=== PATIENT | female | born 1945 | race Caucasian/White ===

== ENCOUNTER 2018-07-11 06:48 | Observation (INO) | payer MEDICARE, SELFPAY ==
[2018-07-11] VITALS (14 sets, daily range): BP systolic 99–181; BP diastolic 54–108; PULSE 67–88; RESP 14–18; TEMP 36.6–36.7; O2SAT 95–100; BMI 23.7; BMI 22.7
--- NOTE | 2018-07-11 07:08 | EKG12_ITS ---
Test Reason : CP Blood Pressure : / mmHG Vent. Rate : 085 BPM Atrial Rate : 085 BPM P-R Int : 168 ms QRS Dur : 086 ms QT Int : 368 ms P-R-T Axes : 060 009 066 degrees QTc Int : 437 ms Sinus rhythm with occasional Premature ventricular complexes Possible Left atrial enlargement Low voltage QRS Borderline ECG Confirmed by ADRIENNE DEVI, SEAN ([id number]), deputy editor in chief KISHAN LOVE ([id number] on 07/13/2018 9:12:17 AM Referred By: EDPHYS Confirmed By:SEAN DELEON MD
[2018-07-11] MEDS: Aspirin 81 MG TAB.CHEW 324 MG PO (07:18)
[2018-07-11] MEDS: 0.9% Normal Saline 1,000 ML 150 ML IV (07:18)
--- NOTE | 2018-07-11 07:20 | RAD_ITS ---
STUDY: X-RAY CHEST REASON FOR EXAM: Female, 72 years old. Chest pain TECHNIQUE: Single AP portable view of the chest. COMPARISON: 04/28/2014 FINDINGS: There are superimposed monitor leads. The lungs are clear and expanded. There is no demonstrated pleural abnormality. Normal size heart. Normal mediastinum and daniela. Normal visualized pulmonary arteries. Normal visualized aortic arch and descending thoracic aorta. Normal visualized thoracic spine. Normal visualized ribs, clavicles, and shoulders. There is no demonstrated abnormality of the visualized soft tissue structures of the upper abdomen. RAD/Chest 1 View (Portable) IMPRESSION: No acute cardiopulmonary disease. No significant interval change. Electronically Signed: Shaina Garcia MD at 7:57 EST , Service support ,
[2018-07-11 07:32] LABS: Absolute Lymphocyte Count 2.48 X10^3/ul (0.83-4.51); Absolute Neutrophil Count 2.8 X10^3/uL (2.0-7.7); Basophil# 0.04 X10^3/uL; Basophil% 0.7 % (0-1); Eosinophil# 0.24 X10^3/uL; Eosinophils% 3.9 % (0-5); Hematocrit 43.3 % (37-47); Hemoglobin 14.5 g/dl (12.0-15.0); Lymphocyte # 2.48 X10^3/ul (4.0); Lymphocyte % 40.3 % (19-41); Mean Corp Hgb Conc 33.5 g/gl (32-36); Mean Corpuscular Hgb 30.6 pg (27.0-32.0); Mean Corpuscular Volume 91.4 fL (81-99); Mean Platelet Vol. 10.1 fl (6.2-12.0); Monocyte# 0.55 X10^3/uL; Monocyte% 8.9 % (0-10); Neutrophil # 2.84 X10^3/uL (2.7-7.7); Neutrophil % 46.2 % (47-70); POSITIVE COUNT NO; POSITIVE DIFFERENTIAL NO; POSITIVE MORPHOLOGY NO; Platelet Count 297 K/mm3 (150-450); RBC Distribution Width CV 12.7 % (11.6-14.6); RBC Distribution Width SD 42.5 fl (35.1-43.9); Red Blood Count 4.74 M/mm3 (4.2-5.4); White Blood Count 6.2 K/mm3 (4.4-11.0)
[2018-07-11] MEDS: Nitroglycerin Oint 1 INCH PACKET TRANSDERM. (07:38)
[2018-07-11 07:45] LABS: Anion Gap 10 (5-15); BUN 21 mg/dL (7-18); BUN/Creat Ratio 25.5 RATIO (10-20); Calcium,Total 9.1 mg/dL (8.5-10.1); Chloride 106 mmol/L (98-107); Creatinine, Serum 0.82 mg/dL (0.55-1.02); EST Glomerular Filtration Rate 72 mL/min (>60); Est Glom Filt Rate - Afr Amer 87 mL/min (>60); Estimated Creatinine Clearance 49.68 ml/min; Glucose 106 mg/dL (74-106); Potassium 3.5 mmol/L (3.5-5.1); Sodium Level 141 mmol/L (136-145)
--- NOTE | 2018-07-11 08:08 | NURSING ---
DR CARTER IN ER
--- NOTE | 2018-07-11 08:12 | ED.VISSUMM ---
- ER Visit Summary Date of Service: 07/11/18 Chief Complaint: [Chest pain] History of Present Illness: The patient is a 72 F [presents to the emergency department with complaint of chest pain that started 2 or 3 days ago. Patient initially had intermittent discomfort across her chest that she described as tightness. The symptoms can come on at any time and do not necessarily seem to be exertional. She feels short of breath and at times feels sweaty. Patient had also discomfort into her left arm. She denies any radiation into her neck or jaw. She denies any pain into her back. Patient denies recent travel or surgery. Patient has no history of DVT or PE. Patient's past medical history includes osteoporosis. Her father had a massive heart attack at the age of 61.] Physical Examination: [HEENT-PERRLA, EOMI. Cranial nerves II through XII grossly intact. TMs clear. Mucous membranes moist. No adenopathy. Cardiovascular-regular rate and rhythm without murmur or ectopy Lungs-clear to auscultation, chest wall stable without crepitus or subcu emphysema Abdomen-normoactive bowel sounds, soft, nontender, no rebound or rigidity, no peritoneal signs. Extremities-intact ?4, normal range of motion, normal pulses, atraumatic] Test Results: [CBC with differential obtained showed a white blood cell count of 6.2, hemoglobin 14, hematocrit 43, placed 297. Chemistries are normal. Troponin was less than 0.015. EKG obtained arrival showed a sinus rhythm with a ventricular rate of 85 bpm with no acute ST segment changes. Chest x-ray was normal.] Emergency Department Course and Treatment: [She was given aspirin in the emergency department and also 1 sublingual nitro which resolved her pain that initially was only about a 1 out of 10.] Patient had an inch of Nitropaste placed to the anterior chest wall. Treatment Plan: [Admit for further workup and evaluation] Disposition: [Admit] Impression: [Chest pain-rule out acute coronary syndrome] This note was generated with [employer] dictation software. It may contain incorrect words, spelling, and punctuation that were not noted in review of the chart prior to signing ED Disposition - Plan for ED Patient: Chief Complaint: Chest Pain Referrals: Kaylie Contreras MD [Primary Care Provider] -
--- NOTE | 2018-07-11 08:15 | NURSING ---
RENEU OBS FERNANDO CARTER
--- NOTE | 2018-07-11 08:42 | EKG12_ITS ---
Test Reason : CP ADMIT Blood Pressure : / mmHG Vent. Rate : 065 BPM Atrial Rate : 065 BPM P-R Int : 164 ms QRS Dur : 086 ms QT Int : 416 ms P-R-T Axes : 047 060 072 degrees QTc Int : 432 ms Normal sinus rhythm Normal ECG Confirmed by FERNANDO DEVI, NICKOLAS ([id number]), rewrite editor KISHAN LOVE ([id number]) on 07/15/2018 10:53:18 AM Referred By: SHIVANI Confirmed By:NICKOLAS KING MD
--- NOTE | 2018-07-11 11:57 | PCM.HP.STD ---
Problem List (1) HLD (hyperlipidemia) Status: Chronic (2) Osteoporosis Status: Chronic (3) Hypertension Status: Chronic History of Present Illness Date of Admission: 07/11/18 Chief Complaint: Chest pain The patient is a 72 year old F who presents emergency room due to chest pain. Patient reports she has had intermittent chest pain over the last 2 days, across her chest. Patient describes pain as a tightness. She describes associated shortness of breath. Pain radiation to left arm. Patient states pain occurs both at rest and with ambulation. She denies aggravating or alleviating factors. She denies dizziness/lightheadedness, nausea, diaphoresis. She denies history of heart disease. She reports she has had stress test in the past, most recently in 2013 which was reported to be normal. She has a past medical history of hypertension, hyperlipidemia, osteoporosis. Past Medical History Past Medical History (Chronic Problems): Chronic Problems HLD (hyperlipidemia) (Chronic) Osteoporosis (Chronic) Hypertension (Chronic) Allergies latex Allergy (Verified 07/11/18 06:54) Rash Home Medications: Ambulatory Orders Medication Instructions Recorded Aspirin [Aspirin, Baby] 81 mg PO DAILY@0800 #30 tab.chew 04/29/14 Alendronate Sodium [Fosamax] 70 mg PO WE 07/11/18 Atorvastatin Calcium [Lipitor] 10 mg PO QHS 07/11/18 Surgical History: - - Tubal ligation Psychiatric History: No pertinent psych hx NEUROSURGICAL PHYSICIAN ASSISTANT History: No pertinent NEUROSURGICAL PHYSICIAN ASSISTANT history Lives: Spouse/ Significant Other Smoking Status: Never smoker Alcohol: Rare Drugs: None - *Family History Maternal History Items: - - Colon cancer Paternal History Items: Heart Disease Review of Systems Constitutional: Denies: Chills, Fever, Weight Change HEENT: Denies: Head Aches, Sinus Congestion, Sinus Drainage Cardiovascular: Reports: Chest Tightness. Denies: Edema, Light Headedness, Palpitations, Syncope Respiratory: Reports: Shortness of Breath. Denies: Cough, Shortness of breath at rest, Sputum production Gastrointestinal: Denies: Abdominal Pain, Nausea, Vomiting Genitourinary: Denies: Dysuria Musculoskeletal: Denies: Joint Pain, Joint Tenderness Skin: Denies: Rash, Wounds Neurological: Denies: Numbness, Tingling, Focal weakness Psychiatric: Denies: Anxiety, Depression, Homicidal Ideations, Suicidal Ideations Hematologic/ Lymphatic: Denies: Easy Bruising, Easy Bleeding VTE Information - Inpt Only VTE Present on Admission: No VTE Mechan Device Prophylaxis: None VTE Pharm Prophylaxis ordered?: Yes - Physical Exam General: Alert, Oriented x3, Cooperative HEENT: Atraumatic, PERRLA, EOMI, Normocephalic Neck: Supple, No JVD, Negative Carotid Bruits Lungs: Clear to auscultation, Normal air movement Cardiovascular: Regular rate, Regular Rhythm, Normal S1, Normal S2, No murmurs Abdomen: Bowel Sounds Present, Soft, Non Tender, Non-Distended Extremities: No clubbing, No cyanosis, No edema, Capillary Refill Less than 3 Seconds Skin: No rashes, No breakdown Musculoskeletal: No Tenderness to Palpation of Joints or Extremities Neurological: Cranial nerves II-XII grossly intact, Neuro grossly intact Psych/Mental Status: Normal Affect, Appropriate Vital Signs Temp Pulse Resp BP Pulse Ox 98.0 F 67 14 102/67 98 07/11/18 09:33 07/11/18 09:33 07/11/18 09:33 07/11/18 09:33 07/11/18 09:33 Oxygen Delivery Method Room Air Weight: 110 lb 10.753 oz Body Mass Index (BMI) 22.7 Laboratory Tests Past 24 Hrs 07/11/18 07/11/18 07/11/18 07:00 07:00 09:56 WBC 6.2 RBC 4.74 Hgb 14.5 Hct 43.3 MCV 91.4 MCH 30.6 MCHC 33.5 RDW 12.7 RDW Differential 42.5 Plt Count 297 MPV 10.1 Immature Gran % (Auto) 0.000 Neut % (Auto) 46.2 L Lymph % (Auto) 40.3 [place] % (Auto) 8.9 Eos % (Auto) 3.9 Baso % (Auto) 0.7 Absolute Neuts (auto) 2.8 Absolute Lymphs (auto) 2.48 Total Counted Not Reportable Sodium 141 Potassium 3.5 Chloride 106 Carbon Dioxide 25.0 Anion Gap 10 BUN 21 H Creatinine 0.82 Estim Creat Clear Calc 49.68 Est GFR (MDRD) Af Amer 87 Est GFR (MDRD) Non-Af 72 BUN/Creatinine Ratio 25.5 H Glucose 106 Calcium 9.1 Troponin I < 0.015 < 0.015 Assessment/Plan 1. Atypical chest pain-EKG without ST-T changes. Troponin negative. Cycle enzymes. Nuclear stress test in a.m. Continue aspirin, statin. Repeat EKG with new onset chest pain. 2. Hypertension-not on home regimen. Patient states her blood pressure is controlled without medication. Blood pressure on admission 160-180s systolically. Now improved. Continue to monitor. 3. Hyperlipidemia-continue statin. 4. Osteoporosis-continue home Fosamax regimen. DVT prophylaxis- heparin sc This patient was seen by SONAL Hwang under the supervision of Dr. Patel.
[2018-07-11] MEDS: Heparin Injection (Vial) 5,000 UNIT/ML VIAL 5000 UNIT SC ×2 (12:07→21:34)
[2018-07-11] MEDS: Acetaminophen 325 MG Tablet 650 MG PO ×2 (12:15→20:25)
--- NOTE | 2018-07-11 15:24 | EKG12_ITS ---
Test Reason : CP Blood Pressure : / mmHG Vent. Rate : 069 BPM Atrial Rate : 069 BPM P-R Int : 164 ms QRS Dur : 084 ms QT Int : 404 ms P-R-T Axes : 042 012 067 degrees QTc Int : 432 ms Normal sinus rhythm Normal ECG Confirmed by FERNANDO DEVI, NICKOLAS ([id number]), acquisition editor KISHAN LOVE ([id number]) on 07/15/2018 10:52:45 AM Referred By: SHIVANI Confirmed By:NICKOLAS KING MD
[2018-07-11] MEDS: Atorvastatin Calcium 10 MG Tablet PO (21:34)
[2018-07-12 00:05] VITALS: BP 116/69; PULSE 69; RESP 18; TEMP 36.7; O2SAT 98
[2018-07-12 03:00] VITALS: PULSE 69
--- NOTE | 2018-07-12 04:00 | EKG12_ITS ---
Test Reason : AM EKG Blood Pressure : / mmHG Vent. Rate : 066 BPM Atrial Rate : 066 BPM P-R Int : 194 ms QRS Dur : 086 ms QT Int : 416 ms P-R-T Axes : 039 043 061 degrees QTc Int : 436 ms Normal sinus rhythm Normal ECG Confirmed by FERNANDO DEVI, NICKOLAS ([id number]), index editor KISHAN LOVE ([id number]) on 07/15/2018 10:52:28 AM Referred By: EMMA Confirmed By:NICKOLAS KING MD
[2018-07-12 04:18] LABS: Prothrombin Time (Protime)PT. 13.3 SECONDS (11.7-14.9)
[2018-07-12 04:20] LABS: Partial Thromboplast Time 68.9 Seconds (24.1-36.2)
[2018-07-12 04:39] LABS: Anion Gap 7 (5-15); BUN 20 mg/dL (7-18); BUN/Creat Ratio 24.9 RATIO (10-20); Calcium,Total 8.6 mg/dL (8.5-10.1); Chloride 110 mmol/L (98-107); EST Glomerular Filtration Rate 74 mL/min (>60); Est Glom Filt Rate - Afr Amer 90 mL/min (>60); Estimated Creatinine Clearance 49.63 ml/min; Glucose 92 mg/dL (74-106); Potassium 4.3 mmol/L (3.5-5.1); Sodium Level 143 mmol/L (136-145)
[2018-07-12 04:40] LABS: Absolute Lymphocyte Count 2.71 X10^3/ul (0.83-4.51); Absolute Neutrophil Count 2.3 X10^3/uL (2.0-7.7); Basophil# 0.03 X10^3/uL; Basophil% 0.5 % (0-1); Eosinophil# 0.25 X10^3/uL; Eosinophils% 4.5 % (0-5); Hematocrit 39.4 % (37-47); Hemoglobin 12.9 g/dl (12.0-15.0); Lymphocyte # 2.71 X10^3/ul (4.0); Lymphocyte % 48.3 % (19-41); Mean Corp Hgb Conc 32.7 g/gl (32-36); Mean Corpuscular Hgb 30.3 pg (27.0-32.0); Mean Corpuscular Volume 92.5 fL (81-99); Monocyte# 0.36 X10^3/uL; Monocyte% 6.4 % (0-10); Neutrophil # 2.26 X10^3/uL (2.7-7.7); Neutrophil % 40.3 % (47-70); POSITIVE COUNT NO; POSITIVE DIFFERENTIAL NO; POSITIVE MORPHOLOGY NO; Platelet Count 255 K/mm3 (150-450); RBC Distribution Width CV 12.8 % (11.6-14.6); RBC Distribution Width SD 42.9 fl (35.1-43.9); Red Blood Count 4.26 M/mm3 (4.2-5.4); White Blood Count 5.6 K/mm3 (4.4-11.0)
[2018-07-12 05:38] VITALS: BP 158/70; PULSE 71; RESP 18; TEMP 36.7; O2SAT 100
[2018-07-12] MEDS: Aspirin 81 MG TAB.CHEW PO (05:41)
[2018-07-12 08:00] VITALS: PULSE 72
--- NOTE | 2018-07-12 08:54 | STRESSREP ---
Stress Test Report Exercise myocardial perfusion stress test. 72-year-old lady with a history of chest pain. Medications: Aspirin, Lipitor,. Stress protocol: Resting EKG demonstrates normal sinus rhythm with a rate of 77 bpm normal intervals are noted resting blood pressure 140/82 mmHg. The patient exercised according to regular Francisco J protocol for total duration of 7 minutes and 15 seconds completing 1 minute and 15 seconds into stage III of the Francisco J protocol. The maximum heart rate attained was 146 bpm which was 99% of maximum predicted heart rate the maximum workload was 8.9 metabolic equivalents. The patient maintained sinus rhythm throughout the recording. At rest there were no ST or T wave changes noted suggest ischemia occasional premature ventricular complexes were noted. The resting blood pressure 140/82 mmHg with a peak blood pressure 152/84 mmHg. No clinical angina was noted the test was terminated due to leg fatigue. Myocardial perfusion protocol. 11.1 mCi of technetium 99m sestamibi was injected at rest. The patient exercised for 7 minutes and 15 seconds at peak exercise 33.4 mCi of technetium 99m sestamibi was injected stress images were obtained stress and rest images were reconstructed and compared in the short axis vertical long and horizontal long axis. Gated images were also obtained per Perfusion SPECT analysis: Review of the stress images demonstrate normal uptake of tracer noted in all areas of the myocardium. The resting images similarly demonstrate normal uptake of tracer noted in all areas of the myocardium. No areas of reversibility are noted to suggest ischemia and no previous infarct is noted. Gated SPECT analysis: The gated ejection fraction is noted to be 88%. Conclusion: Normal exercise myocardial perfusion stress test at a moderate workload. Preserved ejection fraction.
[2018-07-12 08:56] VITALS: BP 115/71; PULSE 71; RESP 16; TEMP 36.7; O2SAT 97
--- NOTE | 2018-07-12 10:43 | DCINST_ITS ---
- Discharge Diagnoses Current Active Problems: Current Active and Chronic Problems HLD (hyperlipidemia) (Chronic) Osteoporosis (Chronic) You will use the following diet at home:: No restrictions Discharge Activity: Return to Normal Activity Call your doctor if you observe: Shortness of breath, Dizziness, Fainting spells, Chest pain Allergies/Adverse Reactions: Allergies latex Allergy (Verified 07/11/18 06:54) Rash Medications to take at Discharge Aspirin [Aspirin, Baby] 81 mg PO DAILY@0800 #30 tab.chew 04/29/14 Alendronate Sodium [Fosamax] 70 mg PO WE 07/11/18 Atorvastatin Calcium [Lipitor] 10 mg PO QHS 07/11/18 Primary Care Physician: Kaylie Contreras MD [Primary Care Provider] - Please follow up with your Primary Care Physician in: 1 Week Test Results: Test results from this visit will be discussed in further detail at your follow- up appointment, if applicable. Proposed Discharge Date: 07/12/18
--- NOTE | 2018-07-12 10:43 | PCM.DC.SUM ---
<Nessa Chiu - Last Filed: 07/12/18 10:49> Discharge Date and Diagnosis Date of Admission: 07/11/18 Date of Discharge: 07/12/18 - Primary Discharge Diagnosis 1. Atypical chest pain, ACS ruled out 2. Hyperlipidemia 3. Osteoporosis - Secondary Discharge Diagnosis Chronic Problems HLD (hyperlipidemia) (Chronic) Osteoporosis (Chronic) Hypertension (Chronic) Hospital Course and Treatment Imaging Results: Diagnostic Data Chest X-Ray 07/11/18 07:20 IMPRESSION: No acute cardiopulmonary disease. No significant interval change. Electronically Signed: Shaina Garcia MD at 7:57 EST , Service support , Operations: None Procedures: Stress test Summary of Care Provided: The patient is a 72 year old F admitted 07/11/2018 due to chest pain. 1. Atypical chest pain, ACS ruled out-EKG without ST-T changes. Troponin negative. Nuclear stress test negative for ischemia. Continue aspirin, statin. Follow-up with primary care physician in 1 week. 2. Elevated blood pressure-Blood pressure on admission 160-180s systolically. Improved without medication intervention. Continue to monitor on outpatient basis. 3. Hyperlipidemia-continue statin. 4. Osteoporosis-continue home Fosamax regimen. General: Alert, Oriented x3, Cooperative HEENT: Atraumatic, PERRLA, EOMI, Normocephalic Neck: Supple, No JVD, Negative Carotid Bruits Lungs: Clear to auscultation, Normal air movement Cardiovascular: Regular rate, Regular Rhythm, Normal S1, Normal S2, No murmurs Abdomen: Bowel Sounds Present, Soft, Non Tender, Non-Distended Extremities: No clubbing, No cyanosis, No edema, Capillary Refill Less than 3 Seconds Skin: No rashes, No breakdown Musculoskeletal: No Tenderness to Palpation of Joints or Extremities Neurological: Cranial nerves II-XII grossly intact, Neuro grossly intact Psych/Mental Status: Normal Affect, Appropriate Patient seen and examined prior to discharge. Physical assessment as noted above. Patient is stable for discharge with follow up recommendations as noted above. This patient was seen by SONAL Hwang under the supervision of Dr. Crawley. - Physical Exam Vital Signs Temp Pulse Resp BP Pulse Ox 98.1 F 71 16 115/71 97 07/12/18 08:56 07/12/18 08:56 07/12/18 08:56 07/12/18 08:56 07/12/18 08:56 Oxygen Delivery Method Room Air Weight: 110 lb 10.753 oz Body Mass Index (BMI) 22.7 Intake and Output for Last 24 Hours 07/10/18 07/11/18 07/12/18 23:59 23:59 23:59 Intake Total 460 / 460 Balance 460 / 460 Laboratory Tests Past 24 Hrs 07/11/18 07/12/18 07/12/18 13:00 04:04 04:04 WBC 5.6 RBC 4.26 Hgb 12.9 Hct 39.4 MCV 92.5 MCH 30.3 MCHC 32.7 RDW 12.8 RDW Differential 42.9 Plt Count 255 MPV 10.0 Immature Gran % (Auto) 0.000 Neut % (Auto) 40.3 L Lymph % (Auto) 48.3 H [place] % (Auto) 6.4 Eos % (Auto) 4.5 Baso % (Auto) 0.5 Absolute Neuts (auto) 2.3 Absolute Lymphs (auto) 2.71 Total Counted Not Reportable PT 13.3 INR 1.0 APTT 68.9 H Sodium Potassium Chloride Carbon Dioxide Anion Gap BUN Creatinine Estim Creat Clear Calc Est GFR (MDRD) Af Amer Est GFR (MDRD) Non-Af BUN/Creatinine Ratio Glucose Calcium Troponin I < 0.015 07/12/18 04:04 WBC RBC Hgb Hct MCV MCH MCHC RDW RDW Differential Plt Count MPV Immature Gran % (Auto) Neut % (Auto) Lymph % (Auto) [place] % (Auto) Eos % (Auto) Baso % (Auto) Absolute Neuts (auto) Absolute Lymphs (auto) Total Counted PT INR APTT Sodium 143 Potassium 4.3 Chloride 110 H Carbon Dioxide 26.0 Anion Gap 7 BUN 20 H Creatinine 0.80 Estim Creat Clear Calc 49.63 Est GFR (MDRD) Af Amer 90 Est GFR (MDRD) Non-Af 74 BUN/Creatinine Ratio 24.9 H Glucose 92 Calcium 8.6 Troponin I Discharge Diet: Low fat/ Low Cholesterol Discharge Activity: Return to Normal Activity Call your doctor if you observe: Shortness of breath, Dizziness, Fainting spells, Chest pain Home Medications: Medications to take at Discharge Aspirin [Aspirin, Baby] 81 mg PO DAILY@0800 #30 tab.chew 04/29/14 Alendronate Sodium [Fosamax] 70 mg PO WE 07/11/18 Atorvastatin Calcium [Lipitor] 10 mg PO QHS 07/11/18 Primary Care Physician: Kaylie Contreras MD [Primary Care Provider] - Please follow up with your Primary Care Physician in: 1 Week Disposition: Home Minutes spent on discharge:: 35 Patient Condition:: Stable Medical Necessity - Tobacco Use Smoking Status: Never smoker Meaningful Use Info Meaningful Use Diagnoses (Choose all that apply): None applicable <Angel Crawley E - Last Filed: 07/12/18 13:31> Discharge Date and Diagnosis - Secondary Discharge Diagnosis Chronic Problems HLD (hyperlipidemia) (Chronic) Osteoporosis (Chronic) Hypertension (Chronic) Hospital Course and Treatment Imaging Results: 07/12/18 05:55 Nuclear Stress Test - Treadmil [NM] AM (NON MEDS) Summary of Care Provided: Hospitalist note: Discharge summary above reviewed as well as physical examination and I agree with above discharge plan. Patient was admitted for atypical chest pain for evaluation. Her cardiac workup was unremarkable. EKG revealed no acute ischemic changes. Troponin was negative x3. Chest x-ray showed no acute findings. Her routine blood work was unremarkable. She underwent nuclear stress test that was negative for stress-induced myocardial ischemia. Acute coronary syndrome ruled out. On admission, her blood pressure was elevated. She was continued on her home medications and her blood pressure improved without any medications. Patient discharged home in a stable medical condition, discharged on aspirin and statins, recommended to monitor blood pressure, follow-up with PCP in 1 week. - Physical Exam General: Alert, Oriented x3, Cooperative, No apparent distress. HEENT: Atraumatic, PERRLA, EOMI. Neck: Supple, No JVD, Negative Carotid Bruits, Trachea Midline, Thyroid Normal. Lungs: Clear to auscultation, Normal air movement, No rhonchi, No wheeze, No rales. Cardiovascular: Regular rate, Regular Rhythm, Normal S1, Normal S2, PMI Normal. Abdomen: Bowel Sounds Present, Soft, Non Tender, Non-Distended, No Hepato-splenomegaly. Extremities: No clubbing, No cyanosis, No edema Skin: No rashes, No breakdown Neurological: Neuro grossly intact Vital Signs are stable. This note was generated with [employer] dictation software. It may contain incorrect words, spelling, and punctuation that were not noted in checking the note before signing. - Physical Exam Vital Signs Temp Pulse Resp BP Pulse Ox 98.1 F 71 16 115/71 97 07/12/18 08:56 07/12/18 08:56 07/12/18 08:56 07/12/18 08:56 07/12/18 08:56 Oxygen Delivery Method Room Air Weight: 110 lb 10.753 oz Body Mass Index (BMI) 22.7 Intake and Output for Last 24 Hours 07/10/18 07/11/18 07/12/18 23:59 23:59 23:59 Intake Total 460 / 460 Balance 460 / 460 Laboratory Tests Past 24 Hrs 07/11/18 07/12/18 07/12/18 13:00 04:04 04:04 WBC 5.6 RBC 4.26 Hgb 12.9 Hct 39.4 MCV 92.5 MCH 30.3 MCHC 32.7 RDW 12.8 RDW Differential 42.9 Plt Count 255 MPV 10.0 Immature Gran % (Auto) 0.000 Neut % (Auto) 40.3 L Lymph % (Auto) 48.3 H [place] % (Auto) 6.4 Eos % (Auto) 4.5 Baso % (Auto) 0.5 Absolute Neuts (auto) 2.3 Absolute Lymphs (auto) 2.71 Total Counted Not Reportable PT 13.3 INR 1.0 APTT 68.9 H Sodium Potassium Chloride Carbon Dioxide Anion Gap BUN Creatinine Estim Creat Clear Calc Est GFR (MDRD) Af Amer Est GFR (MDRD) Non-Af BUN/Creatinine Ratio Glucose Calcium Troponin I < 0.015 07/12/18 04:04 WBC RBC Hgb Hct MCV MCH MCHC RDW RDW Differential Plt Count MPV Immature Gran % (Auto) Neut % (Auto) Lymph % (Auto) [place] % (Auto) Eos % (Auto) Baso % (Auto) Absolute Neuts (auto) Absolute Lymphs (auto) Total Counted PT INR APTT Sodium 143 Potassium 4.3 Chloride 110 H Carbon Dioxide 26.0 Anion Gap 7 BUN 20 H Creatinine 0.80 Estim Creat Clear Calc 49.63 Est GFR (MDRD) Af Amer 90 Est GFR (MDRD) Non-Af 74 BUN/Creatinine Ratio 24.9 H Glucose 92 Calcium 8.6 Troponin I Disposition: Home Minutes spent on discharge:: 24 Patient Condition:: Stable Meaningful Use Info Meaningful Use Diagnoses (Choose all that apply): None applicable Code Visit OBSV E&M: 45054 Observation care discharge
--- NOTE | 2018-07-12 10:47 | DS.PCM_ITS ---
<Nessa Chiu - Last Filed: 07/12/18 10:49> Discharge Date and Diagnosis Date of Admission: 07/11/18 Date of Discharge: 07/12/18 - Primary Discharge Diagnosis 1. Atypical chest pain, ACS ruled out 2. Hyperlipidemia 3. Osteoporosis - Secondary Discharge Diagnosis Chronic Problems HLD (hyperlipidemia) (Chronic) Osteoporosis (Chronic) Hypertension (Chronic) Hospital Course and Treatment Imaging Results: Diagnostic Data Chest X-Ray 07/11/18 07:20 IMPRESSION: No acute cardiopulmonary disease. No significant interval change. Electronically Signed: Shaina Garcia MD at 7:57 EST , Service support , Operations: None Procedures: Stress test Summary of Care Provided: The patient is a 72 year old F admitted 07/11/2018 due to chest pain. 1. Atypical chest pain, ACS ruled out-EKG without ST-T changes. Troponin negative. Nuclear stress test negative for ischemia. Continue aspirin, statin. Follow-up with primary care physician in 1 week. 2. Elevated blood pressure-Blood pressure on admission 160-180s systolically. Improved without medication intervention. Continue to monitor on outpatient basis. 3. Hyperlipidemia-continue statin. 4. Osteoporosis-continue home Fosamax regimen. General: Alert, Oriented x3, Cooperative HEENT: Atraumatic, PERRLA, EOMI, Normocephalic Neck: Supple, No JVD, Negative Carotid Bruits Lungs: Clear to auscultation, Normal air movement Cardiovascular: Regular rate, Regular Rhythm, Normal S1, Normal S2, No murmurs Abdomen: Bowel Sounds Present, Soft, Non Tender, Non-Distended Extremities: No clubbing, No cyanosis, No edema, Capillary Refill Less than 3 Seconds Skin: No rashes, No breakdown Musculoskeletal: No Tenderness to Palpation of Joints or Extremities Neurological: Cranial nerves II-XII grossly intact, Neuro grossly intact Psych/Mental Status: Normal Affect, Appropriate Patient seen and examined prior to discharge. Physical assessment as noted above. Patient is stable for discharge with follow up recommendations as noted above. This patient was seen by SONAL Hwang under the supervision of Dr. Crawley. - Physical Exam Vital Signs Temp Pulse Resp BP Pulse Ox 98.1 F 71 16 115/71 97 07/12/18 08:56 07/12/18 08:56 07/12/18 08:56 07/12/18 08:56 07/12/18 08:56 Oxygen Delivery Method Room Air Weight: 110 lb 10.753 oz Body Mass Index (BMI) 22.7 Intake and Output for Last 24 Hours 07/10/18 07/11/18 07/12/18 23:59 23:59 23:59 Intake Total 460 / 460 Balance 460 / 460 Laboratory Tests Past 24 Hrs 07/11/18 07/12/18 07/12/18 13:00 04:04 04:04 WBC 5.6 RBC 4.26 Hgb 12.9 Hct 39.4 MCV 92.5 MCH 30.3 MCHC 32.7 RDW 12.8 RDW Differential 42.9 Plt Count 255 MPV 10.0 Immature Gran % (Auto) 0.000 Neut % (Auto) 40.3 L Lymph % (Auto) 48.3 H [place] % (Auto) 6.4 Eos % (Auto) 4.5 Baso % (Auto) 0.5 Absolute Neuts (auto) 2.3 Absolute Lymphs (auto) 2.71 Total Counted Not Reportable PT 13.3 INR 1.0 APTT 68.9 H Sodium Potassium Chloride Carbon Dioxide Anion Gap BUN Creatinine Estim Creat Clear Calc Est GFR (MDRD) Af Amer Est GFR (MDRD) Non-Af BUN/Creatinine Ratio Glucose Calcium Troponin I < 0.015 07/12/18 04:04 WBC RBC Hgb Hct MCV MCH MCHC RDW RDW Differential Plt Count MPV Immature Gran % (Auto) Neut % (Auto) Lymph % (Auto) [place] % (Auto) Eos % (Auto) Baso % (Auto) Absolute Neuts (auto) Absolute Lymphs (auto) Total Counted PT INR APTT Sodium 143 Potassium 4.3 Chloride 110 H Carbon Dioxide 26.0 Anion Gap 7 BUN 20 H Creatinine 0.80 Estim Creat Clear Calc 49.63 Est GFR (MDRD) Af Amer 90 Est GFR (MDRD) Non-Af 74 BUN/Creatinine Ratio 24.9 H Glucose 92 Calcium 8.6 Troponin I Discharge Diet: Low fat/ Low Cholesterol Discharge Activity: Return to Normal Activity Call your doctor if you observe: Shortness of breath, Dizziness, Fainting spells, Chest pain Home Medications: Medications to take at Discharge Aspirin [Aspirin, Baby] 81 mg PO DAILY@0800 #30 tab.chew 04/29/14 Alendronate Sodium [Fosamax] 70 mg PO WE 07/11/18 Atorvastatin Calcium [Lipitor] 10 mg PO QHS 07/11/18 Primary Care Physician: Kaylie Contreras MD [Primary Care Provider] - Please follow up with your Primary Care Physician in: 1 Week Disposition: Home Minutes spent on discharge:: 35 Patient Condition:: Stable Medical Necessity - Tobacco Use Smoking Status: Never smoker Meaningful Use Info Meaningful Use Diagnoses (Choose all that apply): None applicable <Angel Crawley E - Last Filed: 07/12/18 13:31> Discharge Date and Diagnosis - Secondary Discharge Diagnosis Chronic Problems HLD (hyperlipidemia) (Chronic) Osteoporosis (Chronic) Hypertension (Chronic) Hospital Course and Treatment Imaging Results: 07/12/18 05:55 Nuclear Stress Test - Treadmil [NM] AM (NON MEDS) Summary of Care Provided: Hospitalist note: Discharge summary above reviewed as well as physical examination and I agree with above discharge plan. Patient was admitted for atypical chest pain for evaluation. Her cardiac workup was unremarkable. EKG revealed no acute ischemic changes. Troponin was negative x3. Chest x-ray showed no acute findings. Her routine blood work was unremarkable. She underwent nuclear s tress test that was negative for stress-induced myocardial ischemia. Acute coronary syndrome ruled out. On admission, her blood pressure was elevated. She was continued on her home medications and her blood pressure improved without any medications. Patient discharged home in a stable medical condition, discharged on aspirin and statins, recommended to monitor blood pressure, follow-up with PCP in 1 week. - Physical Exam General: Alert, Oriented x3, Cooperative, No apparent distress. HEENT: Atraumatic, PERRLA, EOMI. Neck: Supple, No JVD, Negative Carotid Bruits, Trachea Midline, Thyroid Normal. Lungs: Clear to auscultation, Normal air movement, No rhonchi, No wheeze, No rales. Cardiovascular: Regular rate, Regular Rhythm, Normal S1, Normal S2, PMI Normal. Abdomen: Bowel Sounds Present, Soft, Non Tender, Non-Distended, No Hepato- splenomegaly. Extremities: No clubbing, No cyanosis, No edema Skin: No rashes, No breakdown Neurological: Neuro grossly intact Vital Signs are stable. This note was generated with [employer] dictation software. It may contain incorrect words, spelling, and punctuation that were not noted in checking the note before signing. - Physical Exam Vital Signs Temp Pulse Resp BP Pulse Ox 98.1 F 71 16 115/71 97 07/12/18 08:56 07/12/18 08:56 07/12/18 08:56 07/12/18 08:56 07/12/18 08:56 Oxygen Delivery Method Room Air Weight: 110 lb 10.753 oz Body Mass Index (BMI) 22.7 Intake and Output for Last 24 Hours 07/10/18 07/11/18 07/12/18 23:59 23:59 23:59 Intake Total 460 / 460 Balance 460 / 460 Laboratory Tests Past 24 Hrs 07/11/18 07/12/18 07/12/18 13:00 04:04 04:04 WBC 5.6 RBC 4.26 Hgb 12.9 Hct 39.4 MCV 92.5 MCH 30.3 MCHC 32.7 RDW 12.8 RDW Differential 42.9 Plt Count 255 MPV 10.0 Immature Gran % (Auto) 0.000 Neut % (Auto) 40.3 L Lymph % (Auto) 48.3 H [place] % (Auto) 6.4 Eos % (Auto) 4.5 Baso % (Auto) 0.5 Absolute Neuts (auto) 2.3 Absolute Lymphs (auto) 2.71 Total Counted Not Reportable PT 13.3 INR 1.0 APTT 68.9 H Sodium Potassium Chloride Carbon Dioxide Anion Gap BUN Creatinine Estim Creat Clear Calc Est GFR (MDRD) Af Amer Est GFR (MDRD) Non-Af BUN/Creatinine Ratio Glucose Calcium Troponin I < 0.015 07/12/18 04:04 WBC RBC Hgb Hct MCV MCH MCHC RDW RDW Differential Plt Count MPV Immature Gran % (Auto) Neut % (Auto) Lymph % (Auto) [place] % (Auto) Eos % (Auto) Baso % (Auto) Absolute Neuts (auto) Absolute Lymphs (auto) Total Counted PT INR APTT Sodium 143 Potassium 4.3 Chloride 110 H Carbon Dioxide 26.0 Anion Gap 7 BUN 20 H Creatinine 0.80 Estim Creat Clear Calc 49.63 Est GFR (MDRD) Af Amer 90 Est GFR (MDRD) Non-Af 74 BUN/Creatinine Ratio 24.9 H Glucose 92 Calcium 8.6 Troponin I Disposition: Home Minutes spent on discharge:: 24 Patient Condition:: Stable Meaningful Use Info Meaningful Use Diagnoses (Choose all that apply): None applicable Code Visit OBSV E&M: 83248 Observation care discharge
== END 2018-07-12 10:42 | disposition home or self-care (01) ==
LOC: ED 07:33 → PCU 08:35
PROVIDERS: Admitting Provider Internal Medicine; Emergency Provider Emergency Medicine; Family Provider Internal Medicine; PCP Internal Medicine; Visit Provider Hospitalist
DX: R07.89 Other chest pain (principal); E78.5 Hyperlipidemia, unspecified; M81.0 Age-related osteoporosis without current pathological fracture; Z79.899 Other long term (current) drug therapy; Z79.82 Long term (current) use of aspirin; I10 Essential (primary) hypertension; R06.02 Shortness of breath; Z82.49 Family history of ischemic heart disease and other diseases of the circulatory system
CPT/HCPCS: 36415; 71045; 78452; 80048; 84484; 85025; 85610; 85730; 93005; 93017; 96360; 96361; 96372; 99218; 99285; A9500; A4216; G0378

== ENCOUNTER 2021-02-09 17:21 | Inpatient (IN) | payer MEDICARE, SELFPAY ==
[2020-01-20 14:38] VITALS: BMI 22.7
[2021-02-09] VITALS (7 sets, daily range): BP systolic 121–146; BP diastolic 69–87; PULSE 74–90; RESP 16–30; TEMP 36.7–38; O2SAT 89–99; BMI 21.3; BMI 21.8
--- NOTE | 2021-02-09 18:04 | EKG12_ITS ---
Test Reason : COUGH Blood Pressure : / mmHG Vent. Rate : 088 BPM Atrial Rate : 088 BPM P-R Int : 152 ms QRS Dur : 090 ms QT Int : 374 ms P-R-T Axes : 031 034 070 degrees QTc Int : 452 ms Normal sinus rhythm Normal ECG Confirmed by FERNANDO DEVI, NICKOLAS ([id number]), editor news LINSEY SMITH ([id number]) on 02/13/2021 9:30:26 AM Referred By: NAMAN Confirmed By:NICKOLSA KING MD
--- NOTE | 2021-02-09 18:05 | ED.VIS.DYS ---
HPI History of Present Illness Chief Complaint: Cough Narrative Narrative: 75-year-old female presenting with cough, mild dyspnea, body aches for about 5 days. Patient denies a fever at home. She has no sick contacts. She denies change in taste or smell. She does complain of diarrhea for 5 days. Patient also complaining of vomiting which occurred today. Patient was having limited ability to hold down p.o. food and fluids. She denies urinary complaints. She denies vaginal complaints. She does not have abdominal pain. Patient concerned that she might have bronchitis. She states he is not a smoker. She states her only medical problems are hyperlipidemia and hypertension. Patient states that she has not had a COVID-19 vaccination and states that she does not want this because she does not trust it. [facility] Medical History Hyperlipidemia Hypertension Home Medications atorvastatin 10 mg PO QHS 07/11/18 [History Last Taken 07/10/18 10:00] Allergy/AdvReac Type Severity Reaction Status Date / Time No Known Allergies Allergy Verified 02/09/21 17:22 Family History Mother Colon cancer Father Myocardial infarction, Onset Age: 61 Social History Smoking Status: Never smoker alcohol intake: never substance use type: does not use caffeine: Yes what type of physical activity do you participate in: walking seatbelt use: always do you feel safe at home: Yes additional social history: Matthew- Both are retired [employer] ROS ED Constitutional Constitutional ED: Reports chills; Denies fever(s) or weight loss Eyes Eyes: Denies blurry vision or diplopia ENT ENT ED: Denies rhinorrhea or sore throat Cardiovascular Cardiovascular: Denies chest pain, orthopnea or palpitations Respiratory/Chest Respiratory/Chest: Reports cough and dyspnea; Denies orthopnea or sputum Gastrointestinal Gastrointestinal: Reports diarrhea, nausea and vomiting; Denies abdominal pain Genitourinary Genitourinary ED: Denies dysuria or hematuria Musculoskeletal Musculoskeletal: Reports myalgias; Denies arthralgias, back pain or neck pain Integumentary Denies abscess or rash Neurologic Neurologic: Denies headache(s) or weakness EXAM Physical Exam Const Vital Signs: 02/09/21 17:22 02/09/21 18:39 02/09/21 19:53 Temperature 98.5 F Temperature Source Temporal Pulse Rate 77 74 Respiratory Rate 18 30 H Respiratory Effort Normal Non-Labored Respiratory Depth Normal Respiratory Pattern Normal Blood Pressure 145/69 H Blood Pressure Mean 94 Pulse Ox 95 92 Oxygen Delivery Method Room Air Room Air 02/09/21 21:00 Temperature Temperature Source Pulse Rate 85 Respiratory Rate Respiratory Effort Respiratory Depth Respiratory Pattern Blood Pressure Blood Pressure Mean Pulse Ox 89 Oxygen Delivery Method Room Air Positive well nourished General Appearance ED: NAD; Negative for pallor HEENT Reports moist mucous membranes atraumatic Eyes PERRL and EOMs intact bilaterally Neck No no lymphadenopathy, supple, No no meningeal signs and No no JVD General: Negative for tenderness or other Resp normal respiratory effort Resp Narrative: Bibasilar crackles. Auscultation: Negative for wheezes GI non-tender and non-distended Palpation: soft Extremity normal to inspection Neuro oriented x3, CN's II-XII intact bilaterally and no sensory deficits noted Sensorium / Orientation: alert Motor Exam: strength 5/5 throughout Psych mental status grossly normal Thought Process: normal thought process Skin General Skin Exam: Negative for jaundice or pallor Lesions: no lesions Rashes: no rashes MDM MDM MDM Narrative Medical decision making narrative: Patient presenting with cough, myalgias, chills, decreased p.o. intake for 5 days. Patient states he did have nausea and vomiting today. Patient has not had a fever at home. Blood work today shows that she has a white blood cell count of 4.4, hemoglobin 12.9, medical 37.2, platelets normal. She is lymphopenic. Renal function is normal. LFTs are also normal. Troponin is 18.6. EKG on my interpretation shows a normal sinus rhythm with a ventricular rate of 88 bpm. There are no ST elevations, depressions, dysrhythmias. Chest x-ray on my interpretation shows bilateral patchy infiltrates and the radiologist does agree. Patient had elevated D-dimer at 0.87 and did have a CTA of the chest performed and on the radiologist interpretation there is multifocal bilateral opacities which could represent multifocal pneumonia. Patient's COVID-19 test is positive. Patient was ambulated on pulse ox and dropped to 89% on room air and did feel very dyspneic and weak and started coughing. Patient was discussed with the hospitalist and she was amenable to admission. Patient did get Decadron in the ED. Patient will be admitted to the medical floor in stable condition. Impression: 1. COVID-19 pneumonia 2. Generalized weakness Lab Data Attestation: I reviewed the patient's lab results. Labs: Laboratory Results - last 24 hr 02/09/21 02/09/21 02/09/21 18:10 18:10 18:10 WBC 4.4 RBC 4.21 Hgb 12.9 Hct 37.2 MCV 88.4 MCH 30.6 MCHC 34.7 RDW Std Deviation 38.5 RDW Coeff of [place] 11.9 Plt Count 155 MPV 10.4 Immature Gran % (Auto) 0.500 Neut % (Auto) 82.6 H Lymph % (Auto) 11.2 L [place] % (Auto) 5.7 Eos % (Auto) 0.0 Baso % (Auto) 0.0 Absolute Neuts (auto) 3.6 Absolute Lymphs (auto) 0.49 L Nucleated RBC % 0 Differential Comment SEE COMMENT Platelet Estimate ADEQUATE Plt Morphology Comment LARGE RBC Morphology N CHROM Anisocytosis RARE D-Dimer Quant (PE/DVT) 0.87 H* Sodium 132 L Potassium 3.2 L Chloride 97 L Carbon Dioxide 26.0 Anion Gap 9 BUN 10 Creatinine 0.56 Estim Creat Clear Calc 34.96 Est GFR (MDRD) Af Amer 135 Est GFR (MDRD) Non-Af 112 BUN/Creatinine Ratio 17.9 Glucose 107 H Calcium 8.1 L Total Bilirubin 0.50 AST 35 ALT 32 Alkaline Phosphatase 50 Troponin I High Sens 18.6 Total Protein 6.9 Albumin 3.2 Globulin 3.7 Albumin/Globulin Ratio 0.9 Procalcitonin COVID-19 ([facility]) 02/09/21 02/09/21 18:10 18:15 WBC RBC Hgb Hct MCV MCH MCHC RDW Std Deviation RDW Coeff of [place] Plt Count MPV Immature Gran % (Auto) Neut % (Auto) Lymph % (Auto) [place] % (Auto) Eos % (Auto) Baso % (Auto) Absolute Neuts (auto) Absolute Lymphs (auto) Nucleated RBC % Differential Comment Platelet Estimate Plt Morphology Comment RBC Morphology Anisocytosis D-Dimer Quant (PE/DVT) Sodium Potassium Chloride Carbon Dioxide Anion Gap BUN Creatinine Estim Creat Clear Calc Est GFR (MDRD) Af Amer Est GFR (MDRD) Non-Af BUN/Creatinine Ratio Glucose Calcium Total Bilirubin AST ALT Alkaline Phosphatase Troponin I High Sens Total Protein Albumin Globulin Albumin/Globulin Ratio Procalcitonin 0.05 COVID-19 ([facility]) Detected Radiography Diagnostic Testing: Radiology Impression Chest X-Ray 02/09/21 18:30 IMPRESSION: Bilateral interstitial opacities may represent edema and/or infection. Electronically Signed: Braulio Jean MD at 18:58 EDT Tel , Service support , Chest CTA 02/09/21 19:35 IMPRESSION: Normal CTA chest examination, without a demonstrated pulmonary embolism or arterial dissection. COPD. Mild widespread bilateral patchy pulmonary opacities, which could represent multifocal pneumonia. Electronically Signed: Blaine Gomez MD at 20:41 EDT , Service support , Discharge Plan Triage Chief Complaint: Cough ED Provider: Mio Claudio Dx/Rx/DC Orders Prescriptions: No Action atorvastatin 10 MG tablet 10 mg PO QHS RF: 0 Primary Care Provider: Kaylie Contreras
--- NOTE | 2021-02-09 18:30 | RAD_ITS ---
INDICATION: cough EXAMINATION/TECHNIQUE: X-RAY - XR Chest 1 View COMPARISON: 07/11/2018 FINDINGS: Bilateral interstitial opacities. The cardiomediastinal silhouette is unremarkable. No pleural effusion or pneumothorax. No acute osseous abnormalities. RAD/Chest 1 View (Portable) IMPRESSION: Bilateral interstitial opacities may represent edema and/or infection. Electronically Signed: Braulio Jean MD at 18:58 EDT Tel , Service support ,
[2021-02-09 18:38] LABS: Absolute Lymphocyte Count 0.49 X10^3/uL (0.83-4.51); Absolute Neutrophil Count 3.6 X10^3/uL (2.0-7.7); Hematocrit 37.2 % (37-47); Hemoglobin 12.9 g/dL (12.0-15.0); Lymphocyte # 0.49 X10^3/ul (0.83-4.51); Lymphocyte % 11.2 % (19-41); Mean Corp Hgb Conc 34.7 g/dL (32-36); Mean Corpuscular Hgb 30.6 pg (27.0-32.0); Mean Corpuscular Volume 88.4 fL (81-99); Mean Platelet Vol. 10.4 fl (6.2-12.0); Monocyte# 0.25 X10^3/uL; Monocyte% 5.7 % (0-10); NRBC Flagged by Analyzer 0 % (0-5); Neutrophil # 3.62 X10^3/uL (2.7-7.7); Neutrophil % 82.6 % (47-70); POSITIVE DIFFERENTIAL YES; Platelet Count 155 K/mm3 (150-450); RBC Distribution Width CV 11.9 % (11.6-14.6); RBC Distribution Width SD 38.5 fl (35.1-43.9); Red Blood Count 4.21 M/mm3 (4.2-5.4); White Blood Count 4.4 K/mm3 (4.4-11.0)
[2021-02-09 18:51] LABS: ALB/GLOB Ratio 0.9 RATIO (0.9-2.4); AST(SGOT) 35 U/L (15-37); Alanine Aminotransfer ALT/SGPT 32 U/L (13-56); Albumin, Serum 3.2 g/dL (3.2-5.0); Alkaline Phosphatase 50 U/L (45-117); Anion Gap 9 (5-15); BUN 10 mg/dL (7-18); BUN/Creat Ratio 17.9 RATIO (10-20); Calcium,Total 8.1 mg/dL (8.5-10.1); Chloride 97 mmol/L (98-107); Creatinine, Serum 0.56 mg/dL (0.55-1.02); EST Glomerular Filtration Rate 112 mL/min (>60); Est Glom Filt Rate - Afr Amer 135 mL/min (>60); Estimated Creatinine Clearance 34.96 ml/min; Globulin 3.7 g/dL (2.2-4.2); Glucose 107 mg/dL (74-106); Potassium 3.2 mmol/L (3.5-5.1); Protein, Total 6.9 g/dL (6.4-8.2); Sodium Level 132 mmol/L (136-145); Troponin-I HS 18.6 pg/mL (3.0-53.7)
[2021-02-09 18:57] LABS: Procalcitonin 0.05 ng/mL (0.00-0.09)
[2021-02-09 19:23] LABS: Differential Indicated SCAN CRITERIA MET
[2021-02-09 19:35] LABS: D-Dimer Quantitative (DVT/PE) 0.87 FEU/ug/m (0.27-0.49)
--- NOTE | 2021-02-09 19:35 | CT_ITS ---
STUDY: CTA CHEST REASON FOR EXAM: Female, 75 years old. Elevated D-dimer RADIATION DOSAGE (If Supplied By Facility): CTDIvol = ( 5.30 ) mGy, DLP = ( 148.49 ) mGycm TECHNIQUE: The examination was performed with the intravenous administration of IV 75mL Isovue-370. Post-processing of the angiographic images was performed, with multiplanar reformation and 3D reconstruction. Individualized dose optimization techniques were used for this CT. COMPARISON: None. FINDINGS: Normal enhancement of the main pulmonary artery and right and left pulmonary arteries. Normal enhancement of the bilateral peripheral pulmonary arteries. There is no demonstrated pulmonary embolism. Normal thoracic aorta and visualized great vessels. There is no demonstrated aortic dissection. Normal heart and pericardium. There are calcifications of the coronary arteries. Normal mediastinum. Normal hilar regions. Normal visualized trachea and bronchi. The lungs are hyper expanded, with flattening of the hemidiaphragms. There are bilateral widespread streaky and patchy pulmonary opacities consistent with mild nonspecific multifocal pneumonia. No effusions. Normal osseous structures. Normal visualized upper abdomen. CT/CTA Chest W/WO Contrast IMPRESSION: Normal CTA chest examination, without a demonstrated pulmonary embolism or arterial dissection. COPD. Mild widespread bilateral patchy pulmonary opacities, which could represent multifocal pneumonia. Electronically Signed: Blaine Gomez MD at 20:41 EDT , Service support ,
[2021-02-09 19:54] LABS: Anisocytosis RARE; Platelet Estimate ADEQUATE (ADEQ); Platelet Morphology LARGE; Red Cell Morphology N CHROM NORMAL (NORM C&C)
[2021-02-09] MEDS: Potassium Chloride Oral Tablet 20 MEQ 40 MEQ PO (21:30)
[2021-02-09] MEDS: dexAMETHasone 10 MG/ML Vial 6 MG IV (21:31)
--- NOTE | 2021-02-09 21:53 | HP.PCM_ITS ---
HPI - General HPI Narrative TAMANNA DEAN, is a 75 F who presents 7-day history of feeling unwell, loss of appetite, generalized weakness, aches and pains, fever, shortness of breath, which she describes as a hacking cough, diarrhea. Presented to the hospital and tested positive for COVID-19 infection. Chest x-ray and CT scan showing typical abnormalities. [facility] Medical History Hyperlipidemia Hypertension Home Medications atorvastatin 10 mg PO QHS 07/11/18 [History Last Taken 07/10/18 10:00] Allergy/AdvReac Type Severity Reaction Status Date / Time No Known Allergies Allergy Verified 02/09/21 17:22 Family History Mother Colon cancer Father Myocardial infarction, Onset Age: 61 Social History Smoking Status: Never smoker alcohol intake: never substance use type: does not use caffeine: Yes what type of physical activity do you participate in: walking seatbelt use: always do you feel safe at home: Yes additional social history: Matthew- Both are retired [facility] [place] Narrative Has had some posttussive vomiting. No abdominal pain no lower extremity swelling. All other systems reviewed and essentially negative. Vital Signs Vital Signs Vital Signs: 02/09/21 17:22 02/09/21 18:39 02/09/21 19:53 Temperature 36.9 C Temperature Source Temporal Pulse Rate 77 74 Respiratory Rate 18 30 H Respiratory Effort Normal Non-Labored Respiratory Depth Normal Respiratory Pattern Normal Blood Pressure 145/69 H Blood Pressure Mean 94 Pulse Ox 95 92 Oxygen Delivery Method Room Air Room Air 02/09/21 21:00 Temperature Temperature Source Pulse Rate 85 Respiratory Rate Respiratory Effort Respiratory Depth Respiratory Pattern Blood Pressure Blood Pressure Mean Pulse Ox 89 Oxygen Delivery Method Room Air Weight Weight: 46.266 kg Body Mass Index (BMI) 21.3 Physical Exam Narrative General. Elderly man, acutely ill-appearing, anxious appearing. HEENT. Oral mucosa dry, no conjunctiva pallor. Neck. Neck is supple. Heart first and second heart sounds heard no murmurs. Lungs. Diffuse fine crackles mostly in the mid and lower lobes. Harsh breath sounds. Abdomen. Flat. Most with respiration. Extremities. No pedal edema. 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 Conscious and alert, oriented x3. Cranial nerves II to XII grossly intact. Other organ systems examined and essentially negative or normal. Results Lab / Micro Data Result Diagrams: 02/09/21 18:10 02/09/21 18:10 Labs: Laboratory Results - last 24 hr 02/09/21 18:10: WBC 4.4, RBC 4.21, Hgb 12.9, Hct 37.2, MCV 88.4, MCH 30.6, MCHC 34.7, RDW Std Deviation 38.5, RDW Coeff of [place] 11.9, Plt Count 155, MPV 10.4, Immature Gran % (Auto) 0.500, Neut % (Auto) 82.6 H, Lymph % (Auto) 11.2 L, [place] % (Auto) 5.7, Eos % (Auto) 0.0, Baso % (Auto) 0.0, Absolute Neuts (auto) 3.6, Absolute Lymphs (auto) 0.49 L, Nucleated RBC % 0, Differential Comment SEE COMMENT, Platelet Estimate ADEQUATE, Plt Morphology Comment LARGE, RBC Morphology N CHROM, Anisocytosis RARE 02/09/21 18:10: D-Dimer Quant (PE/DVT) 0.87 H* 02/09/21 18:10: Sodium 132 L, Potassium 3.2 L, Chloride 97 L, Carbon Dioxide 26.0, Anion Gap 9, BUN 10, Creatinine 0.56, Estim Creat Clear Calc 34.96, Est GFR (MDRD) Af Amer 135, Est GFR (MDRD) Non-Af 112, BUN/Creatinine Ratio 17.9, Glucose 107 H, Calcium 8.1 L, Total Bilirubin 0.50, AST 35, ALT 32, Alkaline Phosphatase 50, Troponin I High Sens 18.6, Total Protein 6.9, Albumin 3.2, Globulin 3.7, Albumin/Globulin Ratio 0.9 02/09/21 18:10: Procalcitonin 0.05 02/09/21 18:15: COVID-19 ([facility]) Detected Radiology Impression Chest X-Ray 02/09/21 18:30 IMPRESSION: Bilateral interstitial opacities may represent edema and/or infection. Electronically Signed: Braulio Jean MD at 18:58 EDT Tel , Service support , Chest CTA 02/09/21 19:35 IMPRESSION: Normal CTA chest examination, without a demonstrated pulmonary embolism or arterial dissection. COPD. Mild widespread bilateral patchy pulmonary opacities, which could represent multifocal pneumonia. Electronically Signed: Blaine Gomez MD at 20:41 EDT , Service support , Assessment & Plan Assessment/Plan (1) Pneumonia due to COVID-19 virus: PLAN: Unvaccinated adult with COVID-19 pneumonia. Not hypoxic. No indication for remdesivir or dexamethasone. Nonetheless patient's oxygen saturation is low normal. Will start on dexamethasone. Consult infectious disease and will defer any other/further treatment. Antitussives and other supportive care. Charges/Coding Visit Charges Inpatient E&M: 71595 Init Hosp L3
[2021-02-09] MEDS: 0.9% Saline Lock 10 ML Syringe IV (22:52)
[2021-02-10] VITALS (11 sets, daily range): BP systolic 104–134; BP diastolic 67–78; PULSE 73–100; RESP 18; TEMP 36.3–37.2; O2SAT 91–95
[2021-02-10 06:28] LABS: Absolute Lymphocyte Count 0.49 X10^3/uL (0.83-4.51); Absolute Neutrophil Count 2.4 X10^3/uL (2.0-7.7); Hematocrit 37.9 % (37-47); Lymphocyte # 0.49 X10^3/ul (0.83-4.51); Lymphocyte % 16.4 % (19-41); Mean Corp Hgb Conc 34.3 g/dL (32-36); Mean Corpuscular Hgb 30.4 pg (27.0-32.0); Mean Corpuscular Volume 88.8 fL (81-99); Mean Platelet Vol. 10.4 fl (6.2-12.0); Monocyte# 0.08 X10^3/uL; Monocyte% 2.7 % (0-10); NRBC Flagged by Analyzer 0 % (0-5); Neutrophil # 2.41 X10^3/uL (2.7-7.7); Neutrophil % 80.6 % (47-70); POSITIVE DIFFERENTIAL YES; POSITIVE MORPHOLOGY YES; Platelet Count 170 K/mm3 (150-450); RBC Distribution Width SD 39.1 fl (35.1-43.9); Red Blood Count 4.27 M/mm3 (4.2-5.4)
[2021-02-10 06:41] LABS: Differential Indicated SCAN CRITERIA MET
[2021-02-10 06:55] LABS: ALB/GLOB Ratio 0.8 RATIO (0.9-2.4); AST(SGOT) 33 U/L (15-37); Alanine Aminotransfer ALT/SGPT 32 U/L (13-56); Alkaline Phosphatase 51 U/L (45-117); Anion Gap 7 (5-15); BUN 6 mg/dL (7-18); BUN/Creat Ratio 9.8 RATIO (10-20); Chloride 103 mmol/L (98-107); Creatinine, Serum 0.61 mg/dL (0.55-1.02); EST Glomerular Filtration Rate 101 mL/min (>60); Est Glom Filt Rate - Afr Amer 122 mL/min (>60); Estimated Creatinine Clearance 35.81 ml/min; Globulin 3.8 g/dL (2.2-4.2); Glucose 225 mg/dL (74-106); Protein, Total 6.8 g/dL (6.4-8.2); Sodium Level 134 mmol/L (136-145)
[2021-02-10] MEDS: Enoxaparin 40 MG/0.4 ML Syringe SC (08:33)
[2021-02-10] MEDS: dexAMETHasone 10 MG/ML Vial 6 MG IV (08:45)
--- NOTE | 2021-02-10 12:00 | PN.HOSP_ITS ---
Subjective Subjective Doing well, no issues overnight, still not requiring any oxygen. She had an ambulatory pulse ox which demonstrated a 91% oxygen saturation. Objective Data Objective Data Vital Signs: Vital Signs Temp Pulse Resp BP Pulse Ox 98.0 F 85 18 134/72 H 91 02/10/21 08:37 02/10/21 10:00 02/10/21 09:00 02/10/21 08:37 02/10/21 08:45 Oxygen Delivery Method Room Air Weight: 104 lb 7.986 oz Body Mass Index (BMI) 21.8 Intake & Output: Intake and Output for Last 24 Hours 02/09/21 02/10/21 02/11/21 03:59 03:59 03:59 Intake Total 150 / 150 1490.00 / 1490.00 Balance 150 / 150 1490.00 / 1490.00 Lab / Micro Data Result Diagrams: 02/10/21 05:57 02/10/21 05:57 Labs: Laboratory Results - last 24 hr 02/09/21 18:10: WBC 4.4, RBC 4.21, Hgb 12.9, Hct 37.2, MCV 88.4, MCH 30.6, MCHC 34.7, RDW Std Deviation 38.5, RDW Coeff of [place] 11.9, Plt Count 155, MPV 10.4, Immature Gran % (Auto) 0.500, Neut % (Auto) 82.6 H, Lymph % (Auto) 11.2 L, [place] % (Auto) 5.7, Eos % (Auto) 0.0, Baso % (Auto) 0.0, Absolute Neuts (auto) 3.6, Absolute Lymphs (auto) 0.49 L, Nucleated RBC % 0, Differential Comment SEE COMMENT, Platelet Estimate ADEQUATE, Plt Morphology Comment LARGE, RBC Morphology N CHROM, Anisocytosis RARE 02/09/21 18:10: D-Dimer Quant (PE/DVT) 0.87 H* 02/09/21 18:10: Sodium 132 L, Potassium 3.2 L, Chloride 97 L, Carbon Dioxide 26.0, Anion Gap 9, BUN 10, Creatinine 0.56, Estim Creat Clear Calc 34.96, Est GFR (MDRD) Af Amer 135, Est GFR (MDRD) Non-Af 112, BUN/Creatinine Ratio 17.9, Glucose 107 H, Calcium 8.1 L, Total Bilirubin 0.50, AST 35, ALT 32, Alkaline Phosphatase 50, Troponin I High Sens 18.6, Total Protein 6.9, Albumin 3.2, Globulin 3.7, Albumin/Globulin Ratio 0.9 02/09/21 18:10: Procalcitonin 0.05 02/09/21 18:15: COVID-19 (CHANDU) Detected 02/10/21 05:57: WBC 3.0 L, RBC 4.27, Hgb 13.0, Hct 37.9, MCV 88.8, MCH 30.4, MCHC 34.3, RDW Std Deviation 39.1, RDW Coeff of [place] 12.0, Plt Count 170, MPV 10.4, Immature Gran % (Auto) 0.300, Neut % (Auto) 80.6 H, Lymph % (Auto) 16.4 L, [place] % (Auto) 2.7, Eos % (Auto) 0.0, Baso % (Auto) 0.0, Absolute Neuts (auto) 2.4, Absolute Lymphs (auto) 0.49 L, Nucleated RBC % 0, Diff Path Review November02/10/21 05:57: Sodium 134 L, Potassium 4.0, Chloride 103, Carbon Dioxide 24.0, Anion Gap 7, BUN 6 L, Creatinine 0.61, Estim Creat Clear Calc 35.81, Est GFR (MDRD) Af Amer 122, Est GFR (MDRD) Non-Af 101, BUN/Creatinine Ratio 9.8 L, Glucose 225 H, Calcium 8.0 L, Total Bilirubin 0.40, AST 33, ALT 32, Alkaline Phosphatase 51, Total Protein 6.8, Albumin 3.0 L, Globulin 3.8, Albumin/Globulin Ratio 0.8 L Radiography Diagnostic Testing: Radiology Impression Chest X-Ray 02/09/21 18:30 IMPRESSION: Bilateral interstitial opacities may represent edema and/or infection. Electronically Signed: Braulio Jean MD at 18:58 EDT Tel , Service support , Chest CTA 02/09/21 19:35 IMPRESSION: Normal CTA chest examination, without a demonstrated pulmonary embolism or arterial dissection. COPD. Mild widespread bilateral patchy pulmonary opacities, which could represent multifocal pneumonia. Electronically Signed: Blaine Gomez MD at 20:41 EDT , Service support , Physical Exam Const alert, oriented x3 and no apparent distress General Appearance: cooperative HEENT normocephalic and moist oral mucous membranes Eyes PERRL, EOMs intact bilaterally and conjunctivae normal Neck supple and no JVD Resp normal respiratory effort, no retractions, no use of accessory muscles and clear to auscultation bilaterally Auscultation: Negative for crackles, rales, rhonchi or wheezes Cardio regular rate, regular rhythm, S1 normal heart sound, S2 normal heart sound and no murmurs GI soft to palpation, non-tender and non-distended; Negative for hepatosplenomegaly Extremity no clubbing, cyanosis or edema Skin no rashes or lesions noted Neuro no focal motor deficits and no sensory deficits noted Psych affect normal Appearance: appropriate Assessment & Plan Assessment/Plan (1) Pneumonia due to COVID-19 virus: PLAN: 1. COVID-19 pneumonia -She is within the 10-day window of symptom onset, will continue with remdesivir and Decadron -She is at 91% on ambulation -Encouraged her to get vaccinated after discharge -If stable in the morning could consider discharge and possible monoclonal antibody -CT of the chest was unremarkable for PE 2. Hyperlipidemia -Continue with Lipitor DVT: Lovenox Charges/Coding Visit Charges OBSV E&M: 55525 Subsequent observation care L2
[2021-02-10] MEDS: Ibuprofen 400 MG Tablet PO (20:23)
[2021-02-11] VITALS (14 sets, daily range): BP systolic 122–140; BP diastolic 67–82; PULSE 69–88; RESP 18–20; TEMP 36.2–36.6; O2SAT 86–95
[2021-02-11 07:05] LABS: Hematocrit 39.8 % (37-47); Hemoglobin 13.5 g/dL (12.0-15.0); Mean Corp Hgb Conc 33.9 g/dL (32-36); Mean Corpuscular Hgb 30.5 pg (27.0-32.0); Platelet Count 205 K/mm3 (150-450); RBC Distribution Width CV 12.3 % (11.6-14.6); RBC Distribution Width SD 40.4 fl (35.1-43.9); Red Blood Count 4.42 M/mm3 (4.2-5.4); White Blood Count 8.4 K/mm3 (4.4-11.0)
[2021-02-11 07:36] LABS: ALB/GLOB Ratio 0.8 RATIO (0.9-2.4); AST(SGOT) 38 U/L (15-37); Alanine Aminotransfer ALT/SGPT 32 U/L (13-56); Albumin, Serum 3.2 g/dL (3.2-5.0); Alkaline Phosphatase 51 U/L (45-117); Anion Gap 7 (5-15); BUN 14 mg/dL (7-18); BUN/Creat Ratio 24.3 RATIO (10-20); Calcium,Total 8.4 mg/dL (8.5-10.1); Chloride 104 mmol/L (98-107); Creatinine, Serum 0.58 mg/dL (0.55-1.02); EST Glomerular Filtration Rate 109 mL/min (>60); Est Glom Filt Rate - Afr Amer 131 mL/min (>60); Estimated Creatinine Clearance 35.81 ml/min; Globulin 3.9 g/dL (2.2-4.2); Glucose 123 mg/dL (74-106); Protein, Total 7.1 g/dL (6.4-8.2); Sodium Level 136 mmol/L (136-145)
[2021-02-11] MEDS: Enoxaparin 40 MG/0.4 ML Syringe SC (08:36)
[2021-02-11] MEDS: 0.9% Saline Lock 10 ML Syringe IV ×3 (08:36→10:36)
[2021-02-11] MEDS: dexAMETHasone 10 MG/ML Vial 6 MG IV (08:36)
--- NOTE | 2021-02-11 09:08 | NURSING ---
PT AMBULATED IN ROOM ON RA - PULSE OX 86%. WHEN PT RETURNED TO BED @ REST 91% ON RA.
[2021-02-11] MEDS: Ibuprofen 400 MG Tablet PO (09:57)
[2021-02-11] MEDS: Ondansetron 4 MG/2 ML Vial IV (09:58)
--- NOTE | 2021-02-11 11:49 | PCM.PN.HOSP ---
Subjective Subjective Feels little bit nauseated today, and needed some oxygen with ambulation this morning therefore this disqualifies her from the monoclonal antibody infusion. She would like to stay a few more days because she does not feel quite ready to go home yet Objective Data Objective Data Vital Signs: Vital Signs Temp Pulse Resp BP Pulse Ox 97.5 F L 75 20 H 134/67 H 91 02/11/21 08:27 02/11/21 10:00 02/11/21 11:07 02/11/21 08:27 02/11/21 11:07 Oxygen Delivery Method Room Air Weight: 104 lb 7.986 oz Body Mass Index (BMI) 21.8 Intake & Output: Intake and Output for Last 24 Hours 02/10/21 02/11/21 02/12/21 03:59 03:59 03:59 Intake Total 150 / 150 3783.08 / 3783.08 340 / 340 Balance 150 / 150 3783.08 / 3783.08 340 / 340 Lab / Micro Data Result Diagrams: 02/11/21 06:50 02/11/21 06:50 Labs: Laboratory Results - last 24 hr 02/11/21 06:50: WBC 8.4, RBC 4.42, Hgb 13.5, Hct 39.8, MCV 90.0, MCH 30.5, MCHC 33.9, RDW Std Deviation 40.4, RDW Coeff of [place] 12.3, Plt Count 205, MPV 10.0 02/11/21 06:50: Sodium 136, Potassium 4.0, Chloride 104, Carbon Dioxide 25.0, Anion Gap 7, BUN 14, Creatinine 0.58, Estim Creat Clear Calc 35.81, Est GFR (MDRD) Af Amer 131, Est GFR (MDRD) Non-Af 109, BUN/Creatinine Ratio 24.3 H, Glucose 123 H, Calcium 8.4 L, Total Bilirubin 0.60, AST 38 H, ALT 32, Alkaline Phosphatase 51, Total Protein 7.1, Albumin 3.2, Globulin 3.9, Albumin/Globulin Ratio 0.8 L Physical Exam Const alert, oriented x3 and no apparent distress General Appearance: cooperative HEENT normocephalic and moist oral mucous membranes Eyes PERRL, EOMs intact bilaterally and conjunctivae normal Neck supple and no JVD Resp normal respiratory effort, no retractions, no use of accessory muscles and clear to auscultation bilaterally Auscultation: Negative for crackles, rales, rhonchi or wheezes Cardio regular rate, regular rhythm, S1 normal heart sound, S2 normal heart sound and no murmurs GI soft to palpation, non-tender and non-distended; Negative for hepatosplenomegaly Extremity no clubbing, cyanosis or edema Skin no rashes or lesions noted Neuro no focal motor deficits and no sensory deficits noted Psych affect normal Appearance: appropriate Assessment & Plan Assessment/Plan (1) Pneumonia due to COVID-19 virus: PLAN: 1. COVID-19 pneumonia -She is within the 10-day window of symptom onset, will continue with remdesivir and Decadron -She is 86% on ambulation, but is managing her oxygen saturations at rest on room air. -Encouraged her to get vaccinated after discharge -Since she requires oxygen with ambulation she does not call for the monoclonal antibody infusion -CT of the chest was unremarkable for PE 2. Hyperlipidemia -Continue with Lipitor DVT: Lovenox Charges/Coding Visit Charges Inpatient E&M: 93578 Subs Hosp L2
[2021-02-11 14:51] LABS: Pathologist Review Reviewed
--- NOTE | 2021-02-11 15:10 | CM.UR ---
LIZETT SMITH Assessment: Face to Face with pt for initial transition planning/care coordination assessment. LIZETT SMITH introduced self and role at [facility], pt voices understanding and consents to assessment. Pt is A/O x4 and answers all questions appropriately at this time. Pt sitting up in bed in no distress on RA. Care providers, pharmacy, and demographics verified/updated. Admitting Dx: Covid PNA PCP:Diane Specialists: Pt denies having any specialists. Preferred Pharmacy: [facility] while inpatient Insurance: [facility] Prescription Benefit: yes LNOK: Matthew Dill, ; Annabel Mesa, dtr Living Arrangements: Pt lives in a two story house with 1 step to enter with her . Pt reports she was I in ADL's prior to hospitalization and denies concerns at home. Transportation: Pt drives self and denies concerns with transportation. DME/HHC/SNF: Pt has no DME in the home, no hx of HHC or SNF stays. Pt states no concerns with going home at time of dc. Pt states no further concerns/needs. Pt states she is able to quarantine at home and she has someone who can bring her groceries and supplies. Pt states her first covid test was at [facility]. CM to follow. Advised pt to ask CM if any further question/concerns/needs arise, voices understanding. Pt Goal: Home Plan: Home
--- NOTE | 2021-02-11 18:42 | NURSING ---
PT O2 SAT 88% ON RA - PLACED O2 O2 2L NC
[2021-02-12] VITALS (14 sets, daily range): BP systolic 105–145; BP diastolic 57–71; PULSE 76–99; RESP 18–22; TEMP 35.9–36.2; O2SAT 86–92
[2021-02-12 06:57] LABS: Hemoglobin 13.3 g/dL (12.0-15.0); Mean Corp Hgb Conc 33.3 g/dL (32-36); Mean Corpuscular Volume 90.3 fL (81-99); Mean Platelet Vol. 9.8 fl (6.2-12.0); Platelet Count 248 K/mm3 (150-450); RBC Distribution Width CV 12.3 % (11.6-14.6); RBC Distribution Width SD 40.8 fl (35.1-43.9); Red Blood Count 4.43 M/mm3 (4.2-5.4); White Blood Count 7.5 K/mm3 (4.4-11.0)
[2021-02-12 07:31] LABS: ALB/GLOB Ratio 0.9 RATIO (0.9-2.4); AST(SGOT) 37 U/L (15-37); Alanine Aminotransfer ALT/SGPT 33 U/L (13-56); Albumin, Serum 3.1 g/dL (3.2-5.0); Alkaline Phosphatase 52 U/L (45-117); Anion Gap 7 (5-15); BUN 17 mg/dL (7-18); BUN/Creat Ratio 29.3 RATIO (10-20); Calcium,Total 8.1 mg/dL (8.5-10.1); Chloride 102 mmol/L (98-107); Creatinine, Serum 0.58 mg/dL (0.55-1.02); EST Glomerular Filtration Rate 107 mL/min (>60); Est Glom Filt Rate - Afr Amer 130 mL/min (>60); Estimated Creatinine Clearance 35.81 ml/min; Globulin 3.6 g/dL (2.2-4.2); Glucose 135 mg/dL (74-106); Potassium 3.9 mmol/L (3.5-5.1); Protein, Total 6.7 g/dL (6.4-8.2); Sodium Level 135 mmol/L (136-145)
[2021-02-12] MEDS: dexAMETHasone 10 MG/ML Vial 6 MG IV (09:32)
[2021-02-12] MEDS: Enoxaparin 40 MG/0.4 ML Syringe SC (09:33)
--- NOTE | 2021-02-12 09:38 | PN.HOSP_ITS ---
Subjective Subjective Doing well, including her incentive spirometer however overnight she needed to be placed on 2 L of oxygen nasal cannula to maintain her oxygen saturations. Objective Data Objective Data Vital Signs: Vital Signs Temp Pulse Resp BP Pulse Ox 96.7 F L 78 18 145/57 H 86 02/12/21 05:14 02/12/21 05:14 02/12/21 05:14 02/12/21 05:14 02/12/21 09:31 Oxygen Flow Rate (L/min) 2 Oxygen Delivery Method Nasal Cannula Weight: 104 lb 7.986 oz Body Mass Index (BMI) 21.8 Intake & Output: Intake and Output for Last 24 Hours 02/11/21 02/12/21 02/13/21 03:59 03:59 03:59 Intake Total 3783.08 / 3783.08 1370 / 1370 50 / 50 Balance 3783.08 / 3783.08 1370 / 1370 50 / 50 Medical Nutrition Assessment Dietitian: Nutrition Therapy Diagnosis Start: 02/11/21 14:57 Freq: Status: Active Protocol: Document 02/11/21 15:05 ELISEO (Rec: 02/11/21 15:05 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 Lab / Micro Data Result Diagrams: 02/12/21 06:50 02/12/21 06:50 Labs: Laboratory Results - last 24 hr 02/10/21 05:57: Diff Path Review Reviewed 02/12/21 06:50: WBC 7.5, RBC 4.43, Hgb 13.3, Hct 40.0, MCV 90.3, MCH 30.0, MCHC 33.3, RDW Std Deviation 40.8, RDW Coeff of [place] 12.3, Plt Count 248, MPV 9.8 02/12/21 06:50: Sodium 135 L, Potassium 3.9, Chloride 102, Carbon Dioxide 26.0, Anion Gap 7, BUN 17, Creatinine 0.58, Estim Creat Clear Calc 35.81, Est GFR (MDRD) Af Amer 130, Est GFR (MDRD) Non-Af 107, BUN/Creatinine Ratio 29.3 H, Gluc ose 135 H, Calcium 8.1 L, Total Bilirubin 0.50, AST 37, ALT 33, Alkaline Phosphatase 52, Total Protein 6.7, Albumin 3.1 L, Globulin 3.6, Albumin/Globulin Ratio 0.9 Physical Exam Const alert, oriented x3 and no apparent distress General Appearance: cooperative HEENT normocephalic and moist oral mucous membranes Eyes PERRL, EOMs intact bilaterally and conjunctivae normal Neck supple and no JVD Resp normal respiratory effort, no retractions and no use of accessory muscles Auscultation: crackles; Negative for rales, rhonchi or wheezes Cardio regular rate, regular rhythm, S1 normal heart sound, S2 normal heart sound and no murmurs GI soft to palpation, non-tender and non-distended; Negative for hepatosplenomegaly Extremity no clubbing, cyanosis or edema Skin no rashes or lesions noted Neuro no focal motor deficits and no sensory deficits noted Psych affect normal Appearance: appropriate Assessment & Plan Assessment/Plan (1) Pneumonia due to COVID-19 virus: PLAN: 1. COVID-19 pneumonia -She is within the 10-day window of symptom onset, will continue with remdesivir and Decadron -She has not 2 L nasal cannula, will give her dose of Lasix and see if that helps with her oxygenation -Encouraged her to get vaccinated after discharge -Since she requires oxygen, she does not call for the monoclonal antibody infusion -CT of the chest was unremarkable for PE 2. Hyperlipidemia -Continue with Lipitor DVT: Lovenox Charges/Coding Visit Charges Inpatient E&M: 96232 Subs Hosp L2
[2021-02-12] MEDS: 0.9% Saline Lock 10 ML Syringe IV ×2 (10:18→12:29)
[2021-02-12] MEDS: Furosemide 20 MG/2 ML VIAL IV (10:18)
[2021-02-13] VITALS (17 sets, daily range): BP systolic 125–133; BP diastolic 60–77; PULSE 51–84; RESP 18–22; TEMP 35.6–36.7; O2SAT 91–95
[2021-02-13 07:18] LABS: Hematocrit 40.7 % (37-47); Hemoglobin 13.7 g/dL (12.0-15.0); Mean Corp Hgb Conc 33.7 g/dL (32-36); Mean Corpuscular Hgb 30.2 pg (27.0-32.0); Mean Corpuscular Volume 89.6 fL (81-99); Mean Platelet Vol. 9.8 fl (6.2-12.0); Platelet Count 290 K/mm3 (150-450); RBC Distribution Width CV 12.3 % (11.6-14.6); RBC Distribution Width SD 40.5 fl (35.1-43.9); Red Blood Count 4.54 M/mm3 (4.2-5.4); White Blood Count 6.3 K/mm3 (4.4-11.0)
[2021-02-13 07:43] LABS: ALB/GLOB Ratio 0.9 RATIO (0.9-2.4); AST(SGOT) 32 U/L (15-37); Alanine Aminotransfer ALT/SGPT 32 U/L (13-56); Albumin, Serum 3.2 g/dL (3.2-5.0); Alkaline Phosphatase 50 U/L (45-117); Anion Gap 6 (5-15); BUN 20 mg/dL (7-18); BUN/Creat Ratio 34.4 RATIO (10-20); Calcium,Total 8.3 mg/dL (8.5-10.1); Chloride 102 mmol/L (98-107); Creatinine, Serum 0.58 mg/dL (0.55-1.02); EST Glomerular Filtration Rate 107 mL/min (>60); Est Glom Filt Rate - Afr Amer 130 mL/min (>60); Estimated Creatinine Clearance 35.81 ml/min; Globulin 3.4 g/dL (2.2-4.2); Glucose 124 mg/dL (74-106); Potassium 3.5 mmol/L (3.5-5.1); Protein, Total 6.6 g/dL (6.4-8.2); Sodium Level 136 mmol/L (136-145)
[2021-02-13] MEDS: dexAMETHasone 10 MG/ML Vial 6 MG IV (10:56)
[2021-02-13] MEDS: Enoxaparin 40 MG/0.4 ML Syringe SC (10:56)
--- NOTE | 2021-02-13 15:27 | PN.HOSP_ITS ---
Subjective Subjective Patient remains on supplemental oxygen and has required increased from 3 L to 4 L to maintain oxygen saturation greater than 92%. She states she has been coughing up some phlegm that is nonpurulent. She denies any other acute issues. Objective Data Objective Data Vital Signs: Vital Signs Temp Pulse Resp BP Pulse Ox 98.1 F 82 20 H 133/60 H 93 02/13/21 14:57 02/13/21 14:57 02/13/21 15:00 02/13/21 14:57 02/13/21 14:57 Oxygen Flow Rate (L/min) 4 Oxygen Delivery Method Nasal Cannula Weight: 47.4 kg Body Mass Index (BMI) 21.8 Intake & Output: Intake and Output for Last 24 Hours 02/11/21 02/12/21 02/13/21 23:59 23:59 23:59 Intake Total 1620 / 1620 1300 / 1300 100 / 100 Output Total 2400 / 2400 200 / 200 Balance 1620 / 1620 -1100 / -1100 -100 / -100 Medical Nutrition Assessment Dietitian: Nutrition Therapy Diagnosis Start: 02/11/21 14:57 Freq: Status: Active Protocol: Document 02/11/21 15:05 ELISEO (Rec: 02/11/21 15:05 [facility] [id number]) Nutrition Malnutrition Evidence of Malnutrition Exists No Intake Problem Inadequate Oral Intake Etiology related to acute illness ( COVID) Signs/Symptoms as evidenced by pt report of poor po intake (<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 Lab / Micro Data Result Diagrams: 02/13/21 06:48 02/13/21 06:48 Labs: Laboratory Results - last 24 hr 02/13/21 06:48: WBC 6.3, RBC 4.54, Hgb 13.7, Hct 40.7, MCV 89.6, MCH 30.2, MCHC 33.7, RDW Std Deviation 40.5, RDW Coeff of [place] 12.3, Plt Count 290, MPV 9.8 02/13/21 06:48: Sodium 136, Potassium 3.5, Chloride 102, Carbon Dioxide 28.0, Anion Gap 6, BUN 20 H, Creatinine 0.58, Estim Creat Clear Calc 35.81, Est GFR (MDRD) Af Amer 130, Est GFR (MDRD) Non-Af 107, BUN/Creatinine Ratio 34.4 H, Glucose 124 H, Calcium 8.3 L, Total Bilirubin 0.60, AST 32, ALT 32, Alkaline Phosphatase 50, Total Protein 6.6, Albumin 3.2, Globulin 3.4, Albumin/Globulin Ratio 0.9 Physical Exam Const alert, oriented x3 and no apparent distress Constitutional Narrative: Elderly white female sitting up in bed, watching television, mild tachypnea but otherwise appears comfortable Exam Limitations: no limitations HEENT head/scalp atraumatic HEENT Narrative: Moist mucous membranes, no thrush Head and Scalp: normocephalic Eyes PERRL and EOMs intact bilaterally Neck supple Neck Narrative: Trachea midline Resp no retractions and no use of accessory muscles Resp Narrative: Diffusely diminished with scattered crackles Auscultation: crackles; Negative for rales, rhonchi or wheezes Cardio regular rate, regular rhythm, S1 normal heart sound, S2 normal heart sound, no murmurs, no rub, no gallops, no clicks and no JVD GI normal to inspection, nondistended, normoactive bowel sounds, soft to palpation, non-tender and non-distended Palpation: Negative for tender or guarding Extremity normal to inspection and no clubbing, cyanosis or edema Peripheral Pulses: Yes pulses 2+ throughout Skin no rashes or lesions noted, no wounds, skin turgor normal, no jaundice, no petechiae and no mottling Neuro oriented x3, CN's II-XII intact bilaterally, moves all extremities and no focal motor deficits Sensorium / Orientation: awake and alert Speech: speech normal Psych Psych Narrative: Patient appears mildly anxious Assessment & Plan Assessment/Plan (1) COVID-19: (2) Pneumonia due to COVID-19 virus: (3) HLD (hyperlipidemia): (4) Acute respiratory failure with hypoxia: PLAN: Acute hypoxic respiratory failure secondary to Covid pneumonia -Continue Decadron day 4 of 10 -Continue remdesivir day 4 of 5 -Continue supplemental oxygen--> currently requiring 4 L -Wean as able -Once oxygen has stabilized and shows signs of improvement we will begin to evaluate discharge -CTA was done and showed diffuse patchy bilateral infiltrates but no PE was noted -Continue subcu enoxaparin for DVT prophylaxis -Continue daily the lab work COVID-19 pneumonia -See above Hyperglycemia secondary to steroid use -Blood sugars remain in goal -Current intervention needed Hyperlipidemia -Restart atorvastatin once patient is off remdesivir DVT prophylaxis -Continue Lovenox CODE STATUS -Appears this was not discussed will address tomorrow Charges/Coding Visit Charges Inpatient E&M: 75068 Subs Hosp L2
[2021-02-14] VITALS (28 sets, daily range): BP systolic 107–138; BP diastolic 57–88; PULSE 62–96; RESP 12–60; TEMP 36.4–36.8; O2SAT 81–100
[2021-02-14 06:45] LABS: Hemoglobin 14.2 g/dL (12.0-15.0); Mean Corp Hgb Conc 35.5 g/dL (32-36); Mean Corpuscular Hgb 30.8 pg (27.0-32.0); Mean Corpuscular Volume 86.8 fL (81-99); Mean Platelet Vol. 9.4 fl (6.2-12.0); Platelet Count 339 K/mm3 (150-450); RBC Distribution Width SD 38.4 fl (35.1-43.9); Red Blood Count 4.61 M/mm3 (4.2-5.4); White Blood Count 8.4 K/mm3 (4.4-11.0)
[2021-02-14 07:16] LABS: ALB/GLOB Ratio 0.9 RATIO (0.9-2.4); AST(SGOT) 26 U/L (15-37); Alanine Aminotransfer ALT/SGPT 32 U/L (13-56); Albumin, Serum 3.1 g/dL (3.2-5.0); Alkaline Phosphatase 51 U/L (45-117); Anion Gap 9 (5-15); BUN 18 mg/dL (7-18); BUN/Creat Ratio 31.6 RATIO (10-20); Calcium,Total 8.3 mg/dL (8.5-10.1); Chloride 101 mmol/L (98-107); Creatinine, Serum 0.57 mg/dL (0.55-1.02); EST Glomerular Filtration Rate 110 mL/min (>60); Est Glom Filt Rate - Afr Amer 133 mL/min (>60); Estimated Creatinine Clearance 35.81 ml/min; Globulin 3.6 g/dL (2.2-4.2); Glucose 123 mg/dL (74-106); Potassium 3.6 mmol/L (3.5-5.1); Protein, Total 6.7 g/dL (6.4-8.2); Sodium Level 135 mmol/L (136-145)
--- NOTE | 2021-02-14 09:24 | EX.PCM.CONCC ---
Assessment & Plan Assessment/Plan (1) Acute respiratory failure with hypoxia: (2) COVID-19: PLAN: RECOMMENDATIONS: 1. Continue remdesivir and Decadron to complete treatment courses. 2. Initiate patient on BiPAP therapy and wean FiO2 to maintain oxygen saturations at or above 90%. 3. Obtain infectious diseases consultation, re: tocilizumab administration 4. Continue Lovenox as ordered. 5. Patient to remain n.p.o. while on continuous BiPAP support. IMPRESSIONS: 1. Acute hypoxemic respiratory failure secondary to COVID-19 pneumonia The patient has become more symptomatic with increasing oxygen demand over the last several days. She was subsequently transferred to the ICU this morning after requiring noninvasive positive pressure ventilatory support with a high FiO2 requirement. Initial CTA chest from February 09 demonstrated no PE. The patient has been maintained on remdesivir and Decadron. Will obtain infectious diseases consultation for possible tocilizumab administration. Plan to continue subcutaneous Lovenox as ordered. Wean FiO2 to maintain oxygen saturations at or above 90%. 2. Advanced age/hyperlipidemia Complicates care, management, recovery and prognosis. Continue home medications as indicated. CODE STATUS was once again discussed with the patient and she does wish to remain full CODE STATUS. TIME: 40 minutes of critical care time, independent of procedures, was spent addressing the patient's acute hypoxemic respiratory failure secondary to COVID-19 pneumonia, review of all data and collaboration with the care team. ([id number]) HPI Consult Data Date of Consult: 02/14/21 HPI Narrative Reason for Consultation: Acute respiratory failure secondary to COVID-19 pneumonia HPI Narrative: The patient is a 75-year-old female, with a history as outlined below, who initially presented to the emergency department on February 09 with complaints of cough, dyspnea, generalized malaise and arthralgias, which began at the beginning of February. The patient never previously receive the coronavirus vaccination. On presentation, the patient was initially noted to be afebrile and hemodynamically stable. She was initially documented to be saturating appropriately on room air. Initial laboratory evaluation revealed no evidence of a leukocytosis. D-dimer was mildly elevated at 0.87. Chemistry profile was notable for a sodium of 132, potassium of 3.2 and chloride of 97. Creatinine was within normal limits. Liver function was likewise within normal limits. Coronavirus PCR was positive. Chest x-ray demonstrated bilateral airspace opacities. The patient was initially admitted to the medical surgical floor, where she was initiated on remdesivir and Decadron. CTA chest completed on February 09 demonstrated no PE, but did confirm bilateral airspace opacities. Over the course of her hospitalization to date, the patient has had a slow downward decline in her overall respiratory status. She has become progressively hypoxemic. She is currently documented to be overall net +5 L for the hospital admission. This morning, the patient was initially being maintained on Airvo heated high flow, but eventually was transitioned to BiPAP due to continued respiratory decompensation. She was subsequently transferred to the medical intensive care unit. [facility] Medical History Hyperlipidemia Home Medications atorvastatin 10 mg PO QHS 07/11/18 [History Last Taken 02/01/21] Vitamin C DAILY 02/09/21 [History Last Taken 02/01/21] Vitamin D3 DAILY 02/09/21 [History Last Taken 02/01/21] folic acid DAILY 02/09/21 [History Last Taken 02/01/21] omega-3 fatty acids [Fish Oil] 1 cap PO DAILY 02/09/21 [History Last Taken 02/01/21] Allergy/AdvReac Type Severity Reaction Status Date / Time No Known Allergies Allergy Verified 02/11/21 08:27 Family History Mother Colon cancer Father Myocardial infarction, Onset Age: 61 Surgical History Hx of tubal ligation Social History Smoking Status: Never smoker alcohol intake: never substance use type: does not use caffeine: Yes what type of physical activity do you participate in: walking seatbelt use: always do you feel safe at home: Yes additional social history: Micheline Salazar are retired ROS Constitutional Constitutional: Reports fatigue, malaise and weakness Eyes Eyes: Denies blurry vision or change in vision ENT HEENT: Denies dizziness, hoarseness, loss taste/smell or nasal congestion Cardiovascular Cardiovascular: Reports dyspnea Respiratory/Chest Respiratory/Chest: Reports cough and dyspnea Gastrointestinal Gastrointestinal: Denies abdominal pain, diarrhea, nausea or vomiting Genitourinary Genitourinary: Denies difficulty urinating Musculoskeletal Musculoskeletal: Reports arthralgias; Denies back pain Integumentary Integumentary: Denies lesions, rash or skin ulcer Neurologic Neurologic: Denies abnormal gait or abnormal speech Psychiatric Psychiatric: Denies anxiety Endocrine Endocrinology: Reports fatigue Hematologic/Lymphatic Hematologic/Lymphatic: Denies easy bleeding or easy bruising Physical Exam Const alert General Appearance: cooperative and in distress Positive for mild HEENT normocephalic and head/scalp atraumatic Eyes PERRL, EOMs intact bilaterally and conjunctivae normal Neck supple General: trachea midline Resp Effort and Inspection: tachypneic Auscultation: rales; Negative for rhonchi or wheezes Cardio regular rate and regular rhythm GI normal to inspection, nondistended, normoactive bowel sounds Extremity no clubbing, cyanosis or edema Skin no rashes or lesions noted Neuro CN's II-XII intact bilaterally and no focal motor deficits Psych cooperative and affect normal Medical Records Data Medical Nutrition Assessment Dietitian: Nutrition Therapy Diagnosis Start: 02/11/21 14:57 Freq: Status: Active Protocol: Document 02/11/21 15:05 [facility] (Rec: 02/11/21 15:05 [facility] [id number]) Nutrition Malnutrition Evidence of Malnutrition Exists No Intake Problem Inadequate Oral Intake Etiology related to acute illness ( COVID) Signs/Symptoms as evidenced by pt report of poor po intake (<75% of 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 Lab / Micro Data Result Diagrams: 02/14/21 06:38 02/14/21 06:38 Labs: Laboratory Results - last 24 hr 02/14/21 06:38: WBC 8.4, RBC 4.61, Hgb 14.2, Hct 40.0, MCV 86.8, MCH 30.8, MCHC 35.5 D, RDW Std Deviation 38.4, RDW Coeff of [place] 12.0, Plt Count 339, MPV 9.4 02/14/21 06:38: Sodium 135 L, Potassium 3.6, Chloride 101, Carbon Dioxide 25.0, Anion Gap 9, BUN 18, Creatinine 0.57, Estim Creat Clear Calc 35.81, Est GFR (MDRD) Af Amer 133, Est GFR (MDRD) Non-Af 110, BUN/Creatinine Ratio 31.6 H, Glucose 123 H, Calcium 8.3 L, Total Bilirubin 0.80, AST 26, ALT 32, Alkaline Phosphatase 51, Total Protein 6.7, Albumin 3.1 L, Globulin 3.6, Albumin/Globulin Ratio 0.9 Charges/Coding Procedures Hospitalists Procedures: 79902 Critial Care 1st Hr
[2021-02-14] MEDS: Enoxaparin 40 MG/0.4 ML Syringe SC (10:56)
[2021-02-14] MEDS: dexAMETHasone 10 MG/ML Vial 6 MG IV (10:57)
[2021-02-14 11:33] LABS: D-Dimer Quantitative (DVT/PE) 0.64 FEU/ug/m (0.27-0.49)
[2021-02-14 11:45] LABS: BNP,B-Type NATRIURETIC PEPTIDE 95.2 pg/mL (0-100); Troponin-I HS 6.5 pg/mL (3.0-53.7)
[2021-02-14 11:53] LABS: Procalcitonin 0.05 ng/mL (0.00-0.09)
--- NOTE | 2021-02-14 12:08 | PN.HOSP_ITS ---
Subjective Subjective Patient with worsening respiratory status overnight her oxygen had been titrated up from 4 L to 5 L through the night and then early this morning she was placed on 15 L nasal cannula for an oxygen saturation of 81%. With her continued increased oxygen demands I did transfer to the ICU this morning early. She jarad cates that she has been more short of breath and is happy that she has been transferred to the intensive care unit. Monoclonal antibodies are to be given today. Objective Data Objective Data Vital Signs: Vital Signs Temp Pulse Resp BP Pulse Ox 98.2 F 84 25 H 138/88 H 95 02/14/21 07:01 02/14/21 11:13 02/14/21 11:13 02/14/21 07:01 02/14/21 11:13 Oxygen Flow Rate (L/min) 15 Oxygen Delivery Method Airvo Weight: 47.4 kg Body Mass Index (BMI) 21.8 Intake & Output: Intake and Output for Last 24 Hours 02/12/21 02/13/21 02/14/21 23:59 23:59 23:59 Intake Total 1300 / 1300 350 / 350 650 / 650 Output Total 2400 / 2400 200 / 200 Balance -1100 / -1100 150 / 150 650 / 650 Medical Nutrition Assessment Dietitian: Nutrition Therapy Diagnosis Start: 02/11/21 14:57 Freq: Status: Active Protocol: Document 02/14/21 11:42 BP (Rec: 02/14/21 11:42 BP [id number]) Nutrition Malnutrition Evidence of Malnutrition Exists No Intake Problem Inadequate Oral Intake Etiology related to acute illness ( COVID) Signs/Symptoms as evidenced by pt report of poor po intake (<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 Lab / Micro Data Result Diagrams: 02/14/21 06:38 02/14/21 06:38 Labs: Laboratory Results - last 24 hr 02/14/21 06:38: WBC 8.4, RBC 4.61, Hgb 14.2, Hct 40.0, MCV 86.8, MCH 30.8, MCHC 35.5 D, RDW Std Deviation 38.4, RDW Coeff of [place] 12.0, Plt Count 339, MPV 9.4 02/14/21 06:38: Sodium 135 L, Potassium 3.6, Chloride 101, Carbon Dioxide 25.0, Anion Gap 9, BUN 18, Creatinine 0.57, Estim Creat Clear Calc 35.81, Est GFR (MDRD) Af Amer 133, Est GFR (MDRD) Non-Af 110, BUN/Creatinine Ratio 31.6 H, Glucose 123 H, Calcium 8.3 L, Total Bilirubin 0.80, AST 26, ALT 32, Alkaline Phosphatase 51, Total Protein 6.7, Albumin 3.1 L, Globulin 3.6, Albumin/Globulin Ratio 0.9 02/14/21 11:00: D-Dimer Quant (PE/DVT) 0.64 H* 02/14/21 11:00: Troponin I High Sens 6.5 02/14/21 11:00: B-Natriuretic Peptide 95.2 02/14/21 11:00: Procalcitonin 0.05 Physical Exam Const alert and oriented x3 Constitutional Narrative: Mild respiratory distress with tachypnea and some accessory muscle use, nontoxic-appearing however Exam Limitations: no limitations HEENT head/scalp atraumatic, moist oral mucous membranes and dentition normal Head and Scalp: normocephalic Mouth: oral and palatal mucosa normal Eyes PERRL, EOMs intact bilaterally and conjunctivae normal Neck no lymphadenopathy, supple and no JVD Resp no retractions and No no use of accessory muscles Resp Narrative: Crackles bilateral bases Auscultation: crackles; Negative for rales, rhonchi or wheezes Cardio regular rate, regular rhythm, S1 normal heart sound, S2 normal heart sound, no murmurs, no rub, no gallops, no clicks and no JVD GI normal to inspection, nondistended, normoactive bowel sounds, soft to palpation and non-tender; Negative for hepatosplenomegaly Extremity full ROM and no clubbing, cyanosis or edema Peripheral Pulses: Yes pulses 2+ throughout Skin no rashes or lesions noted, no wounds, skin turgor normal, no jaundice, no petechiae and no mottling Neuro oriented x3, CN's II-XII intact bilaterally, moves all extremities and no focal motor deficits Sensorium / Orientation: awake and alert Speech: speech normal Psych affect normal Assessment & Plan Assessment/Plan (1) Acute respiratory failure with hypoxia: (2) COVID-19: (3) Hyponatremia: PLAN: Acute hypoxic respiratory failure secondary to Covid pneumonia -Continue Decadron day 5 of 10 -Continue remdesivir day 5 of 5 -Monoclonal antibodies to be given today -We will dose 40 mg of Lasix IV push x1 dose today -Infectious diseases following -Clinical status with regards to oxygen demand have worsened and the patient has been transferred to the intensive care unit -CTA was done and showed diffuse patchy bilateral infiltrates but no PE was noted -Continue subcu enoxaparin for DVT prophylaxis -Continue daily the lab work -Patient was Covid positive on 02/09/2021 and will require 20 days of quarantine--> and date is 03/01/2021 -Pulmonary consultation COVID-19 pneumonia -See above Mild hyponatremia -Suspect this is related to her acute Covid infection -Current sodium is 135 -Continue to monitor Hyperglycemia secondary to steroid use -Blood sugars remain in goal -Current intervention needed Hyperlipidemia -Restart atorvastatin once patient is off remdesivir DVT prophylaxis -Continue Lovenox CODE STATUS -Full code ## called and updated with regards to worsening oxygenation status and transfer to the intensive care unit. All questions were answered and the nicole tan was grateful for her care.## Charges/Coding Visit Charges Inpatient E&M: 18835 Subs Hosp L3
--- NOTE | 2021-02-14 15:37 | PCM.CONS.GEN ---
Assessment & Plan Assessment/Plan (1) COVID-19: PLAN: Sx started around 02/03. Unvaccinated. Started on dex and remdesivir, now with much worse O2, moved to icu. Will give tocilizumab. Recommend vaccination once she is out of quarantine. is unvaccinated, tested neg, asymptomatic; recommend he quarantine for 10 days from when he was last in contact with her. Will follow, thank you, d/w Dr. Mckoy (2) Acute respiratory failure with hypoxia: HPI Consult Data Date of Consult: 02/14/21 HPI Narrative HPI Narrative: TAMANNA DEAN, is a 75 F who presented 02/09 with 6 days of cough, fever, progressive dyspnea, aches, headache. No change in taste or smell, no diarrhea. Unvaccinated for covid. also unvaccinated, test was neg, feeling ok so far. Came to ED, admitted on dex and remdesivir. Now with worsening O2, moved to icu. Full ROS performed and neg except as noted above PFSH Medical History Hyperlipidemia Home Medications atorvastatin 10 mg PO QHS 07/11/18 [History Last Taken 02/01/21] Vitamin C DAILY 02/09/21 [History Last Taken 02/01/21] Vitamin D3 DAILY 02/09/21 [History Last Taken 02/01/21] folic acid DAILY 02/09/21 [History Last Taken 02/01/21] omega-3 fatty acids [Fish Oil] 1 cap PO DAILY 02/09/21 [History Last Taken 02/01/21] Allergy/AdvReac Type Severity Reaction Status Date / Time No Known Allergies Allergy Verified 02/11/21 08:27 Family History Mother Colon cancer Father Myocardial infarction, Onset Age: 61 Surgical History Hx of tubal ligation Social History Smoking Status: Never smoker alcohol intake: never substance use type: does not use caffeine: Yes what type of physical activity do you participate in: walking seatbelt use: always do you feel safe at home: Yes additional social history: Matthew- Both are retired Physical Exam Const alert General Appearance: cooperative Exam Limitations: no limitations Eyes PERRL and EOMs intact bilaterally Neck supple and No nodes Resp Auscultation: diminished lung sounds Cardio regular rate and regular rhythm GI normal to inspection, nondistended, normoactive bowel sounds Extremity no clubbing, cyanosis or edema Skin no rashes or lesions noted Neuro CN's II-XII intact bilaterally Medical Records Data Medical Nutrition Assessment Dietitian: Nutrition Therapy Diagnosis Start: 02/11/21 14:57 Freq: Status: Active Protocol: Document 02/14/21 11:42 BP (Rec: 02/14/21 11:42 BP [id number]) Nutrition Malnutrition Evidence of Malnutrition Exists No Intake Problem Inadequate Oral Intake Etiology related to acute illness ( COVID) Signs/Symptoms as evidenced by 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 Lab / Micro Data Result Diagrams: 02/14/21 06:38 02/14/21 06:38 Labs: Laboratory Results - last 24 hr 02/14/21 06:38: WBC 8.4, RBC 4.61, Hgb 14.2, Hct 40.0, MCV 86.8, MCH 30.8, MCHC 35.5 D, RDW Std Deviation 38.4, RDW Coeff of [place] 12.0, Plt Count 339, MPV 9.4 02/14/21 06:38: Sodium 135 L, Potassium 3.6, Chloride 101, Carbon Dioxide 25.0, Anion Gap 9, BUN 18, Creatinine 0.57, Estim Creat Clear Calc 35.81, Est GFR (MDRD) Af Amer 133, Est GFR (MDRD) Non-Af 110, BUN/Creatinine Ratio 31.6 H, Glucose 123 H, Calcium 8.3 L, Total Bilirubin 0.80, AST 26, ALT 32, Alkaline Phosphatase 51, Total Protein 6.7, Albumin 3.1 L, Globulin 3.6, Albumin/Globulin Ratio 0.9 02/14/21 11:00: D-Dimer Quant (PE/DVT) 0.64 H* 02/14/21 11:00: Troponin I High Sens 6.5 02/14/21 11:00: B-Natriuretic Peptide 95.2 02/14/21 11:00: Procalcitonin 0.05
[2021-02-14] MEDS: Furosemide 40 MG/4 ML Vial IV (15:38)
[2021-02-14] MEDS: 0.9% Saline Lock 10 ML Syringe IV (15:39)
[2021-02-14 22:16] LABS: CRP < 2.90 mg/L (0.0-3.0)
[2021-02-15] VITALS (35 sets, daily range): BP systolic 84–160; BP diastolic 6–93; PULSE 72–100; RESP 12–35; TEMP 36.6–37.1; O2SAT 88–100
[2021-02-15 05:30] LABS: Absolute Lymphocyte Count 1.05 X10^3/uL (0.83-4.51); Absolute Neutrophil Count 6.9 X10^3/uL (2.0-7.7); Basophil# 0.01 X10^3/uL; Basophil% 0.1 % (0-1); Hematocrit 43.1 % (37-47); Hemoglobin 15.2 g/dL (12.0-15.0); Lymphocyte # 1.05 X10^3/ul (0.83-4.51); Mean Corp Hgb Conc 35.3 g/dL (32-36); Mean Corpuscular Hgb 30.9 pg (27.0-32.0); Mean Corpuscular Volume 87.6 fL (81-99); Mean Platelet Vol. 9.5 fl (6.2-12.0); Monocyte# 0.71 X10^3/uL; Monocyte% 8.1 % (0-10); NRBC Flagged by Analyzer 0 % (0-5); Neutrophil # 6.94 X10^3/uL (2.7-7.7); Neutrophil % 79.2 % (47-70); Platelet Count 398 K/mm3 (150-450); RBC Distribution Width CV 12.4 % (11.6-14.6); RBC Distribution Width SD 39.5 fl (35.1-43.9); Red Blood Count 4.92 M/mm3 (4.2-5.4); White Blood Count 8.8 K/mm3 (4.4-11.0)
--- NOTE | 2021-02-15 05:46 | PCM.PN.INT ---
Assessment & Plan Assessment/Plan (1) Acute respiratory failure with hypoxia: (2) COVID-19: PLAN: RECOMMENDATIONS: 1. Continue remdesivir and Decadron to complete treatment courses. 2. Wean from BiPAP therapy as tolerated. Goal to maintain oxygen saturations at or above 90%. 3. Continue Lovenox as ordered. 4. Can reattempt diuretic trial today if the patient remains hemodynamically stable. IMPRESSIONS: 1. Acute hypoxemic respiratory failure secondary to COVID-19 pneumonia The patient has become more symptomatic with increasing oxygen demand over the last several days. She was subsequently transferred to the ICU on 02/14 after requiring noninvasive positive pressure ventilatory support with a high FiO2 requirement. Initial CTA chest from February 09 demonstrated no PE. The patient has been maintained on remdesivir and Decadron. Additionally, the patient did receive Tocilizumab on February 14. Plan to continue subcutaneous Lovenox as ordered. Wean FiO2 to maintain oxygen saturations at or above 90%. Can consider a trial of diuretic therapy today if the patient's hemodynamic status remains stable. 2. Advanced age/hyperlipidemia Complicates care, management, recovery and prognosis. Continue home medications as indicated. CODE STATUS was once again discussed with the patient and she does wish to remain full CODE STATUS. Subjective Subjective The patient was seen and examined at the bedside this morning. Events from the last 24 hours have been reviewed. The patient is currently afebrile, hemodynamically stable and maintaining appropriate oxygen saturations on BiPAP with an FiO2 requirement of 40%. The patient is currently documented to be overall net +4.2 L for the hospital admission. The patient did receive Tocilizumab yesterday afternoon. She has completed her treatment course of remdesivir and remains on Decadron. Objective Data Objective Data The patient's most recent lab work, culture data and imaging studies have all been personally reviewed. Coronavirus PCR was positive on February 09. Vital Signs: Vital Signs Temp Pulse Resp BP Pulse Ox 98.7 F 80 24 H 95/65 92 02/15/21 00:00 02/15/21 04:55 02/15/21 04:55 02/15/21 03:00 02/15/21 04:55 Oxygen Flow Rate (L/min) 15 Oxygen Delivery Method Bi-pap Weight: 46.2 kg Body Mass Index (BMI) 21.8 Intake & Output: Intake and Output for Last 24 Hours 02/13/21 02/14/21 02/15/21 23:59 23:59 23:59 Intake Total 350 / 350 1200 / 1200 Output Total 200 / 200 1300 / 1300 Balance 150 / 150 -100 / -100 Medical Nutrition Assessment Dietitian: Nutrition Therapy Diagnosis Start: 02/11/21 14:57 Freq: Status: Active Protocol: Document 02/14/21 11:42 BP (Rec: 02/14/21 11:42 BP [id number]) Nutrition Malnutrition Evidence of Malnutrition Exists No Intake Problem Inadequate Oral Intake Etiology related to acute illness ( COVID) Signs/Symptoms as evidenced by pt report of 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 Lab / Micro Data Attestation: I reviewed the patient's lab results. Result Diagrams: 02/15/21 05:15 02/15/21 05:15 Labs: Laboratory Results - last 24 hr 02/14/21 06:38: WBC 8.4, RBC 4.61, Hgb 14.2, Hct 40.0, MCV 86.8, MCH 30.8, MCHC 35.5 D, RDW Std Deviation 38.4, RDW Coeff of [place] 12.0, Plt Count 339, MPV 9.4 02/14/21 06:38: Sodium 135 L, Potassium 3.6, Chloride 101, Carbon Dioxide 25.0, Anion Gap 9, BUN 18, Creatinine 0.57, Estim Creat Clear Calc 35.81, Est GFR (MDRD) Af Amer 133, Est GFR (MDRD) Non-Af 110, BUN/Creatinine Ratio 31.6 H, Glucose 123 H, Calcium 8.3 L, Total Bilirubin 0.80, AST 26, ALT 32, Alkaline Phosphatase 51, Total Protein 6.7, Albumin 3.1 L, Globulin 3.6, Albumin/Globulin Ratio 0.9 02/14/21 11:00: D-Dimer Quant (PE/DVT) 0.64 H* 02/14/21 11:00: Troponin I High Sens 6.5 02/14/21 11:00: B-Natriuretic Peptide 95.2 02/14/21 11:00: Procalcitonin 0.05 02/14/21 11:00: C-React Prot Ext Range < 2.90 02/15/21 05:15: WBC 8.8, RBC 4.92, Hgb 15.2 H, Hct 43.1, MCV 87.6, MCH 30.9, MCHC 35.3, RDW Std Deviation 39.5, RDW Coeff of [place] 12.4, Plt Count 398, MPV 9.5, Immature Gran % (Auto) 0.600, Neut % (Auto) 79.2 H, Lymph % (Auto) 12.0 L, [place] % (Auto) 8.1, Eos % (Auto) 0.0, Baso % (Auto) 0.1, Absolute Neuts (auto) 6.9, Absolute Lymphs (auto) 1.05, Nucleated RBC % 0 Physical Exam Const alert General Appearance: cooperative and frail; Negative for in distress HEENT normocephalic and head/scalp atraumatic Eyes PERRL, EOMs intact bilaterally and conjunctivae normal Neck supple General: trachea midline Resp Effort and Inspection: tachypneic Auscultation: rales; Negative for rhonchi or wheezes Cardio regular rate and regular rhythm GI normal to inspection, nondistended, normoactive bowel sounds Extremity no clubbing, cyanosis or edema Skin no rashes or lesions noted Neuro CN's II-XII intact bilaterally and no focal motor deficits Psych cooperative and affect normal Charges/Coding Visit Charges Inpatient E&M: 02959 Subs Hosp L3
[2021-02-15 05:53] LABS: ALB/GLOB Ratio 0.9 RATIO (0.9-2.4); AST(SGOT) 21 U/L (15-37); Alanine Aminotransfer ALT/SGPT 34 U/L (13-56); Albumin, Serum 3.3 g/dL (3.2-5.0); Alkaline Phosphatase 56 U/L (45-117); Anion Gap 9 (5-15); BUN 28 mg/dL (7-18); BUN/Creat Ratio 38.3 RATIO (10-20); Calcium,Total 8.5 mg/dL (8.5-10.1); Chloride 100 mmol/L (98-107); Creatinine, Serum 0.73 mg/dL (0.55-1.02); EST Glomerular Filtration Rate 82 mL/min (>60); Est Glom Filt Rate - Afr Amer 99 mL/min (>60); Estimated Creatinine Clearance 34.91 ml/min; Globulin 3.8 g/dL (2.2-4.2); Glucose 139 mg/dL (74-106); Potassium 3.6 mmol/L (3.5-5.1); Protein, Total 7.1 g/dL (6.4-8.2); Sodium Level 136 mmol/L (136-145)
[2021-02-15] MEDS: Enoxaparin 40 MG/0.4 ML Syringe SC (08:48)
--- NOTE | 2021-02-15 08:48 | CPS ---
Placed patient on 10L HFNC, patient stated she was anxious and still feeling SOB. SPO2 was 88-90%. Placed patient back on AIRVO.
[2021-02-15] MEDS: dexAMETHasone 10 MG/ML Vial 6 MG IV (08:49)
[2021-02-15] MEDS: 0.9% Saline Lock 10 ML Syringe IV ×2 (08:50→17:44)
--- NOTE | 2021-02-15 14:40 | PCM.PN.ID ---
Physical Exam Narrative Feeling better today, no fever, no n/v/d. Const alert General Appearance: cooperative Resp Auscultation: diminished lung sounds Cardio regular rate and regular rhythm GI normal to inspection, nondistended, normoactive bowel sounds Skin no rashes or lesions noted ID ID: Route of nutrition/ use of supplements: [] Nutritional Intake: [] IV Site: [] Ivan Catheter: [] Assessment & Plan Assessment/Plan (1) COVID-19: PLAN: Sx started around 02/03. Unvaccinated. Started on dex and remdesivir, had worsened O2, moved to icu. 02/14 received tocilizumab. Recommend vaccination once she is out of quarantine. is unvaccinated, tested neg, asymptomatic; recommend he quarantine for 10 days from when he was last in contact with her. Feeling better today. Will follow (2) Acute respiratory failure with hypoxia:
--- NOTE | 2021-02-15 16:46 | PN.HOSP_ITS ---
Subjective Subjective Patient states she is feeling much improved today. She is currently on air Vo at a 50 L/min and 50% FiO2. Objective Data Objective Data Vital Signs: Vital Signs Temp Pulse Resp BP Pulse Ox 98.3 F 90 18 94/64 96 02/15/21 13:00 02/15/21 14:00 02/15/21 14:00 02/15/21 14:00 02/15/21 14:00 Oxygen Flow Rate (L/min) 50 Oxygen Delivery Method Airvo Weight: 46.2 kg Body Mass Index (BMI) 21.8 Intake & Output: Intake and Output for Last 24 Hours 02/13/21 02/14/21 02/15/21 23:59 23:59 23:59 Intake Total 350 / 350 1200 / 1200 320 / 320 Output Total 200 / 200 1300 / 1300 370 / 370 Balance 150 / 150 -100 / -100 -50 / -50 Medical Nutrition Assessment Dietitian: Nutrition Therapy Diagnosis Start: 02/11/21 14:57 Freq: Status: Active Protocol: Document 02/15/21 09:57 (Rec: 02/15/21 09:57 [id number]) Nutrition Malnutrition Evidence of Malnutrition Exists Yes Malnutrition (severe): Acute Illness/Injury Evidenced By Suboptimal Energy Intake ( Severe),Weight Loss (Severe) Intake Problem Inadequate Oral Intake Etiology related to acute illness ( COVID) Signs/Symptoms as evidenced by pt report of poor PO intake (<75% of usual PO intake x 6 days [employer]), estimated PO intake meeting < 50% of estimated nutritional needs x 5 days during admission Status Active Problem Clinical Problem Acute Disease or Injury Related Malnutrition Etiology severe, acute malnutrition r/t inadequate energy intake w/ increased nutrient needs d/t acute COVID-19 illness Signs/Symptoms as evidenced by unintentional wt loss of 1.2 kg/ 2.5% <1 week; estimated PO intake meeting <75% of estimated nutritional needs x 6 days [employer] and estimated PO intake meeting <50% of estimated nutritional needs x 5 days during admission Status Active Problem Recommendation Dietitian Recommendations/Changes Will continue regular diet and add 240mL ensure enlive w/ meals for additional calories/ protein if consumed. Lab / Micro Data Result Diagrams: 02/15/21 05:15 02/15/21 05:15 Labs: Laboratory Results - last 24 hr 02/14/21 11:00: C-React Prot Ext Range < 2.90 02/15/21 05:15: WBC 8.8, RBC 4.92, Hgb 15.2 H, Hct 43.1, MCV 87.6, MCH 30.9, MCHC 35.3, RDW Std Deviation 39.5, RDW Coeff of [place] 12.4, Plt Count 398, MPV 9.5, Immature Gran % (Auto) 0.600, Neut % (Auto) 79.2 H, Lymph % (Auto) 12.0 L, [place] % (Auto) 8.1, Eos % (Auto) 0.0, Baso % (Auto) 0.1, Absolute Neuts (auto) 6.9, Absolute Lymphs (auto) 1.05, Nucleated RBC % 0 02/15/21 05:15: Sodium 136, Potassium 3.6, Chloride 100, Carbon Dioxide 27.0, Anion Gap 9, BUN 28 H, Creatinine 0.73, Estim Creat Clear Calc 34.91, Est GFR (MDRD) Af Amer 99, Est GFR (MDRD) Non-Af 82, BUN/Creatinine Ratio 38.3 H, Glucose 139 H, Calcium 8.5, Total Bilirubin 0.70, AST 21, ALT 34, Alkaline Phosphatase 56, Total Protein 7.1, Albumin 3.3, Globulin 3.8, Albumin/Globulin Ratio 0.9 Physical Exam Const alert, oriented x3 and no apparent distress Constitutional Narrative: Older white female sitting up in chair at the bedside, appears comfortable, nontoxic, no acute respiratory distress at this time. Exam Limitations: no limitations HEENT HEENT Narrative: No thrush Resp normal respiratory effort, no retractions and no use of accessory muscles Resp Narrative: Bibasilar crackles Auscultation: crackles; Negative for rales, rhonchi or wheezes Cardio regular rate, regular rhythm, S1 normal heart sound, S2 normal heart sound, no murmurs, no rub, no gallops, no clicks and no JVD GI normal to inspection, nondistended, normoactive bowel sounds, soft to palpation, non-tender and non-distended; Negative for hepatosplenomegaly Extremity no clubbing, cyanosis or edema Peripheral Pulses: Yes pulses 2+ throughout Skin no rashes or lesions noted, no wounds, skin turgor normal, no jaundice, no petechiae and no mottling Neuro oriented x3, moves all extremities and no focal motor deficits Sensorium / Orientation: awake and alert Speech: speech normal Psych affect normal Psych Narrative: Extremely pleasant Assessment & Plan Assessment/Plan (1) Acute respiratory failure with hypoxia: (2) COVID-19: (3) Hyponatremia: PLAN: Acute hypoxic respiratory failure secondary to Covid pneumonia -Continue Decadron day 6 of 10 -Remdesivir completed -Monoclonal antibodies given 02/14/2021 -We will repeat dose 40 mg of Lasix IV push x1 dose today -Patient is now on airVo at 50 L/min and 50% FiO2 -Infectious diseases following -Clinical status with regards to oxygen demand have worsened and the patient has been transferred to the intensive care unit -CTA was done and showed diffuse patchy bilateral infiltrates but no PE was noted -Continue subcu enoxaparin for DVT prophylaxis -Continue daily the lab work -Patient was Covid positive on 02/09/2021 and will require 20 days of qu arantine--> and date is 03/01/2021 -Pulmonary following COVID-19 pneumonia -See above Mild hyponatremia -Resolved Hyperglycemia secondary to steroid use -Blood sugars remain in goal -Current intervention needed Hyperlipidemia -Restart atorvastatin once patient is off remdesivir DVT prophylaxis -Continue Lovenox CODE STATUS -Full code Charges/Coding Visit Charges Inpatient E&M: 79855 Subs Hosp L2
[2021-02-15] MEDS: Furosemide 40 MG/4 ML Vial IV (17:43)
[2021-02-16] VITALS (33 sets, daily range): BP systolic 106–138; BP diastolic 56–109; PULSE 76–94; RESP 18–36; TEMP 36.7–36.8; O2SAT 92–98
[2021-02-16 04:43] LABS: Absolute Lymphocyte Count 0.99 X10^3/uL (0.83-4.51); Absolute Neutrophil Count 9.5 X10^3/uL (2.0-7.7); Basophil# 0.02 X10^3/uL; Basophil% 0.2 % (0-1); Hematocrit 43.7 % (37-47); Hemoglobin 15.3 g/dL (12.0-15.0); Lymphocyte # 0.99 X10^3/ul (0.83-4.51); Lymphocyte % 8.7 % (19-41); Mean Corpuscular Hgb 30.7 pg (27.0-32.0); Mean Corpuscular Volume 87.6 fL (81-99); Mean Platelet Vol. 9.6 fl (6.2-12.0); Monocyte# 0.78 X10^3/uL; Monocyte% 6.8 % (0-10); NRBC Flagged by Analyzer 0 % (0-5); Neutrophil # 9.53 X10^3/uL (2.7-7.7); Neutrophil % 83.4 % (47-70); Platelet Count 464 K/mm3 (150-450); RBC Distribution Width CV 12.2 % (11.6-14.6); RBC Distribution Width SD 39.1 fl (35.1-43.9); Red Blood Count 4.99 M/mm3 (4.2-5.4); White Blood Count 11.4 K/mm3 (4.4-11.0)
[2021-02-16 05:00] LABS: ALB/GLOB Ratio 0.9 RATIO (0.9-2.4); AST(SGOT) 17 U/L (15-37); Alanine Aminotransfer ALT/SGPT 30 U/L (13-56); Albumin, Serum 3.2 g/dL (3.2-5.0); Alkaline Phosphatase 51 U/L (45-117); Anion Gap 8 (5-15); BUN 35 mg/dL (7-18); BUN/Creat Ratio 55.1 RATIO (10-20); Calcium,Total 8.7 mg/dL (8.5-10.1); Chloride 100 mmol/L (98-107); Creatinine, Serum 0.64 mg/dL (0.55-1.02); EST Glomerular Filtration Rate 97 mL/min (>60); Est Glom Filt Rate - Afr Amer 117 mL/min (>60); Estimated Creatinine Clearance 34.91 ml/min; Globulin 3.7 g/dL (2.2-4.2); Glucose 164 mg/dL (74-106); Potassium 3.4 mmol/L (3.5-5.1); Protein, Total 6.9 g/dL (6.4-8.2); Sodium Level 136 mmol/L (136-145)
--- NOTE | 2021-02-16 07:03 | PCM.PN.INT ---
Assessment & Plan Assessment/Plan (1) Acute respiratory failure with hypoxia: (2) COVID-19: PLAN: RECOMMENDATIONS: 1. Continue Decadron to complete treatment courses. 2. Continue Airvo heated high flow and wean FiO2 to maintain oxygen saturations at or above 90%. 3. Continue Lovenox as ordered. 4. Continue gentle diuresis as tolerated by hemodynamics and renal function. 5. Potassium repletion as ordered. IMPRESSIONS: 1. Acute hypoxemic respiratory failure secondary to COVID-19 pneumonia Although the patient was initially requiring noninvasive positive pressure ventilatory support, she has since been weaned to heated high flow oxygen and appears to be tolerating the therapy well. Plan to continue to wean FiO2 as tolerated to maintain oxygen saturations at or above 90%. CTA chest from February 09 demonstrated no PE. The patient has completed a treatment course of remdesivir and remains on Decadron. Additionally, the patient did receive Tocilizumab on February 14. Plan to continue subcutaneous Lovenox as ordered. Continue attempts at gentle diuresis as tolerated by hemodynamics and renal function. 2. Hypokalemia Electrolyte repletion as ordered. Recheck levels in the morning. 3. Advanced age/hyperlipidemia Complicates care, management, recovery and prognosis. Continue home medications as indicated. CODE STATUS was once again discussed with the patient and she does wish to remain full CODE STATUS. This note was generated with [employer] dictation software. It may contain incorrect words, spelling, and punctuation that were not noted in checking the note before signing. Subjective Subjective The patient was seen and examined at the bedside this morning. Events from the last 24 hours have been reviewed. The patient is currently afebrile, hemodynamically stable and maintaining appropriate oxygen saturations on Airvo heated high flow with an FiO2 requirement of 45% and flow rate of 50 L/min. The patient slept well in her bedside recliner and does report interval improvement in her dyspnea. She is currently documented to be overall net +3.4 L for the hospital admission. The patient did receive a one-time dose of IV Lasix yesterday. Potassium was low this morning at 3.4. Creatinine remains stable. Objective Data Objective Data The patient's most recent lab work, culture data and imaging studies have all been personally reviewed. Coronavirus PCR was positive on February 09. Vital Signs: Vital Signs Temp Pulse Resp BP Pulse Ox 98.1 F 79 20 H 121/84 H 95 02/16/21 04:00 02/16/21 06:00 02/16/21 06:00 02/16/21 06:00 02/16/21 06:00 Oxygen Flow Rate (L/min) 50 Oxygen Delivery Method Airvo Weight: 46.2 kg Body Mass Index (BMI) 21.8 Intake & Output: Intake and Output for Last 24 Hours 02/14/21 02/15/21 02/16/21 23:59 23:59 23:59 Intake Total 1200 / 1200 720 / 720 Output Total 1300 / 1300 1370 / 1370 200 / 200 Balance -100 / -100 -650 / -650 -200 / -200 Medical Nutrition Assessment Dietitian: Nutrition Therapy Diagnosis Start: 02/11/21 14:57 Freq: Status: Active Protocol: Document 02/15/21 09:57 (Rec: 02/15/21 09:57 AG [id number]) Nutrition Malnutrition Evidence of Malnutrition Exists Yes Malnutrition (severe): Acute Illness/Injury Evidenced By Suboptimal Energy Intake ( Severe),Weight Loss (Severe) Intake Problem Inadequate Oral Intake Etiology related to acute illness ( COVID) Signs/Symptoms as evidenced by pt report of poor PO intake (<75% of usual PO intake x 6 days [employer]PING), estimated PO intake meeting < 50% of estimated nutritional needs x 5 days during admission Status Active Problem Clinical Problem Acute Disease or Injury Related Malnutrition Etiology severe, acute malnutrition r/t inadequate energy intake w/ increased nutrient needs d/t acute COVID-19 illness Signs/Symptoms as evidenced by unintentional wt loss of 1.2 kg/ 2.5% <1 week; estimated PO intake meeting <75% of estimated nutritional needs x 6 days [employer] and estimated PO intake meeting <50% of estimated nutritional needs x 5 days during admission Status Active Problem Recommendation Dietitian Recommendations/Changes Will continue regular diet and add 240mL ensure enlive w/ meals for additional calories/ protein if consumed. Lab / Micro Data Attestation: I reviewed the patient's lab results. Result Diagrams: 02/16/21 04:30 02/16/21 04:30 Labs: Laboratory Results - last 24 hr 02/16/21 04:30: WBC 11.4 H, RBC 4.99, Hgb 15.3 H, Hct 43.7, MCV 87.6, MCH 30.7, MCHC 35.0, RDW Std Deviation 39.1, RDW Coeff of [place] 12.2, Plt Count 464 H, MPV 9.6, Immature Gran % (Auto) 0.900, Neut % (Auto) 83.4 H, Lymph % (Auto) 8.7 L, [place] % (Auto) 6.8, Eos % (Auto) 0.0, Baso % (Auto) 0.2, Absolute Neuts (auto) 9.5 H, Absolute Lymphs (auto) 0.99, Nucleated RBC % 0 02/16/21 04:30: Sodium 136, Potassium 3.4 L, Chloride 100, Carbon Dioxide 28.0, Anion Gap 8, BUN 35 H, Creatinine 0.64, Estim Creat Clear Calc 34.91, Est GFR (MDRD) Af Amer 117, Est GFR (MDRD) Non-Af 97, BUN/Creatinine Ratio 55.1 H, Glucose 164 H, Calcium 8.7, Total Bilirubin 0.70, AST 17, ALT 30, Alkaline Phosphatase 51, Total Protein 6.9, Albumin 3.2, Globulin 3.7, Albumin/Globulin Ratio 0.9 Physical Exam Const alert, oriented x3 and no apparent distress Constitutional Narrative: Sitting in bedside recliner. General Appearance: cooperative and frail; Negative for in distress HEENT normocephalic and head/scalp atraumatic Eyes PERRL, EOMs intact bilaterally and conjunctivae normal Neck supple General: trachea midline Resp Effort and Inspection: tachypneic Auscultation: diminished lung sounds; Negative for rales, rhonchi or wheezes Cardio regular rate and regular rhythm GI normal to inspection, nondistended, normoactive bowel sounds Extremity no clubbing, cyanosis or edema Skin no rashes or lesions noted Neuro CN's II-XII intact bilaterally and no focal motor deficits Psych cooperative and affect normal Charges/Coding Visit Charges Inpatient E&M: 88849 Subs Hosp L3
[2021-02-16] MEDS: Enoxaparin 40 MG/0.4 ML Syringe SC (08:21)
[2021-02-16] MEDS: dexAMETHasone 10 MG/ML Vial 6 MG IV (08:21)
[2021-02-16] MEDS: Potassium Chloride 10mEq/100mL 10 MEQ/100 ML IV.SOLN. 100 MEQ IV BOLUS ×4 (08:22→11:50)
--- NOTE | 2021-02-16 16:09 | PCM.PN.HOSP ---
Subjective Subjective Patient states she had a good night and remained stable. She indicates she is grateful for her care. She remains on air Vo at this point at 50% and a flow rate of 50 L/min. She denies any current shortness of breath. Objective Data Objective Data Vital Signs: Vital Signs Temp Pulse Resp BP Pulse Ox 98.2 F 89 26 H 133/83 H 96 02/16/21 15:00 02/16/21 15:00 02/16/21 15:00 02/16/21 15:00 02/16/21 15:00 Oxygen Flow Rate (L/min) 8 Oxygen Delivery Method Nasal Cannula Weight: 46.2 kg Body Mass Index (BMI) 21.8 Intake & Output: Intake and Output for Last 24 Hours 02/14/21 02/15/21 02/16/21 23:59 23:59 23:59 Intake Total 1200 / 1200 720 / 720 600 / 600 Output Total 1300 / 1300 1370 / 1370 475 / 475 Balance -100 / -100 -650 / -650 125 / 125 Medical Nutrition Assessment Dietitian: Nutrition Therapy Diagnosis Start: 02/11/21 14:57 Freq: Status: Active Protocol: Document 02/16/21 09:59 AG (Rec: 02/16/21 09:59 AG [id number]) Nutrition Malnutrition Evidence of Malnutrition Exists Yes Malnutrition (severe): Acute Illness/Injury Evidenced By Suboptimal Energy Intake ( Severe),Weight Loss (Severe) Intake Problem Inadequate Oral Intake Etiology related to acute illness ( COVID) Signs/Symptoms as evidenced by pt report of poor PO intake (<75% of usual PO intake x 6 days VENDING [employer]TE [employer]ICER), estimated PO intake meeting < 50% of estimated nutritional needs x 6 days during admission Status Active Problem Clinical Problem Acute Disease or Injury Related Malnutrition Etiology severe, acute malnutrition r/t inadequate energy intake w/ increased nutrient needs d/t acute COVID-19 illness Signs/Symptoms as evidenced by unintentional wt loss of 1.2 kg/ 2.5% <1 week; estimated PO intake meeting <75% of estimated nutritional needs x 6 days VENDING R[employer]TE [employer]ICER and estimated PO intake meeting <50% of estimated nutritional needs x 6 days during admission Status Active Problem Recommendation Dietitian Recommendations/Changes Will continue regular diet and 240mL ensure enlive w/ meals for additional calories/ protein if consumed. Lab / Micro Data Result Diagrams: 02/16/21 04:30 02/16/21 04:30 Labs: Laboratory Results - last 24 hr 02/16/21 04:30: WBC 11.4 H, RBC 4.99, Hgb 15.3 H, Hct 43.7, MCV 87.6, MCH 30.7, MCHC 35.0, RDW Std Deviation 39.1, RDW Coeff of [place] 12.2, Plt Count 464 H, MPV 9.6, Immature Gran % (Auto) 0.900, Neut % (Auto) 83.4 H, Lymph % (Auto) 8.7 L, [place] % (Auto) 6.8, Eos % (Auto) 0.0, Baso % (Auto) 0.2, Absolute Neuts (auto) 9.5 H, Absolute Lymphs (auto) 0.99, Nucleated RBC % 0 02/16/21 04:30: Sodium 136, Potassium 3.4 L, Chloride 100, Carbon Dioxide 28.0, Anion Gap 8, BUN 35 H, Creatinine 0.64, Estim Creat Clear Calc 34.91, Est GFR (MDRD) Af Amer 117, Est GFR (MDRD) Non-Af 97, BUN/Creatinine Ratio 55.1 H, Glucose 164 H, Calcium 8.7, Total Bilirubin 0.70, AST 17, ALT 30, Alkaline Phosphatase 51, Total Protein 6.9, Albumin 3.2, Globulin 3.7, Albumin/Globulin Ratio 0.9 Physical Exam Const alert, oriented x3 and no apparent distress Constitutional Narrative: White female sitting up in a chair at the bedside, appears comfortable, nontoxic, remains on air Vo Exam Limitations: no limitations Resp normal respiratory effort, no retractions, no use of accessory muscles and clear to auscultation bilaterally Resp Narrative: Diffusely diminished with few crackles at bilateral bases Auscultation: crackles; Negative for rales, rhonchi or wheezes Cardio regular rate, regular rhythm, S1 normal heart sound, S2 normal heart sound, no murmurs, no rub, no gallops, no clicks and no JVD GI normal to inspection, nondistended, normoactive bowel sounds, soft to palpation, non-tender and non-distended Palpation: Negative for tender or guarding Extremity normal to inspection, full ROM and no clubbing, cyanosis or edema Peripheral Pulses: Yes pulses 2+ throughout Skin no rashes or lesions noted, no wounds, skin turgor normal, no jaundice, no petechiae and no mottling Neuro oriented x3, CN's II-XII intact bilaterally and moves all extremities Sensorium / Orientation: awake and alert Assessment & Plan Assessment/Plan (1) Hypokalemia: (2) Acute respiratory failure with hypoxia: (3) COVID-19: PLAN: Acute hypoxic respiratory failure secondary to Covid pneumonia -Continue Decadron day 7 of 10 -Remdesivir completed -Monoclonal antibodies given 02/14/2021 -We will repeat dose 40 mg of Lasix IV push x1 dose today -Patient remains on airVo at 50 L/min and 50% FiO2 -Wean O2 during the day as able -Continue nocturnal BiPAP -Infectious diseases following -CTA was done and showed diffuse patchy bilateral infiltrates but no PE was noted -Continue subcu enoxaparin for DVT prophylaxis -Continue daily the lab work -Patient was Covid positive on 02/09/2021 and will require 20 days of quarantine--> and date is 03/01/2021 -Pulmonary following COVID-19 pneumonia -See above Hypokalemia -Supplementation ordered -Repeat in a.m. Hyperglycemia secondary to steroid use -Blood sugars remain in goal -Current intervention needed Hyperlipidemia -Restart atorvastatin DVT prophylaxis -Continue Lovenox CODE STATUS -Full code Charges/Coding Visit Charges Inpatient E&M: 58874 Subs Hosp L2
[2021-02-16] MEDS: 0.9% Saline Lock 10 ML Syringe IV (17:48)
[2021-02-16] MEDS: Furosemide 40 MG/4 ML Vial IV (17:48)
[2021-02-16] MEDS: Atorvastatin Calcium 10 MG Tablet PO (21:02)
[2021-02-17] VITALS (27 sets, daily range): BP systolic 105–131; BP diastolic 58–109; PULSE 77–109; RESP 16–28; TEMP 36.8–36.9; O2SAT 92–100
[2021-02-17 04:43] LABS: Absolute Lymphocyte Count 0.89 X10^3/uL (0.83-4.51); Absolute Neutrophil Count 11.7 X10^3/uL (2.0-7.7); Basophil# 0.01 X10^3/uL; Basophil% 0.1 % (0-1); Hematocrit 46.5 % (37-47); Hemoglobin 16.3 g/dL (12.0-15.0); Lymphocyte # 0.89 X10^3/ul (0.83-4.51); Lymphocyte % 6.6 % (19-41); Mean Corp Hgb Conc 35.1 g/dL (32-36); Mean Corpuscular Hgb 30.5 pg (27.0-32.0); Mean Corpuscular Volume 86.9 fL (81-99); Mean Platelet Vol. 9.6 fl (6.2-12.0); Monocyte# 0.85 X10^3/uL; Monocyte% 6.3 % (0-10); NRBC Flagged by Analyzer 0 % (0-5); Neutrophil # 11.69 X10^3/uL (2.7-7.7); Platelet Count 520 K/mm3 (150-450); RBC Distribution Width CV 12.6 % (11.6-14.6); RBC Distribution Width SD 39.3 fl (35.1-43.9); Red Blood Count 5.35 M/mm3 (4.2-5.4); White Blood Count 13.6 K/mm3 (4.4-11.0)
[2021-02-17 05:08] LABS: ALB/GLOB Ratio 0.9 RATIO (0.9-2.4); AST(SGOT) 15 U/L (15-37); Alanine Aminotransfer ALT/SGPT 29 U/L (13-56); Albumin, Serum 3.4 g/dL (3.2-5.0); Alkaline Phosphatase 54 U/L (45-117); Anion Gap 7 (5-15); BUN 31 mg/dL (7-18); BUN/Creat Ratio 39.8 RATIO (10-20); Calcium,Total 8.9 mg/dL (8.5-10.1); Chloride 100 mmol/L (98-107); Creatinine, Serum 0.78 mg/dL (0.55-1.02); EST Glomerular Filtration Rate 76 mL/min (>60); Est Glom Filt Rate - Afr Amer 92 mL/min (>60); Estimated Creatinine Clearance 34.91 ml/min; Globulin 3.9 g/dL (2.2-4.2); Glucose 179 mg/dL (74-106); Potassium 4.2 mmol/L (3.5-5.1); Protein, Total 7.3 g/dL (6.4-8.2); Sodium Level 135 mmol/L (136-145)
--- NOTE | 2021-02-17 06:39 | PN.CC_ITS ---
Assessment & Plan Assessment/Plan (1) Acute respiratory failure with hypoxia: (2) COVID-19: PLAN: RECOMMENDATIONS: 1. Continue Decadron to complete treatment courses. 2. Continue to wean supplemental oxygen to maintain saturations at or above 90%. 3. Continue Lovenox as ordered. 4. Continue gentle diuresis as tolerated by hemodynamics and renal function. 5. Encourage incentive spirometer use and mobilize patient as tolerated. 6. The patient is medically stable for transfer out of the intensive care unit. IMPRESSIONS: 1. Acute hypoxemic respiratory failure secondary to COVID-19 pneumonia Although the patient was initially requiring noninvasive positive pressure ventilatory support, she has since been weaned to heated high flow oxygen and appears to be tolerating the therapy well. Plan to continue to wean FiO2 as tolerated to maintain oxygen saturations at or above 90%. CTA chest from February 09 demonstrated no PE. The patient has completed a treatment course of remdesivir and remains on Decadron. Additionally, the patient did receive Tocilizumab on February 14. Plan to continue subcutaneous Lovenox as ordered. Continue attempts at gentle diuresis as tolerated by hemodynamics and renal function. 2. Advanced age/hyperlipidemia Complicates care, management, recovery and prognosis. Continue home medications as indicated. CODE STATUS was once again discussed with the patient and she d oes wish to remain full CODE STATUS. This note was generated with [employer] dictation software. It may contain incorrect words, spelling, and punctuation that were not noted in checking the note before signing. Subjective Subjective The patient was seen and examined at the bedside this morning. Events from the last 24 hours have been reviewed. The patient is currently afebrile, hemodynamically stable and maintaining appropriate oxygen saturations on 9 L/min via nasal cannula. The patient did not require BiPAP support overnight. She is currently documented to be overall net +3 L for the hospital admission. White count is elevated this morning at 13,000 with a platelet count of 520,000. Creatinine is within normal limits. Objective Data Objective Data The patient's most recent lab work, culture data and imaging studies have all been personally reviewed. Coronavirus PCR was positive on February 09. Vital Signs: Vital Signs Temp Pulse Resp BP Pulse Ox 98.4 F 83 18 131/80 H 97 02/17/21 00:00 02/17/21 06:00 02/17/21 06:00 02/17/21 06:00 02/17/21 06:00 Oxygen Flow Rate (L/min) 9 Oxygen Delivery Method Nasal Cannula Weight: 46.2 kg Body Mass Index (BMI) 21.8 Intake & Output: Intake and Output for Last 24 Hours 02/15/21 02/16/21 02/17/21 23:59 23:59 23:59 Intake Total 720 / 720 900 / 1000 100 / 100 Output Total 1370 / 1370 875 / 1525 650 / 650 Balance -650 / -650 25 / -525 -550 / -550 Medical Nutrition Assessment Dietitian: Nutrition Therapy Diagnosis Start: 02/11/21 14:57 Freq: Status: Active Protocol: Document 02/16/21 09:59 AG (Rec: 02/16/21 09:59 AG [id number]) Nutrition Malnutrition Evidence of Malnutrition Exists Yes Malnutrition (severe): Acute Illness/Injury Evidenced By Suboptimal Energy Intake ( Severe),Weight Loss (Severe) Intake Problem Inadequate Oral Intake Etiology related to acute illness ( COVID) Signs/Symptoms as evidenced by pt report of poor PO intake (<75% of usual PO intake x 6 days [employer]UNITY [employer]IAISON), estimated PO intake meeting < 50% of estimated nutritional needs x 6 days during admission Status Active Problem Clinical Problem Acute Disease or Injury Related Malnutrition Etiology severe, acute malnutrition r/t inadequate energy intake w/ increased nutrient needs d/t acute COVID-19 illness Signs/Symptoms as evidenced by unintentional wt loss of 1.2 kg/ 2.5% <1 week; estimated PO intake meeting <75% of estimated nutritional needs x 6 days [employer]UNITY [employer]IAISON and estimated PO intake meeting <50% of estimated nutritional needs x 6 days during admission Status Active Problem Recommendation Dietitian Recommendations/Changes Will continue regular diet and 240mL ensure enlive w/ meals for additional calories/ protein if consumed. Lab / Micro Data Attestation: I reviewed the patient's lab results. Result Diagrams: 02/17/21 04:10 02/17/21 04:10 Labs: Laboratory Results - last 24 hr 02/17/21 04:10: WBC 13.6 H, RBC 5.35, Hgb 16.3 H, Hct 46.5, MCV 86.9, MCH 30.5, MCHC 35.1, RDW Std Deviation 39.3, RDW Coeff of [place] 12.6, Plt Count 520 H, MPV 9.6, Immature Gran % (Auto) 1.000 H, Neut % (Auto) 86.0 H, Lymph % (Auto) 6.6 L, [place] % (Auto) 6.3, Eos % (Auto) 0.0, Baso % (Auto) 0.1, Absolute Neuts (auto) 11.7 H, Absolute Lymphs (auto) 0.89, Nucleated RBC % 0 02/17/21 04:10: Sodium 135 L, Potassium 4.2, Chloride 100, Carbon Dioxide 28.0, Anion Gap 7, BUN 31 H, Creatinine 0.78, Estim Creat Clear Calc 34.91, Est GFR (MDRD) Af Amer 92, Est GFR (MDRD) Non-Af 76, BUN/Creatinine Ratio 39.8 H, Glucose 179 H, Calcium 8.9, Total Bilirubin 0.80, AST 15, ALT 29, Alkaline [place] sphatase 54, Total Protein 7.3, Albumin 3.4, Globulin 3.9, Albumin/Globulin Ratio 0.9 Physical Exam Const alert, oriented x3 and no apparent distress Constitutional Narrative: Sitting in bedside recliner. General Appearance: cooperative and frail; Negative for in distress HEENT normocephalic and head/scalp atraumatic Eyes PERRL, EOMs intact bilaterally and conjunctivae normal Neck supple General: trachea midline Resp Effort and Inspection: tachypneic Auscultation: diminished lung sounds; Negative for rales, rhonchi or wheezes Cardio regular rate and regular rhythm GI normal to inspection, nondistended, normoactive bowel sounds Extremity no clubbing, cyanosis or edema Skin no rashes or lesions noted Neuro CN's II-XII intact bilaterally and no focal motor deficits Psych cooperative and affect normal Charges/Coding Visit Charges Inpatient E&M: 06449 Subs Hosp L2
[2021-02-17] MEDS: Enoxaparin 40 MG/0.4 ML Syringe SC (07:52)
[2021-02-17] MEDS: dexAMETHasone 10 MG/ML Vial 6 MG IV (07:52)
[2021-02-17] MEDS: 0.9% Saline Lock 10 ML Syringe IV ×2 (07:53→11:58)
--- NOTE | 2021-02-17 09:49 | PN.HOSP_ITS ---
Subjective Subjective Patient states she is very grateful for the care she is gotten. She is feeling better. She is now on 9 L high flow nasal cannula. Coughing less. Less short of breath. Objective Data Objective Data Vital Signs: Vital Signs Temp Pulse Resp BP Pulse Ox 98.4 F 83 18 131/80 H 95 02/17/21 00:00 02/17/21 06:00 02/17/21 06:00 02/17/21 06:00 02/17/21 07:30 Oxygen Flow Rate (L/min) 9 Oxygen Delivery Method Nasal Cannula Weight: 46.2 kg Body Mass Index (BMI) 21.8 Intake & Output: Intake and Output for Last 24 Hours 02/15/21 02/16/21 02/17/21 23:59 23:59 23:59 Intake Total 720 / 720 900 / 1000 100 / 100 Output Total 1370 / 1370 875 / 1525 650 / 650 Balance -650 / -650 25 / -525 -550 / -550 Medical Nutrition Assessment Dietitian: Nutrition Therapy Diagnosis Start: 02/11/21 14:57 Freq: Status: Active Protocol: Document 02/16/21 09:59 AG (Rec: 02/16/21 09:59 AG [id number]) Nutrition Malnutrition Evidence of Malnutrition Exists Yes Malnutrition (severe): Acute Illness/Injury Evidenced By Suboptimal Energy Intake ( Severe),Weight Loss (Severe) Intake Problem Inadequate Oral Intake Etiology related to acute illness ( COVID) Signs/Symptoms as evidenced by pt report of poor PO intake (<75% of usual PO intake x 6 days [employer]UM[employer]ADER), estimated PO intake meeting < 50% of estimated nutritional needs x 6 days during admission Status Active Problem Clinical Problem Acute Disease or Injury Related Malnutrition Etiology severe, acute malnutrition r/t inadequate energy intake w/ increased nutrient needs d/t acute COVID-19 illness Signs/Symptoms as evidenced by unintentional wt loss of 1.2 kg/ 2.5% <1 week; estimated PO intake meeting <75% of estimated nutritional needs x 6 days [employer]UM[employer]AD[employer] and estimated PO intake meeting <50% of estimated nutritional needs x 6 days during admission Status Active Problem Recommendation Dietitian Recommendations/Changes Will continue regular diet and 240mL ensure enlive w/ meals for additional calories/ protein if consumed. Lab / Micro Data Result Diagrams: 02/17/21 04:10 02/17/21 04:10 Labs: Laboratory Results - last 24 hr 02/17/21 04:10: WBC 13.6 H, RBC 5.35, Hgb 16.3 H, Hct 46.5, MCV 86.9, MCH 30.5, MCHC 35.1, RDW Std Deviation 39.3, RDW Coeff of [place] 12.6, Plt Count 520 H, MPV 9.6, Immature Gran % (Auto) 1.000 H, Neut % (Auto) 86.0 H, Lymph % (Auto) 6.6 L, [place] % (Auto) 6.3, Eos % (Auto) 0.0, Baso % (Auto) 0.1, Absolute Neuts (auto) 11.7 H, Absolute Lymphs (auto) 0.89, Nucleated RBC % 0 02/17/21 04:10: Sodium 135 L, Potassium 4.2, Chloride 100, Carbon Dioxide 28.0, Anion Gap 7, BUN 31 H, Creatinine 0.78, Estim Creat Clear Calc 34.91, Est GFR (MDRD) Af Amer 92, Est GFR (MDRD) Non-Af 76, BUN/Creatinine Ratio 39.8 H, G lucose 179 H, Calcium 8.9, Total Bilirubin 0.80, AST 15, ALT 29, Alkaline Phosphatase 54, Total Protein 7.3, Albumin 3.4, Globulin 3.9, Albumin/Globulin Ratio 0.9 Physical Exam Const alert, oriented x3 and no apparent distress Constitutional Narrative: Older white female sitting up in the chair at the bedside, appears much more comfortable, no longer on air Vo, nontoxic, no signs of respiratory distress Exam Limitations: no limitations HEENT head/scalp atraumatic HEENT Narrative: No thrush noted Head and Scalp: normocephalic Resp normal respiratory effort, no retractions and no use of accessory muscles Resp Narrative: Few scattered bibasilar crackles Cardio regular rate, regular rhythm, S1 normal heart sound, S2 normal heart sound, no murmurs, no rub, no gallops, no clicks and no JVD GI normal to inspection, nondistended, normoactive bowel sounds, soft to palpation, non-tender and non-distended Extremity normal to inspection and no clubbing, cyanosis or edema Peripheral Pulses: Yes pulses 2+ throughout Neuro oriented x3, moves all extremities and no focal motor deficits Sensorium / Orientation: awake and alert Assessment & Plan Assessment/Plan (1) Thrombocytosis: (2) Acute respiratory failure with hypoxia: (3) COVID-19: (4) Hyponatremia: PLAN: Acute hypoxic respiratory failure secondary to Covid pneumonia -Continue Decadron day 8 of 10 -Remdesivir completed -Monoclonal antibodies given 02/14/2021 -Repeat Lasix 40 mg IV push today -Patient remains on airVo at 50 L/min and 50% FiO2 -Wean O2 during the day as able -Continue nocturnal BiPAP -Infectious diseases following -CTA was done and showed diffuse patchy bilateral infiltrates but no PE was noted -Continue subcu enoxaparin for DVT prophylaxis -Continue daily the lab work -Patient was Covid positive on 02/09/2021 and will require 20 days of quarantine--> and date is 03/01/2021 -Pulmonary following COVID-19 pneumonia -See above Thrombocytosis -Suspect reactive -Continue to monitor Hypokalemia -Resolved -We will continue to monitor with IV diuretics Hyperglycemia secondary to steroid use -Blood sugars remain in goal -Current intervention needed -Patient does not carry a baseline diagnosis of diabetes Hyperlipidemia -Continue atorvastatin DVT prophylaxis -Continue Lovenox CODE STATUS -Full code Charges/Coding Visit Charges Inpatient E&M: 11624 Subs Hosp L2
[2021-02-17] MEDS: Furosemide 40 MG/4 ML Vial IV (11:57)
[2021-02-17] MEDS: Atorvastatin Calcium 10 MG Tablet PO (21:09)
[2021-02-18] VITALS (11 sets, daily range): BP systolic 117–121; BP diastolic 58–76; PULSE 65–93; RESP 16–20; TEMP 36.6–36.7; O2SAT 85–95
[2021-02-18 09:42] LABS: Absolute Lymphocyte Count 0.99 X10^3/uL (0.83-4.51); Absolute Neutrophil Count 12.7 X10^3/uL (2.0-7.7); Basophil# 0.02 X10^3/uL; Basophil% 0.1 % (0-1); Eosinophil# 0.06 X10^3/uL; Eosinophils% 0.4 % (0-5); Hemoglobin 15.7 g/dL (12.0-15.0); Lymphocyte # 0.99 X10^3/ul (0.83-4.51); Lymphocyte % 6.8 % (19-41); Mean Corp Hgb Conc 34.9 g/dL (32-36); Mean Corpuscular Volume 88.9 fL (81-99); Mean Platelet Vol. 9.6 fl (6.2-12.0); Monocyte# 0.79 X10^3/uL; Monocyte% 5.4 % (0-10); NRBC Flagged by Analyzer 0 % (0-5); Neutrophil # 12.65 X10^3/uL (2.7-7.7); Neutrophil % 86.3 % (47-70); Platelet Count 473 K/mm3 (150-450); RBC Distribution Width CV 12.6 % (11.6-14.6); RBC Distribution Width SD 41.1 fl (35.1-43.9); Red Blood Count 5.06 M/mm3 (4.2-5.4); White Blood Count 14.7 K/mm3 (4.4-11.0)
[2021-02-18 10:03] LABS: ALB/GLOB Ratio 0.9 RATIO (0.9-2.4); AST(SGOT) 17 U/L (15-37); Alanine Aminotransfer ALT/SGPT 27 U/L (13-56); Albumin, Serum 3.2 g/dL (3.2-5.0); Alkaline Phosphatase 48 U/L (45-117); Anion Gap 8 (5-15); BUN 36 mg/dL (7-18); BUN/Creat Ratio 44.2 RATIO (10-20); Chloride 98 mmol/L (98-107); Creatinine, Serum 0.82 mg/dL (0.55-1.02); EST Glomerular Filtration Rate 73 mL/min (>60); Est Glom Filt Rate - Afr Amer 88 mL/min (>60); Estimated Creatinine Clearance 42.57 ml/min; Globulin 3.6 g/dL (2.2-4.2); Glucose 182 mg/dL (74-106); Potassium 3.7 mmol/L (3.5-5.1); Protein, Total 6.8 g/dL (6.4-8.2); Sodium Level 133 mmol/L (136-145)
[2021-02-18] MEDS: dexAMETHasone 10 MG/ML Vial 6 MG IV (10:17)
[2021-02-18] MEDS: 0.9% Saline Lock 10 ML Syringe IV (10:17)
[2021-02-18] MEDS: Enoxaparin 40 MG/0.4 ML Syringe SC (10:17)
--- NOTE | 2021-02-18 13:30 | PN.CC_ITS ---
Assessment & Plan Assessment/Plan (1) Acute respiratory failure with hypoxia: (2) COVID-19: PLAN: RECOMMENDATIONS: 1. Continue Decadron to complete treatment courses. 2. Continue to wean supplemental oxygen to maintain saturations at or above 90%. 3. Continue Lovenox as ordered. 4. Continue gentle diuresis as tolerated by hemodynamics and renal function. 5. Encourage incentive spirometer use and mobilize patient as tolerated. 6. Obtain walking oximetry. Potential discharge if tolerates ambulation on 6 L or less 7. If discharged, patient should follow-up in our office in 4 to 6 weeks for reevaluation of supplemental oxygen IMPRESSIONS: 1. Acute hypoxemic respiratory failure secondary to COVID-19 pneumonia Although the patient was initially requiring noninvasive positive pressure ventilatory support, she has since been weaned to heated high flow oxygen and appears to be tolerating the therapy well. Plan to continue to wean FiO2 as tolerated to maintain oxygen saturations at or above 90%. CTA chest from February 09 demonstrated no PE. The patient has completed a treatment course of remdesivir and remains on Decadron. Additionally, the patient did receive Tocilizumab on February 14. Plan to continue subcutaneous Lovenox as ordered. Patient appears to be doing well on minimal nasal cannula oxygen. Will obtain a walking oximetry. If patient is able to tolerate ambulation on 6 L or less, patient could potentially be discharged home. Patient will need for reevaluation of supplemental oxygen requirements. Patient should complete 10 days of Decadron therapy. 2. Advanced age/hyperlipidemia Complicates care, management, recovery and prognosis. Continue home medications as indicated. CODE STATUS was once again discussed with the patient and she does wish to remain full CODE STATUS. This note was generated with WhatsApp dictation software. It may contain incorrect words, spelling, and punctuation that were not noted in checking the note before signing. Subjective Subjective Patient feels subjectively improved compared to yesterday. Patient does report a cough that is intermittently productive. Patient denies any body aches, fevers or chills. Objective Data Objective Data Vital Signs: Vital Signs Temp Pulse Resp BP Pulse Ox 36.6 C 91 20 H 117/58 L 85 02/18/21 10:02/18/21 10:05 02/18/21 10:02/18/21 10:02/18/21 12:49 Oxygen Flow Rate (L/min) 2 Oxygen Delivery Method Nasal Cannula Weight: 46.2 kg Body Mass Index (BMI) 21.8 Intake & Output: Intake and Output for Last 24 Hours 02/16/21 02/17/21 02/18/21 23:59 23:59 23:59 Intake Total 900 / 1000 700 / 700 60 / 60 Output Total 875 / 1525 1550 / 1550 350 / 350 Balance 25 / -525 -850 / -850 -290 / -290 Medical Nutrition Assessment Dietitian: Malnutrition Criteria Met Start: 02/11/21 14:5 7 Freq: Status: Active Protocol: Document 02/18/21 11:48 RMA (Rec: 02/18/21 11:48 RMA [id number]) Nutrition Malnutrition Evidence of Malnutrition Exists Yes Malnutrition (severe): Acute Illness/Injury Evidenced By Suboptimal Energy Intake ( Severe),Weight Loss (Severe) Intake Problem Inadequate Oral Intake Etiology related to acute illness ( COVID) Signs/Symptoms as evidenced by pt report of poor PO intake (<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), estimated PO intake meeting < 50% of estimated nutritional needs x 6 days during admission Status Active Problem Clinical Problem Acute Disease or Injury Related Malnutrition Etiology severe, acute malnutrition r/t inadequate energy intake w/ increased nutrient needs d/t acute COVID-19 illness Signs/Symptoms as evidenced by unintentional wt loss of 1.2 kg/ 2.5% <1 week; estimated PO intake meeting <75% of estimated nutritional 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 Monitor need to restrict carbohydrates if blood glucose remains elevated. Lab / Micro Data Result Diagrams: 02/18/21 09:35 02/18/21 09:35 Labs: Laboratory Results - last 24 hr 02/18/21 09:35: WBC 14.7 H, RBC 5.06, Hgb 15.7 H, Hct 45.0, MCV 88.9, MCH 31.0, MCHC 34.9, RDW Std Deviation 41.1, RDW Coeff of [place] 12.6, Plt Count 473 H, MPV 9.6, Immature Gran % (Auto) 1.000 H, Neut % (Auto) 86.3 H, Lymph % (Auto) 6.8 L, [place] % (Auto) 5.4, Eos % (Auto) 0.4, Baso % (Auto) 0.1, Absolute Neuts (auto) 12.7 H, Absolute Lymphs (auto) 0.99, Nucleated RBC % 0 02/18/21 09:35: Sodium 133 L, Potassium 3.7, Chloride 98, Carbon Dioxide 27.0, Anion Gap 8, BUN 36 H, Creatinine 0.82, Estim Creat Clear Calc 42.57, Est GFR (MDRD) Af Amer 88, Est GFR (MDRD) Non-Af 73, BUN/Creatinine Ratio 44.2 H, Gluco se 182 H, Calcium 9.0, Total Bilirubin 1.00, AST 17, ALT 27, Alkaline Phosphatase 48, Total Protein 6.8, Albumin 3.2, Globulin 3.6, Albumin/Globulin Ratio 0.9 Physical Exam Const alert, oriented x3 and no apparent distress General Appearance: well kempt; Negative for in distress or anxious HEENT normocephalic and head/scalp atraumatic Eyes PERRL, EOMs intact bilaterally and no scleral icterus Neck full ROM and No nuchal rigidity Chest inspection of chest normal Chest: symmetrical chest wall rise Resp normal respiratory effort Auscultation: diminished lung sounds; Negative for rales, rhonchi or wheezes Cardio regular rate, regular rhythm, S1 normal heart sound, S2 normal heart sound, no murmurs, no rub and no gallops GI normal to inspection, nondistended, normoactive bowel sounds no CVA tenderness Extremity no clubbing, cyanosis or edema Skin no rashes or lesions noted Neuro oriented x3, CN's II-XII intact bilaterally and no focal motor deficits Psych mental status grossly normal, thought process normal and cooperative Charges/Coding Visit Charges Inpatient E&M: 49474 Subs Hosp L2
--- NOTE | 2021-02-18 15:26 | CASEMGMT ---
Pt qualifies for 2L nc and asks this LIZETT SMITH to call to have him decide on DME company. Pt states no need for any further therapy/resources at discharge. Call to pt's and he states he would like anyone other that [facility] here in [place]. aware of [employer] and states he would like them. Referral faxed to [facility] and call to [employer] to notify of referral, voices understanding. states no more concerns with pt coming home today. [place] LIZETT SMITH
--- NOTE | 2021-02-18 16:50 | PCM.DC ---
Discharge Instructions Diet Discharge Diet: Low fat / Low cholesterol and 2000 mg Sodium Diet Activity Discharge Activity: Return to Normal Activity Follow Up Care Test Results: Test results from this visit will be discussed in further detail at your follow-up appointment, if applicable. 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 Continue to use your oxygen all the time. Continue to use your incentive spirometer. Continue to remain active and eat healthy. Let your doctor know if you develop fever >101.3F or have progressive worsening shortness of breath. Follow-up with your primary care doctor and also with pulmonology to have your continued oxygen use reevaluated. Discharge Orders/Prescriptions Prescriptions: Continued atorvastatin 10 MG tablet 10 mg PO QHS RF: 0 Vitamin C DAILY RF: 0 Vitamin D3 DAILY RF: 0 folic acid DAILY RF: 0 omega-3 fatty acids Capsule 1 cap PO DAILY RF: 0 Referrals / Follow Up: Kaylie Contreras MD [Primary Care Provider] - Within 2 Weeks Disposition Disposition (needs filled in before D/C Order can be placed): Home, Self Care
--- NOTE | 2021-02-18 16:51 | PCM.DC.SUM ---
Providers Date of Admission: 02/09/21 Date of Discharge: 02/18/21 Primary Care Physician: Dr. Kaylie Contreras MD Consultations 02/14/21 09:17 Consult: Infectious Disease Routine Consulting Provider: David Martin Reason for Consult: COVID PNA EMERGENT Consult: No Notified: Yes Date Notified: 02/14/21 Time Notified: 09:17 Method of Notification: Verbal 02/14/21 15:04 Consult: Spring Inspector / Pulmonary Medicine Routine Consulting Provider: Pulmonary Medicine nita [place] Reason for Consult: COVID-19 resp failure EMERGENT Consult: No Notified: Yes Date Notified: 02/14/21 Time Notified: 15:08 Method of Notification: Verbal Reason For Visit: COVID PNA Diagnosis Discharge Diagnosis (1) Acute respiratory failure with hypoxia: Status: Acute Code(s): J96.01 - Acute respiratory failure with hypoxia (2) COVID-19: Status: Acute Code(s): U07.1 - COVID-19 (3) Malnutrition: Status: Deleted Code(s): E46 - Unspecified protein-calorie malnutrition (4) Severe malnutrition: Status: Acute Code(s): E43 - Unspecified severe protein-calorie malnutrition Medications at Discharge Home Medications atorvastatin 10 mg PO QHS 07/11/18 Vitamin C DAILY 02/09/21 Vitamin D3 DAILY 02/09/21 folic acid DAILY 02/09/21 omega-3 fatty acids 1 cap PO DAILY 02/09/21 Hospital Course Operations None Procedures None Summary of Care Provided Minutes Spent on Discharge: 45 Hospital Course: 75-year-old female that was admitted with fever, cough, dyspnea, generalized malaise, arthralgias that started at the beginning of February. Denied any loss of smell or taste. Patient was on vaccinated. Her is also unvaccinated. She was seen in the ED and she tested positive for COVID-19 infection. Chest x-ray and CT scan of the chest was suggestive of COVID-19. Patient was admitted to the floor, she was started on dexamethasone and remdesivir. Patient's oxygen requirement got worse, she required use of BiPAP and Air Vo. Patient received doxy lives with mom on February 14. She was also gently diuresed. Patient continued to improved. She completed her remdesivir and Decadron in the hospital. Patient was evaluated at discharge and found to require 2 L of oxygen. She was discharged home on 2 L of oxygen. She follow-up with pulmonology in the outpatient. Physical Exam Const alert, oriented x3 and no apparent distress Constitutional Narrative: Older white female sitting up in the chair at the bedside, appears much more comfortable, no longer on air Vo, nontoxic, no signs of respiratory distress General Appearance: cooperative Exam Limitations: no limitations HEENT normocephalic, head/scalp atraumatic, moist oral mucous membranes and dentition normal Eyes PERRL, EOMs intact bilaterally and conjunctivae normal Neck no lymphadenopathy, supple and no JVD Neck Narrative: Trachea midline Resp normal respiratory effort, no retractions, no use of accessory muscles and clear to auscultation bilaterally Resp Narrative: Few scattered bibasilar crackles Auscultation: crackles; Negative for rales, rhonchi or wheezes Cardio regular rate, regular rhythm, S1 normal heart sound, S2 normal heart sound, no murmurs, no rub, no gallops, no clicks and no JVD GI normal to inspection, nondistended, normoactive bowel sounds, soft to palpation, non-tender and non-distended; Negative for hepatosplenomegaly Palpation: Negative for tender or guarding Extremity normal to inspection, full ROM and no clubbing, cyanosis or edema Skin no rashes or lesions noted, no wounds, skin turgor normal, no jaundice, no petechiae and no mottling Neuro oriented x3, CN's II-XII intact bilaterally, moves all extremities, no focal motor deficits and no sensory deficits noted Sensorium / Orientation: awake and alert Speech: speech normal Psych affect normal Psych Narrative: Extremely pleasant Appearance: appropriate Medical Records Data Medical Nutrition Assessment Dietitian: Malnutrition Criteria Met Start: 02/11/21 14:57 Freq: Status: Active Protocol: Document 02/18/21 11:48 RMA (Rec: 02/18/21 11:48 RMA [id number]) Nutrition Malnutrition Evidence of Malnutrition Exists Yes Malnutrition (severe): Acute Illness/Injury Evidenced By Suboptimal Energy Intake ( Severe),Weight Loss (Severe) Intake Problem Inadequate Oral Intake Etiology related to acute illness ( COVID) Signs/Symptoms as evidenced by pt report of poor PO intake (<75% of 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), estimated PO intake meeting < 50% of estimated nutritional needs x 6 days during admission Status Active Problem Clinical Problem Acute Disease or Injury Related Malnutrition Etiology severe, acute malnutrition r/t inadequate energy intake w/ increased nutrient needs d/t acute COVID-19 illness Signs/Symptoms as evidenced by unintentional wt loss of 1.2 kg/ 2.5% <1 week; estimated PO intake meeting <75% of estimated nutritional needs x 6 days 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 Monitor need to restrict carbohydrates if blood glucose remains elevated. Weight / BMI Weight Weight: 46.2 kg Body Mass Index (BMI) 21.8 ABG / Lab / Microbiology Data Result Diagrams: 02/18/21 09:35 02/18/21 09:35 Laboratory: Laboratory Results - last 24 hr 02/18/21 09:35: WBC 14.7 H, RBC 5.06, Hgb 15.7 H, Hct 45.0, MCV 88.9, MCH 31.0, MCHC 34.9, RDW Std Deviation 41.1, RDW Coeff of [place] 12.6, Plt Count 473 H, MPV 9.6, Immature Gran % (Auto) 1.000 H, Neut % (Auto) 86.3 H, Lymph % (Auto) 6.8 L, [place] % (Auto) 5.4, Eos % (Auto) 0.4, Baso % (Auto) 0.1, Absolute Neuts (auto) 12.7 H, Absolute Lymphs (auto) 0.99, Nucleated RBC % 0 02/18/21 09:35: Sodium 133 L, Potassium 3.7, Chloride 98, Carbon Dioxide 27.0, Anion Gap 8, BUN 36 H, Creatinine 0.82, Estim Creat Clear Calc 42.57, Est GFR (MDRD) Af Amer 88, Est GFR (MDRD) Non-Af 73, BUN/Creatinine Ratio 44.2 H, Glucose 182 H, Calcium 9.0, Total Bilirubin 1.00, AST 17, ALT 27, Alkaline Phosphatase 48, Total Protein 6.8, Albumin 3.2, Globulin 3.6, Albumin/Globulin Ratio 0.9 D/C Instructions Discharge Diet: Low fat / Low cholesterol and 2000 mg Sodium Diet Meaningful Use Info Meaningful Use Diagnoses (Choose all that apply): None applicable Discharge Plan Admission Admit Date/Time: 02/09/21 21:44 Primary Reason for Your Visit: Acute COVID-19 pneumonia Attending Provider: Kathy Leone Primary Care Provider: Kaylie Contreras Consulting Providers: David Martin ; Francisco J Yu ; Matthew Mckoy ; Arlyn Cardenas 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 Continue to use your oxygen all the time. Continue to use your incentive spirometer. Continue to remain active and eat healthy. Let your doctor know if you develop fever >101.3F or have progressive worsening shortness of breath. Follow-up with your primary care doctor and also with pulmonology to have your continued oxygen use reevaluated. Discharge Orders/Prescriptions Prescriptions: Continued atorvastatin 10 MG tablet 10 mg PO QHS RF: 0 Vitamin C DAILY RF: 0 Vitamin D3 DAILY RF: 0 folic acid DAILY RF: 0 omega-3 fatty acids Capsule 1 cap PO DAILY RF: 0 Referrals / Follow Up: Kaylie Contreras MD [Primary Care Provider] - Within 2 Weeks Disposition Disposition (needs filled in before D/C Order can be placed): Home, Self Care Charges/Coding Visit Charges Inpatient E&M: [id number] Disch Hosp
--- NOTE | 2021-02-19 13:58 | CASEMGMT ---
LIZETT SMITH Discharge Follow-up Phone Call: SANTOSDayna: 2 Strata: 1 Call Date: 02/18/21 Discharge Date: 02/17/21 Time of Call: 1555 Duration: 3 min Admitting Diagnosis: Covid PNA LIZETT SMITH completed follow-up phone call after recent hospitalization. Patient states she is doing much better. Patient states she has no questions or concerns regarding discharge instructions. Patient states she will be scheduling her follow-up appt this afternoon. Patient states she is wearing her oxygen and that everything got delivered with no problems. Patient had no further questions or concerns at this time.
== END 2021-02-18 17:56 | disposition home or self-care (01) | DRG 177 ==
LOC: ED 21:17 → MS3 02-10 07:01 → ICU 02-16 02:34 → PCU 02-18 00:17
PROVIDERS: Family Medicine; Internal Medicine; Internal Medicine Infectious Disease; Admitting Provider Internal Medicine; Emergency Provider Student in an Organized Health Care Education/Training Program; PCP Internal Medicine; Visit Provider Internal Medicine
DX: U07.1 COVID-19 (principal); J12.82 Pneumonia due to coronavirus disease 2019; J96.01 Acute respiratory failure with hypoxia; E43 Unspecified severe protein-calorie malnutrition; J44.0 Chronic obstructive pulmonary disease with (acute) lower respiratory infection; E87.1 Hypo-osmolality and hyponatremia; E78.5 Hyperlipidemia, unspecified; I10 Essential (primary) hypertension; R73.9 Hyperglycemia, unspecified; T38.0X5A Adverse effect of glucocorticoids and synthetic analogues, initial encounter; E87.6 Hypokalemia; Z68.21 Body mass index [BMI] 21.0-21.9, adult; Z99.81 Dependence on supplemental oxygen; Z79.899 Other long term (current) drug therapy
CPT/HCPCS: 36415; 71045; 71275; 80053; 83880; 84145; 84484; 85025; 85027; 85379; 86140; 87635; 93005; 94003; 94660; 97110; 97116; 97162; 97530; 99251; 99285; J7050; Q9967; U0005; A4216; G0463; J1940; J2405; J3262; U0003

== ENCOUNTER 2021-02-26 11:03 | Emergency (ER) | payer MEDICARE, SELFPAY ==
[2021-02-26 11:04] VITALS: BP 122/57; PULSE 100; RESP 18; TEMP 36.3; O2SAT 97; BMI 20.3
--- NOTE | 2021-02-26 11:48 | CT_ITS ---
STUDY: CT FACIAL BONES WITHOUT CONTRAST REASON FOR EXAM: Female, 75 years old. fall/injury RADIATION DOSAGE (If Supplied By Facility): CTDIvol = ( 29.38 ) mGy, DLP = ( 584.19 ) mGycm TECHNIQUE: The patient was scanned in a multi detector CT scanner. Sagittal and coronal images were reconstructed. Individualized dose optimization techniques were used for this CT. COMPARISON: None. FINDINGS: Normal soft tissue structures. Normal orbital marquez and orbital contents. Normal nasal bones and anterior nasal spine. Normal facial bones. There is no demonstrated fracture. Normal visualized paranasal sinuses. CT/Sinus/Facial Bone IMPRESSION: No maxillofacial fracture. Electronically Signed: Julio Leblanc MD ([place]) at 12:34 EDT , Service support ,
--- NOTE | 2021-02-26 11:48 | CT_ITS ---
STUDY: CT BRAIN WITHOUT CONTRAST REASON FOR EXAM: Female, 75 years old. fall/injury RADIATION DOSAGE (If Supplied By Facility): CTDIvol = ( 44.99 ) mGy, DLP = ( 728.62 ) mGycm TECHNIQUE: Transaxial CT imaging of the brain was performed without administration of intravenous contrast material. Individualized dose optimization techniques were used for this CT. COMPARISON: No relevant priors. FINDINGS: Normal soft tissue structures. Normal calvarium. Normal size ventricles and extra-axial spaces for the patient''s age. Normal white matter tracts of the cerebral hemispheres. Normal basal ganglia and thalami. Normal brainstem. Normal cerebellum. There is no intracranial hemorrhage. There are no findings of an acute ischemic infarction. Normal visualized paranasal sinuses. CT/Brain/Head without Contrast IMPRESSION: No acute intracranial hemorrhage or mass effect. Electronically Signed: Julio Leblanc MD ([place]) at 12:33 EDT , Service support ,
--- NOTE | 2021-02-26 11:50 | EX.ED.GENINJ ---
HPI History of Present Illness Chief Complaint: Other, Pain/Inj Informant: patient Onset/Context/Timing Onset: Today (Just prior to arrival) Mechanism/Context: Fall Location of pain/injuries: - (Face/head) Quality of Pain: Aching Current Severity: Mild Maximum Severity: Mild Worsened by: Palpation affected areas Relieved by: Leaving alone Associated Symptoms Associated Symptoms: Negative for Parasthesias, Weakness, Loss of function, Inability to ambulate, Loss of consciousness and Amnesia Narrative Narrative: Patient was trying to avoid a car while walking in a parking lot, which caused her to step to the side stepped in a hole, and fall, injuring her face against the pavement. No loss of consciousness. Minor bloody nose that has stopped. She takes no anticoagulants or antiplatelet medications. She is a mild headache no nausea or vomiting. No changes in her vision. She has some maxillary frontal incisor pain. No other injuries. Recent Illness/Hospitalization: Yes (Recently discharged from the hospital after recovering from Covid) [facility] Medical History Hyperlipidemia Home Medications atorvastatin 10 mg PO QHS 07/11/18 [History Last Taken 02/01/21] Vitamin C DAILY 02/09/21 [History Last Taken 02/01/21] Vitamin D3 DAILY 02/09/21 [History Last Taken 02/01/21] folic acid DAILY 02/09/21 [History Last Taken 02/01/21] omega-3 fatty acids 1 cap PO DAILY 02/09/21 [History Last Taken 02/01/21] Allergy/AdvReac Type Severity Reaction Status Date / Time No Known Allergies Allergy Verified 02/26/21 11:10 Family History Mother Colon cancer Father Myocardial infarction, Onset Age: 61 Surgical History Hx of tubal ligation Social History Smoking Status: Never smoker alcohol intake: never substance use type: does not use caffeine: Yes what type of physical activity do you participate in: walking seatbelt use: always do you feel safe at home: Yes additional social history: Matthew- Both are retired ROS ROS ED Constitutional Constitutional ED: Denies chills or fever(s) Eyes Eyes: Denies change in vision or diplopia ENT ENT ED: Reports as per HPI, epistaxis and facial pain; Denies ear discharge or ear pain Cardiovascular Cardiovascular: Denies chest pain or palpitations Respiratory/Chest Respiratory/Chest: Denies cough or dyspnea Gastrointestinal Gastrointestinal: Denies abdominal pain, diarrhea, melena, nausea or vomiting Genitourinary Genitourinary ED: Denies dysuria or hematuria Musculoskeletal Musculoskeletal: Denies back pain, extremity pain or neck pain Integumentary Denies abscess, Abrasions, laceration or rash Neurologic Neurologic: Reports headache(s); Denies confusion, paresthesias or weakness EXAM Physical Exam Const Vital Signs: 02/26/21 11:04 02/26/21 13:10 Temperature 97.4 F L Temperature Source Temporal Pulse Rate 100 Respiratory Rate 18 14 Blood Pressure 122/57 H Blood Pressure Mean 78 Pulse Ox 97 Oxygen Delivery Method Room Air Positive well nourished and well developed General Appearance ED: well developed and NAD HEENT Reports TM's clear and nasal mucous membranes and turbinates normal HEENT Narrative: Mild medial periorbital ecchymosis along with nasal bridge swelling, tenderness, hematoma/abrasion. Evidence of recent epistaxis, no active bleeding. Midface stable and nontender. Abrasion and tenderness to the upper lip and philtrum as well as the frenulum with a mucosal abrasion with tenderness to tooth #8, there is some blood at the gingival junction at the posterior aspect of the tooth but it is not loosened or unstable. No trismus or mandibular tenderness. Face and Sinus: facial tenderness Tympanic Membrane ED: Yes TM's clear Eyes PERRL and EOMs intact bilaterally Eyes Narrative: No extraocular entrapment or pain with extraocular movements. Visual Acuity: other Other Details: no entrapment or pain with extraocular movements Neck full ROM and supple General: Negative for tenderness Chest Wall inspection of chest normal and palpation of chest normal Chest: symmetrical chest wall rise; Negative for crepitus or tenderness Resp normal respiratory effort and clear to auscultation bilaterally Percussion: other equal BS bilat Cardio no murmurs Rate: regular rate Rhythm: regular rhythm GI normal to inspection, nondistended, normoactive bowel sounds, soft to palpation and non-tender Back/Spine normal ROM Cervical Spine: Negative for cervical spine tenderness Thoracic Spine / Upper Back: Negative for thoracic spinal tenderness Lumbar Spine / Lower Back: Negative for lumbar spinal tenderness Extremity normal to inspection and full ROM General Extremety ED: Negative for tenderness Neuro oriented x3, CN's II-XII intact bilaterally, moves all extremities, no focal motor deficits, no sensory deficits noted and gait normal Keeler Coma Scale: document GCS findings Spontaneous Obeys Commands Oriented 15 Sensorium / Orientation: awake and alert Psych mental status grossly normal and thought process normal Skin no wounds Lesions: no lesions Rashes: no rashes MDM MDM MDM Narrative Medical decision making narrative: CT head and face were obtained and both show nothing acute as shown below. Patient declined analgesics, but she accepted an ice pack which was given, she was given appropriate instructions for supportive care and reasons to return. Radiography Diagnostic Testing: Radiology Impression Brain CT 02/26/21 11:48 IMPRESSION: No acute intracranial hemorrhage or mass effect. Electronically Signed: Julio Leblanc MD ([place]) at 12:33 EDT , Service support , Facial/Sinus 02/26/21 11:48 IMPRESSION: No maxillofacial fracture. Electronically Signed: Julio Leblanc MD ([place]) at 12:34 EDT , Service support , Discharge Plan Triage Chief Complaint: Other, Pain/Inj ED Provider: Rob Rdz Dx/Rx/DC Orders Clinical Impression: Closed head injury without loss of consciousness, Contusion of face, Fall from other slipping, tripping, or stumbling Instructions: ED Head Injury (Adult), ED Nasal Contusion Prescriptions: No Action atorvastatin 10 MG tablet 10 mg PO QHS RF: 0 Vitamin C DAILY RF: 0 Vitamin D3 DAILY RF: 0 folic acid DAILY RF: 0 omega-3 fatty acids Capsule 1 cap PO DAILY RF: 0 Primary Care Provider: Kaylie Contreras Referrals: Kaylie Contreras MD [Primary Care Provider] - 1 Week if not improving Disposition Disposition: Home, Self Care
[2021-02-26 13:10] VITALS: RESP 14
== END 2021-02-26 14:50 | disposition home or self-care (01) ==
PROVIDERS: Emergency Provider Emergency Medicine; PCP Internal Medicine
DX: S00.83XA Contusion of other part of head, initial encounter (principal); W01.0XXA Fall on same level from slipping, tripping and stumbling without subsequent striking against object, initial encounter; Y93.01 Activity, walking, marching and hiking; Y92.481 Parking lot as the place of occurrence of the external cause; Y99.8 Other external cause status; E78.5 Hyperlipidemia, unspecified; Z79.899 Other long term (current) drug therapy; Z86.16 Personal history of COVID-19
CPT/HCPCS: 70450; 70486; 99282

== ENCOUNTER 2021-08-06 12:46 | Outpatient (CLI) | payer MEDICARE, SELFPAY ==
--- NOTE | 2021-08-06 12:49 | RAD_ITS ---
STUDY: X-RAY CHEST REASON FOR EXAM: Female, 75 years old. Fever and cough, +Covid TECHNIQUE: PA and lateral views of the chest. COMPARISON: 02/09/2021 FINDINGS: There are interstitial fibrotic changes of the lungs. There is no demonstrated pleural abnormality. Normal size heart. Normal mediastinum and daniela. Normal visualized pulmonary arteries. Normal visualized aortic arch and descending thoracic aorta. There are diffuse degenerative changes of the visualized thoracic spine. Normal visualized ribs, clavicles, and shoulders. There is no demonstrated abnormality of the visualized soft tissue structures of the upper abdomen. RAD/Chest PA and Lateral IMPRESSION: Chronic interstitial changes, no superimposed acute pulmonary process. Electronically Signed: Edwin Hernandez MD at 17:26 EST ,
[2021-08-06 15:28] LABS: Hematocrit 41.2 % (37-47); Hemoglobin 13.8 g/dL (12.0-15.0); Mean Corp Hgb Conc 33.5 g/dL (32-36); Mean Corpuscular Hgb 30.8 pg (27.0-32.0); Mean Platelet Vol. 11.3 fl (6.2-12.0); Platelet Count 264 K/mm3 (150-450); RBC Distribution Width CV 12.6 % (11.6-14.6); RBC Distribution Width SD 42.4 fl (35.1-43.9); Red Blood Count 4.48 M/mm3 (4.2-5.4)
[2021-08-06 16:43] LABS: D-Dimer Quantitative (DVT/PE) 0.32 FEU/ug/m (0.27-0.49)
== END 2021-08-06 23:59 | disposition short-term general hospital (02) ==
LOC: MTLAB 12:48
PROVIDERS: PCP Internal Medicine; Referring Provider Internal Medicine Pulmonary Disease; Visit Provider Internal Medicine Pulmonary Disease
DX: U07.1 COVID-19 (principal)
CPT/HCPCS: 36415; 71046; 85027; 85379

== ENCOUNTER → 2022-05-14 | Outpatient (CLI) | payer MEDICARE, SELFPAY ==
--- NOTE | 2022-05-14 12:59 | VDLE_ITS ---
Reason For Study: Pain Procedure LEFT This is a venous duplex using B-mode, color GSV is normal. flow and spectral Doppler. CFV is compressible, spontaneous, phasic, Exam performed in department. competent, and demonstrates normal A preliminary report was called and/or faxed augmentation. to [facility] voicemail. FV is compressible, spontaneous, phasic, competent and demonstrates normal augmentation. POP V is compressible, spontaneous, phasic, competent and demonstrates normal augmentation. T/P Trunk is compressible. PTV is compressible. LT PerV is compressible. VL/Venous Duplex US, Unilateral Interpretation Summary Deep veins of the left lower extremity are patent and compressible segmentally. There is no evidence of left lower extremity deep vein thrombosis. The left great saphenous vein raymon ears patent and compressible segmentally. Ordering Physician: Ariana Paulino Referring Physician: Kaylie Contreras Performed By: Lilia Chacon RVT
== END | disposition home or self-care (01) ==
LOC: CVS 12:58
PROVIDERS: PCP Internal Medicine; Referring Provider Nurse Practitioner Gerontology; Visit Provider Nurse Practitioner Gerontology
DX: M79.605 Pain in left leg (principal); R60.0 Localized edema
CPT/HCPCS: 93971

== ENCOUNTER 2022-09-02 06:39 | Emergency (ER) | payer MEDICARE, SELFPAY ==
[2022-09-02 06:40] VITALS: BP 197/87; PULSE 92; RESP 18; TEMP 36.1; O2SAT 99; BMI 22.0
--- NOTE | 2022-09-02 07:30 | EKG12_ITS ---
Test Reason : CP Blood Pressure : / mmHG Vent. Rate : 082 BPM Atrial Rate : 082 BPM P-R Int : 154 ms QRS Dur : 088 ms QT Int : 368 ms P-R-T Axes : 038 007 083 degrees QTc Int : 429 ms Normal sinus rhythm Normal ECG Confirmed by SEAN DELEON MD ([id number]), order editor LINSEY SMITH ([id number]) on 09/03/2022 1:29:07 PM Referred By: GERSON Confirmed By:SEAN DELEON MD
--- NOTE | 2022-09-02 07:32 | ED.VIS.CHEST ---
HPI History of Present Illness Chief Complaint: Chest Pain Informant: patient Onset/Context/Timing Onset: Hours (1-2) Activity at onset: activity on onset and sleep Timing: Continuous Quality: Positive for Pressure Location: Left Chest Current Severity: Moderate Maximum Severity: Moderate Worsened By: Nothing; Not Worsened By Breathing Relieved By: Nothing Associated Symptoms: Positive for - (left back periscapular sharp pain, LUE discomfort); Negative for Nausea, Vomiting, Diaphoresis, Dyspnea, Cough, Lightheadedness, Acid Reflux or Palpitations Narrative Narrative: Patient woke up this morning having discomfort in her left chest in the form of pressure, and then subsequently developed discomfort in her left arm and sharp pain in her left medial scapular area of the back, the latter of which is bothering her more. She does not have a history of heart problems. She states I have come to the ED before for chest discomfort, but never required any heart catheterizations. She has had stress test in the past, and never failed 1. She denies any recent leg pain or swelling. She traveled home here from [place] about 3 weeks ago with her , she has had no pleuritic symptoms and this discomfort is nonpleuritic. She denies any recent illness. No palpitations or lightheadedness/syncope. States that her doctor has been adjusting some blood pressure medication for her recently because of elevated numbers. [facility] Medical History Acute respiratory failure with hypoxia Closed head injury without loss of consciousness Contusion of face COVID-19 (02/11/21) Fall from other slipping, tripping, or stumbling Family history of coronary artery disease Hyperlipidemia Multiple premature ventricular complexes Osteoporosis Pelvic relaxation due to uterovaginal prolapse, incomplete Pneumonia due to COVID-19 virus (02/09/21) Severe malnutrition Thrombocytosis Home Medications atorvastatin 10 mg tablet 10 mg PO QHS cholesterol 07/11/18 [History Last Taken 02/01/21] omega-3 fatty acids 1 cap PO DAILY supplement 02/09/21 [History Last Taken 02/01/21] ascorbic acid (vitamin C) 1,000 mg tablet 1 g PO DAILY 09/24/21 [History Last Taken Unknown] folic acid 800 mcg tablet 0.8 mg PO DAILY 09/24/21 [History Last Taken Unknown] zinc 50 mg tablet 50 mg PO DAILY 09/24/21 [History Last Taken Unknown] biotin 10,000 mcg capsule 10,000 mcg PO DAILY 09/25/21 [History Last Taken Unknown] cholecalciferol (vitamin D3) 25 mcg (1,000 unit) capsule 25 mcg PO DAILY 09/25/21 [History Last Taken Unknown] magnesium/calm PO DAILY 09/25/21 [History Last Taken Unknown] pantoprazole 40 mg tablet,delayed release 40 mg PO DAILY #30 tabs 09/02/22 [Rx Last Taken Unknown] Allergy/AdvReac Type Severity Reaction Status Date / Time Penicillins Allergy Unknown unknown Verified 09/02/22 06:46 erythromycin base AdvReac Unknown Unknown Verified 09/02/22 06:46 latex AdvReac Unknown unknown Verified 09/02/22 06:46 Family History Mother Colon cancer Father Myocardial infarction, Onset Age: 61 Brother Hypertension Myocardial infarction Sister CAD (coronary artery disease), Onset Age: 56 CABG History of coronary artery bypass surgery Son Mitral valve prolapse Sister CAD (coronary artery disease), Onset Age: 68 stent Surgical History Hx of tubal ligation Social History Smoking Status: Never smoker alcohol intake: never substance use type: does not use caffeine: Yes what type of physical activity do you participate in: walking seatbelt use: always do you feel safe at home: Yes additional social history: Matthew- Both are retired ROS ROS ED Constitutional Constitutional ED: Denies chills or fever(s) Eyes Eyes: Denies change in vision or diplopia ENT ENT ED: Denies rhinorrhea or sore throat Cardiovascular Cardiovascular: Reports chest pain; Denies palpitations or racing heartbeat Respiratory/Chest Respiratory/Chest: Denies cough or dyspnea Gastrointestinal Gastrointestinal: Denies abdominal pain, diarrhea, nausea or vomiting Genitourinary Genitourinary ED: Denies dysuria or hematuria Musculoskeletal Musculoskeletal: Reports back pain and extremity pain; Denies neck pain Integumentary Denies abscess or rash Neurologic Neurologic: Denies headache(s), paresthesias or weakness Psychiatric Psychiatric: Denies anxiety or suicidal thoughts EXAM Physical Exam Const Vital Signs: 09/02/22 06:40 09/02/22 06:43 09/02/22 08:07 Temperature 97 F L Temperature Source Temporal Pulse Rate 92 77 Respiratory Rate 18 18 Respiratory Effort Normal Non-Labored Blood Pressure 197/87 H 152/72 H Blood Pressure Mean 123 98 Pulse Ox 99 99 Oxygen Delivery Method Room Air Room Air 09/02/22 08:07 09/02/22 09:00 09/02/22 10:00 Temperature Temperature Source Pulse Rate 75 78 Respiratory Rate 16 18 Respiratory Effort Blood Pressure 150/70 H 154/73 H Blood Pressure Mean 96 100 Pulse Ox 99 98 99 Oxygen Delivery Method Room Air Room Air Room Air 09/02/22 11:00 Temperature Temperature Source Pulse Rate 74 Respiratory Rate 16 Respiratory Effort Blood Pressure 157/77 H Blood Pressure Mean 103 Pulse Ox 97 Oxygen Delivery Method Room Air Positive well nourished and well developed General Appearance ED: well developed and NAD HEENT Reports moist mucous membranes normocephalic and atraumatic Eyes PERRL and EOMs intact bilaterally Neck full ROM and supple Resp normal respiratory effort and clear to auscultation bilaterally Cardio regular rate, regular rhythm and no murmurs Peripheral Pulses: pulses 2+ throughout GI non-tender and non-distended Auscultation: normoactive bowel sounds Palpation: soft Back/Spine no CVA tenderness General Back: other FROM Extremity normal to inspection General Extremety ED: Negative for edema, pulses abnormal or tenderness General Extremity: Negative for edema or pulses abnormal Neuro oriented x3, CN's II-XII intact bilaterally, no sensory deficits noted and gait normal Sensorium / Orientation: awake and alert Motor Exam: strength 5/5 throughout Psych mental status grossly normal Skin no rashes or lesions noted and no wounds Heart Score History: Moderately Suspicious ECG: Normal Age: >/= 65 years Risk Factors: 1 or 2 Risk Factors Troponin: </= Normal Limit Score: 4 MDM MDM MDM Narrative Medical decision making narrative: While working the patient up she was given a GI cocktail. She said that she felt much better subsequently, and thinks all of her symptoms are gone, or almost completely gone. Her D-dimer is within normal limits and her chest x-ray on my interpretation 2 views shows a nice narrow normal-appearing mediastinum, making aortic dissection much less likely to be the case for this, especially since the GI cocktail made her chest discomfort feel better. Initially it was considered because she was still hypertensive, but without treating her blood pressure on repeat it is 157/77 and she is feeling much better. Unknown if that was a result of her discomfort, or potentially causing it. Her initial troponin is 6, her second 1 is 9, given that this is still single digits 2 hours later I think she is stable to be discharged home and follow-up as an outpatient. She is comfortable with that plan I will try her on a PPI for the next month to see if that makes any difference, certainly esophageal etiologies are possible and in the differential here. Lab Data Attestation: I reviewed the patient's lab results. Labs: Laboratory Results - last 24 hr 09/02/22 09/02/22 09/02/22 06:57 06:57 06:57 WBC 5.5 RBC 4.48 Hgb 13.8 Hct 40.4 MCV 90.2 MCH 30.8 MCHC 34.2 RDW Std Deviation 39.9 RDW Coeff of [place] 12.1 Plt Count 242 MPV 10.1 Immature Gran % (Auto) 0.200 Neut % (Auto) 57.3 Lymph % (Auto) 31.4 Sac % (Auto) 7.5 Eos % (Auto) 2.9 Baso % (Auto) 0.7 Absolute Neuts (auto) 3.1 Absolute Lymphs (auto) 1.72 Nucleated RBC % 0 D-Dimer Quant (PE/DVT) < 0.27 L Sodium 139 Potassium 3.8 Chloride 107 Carbon Dioxide 25.0 Anion Gap 7 BUN 18 Creatinine 0.71 Estim Creat Clear Calc 35.55 Est GFR (MDRD) Af Amer 102 Est GFR (MDRD) Non-Af 84 BUN/Creatinine Ratio 25.2 H Glucose 100 Calcium 9.1 Troponin I High Sens 6 09/02/22 10:53 WBC RBC Hgb Hct MCV MCH MCHC RDW Std Deviation RDW Coeff of [place] Plt Count MPV Immature Gran % (Auto) Neut % (Auto) Lymph % (Auto) Sac % (Auto) Eos % (Auto) Baso % (Auto) Absolute Neuts (auto) Absolute Lymphs (auto) Nucleated RBC % D-Dimer Quant (PE/DVT) Sodium Potassium Chloride Carbon Dioxide Anion Gap BUN Creatinine Estim Creat Clear Calc Est GFR (MDRD) Af Amer Est GFR (MDRD) Non-Af BUN/Creatinine Ratio Glucose Calcium Troponin I High Sens 9 Radiography Diagnostic Testing: Clinical Impression(s) from Imaging Studies Chest X-Ray 09/02/22 07:55 IMPRESSION: No acute abnormality is seen. Electronically Signed: Felipe Smyth MD at 8:27 EST , Rhythm Strip Rhythm Strip: Sinus Rhythm Rate: 80 Ectopy: None EKG Initial EKG: Attestation: I personally reviewed and interpreted this EKG as follows: Interpretation: Sinus Rhythm and No Acute Injury Pattern Comments: normal EKG Prior EKG tracings: available for review Prior: Unchanged Discharge Plan Triage Chief Complaint: Chest Pain ED Provider: Rob Rdz Dx/Rx/DC Orders Clinical Impression: Chest pain, unspecified, Episode of hypertension Instructions: ED Chest Pain, Uncertain Cause, ED Hypertension, To Be Confirmed Prescriptions: New pantoprazole 40 mg tablet,delayed release (DR/EC) 40 mg PO DAILY Qty: 30 0RF No Action cholecalciferol (vitamin D3) 25 mcg (1,000 unit) capsule 25 mcg PO DAILY biotin 10,000 mcg capsule 10,000 mcg PO DAILY magnesium/calm PO DAILY ascorbic acid (vitamin C) 1,000 mg tablet 1 g PO DAILY zinc 50 mg tablet 50 mg PO DAILY folic acid 800 mcg tablet 0.8 mg PO DAILY atorvastatin 10 MG tablet 10 mg PO QHS omega-3 fatty acids Capsule 1 cap PO DAILY Primary Care Provider: Kaylie Contreras Referrals: Kaylie Contreras MD [Primary Care Provider] - As soon as possible Disposition Disposition: Home, Self Care
--- NOTE | 2022-09-02 07:55 | RAD_ITS ---
STUDY: X-RAY CHEST REASON FOR EXAM: Female, 76 years old. Chest pain. TECHNIQUE: Single AP portable view of the chest. COMPARISON: Comparison is made with prior study dated 08/06/2021. FINDINGS: EKG electrodes are seen. The lungs are clear and expanded. There is no demonstrated pleural abnormality. Normal size heart. Normal mediastinum and daniela. Normal visualized pulmonary arteries. Normal visualized aortic arch and descending thoracic aorta. Normal visualized thoracic spine. Normal visualized ribs, clavicles, and shoulders. There is no demonstrated abnormality of the visualized soft tissue structures of the upper abdomen. RAD/Chest 1 View (Portable) IMPRESSION: No acute abnormality is seen. Electronically Signed: Felipe Smyth MD at 8:27 EST ,
[2022-09-02 08:00] LABS: Absolute Lymphocyte Count 1.72 X10^3/uL (0.83-4.51); Absolute Neutrophil Count 3.1 X10^3/uL (2.0-7.7); Basophil# 0.04 X10^3/uL; Basophil% 0.7 % (0-1); Eosinophil# 0.16 X10^3/uL; Eosinophils% 2.9 % (0-5); Hematocrit 40.4 % (37-47); Hemoglobin 13.8 g/dL (12.0-15.0); Lymphocyte # 1.72 X10^3/ul (0.83-4.51); Lymphocyte % 31.4 % (19-41); Mean Corp Hgb Conc 34.2 g/dL (32-36); Mean Corpuscular Hgb 30.8 pg (27.0-32.0); Mean Corpuscular Volume 90.2 fL (81-99); Mean Platelet Vol. 10.1 fl (6.2-12.0); Monocyte# 0.41 X10^3/uL; Monocyte% 7.5 % (0-10); NRBC Flagged by Analyzer 0 % (0-5); Neutrophil # 3.14 X10^3/uL (2.7-7.7); Neutrophil % 57.3 % (47-70); Platelet Count 242 K/mm3 (150-450); RBC Distribution Width CV 12.1 % (11.6-14.6); RBC Distribution Width SD 39.9 fl (35.1-43.9); Red Blood Count 4.48 M/mm3 (4.2-5.4); White Blood Count 5.5 K/mm3 (4.4-11.0)
[2022-09-02] MEDS: Mag Hydrox/Al Hydrox/Simeth 30 ML UDC PO (08:05)
[2022-09-02 08:07] VITALS: BP 152/72; PULSE 77; RESP 18; O2SAT 99
[2022-09-02 08:19] LABS: Anion Gap 7 (5-15); BUN 18 mg/dL (7-18); BUN/Creat Ratio 25.2 RATIO (10-20); Calcium,Total 9.1 mg/dL (8.5-10.1); Chloride 107 mmol/L (98-107); Creatinine, Serum 0.71 mg/dL (0.55-1.02); EST Glomerular Filtration Rate 84 mL/min (>60); Est Glom Filt Rate - Afr Amer 102 mL/min (>60); Estimated Creatinine Clearance 35.55 ml/min; Glucose 100 mg/dL (74-106); Potassium 3.8 mmol/L (3.5-5.1); Sodium Level 139 mmol/L (136-145); Troponin-I HS (w/2H Reflex) 6 pg/mL (3.0-54.0)
[2022-09-02 08:23] LABS: D-Dimer Quantitative (DVT/PE) < 0.27 FEU/ug/m (0.27-0.49)
[2022-09-02 09:00] VITALS: BP 150/70; PULSE 75; RESP 16; O2SAT 98
[2022-09-02 09:58] LABS: Reflex Troponin-HS? (from REC) Y
[2022-09-02 10:00] VITALS: BP 154/73; PULSE 78; RESP 18; O2SAT 99
[2022-09-02 11:00] VITALS: BP 157/77; PULSE 74; RESP 16; O2SAT 97
[2022-09-02 11:17] LABS: Troponin-I HS 9 pg/mL (3.0-54.0)
[2022-09-02 11:39] VITALS: BP 155/77; PULSE 68; RESP 17; TEMP 36.8; O2SAT 99
== END 2022-09-02 11:45 | disposition home or self-care (01) ==
PROVIDERS: Emergency Provider Emergency Medicine; PCP Internal Medicine; Visit Provider Emergency Medicine
DX: R07.9 Chest pain, unspecified (principal); I10 Essential (primary) hypertension; E78.5 Hyperlipidemia, unspecified; Z86.16 Personal history of COVID-19; Z79.899 Other long term (current) drug therapy
CPT/HCPCS: 71045; 80048; 84484; 85025; 85379; 93005; 99285; A4216

== ENCOUNTER 2023-10-07 17:04 | Emergency (ER) | payer MEDICARE, SELFPAY ==
[2023-10-07] VITALS (8 sets, daily range): BP systolic 122–165; BP diastolic 65–96; PULSE 88–108; RESP 16–24; TEMP 36.6–37.1; O2SAT 97–100; BMI 19.1
--- NOTE | 2023-10-07 17:19 | EX.ED.DYSGE1 ---
HPI History of Present Illness Chief Complaint: Palpitations Informant: patient Onset/Context/Timing Onset: Days (4-5) Context: Gradual Onset Timing: Intermittent Quality: Pressure Location: Substernal Worsened by: Nothing Relieved by: Pressure Narrative Narrative: Patient presents with palpitations and shortness of breath that has been getting worse over the past 4 to 5 days. Patient states she feels like she has been having episodes of atrial fibrillation. Patient states that it is intermittent. Patient states that it feels like a pressure over the substernal area. Patient states nothing makes it worse. Patient states it is better if she puts pressure with her hand on her chest wall. Patient admits to some shortness of breath with this. Patient denies any fevers or chills. Patient denies any cough. Patient denies any nausea or vomiting. [facility] Medical History Acute respiratory failure with hypoxia Closed head injury without loss of consciousness Contusion of face COVID-19 (02/11/21) Fall from other slipping, tripping, or stumbling Family history of coronary artery disease Hyperlipidemia Multiple premature ventricular complexes Osteoporosis Pelvic relaxation due to uterovaginal prolapse, incomplete Pneumonia due to COVID-19 virus (02/09/21) Severe malnutrition Thrombocytosis Home Medications atorvastatin 10 mg tablet 10 mg PO QHS cholesterol 07/11/18 [History Last Taken 02/01/21] omega-3 fatty acids 1 cap PO DAILY supplement 02/09/21 [History Last Taken 02/01/21] ascorbic acid (vitamin C) 1,000 mg tablet 1 g PO DAILY 09/24/21 [History Last Taken Unknown] zinc 50 mg tablet 50 mg PO DAILY 09/24/21 [History Last Taken Unknown] biotin 10,000 mcg capsule 10,000 mcg PO DAILY 09/25/21 [History Last Taken Unknown] cholecalciferol (vitamin D3) 25 mcg (1,000 unit) capsule 25 mcg PO DAILY 09/25/21 [History Last Taken Unknown] magnesium/calm PO DAILY 09/25/21 [History Last Taken Unknown] amlodipine 5 mg tablet 5 mg PO DAILY #90 tabs 10/07/22 [Rx Last Taken Unknown] Allergy/AdvReac Type Severity Reaction Status Date / Time Penicillins Allergy Unknown unknown Verified 04/28/23 10:00 erythromycin base AdvReac Unknown Unknown Verified 04/28/23 10:00 latex AdvReac Unknown unknown Verified 04/28/23 10:00 Family History Mother Colon cancer Father Myocardial infarction, Onset Age: 61 Brother Hypertension Myocardial infarction Sister CAD (coronary artery disease), Onset Age: 56 CABG History of coronary artery bypass surgery Son Mitral valve prolapse Sister CAD (coronary artery disease), Onset Age: 68 stent Surgical History Hx of tubal ligation Social History Smoking Status: Never smoker alcohol intake: never substance use type: does not use caffeine: Yes what type of physical activity do you participate in: walking seatbelt use: always do you feel safe at home: Yes additional social history: Matthew- Both are retired ROS ROS ED Constitutional Constitutional ED: Denies chills or fever(s) Eyes Eyes: Denies blurry vision or change in vision ENT ENT ED: Denies rhinorrhea or sore throat Cardiovascular Cardiovascular: Reports chest pain and palpitations Respiratory/Chest Respiratory/Chest: Reports dyspnea; Denies cough Gastrointestinal Gastrointestinal: Denies nausea or vomiting Genitourinary Genitourinary ED: Denies dysuria or hematuria Musculoskeletal Musculoskeletal: Denies back pain or neck pain Integumentary Denies abscess or rash Neurologic Neurologic: Denies headache(s) or weakness Allergic/Immunologic Allergic/Immunologic ED: Denies mouth swelling or urticaria EXAM Physical Exam Const Vital Signs: 10/07/23 17:05 10/07/23 17:53 10/07/23 18:26 Temperature 98.7 F Temperature Source Temporal Pulse Rate 105 H 108 H 91 Respiratory Rate 24 H 16 16 Blood Pressure 165/96 H 142/73 H 136/65 H Blood Pressure Mean 119 96 88 Pulse Ox 100 97 98 Oxygen Delivery Method Room Air Room Air Room Air 10/07/23 18:31 10/07/23 18:45 10/07/23 19:00 Temperature Temperature Source Pulse Rate 89 88 Respiratory Rate 16 21 H 21 H Blood Pressure Blood Pressure Mean Pulse Ox 98 97 98 Oxygen Delivery Method 10/07/23 19:56 10/07/23 20:40 Temperature 97.8 F Temperature Source Pulse Rate 92 102 H Respiratory Rate 19 H 21 H Blood Pressure 122/67 H 125/69 H Blood Pressure Mean 85 87 Pulse Ox 97 97 Oxygen Delivery Method Room Air Positive well nourished and well developed General Appearance ED: well developed and NAD HEENT Reports moist mucous membranes Neck supple and no JVD Chest Wall inspection of chest normal and palpation of chest normal Resp normal respiratory effort and clear to auscultation bilaterally Cardio regular rate and regular rhythm GI non-tender and non-distended Palpation: soft Neuro oriented x3, CN's II-XII intact bilaterally and no sensory deficits noted Sensorium / Orientation: alert Motor Exam: strength 5/5 throughout Psych mental status grossly normal MDM MDM MDM Narrative Medical decision making narrative: Differential diagnosis includes cardiac dysrhythmia, cardiac ischemia, electrolyte abnormality, pneumonia, anemia, and anxiety. EKG will be obtained to assess for cardiac dysrhythmia and cardiac ischemia. Chest x-ray will be obtained to assess for pneumonia and pneumothorax. CBC will be obtained to assess for leukocytosis and anemia. Basic metabolic profile will be obtained to assess for electrolyte abnormality and renal function. High-sensitivity troponin will be obtained to assess for cardiac ischemia. COVID-19, influenza, and RSV PCR will be obtained to assess for viral illness. Lab Data Attestation: I reviewed the patient's lab results. Lab results narrative: CBC was reviewed and was within normal limits. Basic metabolic profile was reviewed and was within normal limits. High-sensitivity troponin was reviewed and was normal at 4. COVID-19 PCR was reviewed and was positive. Influenza PCR was reviewed and was negative for influenza A and influenza B. RSV PCR was reviewed and was negative. Labs: Laboratory Results - last 24 hr 10/07/23 18:18 WBC 6.9 RBC 4.42 Hgb 13.2 Hct 40.3 MCV 91.2 MCH 29.9 MCHC 32.8 RDW Std Deviation 42.9 RDW Coeff of [place] 13.0 Plt Count 321 MPV 9.8 Immature Gran % (Auto) 0.400 Neut % (Auto) 88.9 H Lymph % (Auto) 10.0 L [place] % (Auto) 0.6 Eos % (Auto) 0.0 Baso % (Auto) 0.1 Absolute Neuts (auto) 6.1 Absolute Lymphs (auto) 0.69 L Nucleated RBC % 0 Sodium 138 Potassium 3.6 Chloride 106 Carbon Dioxide 24.0 Anion Gap 8 BUN 22 H Creatinine 1.06 H Estim Creat Clear Calc 29.69 Est GFR (MDRD) Af Amer 64 Est GFR (MDRD) Non-Af 53 L BUN/Creatinine Ratio 20.8 H Glucose 268 H Calcium 9.7 Troponin I High Sens 4 Radiography Chest X-Ray - ED: 2 View, Read by ED Physician, Read by Radiologist and No Acute Disease Diagnostic Testing: Patient had outpatient chest x-ray done earlier today. There are 2 views. On my independent interpretation, there is no acute cardiopulmonary process. There is no infiltrate. Bony thorax is normal. There is no cardiomegaly noted. Radiologist also interpreted the x-ray and agrees. EKG Initial EKG: Attestation: I personally reviewed and interpreted this EKG as follows: Interpretation: Sinus Rhythm (100) and Non-Specific ST Changes Comments: EKG was obtained. On my independent interpretation, it showed a normal sinus rhythm with a rate of 100. [place] interval, QRS interval, and QTc intervals were all normal. [place] was normal. There are nonspecific ST-T wave changes. Prior EKG tracings: available for review Prior: Unchanged (09/02/2022) Treatment and Re-Evaluation :: Patient was advised of her findings. Patient is feeling better on reevaluation. Patient is resting comfortably. Since the patient's symptoms started 5 days ago, she does not qualify for Paxlovid. Patient was instructed to quarantine for the next 48 hours. Patient was instructed to follow-up with her primary care physician in 5 to 7 days. Patient was instructed return if worse in any way. Patient understood and was agreeable with the plan. All questions were answered. Discharge Plan Triage Chief Complaint: Palpitations ED Provider: Luis Cummings Dx/Rx/DC Orders Clinical Impression: COVID-19, Palpitations Instructions: Coronavirus Disease 2019 (COVID-19): Caring for Yourself or Others, ED Palpitations Prescriptions: No Action cholecalciferol (vitamin D3) 25 mcg (1,000 unit) capsule 25 mcg PO DAILY biotin 10,000 mcg capsule 10,000 mcg PO DAILY magnesium/calm PO DAILY ascorbic acid (vitamin C) 1,000 mg tablet 1 g PO DAILY zinc 50 mg tablet 50 mg PO DAILY amlodipine 5 mg tablet 5 mg PO DAILY Qty: 90 3RF atorvastatin 10 MG tablet 10 mg PO QHS omega-3 fatty acids Capsule 1 cap PO DAILY Primary Care Provider: Kaylie Contreras Referrals: Kaylie Contreras MD [Primary Care Provider] - 5-7 Days Disposition Disposition: Home, Self Care Discharge Date/Time: 10/07/23 20:40
--- NOTE | 2023-10-07 18:02 | EKG12_ITS ---
Test Reason : PALPATIONS Blood Pressure : / mmHG Vent. Rate : 100 BPM Atrial Rate : 100 BPM P-R Int : 174 ms QRS Dur : 086 ms QT Int : 338 ms P-R-T Axes : 059 -07 098 degrees QTc Int : 436 ms Normal sinus rhythm Septal infarct , age undetermined Abnormal ECG Confirmed by ADRIENNE DEVI, SEAN ([id number]), editor news LINSEY SMITH ([id number]) on 10/09/2023 9:08:23 AM Referred By: Confirmed By:SEAN DELEON MD
[2023-10-07 18:24] LABS: Absolute Lymphocyte Count 0.69 X10^3/uL (0.83-4.51); Absolute Neutrophil Count 6.1 X10^3/uL (2.0-7.7); Basophil# 0.01 X10^3/uL; Basophil% 0.1 % (0-1); Hematocrit 40.3 % (37-47); Hemoglobin 13.2 g/dL (12.0-15.0); Lymphocyte # 0.69 X10^3/ul (0.83-4.51); Mean Corp Hgb Conc 32.8 g/dL (32-36); Mean Corpuscular Hgb 29.9 pg (27.0-32.0); Mean Corpuscular Volume 91.2 fL (81-99); Mean Platelet Vol. 9.8 fl (6.2-12.0); Monocyte# 0.04 X10^3/uL; Monocyte% 0.6 % (0-10); NRBC Flagged by Analyzer 0 % (0-5); Neutrophil # 6.12 X10^3/uL (2.7-7.7); Neutrophil % 88.9 % (47-70); Platelet Count 321 K/mm3 (150-450); RBC Distribution Width SD 42.9 fl (35.1-43.9); Red Blood Count 4.42 M/mm3 (4.2-5.4); White Blood Count 6.9 K/mm3 (4.4-11.0)
[2023-10-07 18:47] LABS: Anion Gap 8 (5-15); BUN 22 mg/dL (7-18); BUN/Creat Ratio 20.8 RATIO (10-20); Calcium,Total 9.7 mg/dL (8.5-10.1); Chloride 106 mmol/L (98-107); Creatinine, Serum 1.06 mg/dL (0.55-1.02); EST Glomerular Filtration Rate 53 mL/min (>60); Est Glom Filt Rate - Afr Amer 64 mL/min (>60); Estimated Creatinine Clearance 29.69 ml/min; Glucose 268 mg/dL (74-106); Potassium 3.6 mmol/L (3.5-5.1); Sodium Level 138 mmol/L (136-145); Troponin-I HS 4 pg/mL (3.0-54.0)
== END 2023-10-07 20:40 | disposition home or self-care (01) ==
PROVIDERS: Emergency Provider Emergency Medicine; PCP Internal Medicine; Visit Provider Emergency Medicine
DX: U07.1 COVID-19 (principal); R00.2 Palpitations
CPT/HCPCS: 80048; 84484; 85025; 87631; 93005; 99284; A4216

== ENCOUNTER → 2023-10-07 | Outpatient (CLI) | payer MEDICARE, SELFPAY ==
--- NOTE | 2023-10-07 08:10 | RAD_ITS ---
STUDY: X-RAY CHEST REASON FOR EXAM: Female, 77 years old. SOB, productive cough TECHNIQUE: PA and lateral views of the chest. COMPARISON: None. FINDINGS: The lungs are clear and expanded. There is no demonstrated pleural abnormality. Normal size heart. Normal mediastinum and daniela. Normal visualized pulmonary arteries. Normal visualized aortic arch and descending thoracic aorta. There is demineralization of the osseous structures. There is lumbar scoliosis Normal visualized ribs, clavicles, and shoulders. There is no demonstrated abnormality of the visualized soft tissue structures of the upper abdomen. RAD/Chest PA and Lateral IMPRESSION: No acute cardiopulmonary disease. Electronically Signed: Rob Hallman MD at 20:31 EDT ,
[2023-10-07 08:20] LABS: Absolute Lymphocyte Count 2.66 X10^3/uL (0.83-4.51); Absolute Neutrophil Count 3.5 X10^3/uL (2.0-7.7); Basophil# 0.06 X10^3/uL; Basophil% 0.9 % (0-1); Eosinophil# 0.14 X10^3/uL; Hematocrit 39.1 % (37-47); Hemoglobin 13.2 g/dL (12.0-15.0); Lymphocyte # 2.66 X10^3/ul (0.83-4.51); Lymphocyte % 38.8 % (19-41); Mean Corp Hgb Conc 33.8 g/dL (32-36); Mean Corpuscular Hgb 31.1 pg (27.0-32.0); Mean Corpuscular Volume 92.2 fL (81-99); Mean Platelet Vol. 9.6 fl (6.2-12.0); Monocyte# 0.53 X10^3/uL; Monocyte% 7.7 % (0-10); NRBC Flagged by Analyzer 0 % (0-5); Neutrophil # 3.46 X10^3/uL (2.7-7.7); Neutrophil % 50.5 % (47-70); Platelet Count 302 K/mm3 (150-450); RBC Distribution Width SD 43.3 fl (35.1-43.9); Red Blood Count 4.24 M/mm3 (4.2-5.4); White Blood Count 6.9 K/mm3 (4.4-11.0)
[2023-10-07 08:41] LABS: BNP,B-Type NATRIURETIC PEPTIDE 68.1 pg/mL (0-100)
[2023-10-07 08:48] LABS: ALB/GLOB Ratio 1.2 RATIO (0.9-2.4); AST(SGOT) 31 U/L (15-37); Alanine Aminotransfer ALT/SGPT 37 U/L (13-56); Alkaline Phosphatase 50 U/L (45-117); Anion Gap 6 (5-15); BUN 11 mg/dL (7-18); Calcium,Total 10.2 mg/dL (8.5-10.1); Chloride 108 mmol/L (98-107); Creatinine, Serum 0.73 mg/dL (0.55-1.02); EST Glomerular Filtration Rate 82 mL/min (>60); Est Glom Filt Rate - Afr Amer 99 mL/min (>60); Globulin 3.4 g/dL (2.2-4.2); Glucose 119 mg/dL (74-106); Potassium 3.6 mmol/L (3.5-5.1); Protein, Total 7.4 g/dL (6.4-8.2); Sodium Level 140 mmol/L (136-145)
== END | disposition home or self-care (01) ==
PROVIDERS: PCP Internal Medicine; Referring Provider Physician Assistant Medical; Visit Provider Physician Assistant Medical
DX: R05.8 Other specified cough (principal); R06.02 Shortness of breath; I49.3 Ventricular premature depolarization
CPT/HCPCS: 36415; 71046; 80053; 83880; 85025

== ENCOUNTER → 2023-10-28 | Outpatient (CLI) | payer MEDICARE, SELFPAY ==
--- NOTE | 2023-10-28 07:57 | CR.ITP_ITS ---
Diagnosis General Information Admitting Diagnosis: PCI W/coronary stenting Secondary Diagnosis: I25.10, I10, E78.5 Personal Learning Style:: Audio/Visual and Written Barriers to Learning: No Barriers Stage of change r/t lifestyle modifications:: Action Gave educational material for:: Treating Heart Disease, How The Heart Works, What it means to have Heart Disease, How Coronary Artery Disease is Diagnosed, Heart Procedures, What Heart Medications Do, Risk Factors & Modifications, Living an Active Life, Nutrition, Emotions & Heart Disease, Stress Management & Relaxation and Sleep Disorders & Heart Disease Special Needs: Patient believes she may have a $40.00/visit co-pay. Education/Goals Individual Counseling: Initial Assessment: Abnormal Cholesterol Levels and High Blood Pressure Cardiac Rehabilitation Goals Personal Goals: Initial Assessment: Improve energy level, Participate in home exercise program, Improve knowledge of cardiac disease, Improve muscle strength and endurance and Improve diet and eating habits (eat healthier) Scale for measuring improvement of personal goals Diagnosis & Disease Process Outcomes/Goals: Pt IDs own risk factors & lifestyle modifications by Session 10, Verbalizes symptoms of angina & response by session 3. and Pt independently manages Plan/Interventions: Instruct on individual risk factors, Review symptoms of angina & emergency actions and Review secondary diagnosis & identify educational needs. Safety Referral to Physical Therapy: No Referral to [facility] Case Management: No Fall Risk Assessed:: Yes Assistive Devices:: None Exercise - Initial Assessment Visit Date of Eval: 10/28/23 Session #:: 0 (pre-program evaluation) Mets: Pre-: >5 METS for 30 minutes by discharge Comments:: If she has a $40.00/visit co-pay she will limit sessions to 12 to 16 and resume home exercise based on guidelines from cardiac rehab. Physician Prescribed Exercise Modalities: Treadmill, Airdyne and NuStep Frequency: 3x/week for 12 weeks [36 sessions] Intensity: 60-80% of age predicted maximum heart rate reserve Duration: 30 - 45 minutes Current METSs:: 3.0 Target Heart Rate:: 85-106 Resting Blood Pressure: 125/76 EKG Type: Normal Sinus Rhythm Current Physical Activity or Exercising minutes: Active at home, has not resumed home exercise on bike, treadmill or weights Outcomes & Goals Goals:: Verbalizes understanding of THR, RPE & goal METS by session 6, Documents in home exercise log/reports 30 min aerobic 5 day/wk by DC and Demonstrates accurate pulse taking by DC Intervention & Plan Exercise Program Goals: Instruct on personal THR & RPE, Instruct on MET level & personal MET goal, Show patient to take own pulse /validate performance until accurate and Instruct on home exercise Physical Activity Home Exercise Physical Activity - Home Exercise: Safe Exercise, Warm-up, Self-monitoring, Cool-Down, Home Exercise > 30 min Daily and Sitting Time <3 hours/daily Outcomes & Goals Outcomes/Goals: Demonstrates correct Warm-up/exercise Cool-Down (S3) if = 2.5 METs, Verbalizes symptoms of exercise intolerance by Session 3 (S3) and Demonstrate safe equipment use (S3) & follows exercise prescrition (6) Intervention & Plan Plan/Intervention: Instruct warm-up & cool-down if exercising at > 2 METs, Instruct on symptoms of exercise intolerance & actions to take, Instruct & monitor on saf and Assess intial functional capacity & safety risk Nutrition - Initial Assessment Program Goals Nutrition Program Goals Patient has diagnosis of Hyperlipidemia (ICD E78)?: Yes Visit Date of Eval: 10/28/23 Session #:: 0 (pre-program evaluation) Cholesterol/Lipids (Other Core Measures) Triglycerides (mg/dL): 0 (No Chemistry profile available for lipids.) Determine presence & major risk factors that modify LDL goal: Hypertension or hypertensive medication and Age men > 45 years; women >/= 55 years Outcomes/Goals: Pt IDs own risk factors & lifestyle modifications by Session 10, Verbalizes symptoms of angina & response by session 3. and Pt independently manages Intervention/Plan: Instruct on personal lipid levels & lipid goals/NCEP guidelines and Instruct on cholesterol Referral to dietitian:: Yes (Patient is interested in meeting with a dietitian.) Diabetes (Other Core Measures) Diabetes Type: Not Applicable Weight Mgt (Other Care) Not Applicable: Yes Height: 4 ft 10 in Weight:: 103 lb (Sever malnutrition) BMI: 21.5 Diagnosis Overweight/Obesity BMI> 30% ICD-10 E66: No Diagnosis High BMI/Morbid Obesity BMI> 35% ICD-10 Z68: No Outcomes/Goals: Pt sets, maintains & shows weight loss goal & trend during rehab Intervention/Plan: Instruct on ideal BMI & set weight loss goal w/patient Healthy Eating Habits Will attend diet classes:: Yes Outcomes/Goals:: Consume diet rich in vegs,fruits,whole grain/high fiber,fish,lean meat and Limit sat/trans fats,cholesterol & added salts & sugars Education Gave educational materials for:: Healthy eating Core - Initial Assessment Visit Date of Eval: 10/28/23 Session #:: 0 Medication Compliance Preventative Medication(s):: Aspirin, Clopidogrel/P2Y12 inhibit, Statin/lipid and Beta yao H/O mental health issues: depression, anxiety, or addiction?: No Doesn?t believe in the benefits of treatment?: No Believes medications are unnecessary or harmful?: No Has a concern about medication side effects?: No Expresses concern over the cost of medications?: No Outcomes/Goals: Verbalizes medications,desired effect & common side effects @ DC, Pt self-reports following medication regimen and Keeps card in wallet w/medications listed by DC Interventions/plans: Instruct on medication effects & side effects, Review medication list w/patient every two weeks and Instruct importance of taking meds as ordered & assist problem solving Tobacco Use Tobacco Use: Non-smoker Hypertension Hypertension Diagnosis:: Hypertension ICD-10 I10 Resting Blood Pressure:: 125/76 [place] [employer] Hypertension Guidelines Outcomes/Goals: Able to verbalize/achieve optimal blood pressure <130/80 and Incorporates diet changes & exercise for blood pressure control by DC Interventions/plan: Instruct on optimal blood pressure, hypertension & medications and Instruct on effects of sodium, alcohol, stress, exercise &hypertension Tobacco Cessation Referral Smoking Cessation Referral:: No Individual Education/Counseling:: No Education Schedule Given:: Yes Psychosocial - Initial Assess VIsit Date of Eval: 10/28/23 Session #:: 0 (pre-program evaluation) Not Applicable: Yes History of previous Mental disease:: No Target Goals Target Goals Psychosocial Test Tool Used:: [employer] QOL Cardiac and PHQ-9 Questionnaire phq-9 Severity Referral to Behavioral Health PS - Interventions: Yes: Attend Stress Management Classes and No: Referral to Behavioral Health if PHQ-9 score >9: and No: Referral to [facility] Outcomes/Goals: See list Psychosocial Outcomes/Goals:: ID's personal stressors & 2 strategies to manage stress by discharge Intervention/Plan: See List Interventions/Plan:: Assess stressors,coping strategies & signs of derpression on admission, Instruct/assist pt to develop coping & personal stress Mgt stra tegies, Instruct patient to recognize signs & symptoms of depression and Instruct patient to recog Patient Health Questionnaire PHQ-9 Screening Initial Assessment: 1. Little interest or pleasure in doing things: Not at all 2. Feeling down, depressed, or hopeless: Not at all 3. Trouble falling or staying asleep, or sleeping too much: Not at all 4. Feeling tired or having little energy: Not at all 5. Poor appetite or overeating: Not at all 6. Feeling bad about yourself -- or that you are a failure or have let yourself or your family down: Not at all 7. Trouble concentrating on things, such as reading the newspaper or watching television: Not at all 8. Moving or speaking so slowly that other people could have noticed. Or the opposite - being so fidgety or restless that you have been moving around a lot more than usual: Not at all 9. Thoughts that you would be better off , or of hurting yourself in some way: Not at all How difficult have these problems made it for you to do your work, take care of things at home, or get along with other people?: Not difficult at all Total Score: 0 SINCERE-Q SV Test Statements CAD is a disease of the arteries in the heart: False Examples of risk factors for heart disease: True Angina is chest pain or discomfort: True The benefits of resistance training include: True Eating more meat and dairy products: False Anti-platelet medications such as aspirin are important: True The only effective way to manage stress: False An exercise warm-up slowly increases heart rate: True Prepared, processed foods usually have high sodium: True Depression is common after a heart attack: True The statin medications lower cholesterol: True To control blood pressure, lower the amount of sodium: True If someone gets chest discomfort during walking: False Transfats are partially hydrogenated vegetable oils: True Sleep apnea that is not treated increases the risk: True To control cholesterol, one should become a vegetarian: False Someone knows if he/she is exercising at the right level: True Diabetes cannot be prevented with exercise & health eating: False Stress is a large risk for heart attack: True A diet that can help lower blood pressure is rich in: True Total Score Total Correct Responses: 19 Self-Efficacy 6-Item Scale Initial Assessment: We would like to know how confident you are in doing certain activities. Please select your confidence level for: Fatigue Select Number: 7 Physical Discomfort or Pain Select Number: 7 Emotional Distress Select Number: 8 Other Symptoms or Health Problems Select Number: 10 Different Tasks and Activities Select Number: 10 Medication Select Number: 10 Total Score:: 8 Nutrition Survey Nutrition Survey Instructions Scoring Instructions Nutrition Survey Initial: Have you lost >10 lbs over the past 2 months without trying?: No Are you following a special diet at home for diabetes, low fat, or low s alt?: No Are you interested in meeting with a dietitian for help understanding your diet?: Yes Do you eat less than 3 meals a day?: No Do you eat fatty meats (villaseñor, sausage, ribs, etc), fried foods, desserts, large amounts of salad dressings, margarine, butter, or cheese most days?: Yes Do you have food allergies? [Enter types in comment field]: No Do you eat in restaurants more than 3 times a week?: No Do you season food with salt, seasoning salt, or garlic salt?: No Do you used canned, boxed, frozen meals, or soups, seasoning packets?: No Total Score:: 2 Exercise - 30-day Assessment Visit Comments:: If she has a $40.00/visit co-pay she will limit sessions to 12 to 16 and resume home exercise based on guidelines from cardiac rehab. Exercise - Final/Discharge Physician Prescribed Exercise Modalities: Treadmill, Airdyne and NuStep Frequency: 3x/week for 12 weeks [36 sessions] Intensity: 60-80% of age predicted maximum heart rate reserve Current METSs:: 3.0 Target Heart Rate:: 85-106 Nutrition - 30-Day Assessment Weight Mgt (Other Care) Height: 4 ft 10 in Weight:: 103 lb (Sever malnutrition) BMI: 21.5 Nutrition - 60-Day Assessment Weight Mgt (Other Care) Height: 4 ft 10 in Weight:: 103 lb (Sever malnutrition) BMI: 21.5 Core - 30-Day Assessment Visit Session #:: 0 (pre-program evaluation) Core - Final Assessment Hypertension Resting Blood Pressure:: 125/76 [place] [employer] Hypertension Guidelines Core - 60-Day Assessment Hypertension Resting Blood Pressure:: 125/76 [place] [employer] Hypertension Guidelines Psychosocial - 30-Day Assess Target Goals Target Goals Referral to Behavioral Health PS - Interventions: Yes: Attend Stress Management Classes and No: Referral to Behavioral Health if PHQ-9 score >9: and No: Referral to [facility] Psychosocial - 60-Day Assess Target Goals Target Goals Referral to Behavioral Health PS - Interventions: Yes: Attend Stress Management Classes and No: Referral to Behavioral Health if PHQ-9 score >9: and No: Referral to [facility] Psychosocial - 90-Day Assess Target Goals Target Goals Referral to Behavioral Health PS - Interventions: Yes: Attend Stress Management Classes and No: Referral to Behavioral Health if PHQ-9 score >9: and No: Referral to [facility] Psychosocial - Final Assessmen Target Goals Target Goals Referral to Behavioral Health PS - Interventions: Yes: Attend Stress Management Classes and No: Referral to Behavioral Health if PHQ-9 score >9: and No: Referral to [facility] Nutrition - 90-Day Assessment Weight Mgt (Other Care) Height: 4 ft 10 in Weight:: 103 lb (Sever malnutrition) BMI: 21.5 Nutrition - Final Assessment Program Goals Patient has diagnosis of Hyperlipidemia (ICD E78)?: Yes Weight Mgt (Other Care) Height: 4 ft 10 in Weight:: 103 lb (Sever malnutrition) BMI: 21.5
--- NOTE | 2023-10-28 07:57 | PCM.CR.HP2 ---
CR - History & Physical General Arrival date:: 10/28/23 Arrival time:: 07:58 Date of Referral:: 10/16/23 Date of CR Evaluation:: 10/28/23 Referring Physician: Dr. El Ron Primary Diagnosis: PCI w/coronary stenting History of Present Cardiac Event Onset Date PTCA or coronary stenting:: Yes Type of Symptoms:: Shortness of breath and extreme amount of pressure on her chest, really weak, diaphoretic, cold and clammy feeling. [facility] and was then transferred to the emergency room and was admitted overnight before the heart cath the next morning. Interventions with present event:: Heart cath procedure Were there any complications?: none Medications Ambulatory Orders Medication Instructions Recorded omega-3 fatty acids 1 cap PO DAILY supplement 02/09/21 ascorbic acid (vitamin C) 1,000 mg 1 g PO DAILY 09/24/21 tablet zinc 50 mg tablet 50 mg PO DAILY 09/24/21 biotin 10,000 mcg capsule 10,000 mcg PO DAILY 09/25/21 cholecalciferol (vitamin D3) 25 25 mcg PO DAILY 09/25/21 mcg (1,000 unit) capsule magnesium/calm PO DAILY 09/25/21 amlodipine 5 mg tablet 5 mg PO DAILY #90 tabs 10/07/22 aspirin 81 mg tablet,delayed 81 mg PO DAILY 10/19/23 release (Adult Aspirin Regimen) atorvastatin 10 mg tablet 40 mg PO QHS cholesterol 10/19/23 clopidogrel 75 mg tablet (Plavix) 75 mg PO DAILY 10/19/23 Allergies Allergies Penicillins Allergy (Unknown, Verified 10/19/23 09:20) unknown erythromycin base Adverse Reaction (Unknown, Verified 10/19/23 09:20) Unknown latex Adverse Reaction (Unknown, Verified 10/19/23 09:20) unknown Sleep Disorder Evaluation Hx of Sleep Apnea: No Do you snore loudly (louder than talking or can be heard through closed doors)?: No Do you often feel tired/ fatigued/ sleepy during daytime?: No (prior to the stent she noticed some problems, but nothing now.) Has anyone observed you stop breathing during sleep?: No History of Hypertension (for STOP score): Yes STOP Results: Negative Advanced Directives Advanced Directives Power of Pail Bailer: Yes Living Will: Yes Advance Directives Information Provided: No Advance Directives on File: No DNR Order?:: No MOLST See MOLST form: No Past Medical History Covid-19 Screening Physicial Symptoms Fever: No Unexplained muscle aches: No Current respiratory symptoms: Yes (coughing up mucus, green with a little yellow color to it for at least 3 wk) Upper respiratory infections symptoms: Yes (see above) Gastro-intestinal symptoms: No Rnf-Wnpn-[id number] symptoms: No Other Clinical Concerns Has tested positive for COVID-19 in last 30 days: No Exposure Risk Had contact w/person w/symptoms or Covid-19 (+) last 14 days: No Has High Risk Exposures ID'd by Health dept/Inf Control team: No Pertinent Comorbidities 65 years or older:: Yes Lives in Assisted Living facility:: No Has a chronic lung disease or moderate to severe asthma:: No Has a serious heart condition:: No Immunocompromised:: No Severely obese (Body Mass Index of 40 or higher):: No Diabetic:: No Has chronic kidney disease undergoing dialysis:: No Has liver disease:: No Past Medical Illness Medical History Acute respiratory failure with hypoxia Atherosclerosis of coronary artery of [place] heart without angina pectoris Closed head injury without loss of consciousness Contusion of face COVID-19 (02/11/21) Fall from other slipping, tripping, or stumbling Family history of coronary artery disease Hyperlipidemia Multiple premature ventricular complexes Osteoporosis Pelvic relaxation due to uterovaginal prolapse, incomplete Pneumonia due to COVID-19 virus (02/09/21) Severe malnutrition Thrombocytosis Past Surgical History Past Surgical History (Updated 10/16/23 @ 13:24 by Syeda Liu) History of coronary artery stent placement (10/09/23) Z95.5 FRN-LAD-cPHT w/3 x 30 mm [place] [facility] 10/09/23 @ [place]. Hx of tubal ligation Z98.51 Surgical History: - Family History Summary Family History Mother Colon cancer Father Myocardial infarction, Onset Age: 61 Brother Hypertension Myocardial infarction Sister CAD (coronary artery disease), Onset Age: 56 CABG History of coronary artery bypass surgery Son Mitral valve prolapse Sister CAD (coronary artery disease), Onset Age: 68 stent Social History Smoking History Smoking Status: Never smoker Hx Tobacco Use: No Hx Smoking Exposure: No Alcohol Use Alcohol Usage: No Substance Abuse Hx Substance Use: No Occupation Occupation (List type of work in comments):: Retired Hobbies, Recreation, Social Activities Hobbies: Sports (Golfing) and Other (Baking is my billy) Recreational Activities: I am able to engage in all my recreational activities Social Environment Status Marital Status: Current Living Arrangements Living Environment:: Spouse Children How many children do you have?: 2 Do any of your children live nearby?: Yes Safety Do you feel safe in your surroundings?: Yes Assistance Do you need any assistance at home?: no Review of Systems Review of Systems Hints Review of Present Symptoms: Reports Heart Arrhythmia/Irregularities (Multiple premature ventricular complexes), Appetite - Normal (Dx: Severe malnutrition), Appetite - Special Diet (Have changed my diet, no salt, lowing sugar intake, low fat) and Sleep - Normal; Denies Shortness of Breath at Rest, Shortness of Breath with Exertion, Angina, Dizziness/Lightheadedness, Fatigue (gone since the stent) or Sexual Changes Pain Is Patient Pain Free?: No Risk Factor Assessment Chief Complaint Chief Complaint: S/P PCI w/coronary stent Vital Signs Respiratory Rate: 14 Pulse Ox: 98 Blood Pressure: 125/76 Pulse Pulse Rate: 72 Pulse Rhythm: Regular Hypertension How long have you been treated?: couple of years now On medication(s)?: Yes Blood Pressure Sitting - Right Arm: 125/76 Blood Cholesterol/Lipids Total Cholesterol (mg/dL) Goal = less than 200 mg/dL: 0 (no chemistry profile available for lipids) Diabetes Nutrition Referral for Diabetes: No Obesity Height: 4 ft 11 in Weight:: 103 lb Weight in Pounds: 103.0 lbs [facility] Body Mass Index (BMI): 20.7 Nutritional Referral for Obesity: No (Referral for severe malnutrition) Physical Inactivity Physical Inactivity: None (has not resumed home exercise program) Exercise Limitations: Doing everyday activities with no adverse issues. Risk Stratification Risk Guidelines: Lowest Risk: Risk Factor for Dyslipidemia, Risk Factor for Obesity (risk malnutrition with low BMI) and Risk Factor for Sedentary Lifestyle For Smoking Smoking Risk Guidelines For Dyslipidemia Dyslipidemia Risk Guidelines For Diabetes Mellitus Diabetes Risk Guidelines For Obesity/Overweight Obesity/Overweight Risk Guidelines For Hypertension Hypertension Risk Guidelines For Sedentary Lifestyle Sedentary Lifestyle Risk Guidelines For Depression Depression Risk Guidelines Family History Family History Mother Colon cancer Father Myocardial infarction, Onset Age: 61 Brother Hypertension Myocardial infarction Sister CAD (coronary artery disease), Onset Age: 56 CABG History of coronary artery bypass surgery Son Mitral valve prolapse Sister CAD (coronary artery disease), Onset Age: 68 stent Motivation Motivation to Participate On a scale of 1 to 10, how prepared are you to commit to attending program?: 10 What do you see as barriers to successfully being able to complete the program?: $40.00/co-pay, arthritis in right knee with [id number] had P.T. limit What do you see as the benefits of succesfully completing the program? In other words, what do you hope to get out of participating in the program?: get back muscle tone Are there issues you are dealing with that will interfere with completing the program?: R. knee limit treadmill use. Do you have a spouse or signficant other, family or friends who will help support you to complete the program?: Yes
[2023-10-28 08:14] VITALS: BP 125/76
[2023-10-28 08:19] VITALS: BP 125/76
[2023-10-28 08:23] VITALS: BMI 21.5
[2023-10-28 08:37] VITALS: BP 125/76; PULSE 72; RESP 14; O2SAT 98; BMI 20.7
== END | disposition home or self-care (01) ==
LOC: CR 07:52
PROVIDERS: PCP Internal Medicine; Referring Provider Internal Medicine Cardiovascular Disease; Visit Provider Internal Medicine Cardiovascular Disease
DX: E78.5 Hyperlipidemia, unspecified (principal)

== ENCOUNTER 2023-12-04 11:30 | Outpatient (RCR) | payer MEDICARE, SELFPAY ==
[2023-10-28 08:23] VITALS: BMI 21.5
--- NOTE | 2023-11-27 09:28 | CR.ITP_ITS ---
Exercise - Initial Assessment Physician Prescribed Exercise Modalities: Treadmill, SciFit Stepper and SciFit Pro-II Ergometer Nutrition - Initial Assessment Weight Mgt (Other Care) Height: 4 ft 10 in Weight:: 102 lb BMI: 21.3 Psychosocial - Initial Assess Target Goals Target Goals Referral to Behavioral Health PS - Interventions: Yes: Attend Stress Management Classes and No: Referral to Behavioral Health if PHQ-9 score >9:, No: Referral to [facility] and No: Referral to Physician if PHQ-9 if score is 5-9: Patient Health Questionnaire PHQ-9 Screening 30-Day Re-eval Assessment: 1. Little interest or pleasure in doing things: Not at all 2. Feeling down, depressed, or hopeless: Not at all 3. Trouble falling or staying asleep, or sleeping too much: Not at all 4. Feeling tired or having little energy: Not at all 5. Poor appetite or overeating: Not at all 6. Feeling bad about yourself -- or that you are a failure or have let yourself or your family down: Not at all 7. Trouble concentrating on things, such as reading the newspaper or watching television: Not at all 8. Moving or speaking so slowly that other people could have noticed. Or the opposite - being so fidgety or restless that you have been moving around a lot more than usual: Not at all 9. Thoughts that you would be better off , or of hurting yourself in some way: Not at all How difficult have these problems made it for you to do your work, take care of things at home, or get along with other people?: Not difficult at all Total Score: 0 Self-Efficacy 6-Item Scale 30-Day Re-eval Assessment: We would like to know how confident you are in doing certain activities. Please select your confidence level for: Fatigue Select Number: 10 Physical Discomfort or Pain Select Number: 8 Emotional Distress Select Number: 8 Other Symptoms or Health Problems Select Number: 8 Different Tasks and Activities Select Number: 10 Medication Select Number: 10 Total Score:: 9 Nutrition Survey Nutrition Survey Instructions Scoring Instructions Exercise - 30-day Assessment Visit Date of Eval: 11/27/23 Session #:: 5 Physician Prescribed Exercise Modalities: Treadmill, SciFit Stepper and SciFit Pro-II Ergometer Frequency: 3x/week for 12 weeks [36 sessions] Intensity: 60-80% of age predicted maximum heart rate reserve Duration: 30 - 45 minutes Current METSs:: 3.0 Target Heart Rate:: 85-106 Current RPE:: 12-13 Maximum Excercise HR:: 104 Resting Blood Pressure: 108/52 Maximum Exercise Blood Pressure: 162/74 EKG Type: NSR to sinus tach w/o ectopy Current Physical Activity or Exercising minutes: 41:04 Outcomes & Goals Goals:: Verbalizes understanding of THR, RPE & goal METS by session 6, Documents in home exercise log/reports 30 min aerobic 5 day/wk by DC and Demonstrates accurate pulse taking by DC Intervention & Plan Exercise Program Goals: Instruct on personal THR & RPE, Instruct on MET level & personal MET goal, Show patient to take own pulse /validate performance until accurate and Instruct on home exercise 30-day Reassessments 30 day Reassessments:: Met Physical Activity Home Exercise Physical Activity - Home Exercise: Safe Exercise, Warm-up, Self-monitoring, Cool-Down, Home Exercise > 30 min Daily and Sitting Time <3 hours/daily Outcomes & Goals Outcomes/Goals: Demonstrates correct Warm-up/exercise Cool-Down (S3) if = 2.5 METs, Verbalizes symptoms of exercise intolerance by Session 3 (S3) and Demonstrate safe equipment use (S3) & follows exercise prescrition (6) Intervention & Plan Plan/Intervention: Instruct warm-up & cool-down if exercising at > 2 METs, Instruct on symptoms of exercise intolerance & actions to take, Instruct & monitor on saf and Assess intial functional capacity & safety risk 30-day Reassessments 30 day Reassessments:: Met Exercise - 60-day Assessment Physician Prescribed Exercise Modalities: Treadmill, SciFit Stepper and SciFit Pro-II Ergometer Exercise - 90-day Assessment Physician Prescribed Exercise Modalities: Treadmill, SciFit Stepper and SciFit Pro-II Ergometer Exercise - Final/Discharge Physician Prescribed Exercise Modalities: Treadmill, SciFit Stepper and SciFit Pro-II Ergometer Nutrition - 30-Day Assessment Program Goals Nutrition Program Goals Patient has diagnosis of Hyperlipidemia (ICD E78)?: Yes Visit Date of Eval: 11/27/23 Session #:: 5 Cholesterol/Lipids (Other Core Measures) Lipid Medication: Atorvastatin 10mg, no lipid panel available Determine presence & major risk factors that modify LDL goal: Hypertension or hypertensive medication and Age men > 45 years; women >/= 55 years Outcomes/Goals: Pt IDs own risk factors & lifestyle modifications by Session 10 and Verbalizes symptoms of angina & response by session 3. Intervention/Plan: Instruct on personal lipid levels & lipid goals/NCEP guidelines and Instruct on cholesterol Referral to dietitian:: No (Patient had scheduled visit on 11/11/2023) 30-day Reassessments:: Progressing Diabetes (Other Core Measures) Diabetes Type: Not Applicable Weight Mgt (Other Care) Not Applicable: Yes Height: 4 ft 10 in Weight:: 102 lb BMI: 21.3 Diagnosis Overweight/Obesity BMI> 30% ICD-10 E66: No Diagnosis High BMI/Morbid Obesity BMI> 35% ICD-10 Z68: No Outcomes/Goals: Pt sets, maintains & shows weight loss goal & trend during rehab Intervention/Plan: Instruct on ideal BMI & set weight loss goal w/patient 30 day Reassessments:: Met Healthy Eating Habits Will attend diet classes:: Yes Outcomes/Goals:: Consume diet rich in vegs,fruits,whole grain/high fiber,fish,lean meat and Limit sat/trans fats,cholesterol & added salts & sugars Intervention/Plan:: Assess current eating habits 30-day Reassessments:: Progressing Education Gave educational materials for:: Healthy eating Nutrition - 60-Day Assessment Weight Mgt (Other Care) Height: 4 ft 10 in Weight:: 102 lb BMI: 21.3 Core - 30-Day Assessment Medication Compliance Preventative Medication(s):: Aspirin, Clopidogrel/P2Y12 inhibit, Statin/lipid and Beta yao H/O mental health issues: depression, anxiety, or addiction?: No Doesn?t believe in the benefits of treatment?: No Believes medications are unnecessary or harmful?: No Has a concern about medication side effects?: No Expresses concern over the cost of medications?: No Outcomes/Goals: Verbalizes medications,desired effect & common side effects @ DC, Pt self-reports following medication regimen and Keeps card in wallet w/medications listed by DC Interventions/plans: Instruct on medication effects & side effects, Review medication list w/patient every two weeks and Instruct importance of taking meds as ordered & assist problem solving 30-day Reassessments:: Progressing Tobacco Use Tobacco Use: Non-smoker Hypertension Hypertension Diagnosis:: Hypertension ICD-10 I10 Resting Blood Pressure:: 110/64 [employer] Hypertension Guidelines Peak Exercise Blood Pressure:: 162/74 Outcomes/Goals: Able to verbalize/achieve optimal blood pressure <130/80 and Incorporates diet changes & exercise for blood pressure control by DC Interventions/plan: Instruct on optimal blood pressure, hypertension & medications and Instruct on effects of sodium, alcohol, stress, exercise &hypertension 30 day Reassessments:: Met Tobacco Cessation Referral Smoking Cessation Referral:: No Individual Education/Counseling:: No Education Schedule Given:: Yes Psychosocial - 30-Day Assess VIsit Date of Eval: 11/27/23 Session #:: 5 Not Applicable: Yes History of previous Mental disease:: No Target Goals Target Goals Psychosocial Test Tool Used:: PHQ-9 Questionnaire phq-9 Severity Referral to Behavioral Health PS - Interventions: Yes: Attend Stress Management Classes and No: Referral to [facility] if PHQ-9 score >9:, No: Referral to [facility] and No: Referral to Physician if PHQ-9 if score is 5-9: Outcomes/Goals: See list Psychosocial Outcomes/Goals:: ID's personal stressors & 2 strategies to manage stress by discharge Intervention/Plan: See List Interventions/Plan:: Assess stressors,coping strategies & signs of derpression on admission, Instruct/assist pt to develop coping & personal stress Mgt strategies, Instruct patient to recognize signs & symptoms of depression and Instruct patient to recog 30-day Reassessments: 30 day Reassessments:: Progressing Psychosocial - 60-Day Assess Target Goals Target Goals Referral to Behavioral Health PS - Interventions: Yes: Attend Stress Management Classes and No: Referral to Behavioral Health if PHQ-9 score >9:, No: Referral to [facility] and No: Referral to Physician if PHQ-9 if score is 5-9: Outcomes/Goals: See list Psychosocial Outcomes/Goals:: ID's personal stressors & 2 strategies to manage stress by discharge Psychosocial - 90-Day Assess Target Goals Target Goals Referral to Behavioral Health PS - Interventions: Yes: Attend Stress Management Classes and No: Referral to Behavioral Health if PHQ-9 score >9:, No: Referral to [facility] and No: Referral to Physician if PHQ-9 if score is 5-9: Psychosocial - Final Assessmen Target Goals Target Goals Referral to Behavioral Health PS - Interventions: Yes: Attend Stress Management Classes and No: Referral to Behavioral Health if PHQ-9 score >9:, No: Referral to [facility] and No: Referral to Physician if PHQ-9 if score is 5-9: Nutrition - 90-Day Assessment Weight Mgt (Other Care) Height: 4 ft 10 in Weight:: 102 lb BMI: 21.3 Nutrition - Final Assessment Weight Mgt (Other Care) Height: 4 ft 10 in Weight:: 102 lb BMI: 21.3
[2023-11-27 09:32] VITALS: BP 108/52
[2023-11-27 09:40] VITALS: BP 110/64; BMI 21.3
== END 2023-12-04 23:59 ==
LOC: CR 11:30
PROVIDERS: PCP Internal Medicine; Referring Provider Internal Medicine Cardiovascular Disease; Visit Provider Internal Medicine Cardiovascular Disease
DX: Z95.5 Presence of coronary angioplasty implant and graft (principal); I25.10 Atherosclerotic heart disease of native coronary artery without angina pectoris; E78.5 Hyperlipidemia, unspecified
CPT/HCPCS: 93798; 97802

== ENCOUNTER 2024-01-01 15:15 | Outpatient (RCR) | payer MEDICARE, SELFPAY ==
[2023-11-27 09:40] VITALS: BMI 21.3
[2023-12-05 00:20] VITALS: BP 108/52; BP 110/64
--- NOTE | 2023-12-25 04:50 | CR.ITP_ITS ---
Exercise - Initial Assessment Physician Prescribed Exercise Modalities: Treadmill, SciFit Stepper and SciFit Pro-II Ergometer Nutrition - Initial Assessment Weight Mgt (Other Care) Height: 4 ft 10 in Weight:: 101 lb 8 oz BMI: 21.2 Psychosocial - Initial Assess Target Goals Target Goals Referral to Behavioral Health PS - Interventions: Yes: Attend Stress Management Classes and No: Referral to Behavioral Health if PHQ-9 score >9:, No: Referral to [facility] and No: Referral to Physician if PHQ-9 if score is 5-9: Patient Health Questionnaire PHQ-9 Screening 60-Day Re-eval Assessment: 1. Little interest or pleasure in doing things: Not at all 2. Feeling down, depressed, or hopeless: Not at all 3. Trouble falling or staying asleep, or sleeping too much: Not at all 4. Feeling tired or having little energy: Not at all 5. Poor appetite or overeating: Not at all 6. Feeling bad about yourself -- or that you are a failure or have let yourself or your family down: Not at all 7. Trouble concentrating on things, such as reading the newspaper or watching television: Not at all 8. Moving or speaking so slowly that other people could have noticed. Or the opposite - being so fidgety or restless that you have been moving around a lot more than usual: Not at all 9. Thoughts that you would be better off , or of hurting yourself in some way: Not at all How difficult have these problems made it for you to do your work, take care of things at home, or get along with other people?: Not difficult at all Total Score: 0 Self-Efficacy 6-Item Scale 60-Day Re-eval Assessment: We would like to know how confident you are in doing certain activities. Please select your confidence level for: Fatigue Select Number: 10 Physical Discomfort or Pain Select Number: 8 Emotional Distress Select Number: 9 Other Symptoms or Health Problems Select Number: 10 Different Tasks and Activities Select Number: 10 Medication Select Number: 10 Total Score:: 9 Nutrition Survey Nutrition Survey Instructions Scoring Instructions Exercise - 30-day Assessment Physician Prescribed Exercise Modalities: Treadmill, SciFit Stepper and SciFit Pro-II Ergometer Exercise - 60-day Assessment Visit Date of Eval: 12/25/23 Session #:: 16 Physician Prescribed Exercise Modalities: Treadmill, SciFit Stepper and SciFit Pro-II Ergometer Frequency: 3x/week for 12 weeks [36 sessions] Intensity: 60-80% of age predicted maximum heart rate reserve Duration: 30 - 45 minutes Current METSs:: 5.0 Target Heart Rate:: 85-106 Current RPE:: 12-15 Maximum Excercise HR:: 112 Resting Blood Pressure: 102/68 Maximum Exercise Blood Pressure: 140/58 EKG Type: NSR to sinus tach, rare PVCs with frequent PVCs. Current Physical Activity or Exercising minutes: 39:44 Outcomes & Goals Goals:: Verbalizes understanding of THR, RPE & goal METS by session 6, Documents in home exercise log/reports 30 min aerobic 5 day/wk by DC and Demonstrates accurate pulse taking by DC Intervention & Plan Exercise Program Goals: Instruct on personal THR & RPE, Instruct on MET level & personal MET goal, Show patient to take own pulse /validate performance until accurate and Instruct on home exercise 30-day Reassessments 30 day Reassessments:: Met Physical Activity Home Exercise Physical Activity - Home Exercise: Safe Exercise, Warm-up, Self-monitoring, Cool-Down, Home Exercise > 30 min Daily and Sitting Time <3 hours/daily Outcomes & Goals Outcomes/Goals: Demonstrates correct Warm-up/exercise Cool-Down (S3) if = 2.5 METs, Verbalizes symptoms of exercise intolerance by Session 3 (S3) and Demonstrate safe equipment use (S3) & follows exercise prescrition (6) Intervention & Plan Plan/Intervention: Instruct warm-up & cool-down if exercising at > 2 METs, Instruct on symptoms of exercise intolerance & actions to take, Instruct & monitor on saf and Assess intial functional capacity & safety risk 30-day Reassessments 30 day Reassessments:: Met Exercise - 90-day Assessment Physician Prescribed Exercise Modalities: Treadmill, SciFit Stepper and SciFit Pro-II Ergometer Exercise - Final/Discharge Physician Prescribed Exercise Modalities: Treadmill, SciFit Stepper and SciFit Pro-II Ergometer Nutrition - 30-Day Assessment Weight Mgt (Other Care) Height: 4 ft 10 in Weight:: 101 lb 8 oz BMI: 21.2 Nutrition - 60-Day Assessment Program Goals Nutrition Program Goals Patient has diagnosis of Hyperlipidemia (ICD E78)?: Yes Visit Date of Eval: 12/25/23 Session #:: 16 Cholesterol/Lipids (Other Core Measures) Total Triglycerides (mg/dL): 0 (NO CHEMISTRY PROFILE available for lipid panel) Determine presence & major risk factors that modify LDL goal: Hypertension or hypertensive medication and Age men > 45 years; women >/= 55 years Outcomes/Goals: Pt IDs own risk factors & lifestyle modifications by Session 10, Verbalizes symptoms of angina & response by session 3. and Pt independently manages Intervention/Plan: Instruct on personal lipid levels & lipid goals/NCEP guidelines and Instruct on cholesterol Referral to dietitian:: No (Patient seen by Nutritional Services on 11/11/2023) 30-day Reassessments:: Met Diabetes (Other Core Measures) Diabetes Type: Not Applicable Weight Mgt (Other Care) Height: 4 ft 10 in Weight:: 101 lb 8 oz BMI: 21.2 Diagnosis Overweight/Obesity BMI> 30% ICD-10 E66: No Diagnosis High BMI/Morbid Obesity BMI> 35% ICD-10 Z68: No Outcomes/Goals: Pt sets, maintains & shows weight loss goal & trend during rehab Intervention/Plan: Instruct on ideal BMI & set weight loss goal w/patient 30 day Reassessments:: Progressing Healthy Eating Habits Will attend diet classes:: Yes Outcomes/Goals:: Consume diet rich in vegs,fruits,whole grain/high fiber,fish,lean meat and Limit sat/trans fats,cholesterol & added salts & sugars Intervention/Plan:: Assess current eating habits 30-day Reassessments:: Met Education Gave educational materials for:: Healthy eating Core - 60-Day Assessment Visit Date of Eval: 12/25/23 Session #:: 16 Medication Compliance Preventative Medication(s):: Aspirin, Clopidogrel/P2Y12 inhibit, Statin/lipid and Beta yao H/O mental health issues: depression, anxiety, or addiction?: No Doesn?t believe in the benefits of treatment?: No Believes medications are unnecessary or harmful?: No Has a concern about medication side effects?: No Expresses concern over the cost of medications?: No Outcomes/Goals: Verbalizes medications,desired effect & common side effects @ DC, Pt self-reports following medication regimen and Keeps card in wallet w/medications listed by DC Interventions/plans: Instruct on medication effects & side effects, Review medication list w/patient every two weeks and Instruct importance of taking meds as ordered & assist problem solving 30-day Reassessments:: Met Tobacco Use Tobacco Use: Non-smoker Hypertension Hypertension Diagnosis:: Hypertension ICD-10 I10 Resting Blood Pressure:: 102/68 [place] [employer] Hypertension Guidelines Peak Exercise Blood Pressure:: 140/58 Outcomes/Goals: Able to verbalize/achieve optimal blood pressure <130/80 and Incorporates diet changes & exercise for blood pressure control by DC Interventions/plan: Instruct on optimal blood pressure, hypertension & medications and Instruct on effects of sodium, alcohol, stress, exercise &hypertension 30 day Reassessments:: Met Tobacco Cessation Referral Smoking Cessation Referral:: No Individual Education/Counseling:: No Education Schedule Given:: Yes Psychosocial - 30-Day Assess Target Goals Target Goals Referral to Behavioral Health PS - Interventions: Yes: Attend Stress Management Classes and No: Referral to Behavioral Health if PHQ-9 score >9:, No: Referral to [facility] and No: Referral to Physician if PHQ-9 if score is 5-9: Outcomes/Goals: See list Psychosocial Outcomes/Goals:: ID's personal stressors & 2 strategies to manage stress by discharge Psychosocial - 60-Day Assess VIsit Date of Eval: 12/25/23 Session #:: 16 Not Applicable: Yes History of previous Mental disease:: No Target Goals Target Goals Psychosocial Test Tool Used:: PHQ-9 Questionnaire phq-9 Severity Referral to Behavioral Health PS - Interventions: Yes: Attend Stress Management Classes and No: Referral to Behavioral Health if PHQ-9 score >9:, No: Referral to [facility] and No: Referral to Physician if PHQ-9 if score is 5-9: Outcomes/Goals: See list Psychosocial Outcomes/Goals:: ID's personal stressors & 2 strategies to manage stress by discharge Intervention/Plan: See List Interventions/Plan:: Instruct/assist pt to develop coping & personal stress Mgt strategies, Instruct patient to recognize signs & symptoms of depression and Instruct patient to recog 30-day Reassessments: 30 day Reassessments:: Met Psychosocial - 90-Day Assess Target Goals Target Goals Referral to Behavioral Health PS - Interventions: Yes: Attend Stress Management Classes and No: Referral to Behavioral Health if PHQ-9 score >9:, No: Referral to [facility] and No: Referral to Physician if PHQ-9 if score is 5-9: Psychosocial - Final Assessmen Target Goals Target Goals Referral to Behavioral Health PS - Interventions: Yes: Attend Stress Management Classes and No: Referral to Behavioral Health if PHQ-9 score >9:, No: Referral to [facility] and No: Referral to Physician if PHQ-9 if score is 5-9: Nutrition - 90-Day Assessment Weight Mgt (Other Care) Height: 4 ft 10 in Weight:: 101 lb 8 oz BMI: 21.2 Nutrition - Final Assessment Weight Mgt (Other Care) Height: 4 ft 10 in Weight:: 101 lb 8 oz BMI: 21.2
[2023-12-25 04:59] VITALS: BP 102/68; BMI 21.2
== END 2024-01-03 23:59 ==
LOC: CR 15:15
PROVIDERS: PCP Internal Medicine; Referring Provider Internal Medicine Cardiovascular Disease; Visit Provider Internal Medicine Cardiovascular Disease
DX: Z95.5 Presence of coronary angioplasty implant and graft (principal); I25.10 Atherosclerotic heart disease of native coronary artery without angina pectoris; E78.5 Hyperlipidemia, unspecified
CPT/HCPCS: 93798

== ENCOUNTER 2024-02-03 15:45 | Outpatient (RCR) | payer MEDICARE, SELFPAY ==
[2023-12-25 04:59] VITALS: BMI 21.2
[2024-01-04 00:08] VITALS: BP 102/68; BP 108/52; BP 110/64
--- NOTE | 2024-01-25 08:48 | CR.ITP_ITS ---
Exercise - Initial Assessment Physician Prescribed Exercise Modalities: Treadmill, SciFit Stepper and SciFit Pro-II Ergometer Nutrition - Initial Assessment Weight Mgt (Other Care) Height: 4 ft 10 in Weight:: 100 lb 8 oz BMI: 20.9 Psychosocial - Initial Assess Target Goals Target Goals Patient Health Questionnaire PHQ-9 Screening 90-Day Re-eval Assessment: 1. Little interest or pleasure in doing things: Not at all 2. Feeling down, depressed, or hopeless: Not at all 3. Trouble falling or staying asleep, or sleeping too much: Not at all 4. Feeling tired or having little energy: Not at all 5. Poor appetite or overeating: Not at all 6. Feeling bad about yourself -- or that you are a failure or have let yourself or your family down: Not at all 7. Trouble concentrating on things, such as reading the newspaper or watching television: Not at all 8. Moving or speaking so slowly that other people could have noticed. Or the opposite - being so fidgety or restless that you have been moving around a lot more than usual: Not at all 9. Thoughts that you would be better off , or of hurting yourself in some way: Not at all How difficult have these problems made it for you to do your work, take care of things at home, or get along with other people?: Not difficult at all Total Score: 0 Self-Efficacy 6-Item Scale 90-Day Re-eval Assessment: We would like to know how confident you are in doing certain activities. Please select your confidence level for: Fatigue Select Number: 10 Physical Discomfort or Pain Select Number: 8 Emotional Distress Select Number: 9 Other Symptoms or Health Problems Select Number: 10 Different Tasks and Activities Select Number: 10 Medication Select Number: 10 Total Score:: 9 Nutrition Survey Nutrition Survey Instructions Scoring Instructions Exercise - 30-day Assessment Physician Prescribed Exercise Modalities: Treadmill, SciFit Stepper and SciFit Pro-II Ergometer Exercise - 60-day Assessment Physician Prescribed Exercise Modalities: Treadmill, SciFit Stepper and SciFit Pro-II Ergometer Exercise - 90-day Assessment Visit Date of Eval: 01/25/24 Session #:: 28 Physician Prescribed Exercise Modalities: Treadmill, SciFit Stepper and SciFit Pro-II Ergometer Frequency: 3x/week for 12 weeks [36 sessions] Intensity: 60-80% of age predicted maximum heart rate reserve Duration: 30 - 45 minutes Current METSs:: 5 Target Heart Rate:: 85-106 Current RPE:: 13 Maximum Excercise HR:: 108 Resting Blood Pressure: 110/62 Maximum Exercise Blood Pressure: 128/64 EKG Type: NSR to ST with rare to occas PVC/PAC Outcomes & Goals Goals:: Verbalizes understanding of THR, RPE & goal METS by session 6, Documents in home exercise log/reports 30 min aerobic 5 day/wk by DC, Demonstrates accurate pulse taking by DC and Other additional outcome/goals: see below Intervention & Plan Exercise Program Goals: Instruct on personal THR & RPE, Instruct on MET level & personal MET goal, Show patient to take own pulse /validate performance until accurate, Instruct on home exercise and Other additional plan/int 30-day Reassessments 30 day Reassessments:: Met Physical Activity Home Exercise Physical Activity - Home Exercise: Safe Exercise, Warm-up, Self-monitoring, Cool-Down, Home Exercise > 30 min Daily and Sitting Time <3 hours/daily Outcomes & Goals Outcomes/Goals: Demonstrates correct Warm-up/exercise Cool-Down (S3) if = 2.5 METs, Verbalizes symptoms of exercise intolerance by Session 3 (S3), Demonstrate safe equipment use (S3) & follows exercise prescrition (6) and Other: See below Intervention & Plan Plan/Intervention: Instruct warm-up & cool-down if exercising at > 2 METs, Instruct on symptoms of exercise intolerance & actions to take, Instruct & monitor on saf, Assess intial functional capacity & safety risk and Other See below 30-day Reassessments 30 day Reassessments:: Met Exercise - Final/Discharge Physician Prescribed Exercise Modalities: Treadmill, SciFit Stepper and SciFit Pro-II Ergometer Nutrition - 30-Day Assessment Weight Mgt (Other Care) Height: 4 ft 10 in Weight:: 100 lb 8 oz BMI: 20.9 Nutrition - 60-Day Assessment Weight Mgt (Other Care) Height: 4 ft 10 in Weight:: 100 lb 8 oz BMI: 20.9 Core - 90 Day Assessment Visit Date of Eval: 01/25/24 Session #:: 28 Medication Compliance Preventative Medication(s):: Aspirin, Clopidogrel/P2Y12 inhibit, Statin/lipid and Beta yao H/O mental health issues: depression, anxiety, or addiction?: No Doesn?t believe in the benefits of treatment?: No Believes medications are unnecessary or harmful?: No Has a concern about medication side effects?: No Expresses concern over the cost of medications?: No Outcomes/Goals: Verbalizes medications,desired effect & common side effects @ DC, Pt self-reports following medication regimen, Keeps card in wallet w/medications listed by DC and Other additional outcome/goals: Interventions/plans: Instruct on medication effects & side effects, Review medication list w/patient every two weeks, Instruct importance of taking meds as ordered & assist problem solving and Other additional 30-day Reassessments:: Met Tobacco Use Tobacco Use: Non-smoker Hypertension Hypertension Diagnosis:: Hypertension ICD-10 I10 Resting Blood Pressure:: 110/62 [place] [employer] Hypertension Guidelines Peak Exercise Blood Pressure:: 128/64 Outcomes/Goals: Able to verbalize/achieve optimal blood pressure <130/80, Incorporates diet changes & exercise for blood pressure control by DC and Other additional outcomes/goals Interventions/plan: Instruct on optimal blood pressure, hypertension & medica tions, Instruct on effects of sodium, alcohol, stress, exercise &hypertension and Other additional plan/interventions 30 day Reassessments:: Met Tobacco Cessation Referral Smoking Cessation Referral:: No Individual Education/Counseling:: No Education Schedule Given:: Yes Psychosocial - 30-Day Assess Target Goals Target Goals Psychosocial - 60-Day Assess Target Goals Target Goals Psychosocial - 90-Day Assess VIsit Date of Eval: 01/25/24 Session #:: 28 History of previous Mental disease:: No Target Goals Target Goals Outcomes/Goals: See list Psychosocial Outcomes/Goals:: ID's personal stressors & 2 strategies to manage stress by discharge and Other Additional outcome/goals: Intervention/Plan: See List Interventions/Plan:: Assess stressors,coping strategies & signs of derpression on admission, Instruct/assist pt to develop coping & personal stress Mgt strategies, Refer to Behavioral Health if appropriate, Refer to Physician if appropriate, Instruct patient to recognize signs & symptoms of depression, Instruct patient to recog and Other additional plan/intervention 30-day Reassessments: 30 day Reassessments:: Met Psychosocial - Final Assessmen Target Goals Target Goals Nutrition - 90-Day Assessment Program Goals Nutrition Program Goals Patient has diagnosis of Hyperlipidemia (ICD E78)?: Yes Visit Date of Eval: 01/25/24 Session #:: 28 Cholesterol/Lipids (Other Core Measures) Determine presence & major risk factors that modify LDL goal: Hypertension or hypertensive medication, Low HDL cholesterol <40 mg/dL*, Family history of premature CHD in Male < 55 years: female <65 yearsFa and Age men > 45 years; women >/= 55 years Outcomes/Goals: Pt IDs own risk factors & lifestyle modifications by Session 10, Verbalizes symptoms of angina & response by session 3., Pt independently manages and Other Additional Outcomes/Goals: Intervention/Plan: Advocate for lipid panel cholesterol medication if applicable, Instruct on personal lipid levels & lipid goals/NCEP guidelines, Instruct on cholesterol and Other additional plan/int 30-day Reassessments:: Met Reassessment Notes & Comments:: 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 Diabetes (Other Core Measures) Diabetes Type: Not Applicable Weight Mgt (Other Care) Height: 4 ft 10 in Weight:: 100 lb 8 oz BMI: 20.9 Diagnosis Overweight/Obesity BMI> 30% ICD-10 E66: No Diagnosis High BMI/Morbid Obesity BMI> 35% ICD-10 Z68: No Outcomes/Goals: Pt sets, maintains & shows weight loss goal & trend during rehab and Other additional outcomes/goals Intervention/Plan: Instruct on ideal BMI & set weight loss goal w/patient, A ssist pt to ID & incorporate diet changes for weight loss by S9, Refer to Structured Weight Loss program as appropriate, Encourage goal of using 250- 300dcal per session for weight loss and Other additional plan/interventions 30 day Reassessments:: Met Healthy Eating Habits Will attend diet classes:: Yes Outcomes/Goals:: Consume diet rich in vegs,fruits,whole grain/high fiber,fish,lean meat, Limit sat/trans fats,cholesterol & added salts & sugars and Other additional outcome/goals: Intervention/Plan:: Assess current eating habits and Other Additional plan/interventions 30-day Reassessments:: Met Education Gave educational materials for:: Signs & symptoms of hypoglycemia, Signs & symptoms of hyperglycemia, Relate diabetes to coronary artery disease and Healthy eating Nutrition - Final Assessment Weight Mgt (Other Care) Height: 4 ft 10 in Weight:: 100 lb 8 oz BMI: 20.9
[2024-01-25 08:57] VITALS: BP 110/62; BMI 20.9
== END 2024-02-03 23:59 ==
LOC: CR 15:45
PROVIDERS: PCP Internal Medicine; Referring Provider Internal Medicine Cardiovascular Disease; Visit Provider Internal Medicine Cardiovascular Disease
DX: Z95.5 Presence of coronary angioplasty implant and graft (principal); I25.10 Atherosclerotic heart disease of native coronary artery without angina pectoris; E78.5 Hyperlipidemia, unspecified
CPT/HCPCS: 93798

== ENCOUNTER 2024-02-10 15:45 | Outpatient (RCR) | payer MEDICARE, SELFPAY ==
[2024-02-04 00:33] VITALS: BP 102/68; BP 108/52; BP 110/62; BP 110/64; BMI 21.2
== END 2024-03-05 23:59 ==
LOC: CR 15:45
PROVIDERS: PCP Internal Medicine; Referring Provider Internal Medicine Cardiovascular Disease; Visit Provider Internal Medicine Cardiovascular Disease
DX: Z95.5 Presence of coronary angioplasty implant and graft (principal); I25.10 Atherosclerotic heart disease of native coronary artery without angina pectoris; E78.5 Hyperlipidemia, unspecified
CPT/HCPCS: 93798

== ENCOUNTER → 2024-05-11 | Outpatient (CLI) | payer MEDICARE, SELFPAY ==
[2024-04-28 15:27] VITALS: BMI 20.9
== END | disposition home or self-care (01) ==
LOC: OPBI 09:39
PROVIDERS: PCP Internal Medicine; Referring Provider Nurse Practitioner Women's Health; Visit Provider Nurse Practitioner Women's Health
DX: Z12.31 Encounter for screening mammogram for malignant neoplasm of breast (principal)
CPT/HCPCS: 77063; 77067

== ENCOUNTER → 2024-06-10 | Outpatient (CLI) | payer MEDICARE, SELFPAY ==
[2024-04-28 15:27] VITALS: BMI 20.9
[2024-06-10 12:00] LABS: AST(SGOT) 23 U/L (15-37); Alanine Aminotransfer ALT/SGPT 24 U/L (13-56); Albumin, Serum 3.8 g/dL (3.2-5.0); Alkaline Phosphatase 67 U/L (45-117); Bilirubin, Direct 0.14 mg/dL (0.00-0.30); Cholesterol 180 mg/dL (200); Globulin 3.6 g/dL (2.2-4.2); High Density Lipoprotein 76 mg/dL; Protein, Total 7.4 g/dL (6.4-8.2); Triglycerides 170 mg/dL; Very Low Density Lipoprotein 34 mg/dL (5-40)
== END | disposition home or self-care (01) ==
LOC: LAB 11:05
PROVIDERS: PCP Internal Medicine; Referring Provider Internal Medicine Cardiovascular Disease; Visit Provider Internal Medicine Cardiovascular Disease
DX: I25.10 Atherosclerotic heart disease of native coronary artery without angina pectoris (principal)
CPT/HCPCS: 36415; 80061; 80076

== ENCOUNTER → 2024-12-14 | Outpatient (CLI) | payer MEDICARE, SELFPAY ==
[2024-04-28 15:27] VITALS: BMI 20.9
[2024-12-14 11:53] LABS: AST(SGOT) 26 U/L (<=31); Alanine Aminotransfer ALT/SGPT 20 U/L (<=34); Albumin, Serum 4.3 g/dL (3.4-4.8); Alkaline Phosphatase 58 U/L (35-104); Bilirubin, Direct 0.18 mg/dL (0.00-0.30); Cholesterol 166 mg/dL (<=200); Globulin 2.6 g/dL (2.2-4.2); High Density Lipoprotein 81 mg/dL; Low Density Lipoprotein Calc. 64 mg/dL; Total Bilirubin 0.45 mg/dL (0.00-1.30); Triglycerides 104 mg/dL; Very Low Density Lipoprotein 21 mg/dL (5-40); cholesterol:hdl ratio screen 2.05
== END | disposition home or self-care (01) ==
LOC: LAB 09:36
PROVIDERS: PCP Internal Medicine; Referring Provider Physician Assistant Medical; Visit Provider Physician Assistant Medical
DX: I25.10 Atherosclerotic heart disease of native coronary artery without angina pectoris (principal); Z95.5 Presence of coronary angioplasty implant and graft; E78.00 Pure hypercholesterolemia, unspecified
CPT/HCPCS: 36415; 80061; 80076

== ENCOUNTER → 2025-06-16 | Outpatient (CLI) | payer MEDICARE, SELFPAY ==
[2024-04-28 15:27] VITALS: BMI 20.9
--- OUTSIDE RECORDS SUMMARY | 2025-06-16 07:27 | XMS RPT_ITS | CCD ---
Author Organization [facility] Care Team Providers Care Project Controller Name Role Phone Antonia Kapadia Unavailable Unavailable Antonia Kapadia Unavailable Unavailable Emir DEVI, Aria Mcintosh Unavailable [phone] Coleen Barrera MD Primary Care Provider Dr. Coleen Barrera Primary Care Provider Dr. Coleen Barrera Referring Provider Jefferson ARTIST CONSULTANT, ARTIST CONSULTANT-C Ariana Attending Provider Dr. Luis Cuevas Attending Provider Dr. Coleen Barrera Primary Care Provider Jefferson LOCKETT, ARTIST CONSULTANT-C Ariana Referring Provider Coleen Barrera MD Primary Care Provider Coleen Barrera MD Primary Care Provider Physician, No Pcp Primary Care Provider Unavaila Coleen Toro MD Primary Care Provider PHYSICIAN, NO PCP Primary Care Unavailable TANNER RICE Attending Unavailable COLEEN BARRERA Primary Care Unavailable BLAINE CUMMINS Attending Unavailable GOTTIPATI, TYESHA Admitting Unavailable GOTTIPATI, TYESHA Attending Unavailable COMFORT, ADOLFO Consulting Unavailable PHYSICIAN, NO PCP Primary Care Unavailable COMFORT, ADOLFO Consulting Unavailable COMFORT, ADOLFO Consulting Unavailable GOTTIPATI, TYESHA Consulting Unavailable GOTTIPATI, TYESHA Consulting Unavailable GOTTIPATI, TYESHA Consulting Unavailable YASSEN, MOHAMMAD H Consulting Unavailable YASSEN, MOHAMMAD H Consulting Unavailable Coleen Barrera MD Primary Care Provider Dr. Coleen Barrera Primary Care Provider Dr. El Ron Attending Provider Dr. Coleen Barrera Referring Provider Kristie ARTIST CONSULTANT, ARTIST CONSULTANT-C Theresa Attending Provider Diane DEVI, Dr. Lott Primary Care Provider Dr. Coleen Barrera MD Referring Provider Gilbert ARTIST CONSULTANT-C, Theresa Attending Provider Gillian Thakkar Attending Provider Gillian Thakkar Referring Provider Older CORPORATE LIBRARIAN.SSIS SSRS DEVELOPER, Kaity Unavailable Diane DEVI, Dr. Lott Primary Care Provider Dr. Coleen Barrera MD Referring Provider Gilbert ARTIST CONSULTANT-C, Theresa Attending Provider El Ron Attending Unavailable Asaf, Wentworth Referring Unavailable Ganta, Coleen Primary Care Unavailable Ganta, Coleen Primary Care Unavailable Kristie ARTIST CONSULTANT, Theresa Attending Unavailable Ganta, Coleen Referring Unavailable Gillian Thakkar Attending Unavail able Ganta, Coleen Primary Care Unavailable Ganta, Coleen Referring Unavailable Ganta, Coleen Primary Care Unavailable Gilbert ARTIST CONSULTANT, Theresa Attending Unavailable Ganta, Coleen Referring Unavailable Ganta, Coleen Referring Unavailable Ganta, Coleen Primary Care Unavailable Blaine Escalera Attending Unavailable Ganta, Coleen Primary Care Unavailable Kristie ARTIST CONSULTANT, Theresa Attending Unavailable Ganta, Coleen Referring Unavailable Ganta, Coleen Primary Care Unavailable Gillian Thakkar Attending Unavail able Gillian Thakkar Referring Unavail able Kristie ARTIST CONSULTANT, Theresa Attending Unavailable Gilbert ARTIST CONSULTANT, Theresa Referring Unavailable Ganta, Coleen Primary Care Unavailable Ganta, Coleen Primary Care Unavailable Blaine Escalera Attending Unavailable Blaine Escalera Referring Unavailable GANTA, COLEEN Referring Unavailable GANTA, COLEEN Primary Care Unavailable GANTA, COLEEN Referring Unavailable GANTA, COLEEN Primary Care Unavailable GANTA, COLEEN Attending Unavailable GANTA, COLEEN Primary Care Unavailable GANTA, COLEEN Referring Unavailable GANTA, COLEEN Primary Care Unavailable GANTA, COLEEN Primary Care Unavailable OLDER, EMILY Attending Unavailable GANTA, COLEEN Attending Unavailable SELF Referring Unavailable GANTA, COLEEN Primary Care Unavailable YEE SALDANA Attending Unavailable YEE SALDANA Referring Unavailable GANTA, COLEEN Primary Care Unavailable SALDANAYEE RIVERA D Referring Unavailable GANTA, COLEEN Primary Care Unavailable YEE SALDANA Attending Unavailable GANTA, COLEEN Referring Unavailable GANTA, COLEEN Primary Care Unavailable Allergies Allergy Classification Reported Allergen(s) Allergy Type Date of Onset Reaction(s) Facility (3 sources) [facility] SMALL drug allergy 7 [facility] (20 sources) Erythromycin; Translations: [ERYTHROMYCIN] Drug Allergy 9 [facility] Work Phone: (20 sources) Latex; Translations: [LATEX] Drug Allergy 2 Rash, Hives [facility] (2 sources) Penicillins; Translations: [PENICILLINS] Propensity to adverse reactions 9 [facility] Work Phone: (8 sources) Penicillins Allergy to substance 2 unknown [facility] (14 sources) Penicillins Propensity to adverse reactions 9 [facility] Work Phone: (7 sources) Penicillins Propensity to adverse reactions 9 [facility] (1 source) Erythromycin Drug Allergy 5 [facility] (1 source) Latex Drug allergy (disorder) 5 [facility] (1 source) Penicillins Drug allergy (disorder) 5 [facility] Medications Current Medications Medication Drug Class(es) Dates Sig (Normalized) Sig (Original) amLODIPine 5 mg oral tablet (20 sources) Dihydropyridine Calcium Channel Debbie Start: 09-02-2022 End: 10-05-2024 amLODIPine (NORVASC) 5 mg tablet 01/05/2023 Active ascorbic acid 1000 mg oral tablet (20 sources) Vitamin C Start: 09-24-2021 take 1 g by mouth once daily Ascorbic Acid (Vitamin C) Active 1 GM PO DAILY September 24, 2021 12:00am Start: 09-24-2021 take 1 g by mouth once daily A scorbic Acid (Vitamin C) Active 1 GM PO DAILY September 23, 2021 11:00pm Start: 06-18-2021 take 1 tablet by jennifer th once daily Ascorbic Acid (VITAMIN C) 1,000 mg tablet Take 1 tablet by mouth once daily. 06/18/2021 Active Start: 02-09-2021 End: 09-24-2021 Vitamin C Discontinued DAILY February 09, 2021 12:00am September 24, 2021 9:28am Start: 02-09-2021 End: 09-24-2021 Vitamin C Discontinued DAILY February 08, 2021 11:00pm September 24, 2021 8:28am Comment on above: Take 1 tablet by jennifer th once daily. aspirin 81 mg delayed release oral tablet (20 sources) Platelet Aggregation Inhibitor, Nonsteroidal Anti-inflammatory Drug Start: 10-19-2023 take 1 tablet by mouth once daily Aspirin (Adult Aspirin Regimen) 81 mg tablet,delayed release (DR/EC) Active 81 mg PO DAILY October 19, 2023 12:00am Start: 10-11-2023 End: 10-10-2023 take 1 tablet by mouth once daily aspirin 81 mg EC tablet Take 1 tablet (81 mg total) by mouth 1 (one) time each day. 30 each 10/11/2023 Active Start: 10-11-2023 take 1 tablet by jennifer th once daily aspirin 81 mg EC tablet Take 1 tablet (81 mg total) by mouth 1 (one) time each day. 30 each 10/11/2023 Active Start: 10-10-2023 End: 10-10-2023 aspirin EC tablet 81 mg Start: 10-08-2023 End: 10-09-2023 take 324 mg by mouth once daily 324 mg, oral, Daily, F irst dose (after last reorder) on Thu10/09/23 at 0900 Start: 04-29-2014 End: 04-11-2019 take 1 tablet by mouth once daily Aspirin 81 MG tablet,chewable Discontinued 81 mg PO DAILY@0800 30 0 April 29, 2014 12:00am April 11, 2019 1:56pm Comment on above: Take 81 mg by mouth once daily. cholecalciferol 0.025 mg oral capsule (11 sources) Vitamin D Start: 09-26-19 take 1 capsule by mouth once daily Cholecalciferol (Vitamin D3) 25 mcg (1,000 unit) capsule Active 25 ug PO DAILY September 25, 2021 12:00am take 1 tablet by mouth once kamilah y cholecalciferol (VITAMIN D-3) 25 mcg (1,000 unit) tablet Take 1 tablet (1,000 Units total) by mouth 1 (one) time each day. Active dextromethorphan hydrobromide 30 mg / pyrilamine maleate 30 mg oral tablet (8 sources) Uncompetitive K-ccckwa-M-aspartate Receptor Antagonist, Sigma-1 Agonist Start: 05-20-2024 take 1 tablet by mouth every six hours as needed pyrilamine-dextromethorphan (CAPRON DMT) 30-30 mg tab Take 1 tablet by mouth every 6 hours as needed. 30 tablet 05/20/2024 Active docosahexaenoic acid 350 mg / eicosapentaenoic acid 35 mg / folic acid 1 mg / phytosterols 200 mg / vitamin b12 0.5 mg / vitamin b6 12.5 mg oral capsule (20 sources) Vitamin B12 Start: 06-18-2021 [place] [id number] 500 mg-500 mcg -1 mg-12.5 mg cap Take 500 mg by mouth once daily. 06/18/2021 Active Comment on above: Take 500 mg by mouth once daily. doxycycline hyclate 100 mg oral tablet (1 source) Tetracycline-class Drug Start: 10-28-2023 End: 11-04-2023 take 1 tablet by mouth twice daily doxycycline (VIBRA-TABS) 100 mg tablet Indications: Bronchitis Take 1 tablet by mouth two times a day for 7 days. 14 tablet 0 10/28/2023 11/04/2023 Active ergocalciferol, vitamin D2, (VITAMIN D2 ORAL) (20 sources) ergocalciferol, vitamin D2, (VITAMIN D2 ORAL) Take by mouth. Active ergocalciferol, vitamin D2, (VITAMIN D2 ORAL) Take by mouth. 0 Active Comment on above: Take by mouth. Magnesium Carbonate powd (20 sources) Comment on above: Mg unknown magnesium carbonate, bulk, powder (1 source) magnesium carbon ate, bulk, powder by Other route. Active magnesium/calm (8 sources) Start: 09-25-2021 magnesium/calm Active PO DAILY 0 September 25, 2021 12:00am Start: 09-25-2021 magnesium/calm Active PO DAILY September 25, 2021 12:00am Start: 09-25-2021 magnesium/calm Active PO DAILY September 24, 2021 11:00pm meloxicam 15 mg oral tablet (1 source) Nonsteroidal Anti-inflammatory Drug Start: 09-22-2023 take 1 tablet by mouth once daily meloxicam (MOBIC) 15 mg tablet Take 1 tablet (15 mg total) by mouth 1 (one) time each day. 09/22/2023 Active nirmatrelvir tablet 300 mg (150 mg x 2) and ritonavir tablet 100 mg in a dose pack (PAXLOVID) (1 source) Start: 06-12-2023 End: 06-17-2023 nirmatrelvir tablet 300 mg (150 mg x 2) and ritonavir tablet 100 mg in a dose pack (PAXLOVID) Indications: COVID-19 virus infection Administer TWO pink nirmatrelvir 150 mg tablets and ONE white ritonavir 100 mg tablet for a total of three tablets twice daily. 30 tablet 0 06/12/2023 06/17/2023 Active Comment on above: Administer TWO pink nirmatrelvir 150 mg tablets and ONE white ritonavir 100 mg tablet for a total of three tablets twice daily. nitroglycerin 0.4 mg sublingual tablet (10 sources) Nitrate Vasodilator Start: 10-20-2023 End: 10-19-2024 Nitroglycerin 0.4 mg tablet, sublingual Active 0.4 mg SL every 5 to 15 minutes as needed January 29, 2024 12:00am Start: 10-08-2023 End: 10-10-2023 0.4 mg, sublingual, Every 5 min PRN, chest pain, Starting on Carissa 10/08/23 at 2111 Give every 5 minutes as needed for chest pain to a maximum of 3 doses. Notify MD to obtain an order for an EKG if no relief after 3 doses or chest pain recurs. HOLD and notify MD if SBP less than 90 mmHg. Do not give if nitroglycerin infusion running concurrently. Do not give within 24 hours of sildenafil citrate (Viagra) or vardenafil (Levitra) use, or within 48 hours of tadalafil (Cialis) use. Start: 10-08-2023 End: 10-08-2023 nitroglycerin (NITROSTAT) SL tablet 0.4 mg [id number]-DHA-FISH OIL-FLAX -E ORAL (3 sources) take 1 capsule by mouth once daily [id number]-DHA-FISH OIL-FLAX-E ORAL Take 1 capsule by mouth 1 (one) time each day. Active take 1 capsule by mouth once emiliana ly CYQI-0-TJR-DHA-FISH OIL-FLAX-E ORAL Take 1 capsule by mouth 1 (one) time each day. 0 Active [place]-3 Fatty Acids (5 sources) Start: 02-09-2021 take 1 capsule by mo uth once daily [place]-3 Fatty Acids Active 1 CAP PO DAILY February 09, 2021 12:00am Start: 02-09-2021 take 1 capsule by mouth once d aily [place]-3 Fatty Acids Active 1 CAP PO DAILY February 08, 2021 11:00pm [place]-3 Fatty Acids Capsule (3 sources) Start: 02-09-2021 [place]-3 Fatty Acids Capsule Active 1 NMA PO DAILY February 09, 2021 12:00am supplement Start: 02-09-2021 [place]-3 Fatty Acids Capsule Active 1 NMA PO DAILY February 09, 2021 12:00am perflutren lipid microspheres 1.3 mL in NaCl (PF) 0.9% 10 mL injection (DEFINITY) (2 sources) Start: 08-12-2021 End: 11-12-2022 perflutren lipid microspheres 1.3 mL in NaCl (PF) 0.9% 10 mL injection (DEFINITY) trospium chloride 20 mg oral tablet (1 source) Cholinergic Muscarinic Antagonist Start: 03-13-2025 take 1 tablet by mouth twice daily trospium (SANCTURA) 20 mg tablet Indications: OAB (overactive bladder) , Urge incontinence Take 1 tablet by mouth two times a day. 60 tablet 2 03/13/2025 Active Zinc (20 sources) Start: 09-24-2021 take 1 tablet by mouth once daily Zinc 50 mg tablet Active 50 mg PO DAILY September 24, 2021 12:00am Start: 09-24-2021 take 50 mg by mouth once daily Zinc Active 50 MG PO DAILY September 24, 2021 12:00am Start: 09-24-2021 take 50 mg by mouth once daily Zinc Active 50 MG PO DAILY September 23, 2021 11:00pm Start: 06-18-2021 Zinc 50 mg tab Take by mouth. 06/18/2021 Active Start: 06-18-2021 Zinc 50 mg tab Take by mouth. 0 06/18/2021 Active Comment on above: Take by mouth. zinc gluconate 50 mg oral tablet (3 sources) take 1 tablet by mouth once daily zinc gluconate 50 mg tablet Take 1 tablet (50 mg total) by mouth 1 (one) time each day. Active Completed/Discontinued Medications Medication Drug Class(es) Dates Sig (Normalized) Sig (Original) acetaminophen 500 mg oral tablet (4 sources) Start: 10-10-2023 End: 10-10-2023 acetaminophen (TYLENOL) tablet 1,000 mg Start: 10-09-2023 End: 10-10-2023 take 1 tablet by mouth every six hours as needed acetaminophen (TYLENOL) tablet 500 mg Start: 10-09-2023 End: 10-09-2023 acetaminophen (TYLENOL) tabl et 1,000 mg Start: 10-08-2023 End: 10-08-2023 acetaminophen (TYLENOL) tabl et 650 mg alendronic acid 70 mg oral tablet (8 sources) Bisphosphonate Start: 07-11-2018 End: 04-11-2019 Alendronate 70 MG tablet Discontinued 70 mg PO WE July 11, 2018 1:00am April 11, 2019 1:56pm bone osteoporosis TAKES ON THU atorvastatin 10 mg oral tablet (20 sources) HMG-CoA Reductase Inhibitor Start: 10-19-2023 End: 01-29-2024 take 4 tablets by mouth at bedtime Atorvastatin 10 mg tablet Discontinued 40 mg PO AT BEDTIME October 19, 2023 9:30am January 29, 2024 9:06am cholesterol Start: 10-19-2023 take 40 mg by mouth at bedtime Atorvastatin Active 40 MG PO AT BEDTIME October 19, 2023 9:30am Start: 10-09-2023 End: 10-05-2024 take 1 tablet by mouth once daily atorvastatin (LIPITOR) 40 mg tablet Indications: Hyperlipidemia, unspecified hyperlipidemia type Take 1 tablet by mouth once daily. 10/13/2023 Active Start: 06-02-2017 End: 10-19-2023 take 1 tablet by mouth at bedtime Atorvastatin 10 MG tablet Discontinued 10 mg PO AT BEDTIME July 11, 2018 1:00am October 19, 2023 9:31am cholesterol Comment on above: Take 1 tablet by jennifer th once daily. biotin 10 mg oral capsule (20 sources) Start: End: take 1 capsule by mouth once daily Biotin 10,000 mcg capsule Discontinued 44583 ug PO DAILY September 25, 2021 12:00am June 10, 2024 11:36am Comment on above: Take by mouth. clopidogrel 75 mg oral tablet (20 sources) [id number] Platelet Inhibitor Start: End: take 1 tablet by mouth once daily Clopidogrel (Plavix) 75 mg tablet Discontinued 75 mg PO DAILY 90 3 October 05, 2024 1:11pm December 14, 2024 9:20am Comment on above: Take 75 mg by mouth once daily. 0.3 ml enoxaparin sodium 100 mg/ml prefilled syringe (1 source) Low Molecular Weight Heparin Start: End: inject 30 mg by subcutaneous injection every twenty-four hours 30 mg, subcutaneous, Every 24 hours scheduled, First dose on Thu10/09/23 at 0900 Indication: VTE/PE Prophylaxis fluticasone propionate 0.05 mg/actuat metered dose nasal spray (2 sources) Corticosteroid Start: End: take 2 spray(s) by mouth once daily fluticasone (FLONASE) 50 mcg/actuation nasal spray Use 2 Sprays in each nostril once daily. Rinse mouth after use. 1 Each 07/20/2023 10/13/2023 Discontinued (Discontinued by Patient) Comment on above: Use 2 Sprays in each nostril once daily. Rinse mouth after use. folic acid 0.8 mg oral tablet (20 sources) Start: End: take 0.8 mg by mouth once daily Folic Acid 800 mcg tablet Discontinued 0.8 mg PO DAILY September 24, 2021 12:00am October 07, 2022 10:00am Start: 09-24-2021 End: 04-04-2023 take 0.8 mg by mouth once daily Folic Acid Discontinue d 0.8 MG PO DAILY September 24, 2021 12:00am October 07, 2022 10:00am Start: 06-18-2021 End: 10-13-2023 take 1 tablet by mouth once daily folic acid (FOLVITE) 800 mcg tablet Take 1 tablet (800 mcg total) by mouth daily. 06/18/2021 Active Start: 02-09-2021 End: 09-24-2021 folic acid Discontinued KAMILAH Y February 09, 2021 12:00am September 24, 2021 9:29am Start: 02-09-2021 End: 09-24-2021 folic acid Discontinued KAMILAH Y February 08, 2021 11:00pm September 24, 2021 8:29am Comment on above: Take 1 tablet by jennifer th once daily. glucosam/chond/hyalu/C F borate (MOVE FREE JOINT HEALTH ORAL) (11 sources) End: 01-17-2025 glucosam/chond/hyalu/CF borate (MOVE FREE JOINT HEALTH ORAL) Take by mouth. 01/17/2025 Discontinued glucosam/chond/h yalu/CF borate (MOVE FREE JOINT HEALTH ORAL) Take by mouth. Active glucosam/chond/h yalu/CF borate (MOVE FREE JOINT HEALTH ORAL) Take by mouth. 0 Active Comment on above: Take by mouth. ondansetron ODT (ZOFRAN-ODT) disintegrating tablet 4 mg (1 source) Start: 10-09-19 End: 10-10-19 24 ondansetron ODT (ZOFRAN-ODT) disintegrating tablet 4 mg 24 hr oxybutynin chloride 5 mg extended release oral tablet (13 sources) Cholinergic Muscarinic Antagonist Start: 03-01-20 25 take 1 tablet by mouth once daily Oxybutynin Chloride 5 mg tablet Active 5 mg PO daily March 01, 2025 12:00am Start: 02-02-2025 End: 03-13-2025 take 1 tablet by mouth once daily oxybutynin XL (DITROPAN XL) 5 mg 24 hr tablet Indications: OAB (overactive bladder) , Urge incontinence Take 1 tablet by mouth once daily. 90 tablet 3 03/13/2025 03/13/2025 Discontinued Start: 01-18-2024 End: 01-30-2025 take 1 tablet by mouth once daily oxybutynin XL (DITROPAN XL) 5 mg 24 hr tablet Indications: OAB (overactive bladder) , Urge incontinence Take 1 tablet by mouth once daily. 30 tablet 1 01/18/2024 01/30/2025 Discontinued pantoprazole 40 mg delayed release oral tablet (7 sources) Proton Pump Inhibitor Start: 09-02-2022 End: 10-07-2022 take 1 tablet by mouth once daily Pantoprazole 40 mg tablet,delayed release (DR/EC) Discontinued 40 mg PO DAILY 30 0 September 02, 2022 1:00am October 07, 2022 10:01am Paxlovid 300 mg (150 mg x 2)-100 mg tablet therapy pack (1 source) Start: 06-12-2023 End: 10-20-2023 Paxlovid 300 mg (150 mg x 2)-100 mg tablet therapy pack TAKE 2 TABLETS (NIRMATRELVIR) AND TAKE 1 TABLET (RITONAVIR) BY MOUTH TWICE A DAY FOR 5 DAYS 06/12/2023 10/20/2023 Discontinued polyethylene glycol 3350 [id number] mg powder for oral solution (1 source) Osmotic Laxative Start: 10-09-2023 End: 10-10-2023 polyethylene glycol (MIRALAX) packet 17 g predniSONE (15 sources) Start: 10-10-2023 End: 10-10-2023 predniSONE (DELTASONE) tablet 30 mg Start: 10-09-2023 End: 10-09-2023 predniSONE (DELTASONE) table t 40 mg Start: 10-06-2023 End: 10-20-2023 predniSONE (DELTASONE) 10 mg tablet take 4 tabs daily x 3 days, then 3 tabs x 3 days, 2 tabs x 3 days, then 1 tab x3 days with food.Instructions:Take 4 tabs daily x 3 days, then 3 tabs x 3 days, 2 tabs x 3 days, then 1 tab x3 days with food. 10/07/2023 10/20/2023 Discontinued Start: 05-02-2021 End: 09-24-2021 take 1 tablet by mouth once daily Prednisone 10 mg tablet Discontinued 10 mg PO DAILY May 02, 2021 12:00am September 24, 2021 9:29am Comment on above: Take 4 tabs daily x 3 days, then 3 tabs x 3 days, 2 tabs x 3 days, then 1 tab x3 days with food. 1000 ml sodium chloride 9 mg/ml injection (3 sources) Start: 10-09-2023 End: 10-10-2023 take 50 mL intravenously every hour 50 mL/hr, intravenous, Continuous, Starting on Thu10/09/23 at 1600, [facility] Start: 08-12-2021 End: 11-12-2022 sodium chloride 0.9 % (flush ) 10 mL (BD POSIFLUSH) Vitamin D3 (8 sources) Start: 02-09-2021 End: 09-24-2021 Vitamin D3 Discontinued KAMILAH Y February 09, 2021 12:00am September 24, 2021 9:29am Start: 02-09-2021 End: 09-24-2021 Vitamin D3 Discontinued KAMILAH Y February 08, 2021 11:00pm September 24, 2021 8:29am Problems Active Problems Problem Classification Problem Date Documented Date Episodic/Chronic Cardiac dysrhythmias (9 sources) Multiple premature ventricular complexes; Translations: [Ventricular premature depolarization] Chronic Cardiac dysrhythmias (2 sources) Cardiac dysrhythmias Onset: 10-08-2023 Chronic obstructive pulmonary disease and bronchiectasis (1 source) Bronchitis; Translations: [Bronchitis, not specified as acute or chronic] 10-28-2023 Episodic Coronary atherosclerosis and other heart disease (20 sources) Preinfarction syndrome; Translations: [Unstable angina] Onset: 10-08-2023 10-09-2023 Chronic Coronary atherosclerosis and other heart disease (2 sources) Presence of coronary angioplasty implant and graft; Translations: [Presence of coronary angioplasty implant and graft] Onset: 03-06-2024 Episodic Disorders of lipid metabolism (20 sources) Hyperlipidemia; Translations: [Hyperlipidemia, unspecified] Onset: 10-06-2007 Chronic E Codes: Fall (8 sources) Accidental fall ; Translations: [Fall on same level from slipping, tripping and stumbling without subsequent striking against object, initial encounter] 09-24-2021 Episodic Fluid and electrolyte disorders (16 sources) Hyponatremia; Translations: [Hypo-osmolality and hyponatremia] 09-24-2021 Episodic Genitourinary symptoms and ill-defined conditions (20 sources) Urge incontinence of urine; Translations: [Urge incontinence] Onset: 05-30-2018 05-30-2018 Chronic Genitourinary symptoms and ill-defined conditions (20 sources) Dysfunctional voiding of urine; Translations: [Other specified disorders of urinary system] Onset: 05-30-2018 05-30-2018 Episodic Immunizations and screening for infectious disease (4 sources) Patient encounter status; Translations: [Encounter for immunization] 01-12-2023 Episodic Menopausal disorders (20 sources) Atrophy of vagina; Translations: [Postmenopausal atrophic vaginitis] Onset: 05-30-2018 05-30-2018 Chronic Neoplasms of unspecified nature or uncertain behavior (8 sources) Thrombocytosis; Translations: [Thrombocythemia] 09-24-2021 Episodic Nonspecific chest pain (19 sources) Chest pain; Translations: [Chest pain, unspecified] Onset: 10-08-2023 09-02-2022 Episodic Nutritional deficiencies (10 sources) Nutritional marasmus; Translations: [Unspecified severe protein-calorie malnutrition] Onset: 01-17-2025 09-24-2021 Chronic Nutritional deficiencies (1 source) Magnesium deficiency; Translations: [Magnesium deficiency] Episodic Osteoporosis (20 sources) Osteoporosis; Translations: [Age-related osteoporosis without current pathological fracture] Onset: 08-07-2017 08-07-2017 Chronic Other aftercare (1 source) Other long-term (current) drug therapy; Translations: [Medication management] Onset: 01-09-2025 Episodic Other and unspecified benign neoplasm (20 sources) History of polyp of colon; Translations: [Personal history of colonic polyps] 04-23-2015 Episodic Other circulatory disease (8 sources) Elevated blood-pressure reading without diagnosis of hypertension; Translations: [Elevated blood-pressure reading, without diagnosis of hypertension] 09-25-2021 Episodic Other circulatory disease (1 source) Elevated blood-pressure reading, without diagnosis of hypertension; Translations: [Elevated blood pressure reading without diagnosis of hypertension] Episodic Other congenital anomalies (20 sources) Porokeratosis; Translations: [Other specified congenital malformations of skin] Onset: 05-24-2009 05-24-2009 Chronic Other congenital anomalies (6 sources) Herniated urinary bladder 03-01-2024 Chronic Comment on above: size 1 ring with sup port, no estrogen. Rephresh boric acid suppositories wkly Other connective tissue disease (5 sources) Swelling of left lower limb; Translations: [Other specified soft tissue disorders] 05-13-2022 Episodic Other connective tissue disease (5 sources) Pain in left lower limb; Translations: [Pain in left leg] 05-13-2022 Episodic Other diseases of bladder and urethra (19 sources) Overactive bladder; Translations: [Overactive bladder] Onset: 10-13-2023 10-13-2023 Chronic Other diseases of bladder and urethra (2 sources) Neurogenic bladder; Translations: [Neuromuscular dysfunction of bladder, unspecified] 01-17-2025 Chronic Other diseases of bladder and urethra (1 source) Overactive bladder; Translations: [OAB (overactive bladder)] Onset: 03-13-2025 Chronic Other diseases of bladder and urethra (1 source) Neuromuscular dysfunction of bladder, unspecified; Translations: [Neurogenic bladder] Onset: 01-17-2025 Chronic Other ear and sense organ disorders (2 sources) Posterior auricular pain; Translations: [Otalgia, left ear] 10-06-2023 Episodic Other injuries and conditions due to external causes (8 sources) Closed injury of head; Translations: [Unspecified injury of head, initial encounter] 09-24-2021 Episodic Other lower respiratory disease (4 sources) Dyspnea; Translations: [Shortness of breath] 10-06-2023 Episodic Other lower respiratory disease (3 sources) Productive cough ; Translations: [Productive cough] 10-06-2023 Episodic Other nervous system disorders (1 source) Other chronic pain; Translations: [Chronic left-sided low back pain with left-sided sciatica] Onset: 01-17-2025 Chronic Other nutritional; endocrine; and metabolic disorders (1 source) Hypercalcemia; Translations: [Hypercalcemia] Chronic Other skin disorders (1 source) Disorder of left lower extremity; Translations: [Localized swelling, mass and lump, left lower limb] 12-04-2023 Episodic Other upper respiratory infections (1 source) Viral upper respiratory tract infection; Translations: [Acute upper respiratory infection, unspecified] 05-20-2024 Episodic Tami-; endo-; and myocarditis; cardiomyopathy (except that caused by tuberculosis or sexually transmitted disease) (2 sources) Valvular regurgitation; Translations: [Endocarditis, valve unspecified] Onset: 03-13-2025 03-13-2025 Chronic Prolapse of female genital organs (20 sources) Incomplete uterovaginal prolapse; Translations: [Incomplete uterovaginal prolapse] Onset: 04-17-2008 06-02-2017 Chronic Comment on above: size 2 ring with sup port Rehabilitation care; fitting of prostheses; and adjustment of devices (11 sources) Patient encounter status; Translations: [Encounter for fitting and adjustment of other specified devices] Onset: 03-01-2025 04-20-2023 Chronic Residual codes; unclassified (20 sources) Family history of malignant neoplasm of gastrointestinal tract; Translations: [Family history of malignant neoplasm of digestive organs] 06-19-2005 Episodic Residual codes; unclassified (8 sources) Family history of coronary arteriosclerosis; Translations: [Family history of ischemic heart disease and other diseases of the circulatory system] 09-24-2021 Episodic Respiratory failure; insufficiency; arrest (adult) (8 sources) Acute respiratory failure; Translations: [Acute respiratory failure with hypoxia] 09-24-2021 Episodic Screening and history of mental health and substance abuse codes (2 sources) Encounter for screening for depression; Translations: [Encounter for screening examination for other mental health and behavioral disorders] Onset: 01-17-2025 Episodic Spondylosis; intervertebral disc disorders; other back problems (19 sources) Sciatica; Translations: [Sciatica, unspecified side] Onset: 01-28-2012 Resolved: 04-23-2015 04-23-2015 Episodic Superficial injury; contusion (8 sources) Contusion of face; Translations: [Contusion of other part of head, initial encounter] 09-24-2021 Episodic Unclassified (6 sources) Herniated urinary bladder; Translations: [Cystocele] 10-31-2021 Unclassified (1 source) Established Patient Onset: 02-28-2025 Varicose veins of lower extremity (20 sources) Venous varices; Translations: [Asymptomatic varicose veins of unspecified lower extremity] Onset: 01-17-2025 Resolved: 04-23-2015 04-23-2015 Episodic Viral infection (20 sources) COVID-19; Translations: [Pneumonia due to COVID-19 virus] Onset: 02-09-2021 09-24-2021 Episodic Past or Other Problems Problem Classification Problem Date Documented Da te Episodic/Chronic Cardiac dysrhythmias (20 sources) Palpitations; Translations: [Palpitations] Onset: 10-13-2023 10-07-2023 Episodic Essential hypertension (20 sources) Hypertensive disorder; Translations: [Elevated blood pressure] Onset: 08-17-2013 Resolved: 04-23-2015 09-24-2021 Chronic Other and unspecified benign neoplasm (15 sources) Benign neoplastic disease; Translations: [Benign neoplasm of other specified sites] Onset: 07-30-2005 Resolved: 04-23-2015 04-23-2015 Episodic Other bone disease and musculoskeletal deformities (15 sources) Disorder of skeletal system; Translations: [Disorder of bone, unspecified] Onset: 03-23-2006 Resolved: 10-06-2007 10-06-2007 Episodic Other connective tissue disease (15 sources) Pain in limb; Translations: [Pain in unspecified limb] Onset: 03-09-2008 Resolved: 04-23-2015 04-23-2015 Episodic Other screening for suspected conditions (not mental disorders or infectious disease) (1 source) Encounter for screening mammogram for malignant neoplasm of breast; Translations: [Encounter for screening mammogram for malignant neoplasm of breast] Onset: 06-06-2024 Episodic Results Test Name Value Interpretation Reference Range Facility [facility] 03-13-2025 CNOV Office Visit (INTMWS) TAMANNA DILL ([id number]) 1945 F Date Time Provider Department 03/13/25 11:20 AM COLEEN BARRERA INTMWS During your visit today, we recorded the following information about you: Pulse Respiration Blood pressure Weight 67/minute 16/minute 123/71 45 kg Coleen Barrera MD 03/13/2025 12:19 PM Signed We discussed your bladder medication: - You reported that the current medication is working well for you. - I will send a prescription for a new medication (60 pills, taken twice daily) to [facility] with 2 refills. - If the cost of the new medication is too high or if you experience any issues tolerating it, please send me a message through [facility]. If needed, I can switch you back to your previous medication. - Once you confirm that the new medication works well for you, I can send a 90-day supply to your mail-order pharmacy for convenience and cost savings. We discussed your memory: - You mentioned occasional concerns about memory. The current medication may contribute to memory issues. - I offered an alternative medication (Tospian), which does not cross the blood-brain barrier and is less likely to affect memory. However, it may be more expensive depending on your insurance coverage. - We will start with the new medication and assess how you tolerate it. If it works well and is affordable, we can transition to a mail-order supply. We discussed your osteoporosis: - You declined medication for osteoporosis. - Please continue weight-bearing exercises and take vitamin D and calcium as part of your management plan. We discussed your referral to Dr. Carter: - You mentioned that you did not hear back regarding the referral and have decided to postpone it for now. We discussed your upcoming procedure for valvular incompetency: - Dr. Saldana is working with your insurance to obtain approval for the procedure. - I will follow up with her office to check on the status of the insurance approval. - You requested to be sedated (put out) for the procedure. Please let me know if you have any additional questions or concerns. Coleen Barrera MD 03/13/2025 12:38 PM Signed Reason for Visit Med efficacy follow up HPI Tamanna Dill is an 79-year-old female presenting for a 1-month follow-up to evaluate the effectiveness of oxybutynin for bladder issues. Tamanna reports that oxybutynin has been effective in managing her bladder symptoms. However, she has noticed a side effect of ocular dryness since starting the medication. She denies any worsening of memory over the past 2 months.She emphatically denies any feelings of depression. Tamanna is awaiting insurance approval for a procedure recommended by Dr. Saldana on 02/13 to address valvular incompetency. She expresses a desire to be sedated during the procedure. Tamanna is not currently taking any medication for osteoporosis and prefers to manage it with weight-bearing exercises, vitamin D, and calcium supplements. Has refused osteoporosis treatment multiple times She had a referral to Dr. Carter but has postponed it to focus on her leg issues first. SOCIAL HISTORY[1] Past medical history, appointments, medications, allergies reviewed. Pertinent Lab/Diagnostic Studies are reviewed and discussed today Current Outpatient Medications: pyrilamine-dextromet horphan (CAPRON DMT) 30-30 mg tab aspirin, enteric coated (ASPIRIN, ENTERIC COATED) 81 mg EC tablet Biotin 10,000 mcg cap atorvastatin (LIPITOR) 40 mg tablet amLODIPine (NORVASC) 5 mg tablet Magnesium Carbonate powd Zinc 50 mg tab Ascorbic Acid (VITAMIN C) 1,000 mg tablet [place] [id number] rol 500 mg-500 mcg -1 mg-12.5 mg cap ergocalciferol, vitamin D2, (VITAMIN D2 ORAL) trospium (SANCTURA) 20 mg tablet Health Maintenance DTaP,Tdap,Td Vaccine(1 - Tdap) Shingrix Vaccine(2 of 3) Bone Density Screening Advance Directive Discussion Influenza Vaccine(1)@ Review Of Systems Neurological: (-) memory loss Psychiatric: (-) depressed mood Physical Exam BP 123/71 Pulse 67 Resp 16 Wt 45 kg (99 lb 3.2 oz) BMI 20.74 kg/m? GENERAL: NAD, alert and oriented SKIN: unremarkable, no rash or skin lesions. HEAD: normocephalic EYES: PERRLA, EOMI, conjunctiva clear EARS: external ears normal, canals clear, TM's normal. LUNGS: Clear to auscultation bilaterally, no wheezes/rhonchi/rale s. HEART: Regular rate and rhythm, no murmurs. No ectopy. EXTREMITIES: Normal, No deformities, No skin discoloration, No edema. NEURO: Awake, alert and oriented x3, cranial nerves II-XII grossly intact, normal gait, no involuntary motions Labs: Tests: Imaging: (02/13) Imaging study: Valvular incompetency. Assessment and Plan 1. OAB (overactive bladder) (N32.81) 2. Urge incontinence (N39.41) Oxybutynin has been effective for OAB and urge incontinence, but patient report (more content not included)... 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 Report [facility] [address] [place] [id number] OFFICE VISIT Date of Service: 03/01/25 MR#: [id number] Acct: [id number] Name: TAMANNA DILL Rep #: [id number] : 1945 Provider: SONAL faulkner Age/Sex: 79/F [place] [facility] [place]: [place] Intake Vital Signs 10/10/24 10:28 12/14/24 08:42 03/01/25 09:21 03/01/25 09:25 Height 4 ft 10 in 4 ft 10 in 4 ft 10 in 4 ft 10 in Weight: 99 lb 98 lb 8 oz BMI 20.7 20.5 BP 144/79 H 124/72 H Blood Pressure Location Lt brachial Position Sitting Respiration 16 Pulse 77 Pulse Source Monitor Intake Visit Reasons: 4 M pessary check Chief Complaint: 4 Mo pessary check Adobe Architect Required: No Is patient in pain?: No Allergies Penicillins Allergy (Unknown, Verified 03/01/25 09:21) unknown erythromycin base Adverse Reaction (Unknown, Verified 03/01/25 09:21) Unknown latex Adverse Reaction (Unknown, Verified 03/01/25 09:21) unknown Medications ???Medication ???Instructions ???Recorded ???Confirmed ???Type omega-3 fatty acids 1 cap PO DAILY supplement 02/09/21 03/01/25 History ascorbic acid (vitamin C) 1,000 mg 1 g PO DAILY 09/24/21 03/01/25 H istory tablet zinc 50 mg tablet 50 mg PO DAILY 09/24/21 03/01/25 H istory cholecalciferol (vitamin D3) 25 25 mcg PO DAILY 09/25/21 03/01/25 History mcg (1,000 unit) capsule magnesium/calm PO DAILY 09/25/21 03/01/25 History aspirin 81 mg tablet,delayed 81 mg PO DAILY 10/19/23 03/01/25 H istory release (Adult Aspirin Regimen) nitroglycerin 0.4 mg sublingual 0.4 mg sublingual Q5-15M PRN 01/2803/01/25 History tablet amlodipine 5 mg tablet 5 mg PO DAILY #90 tabs 10/05/24 Rx atorvastatin 40 mg tablet 40 mg PO QDAY #90 tabs 10/05/24 Rx oxybutynin chloride 5 mg tablet 5 mg PO QDAY 03/01/25 03/01/25 His tory Is last menstrual period known: No Post menopausal: Yes Patient : No : No PFSH Medical History Atherosclerosis of coronary artery of [place] heart without angina pectoris Multiple premature ventricular complexes Family history of coronary artery disease Fall from other slipping, tripping, or stumbling Contusion of face Closed head injury without loss of consciousness Severe malnutrition Thrombocytosis Acute respiratory failure with hypoxia COVID-19 (02/11/21) Pneumonia due to COVID-19 virus (02/09/21) Hyperlipidemia Pelvic relaxation due to uterovaginal prolapse, incomplete Osteoporosis Surgical History History of coronary artery stent placement (10/09/23) Hx of tubal ligation Family History Mother Colon cancer Father Myocardial infarction, Onset Age: 61 Brother Hypertension Myocardial infarction Sister CAD (coronary artery disease), Onset Age: 56 CABG History of coronary artery bypass surgery Son Mitral valve prolapse Sister CAD (coronary artery disease), Onset Age: 68 stent Social History Smoking Status: Never smoker alcohol intake: never substance use type: does not use caffeine: Yes what type of physical activity do you participate in: walking seatbelt use: always do you feel safe at home: Yes additional social history: Matthew- Both are retired [employer] 4 M pessary check Details: TAMANNA DILL is a 79 year old who presents for pessary check. Denies concerns History 2 Elective abortions Hx Para 2 Spontaneous abortions Hx # Term Pregnancies Ectopic pregnancies Hx # Pregnancies Multiple births # of living children Past Pregnancies Del. Date Name GA/Weeks Outcome Route Bth Weight Infant Gen Labor Lgth Anesthesia Del Locatn Provider FOB Unknown 1967 Luis W live - full term Unknown 1968 Annabel live - full term ROS Const Constitutional: Reports system reviewed and no additional complaints, except as documented Eyes Eyes: Reports system reviewed and no additional complaints, except as documented GI GI: Denies abdominal pain or change in bowel habits : Reports as per HPI Exam Const General: cooperative and no acute distress Nutritional Appearance: well nourished Orientation: oriented x3 Resp Effort Inspection: normal respiratory effort External Female Exam: normal external appearance Speculum Exam - Vagina: normal vaginal discharge and vagina atrophic Speculum Exam - Cervix: closed Bimanual Exam- Vagina Uterus: normal bimanual exam and uterine size normal Bimanual Exam- Adnexa, other: normal adnexae, no masses and non-tender Other: (more content not included)... Normal [facility] CNOVon 02-28-2025 CNOV Office Visit (VASSWS) TAMANNA DILL ([id number]) 1945 F Date Time Provider Department 02/28/25 10:30 AM YEE SALDANA VASSWS During your visit today, we recorded the following information about you: Pulse Blood pressure 69/minute 132/74 Yee Saldana DO 02/28/2025 1:47 PM Signed [facility] DEPART[facility] OF VASCULAR SURGERY OUTPATIENT VISIT DATE February 28, 2025 OUTPATIENT VISIT TYPE ESTABLISHED SERVICE DATE: 02/28/2025 SERVICE TIME: 10:57 AM PRIMARY CARE PHYSICIAN: Coleen Barrera MD HISTORY OF PRESENT ILLNESS: Mrs. Dill is a 79 year old female who presents today for a vascular surgery follow-up visit for venous reflux testing. She has history of venous interventions with Dr. Maxwell in the past. She has worn compression without significant improvement in symptoms PAST MEDICAL HISTORY Diagnosis Date Asymptomatic varicose veins 03/31/2011 Diverticulosis of colon (without mention of hemorrhage) Hypertension OAB (overactive bladder) 01/17/2015 Osteoporosis, unspecified Other and unspecified hyperlipidemia 10/06/2007 Personal history of colonic polyps last colon 06/09, 5-year interval Varicose veins Venous insufficiency (chronic) (peripheral) 03/09/2008 PAST SURGICAL HISTORY Procedure Laterality Date COLONOSCOPY FLX DX W/COLLJ SPEC WHEN PFRMD 06/19/05 Colonoscopy COLONOSCOPY FLX DX W/COLLJ SPEC WHEN PFRMD 07/31/2011 Colonoscopy COLONOSCOPY FLX DX W/COLLJ SPEC WHEN PFRMD 11/25/2016 Normal colonoscopy-10 year follow-up LIG/TRNSXJ FLP TUBE ABDL/VAG APPR UNI/BI 1970 Tubal ligation SOCIAL HISTORY SOCIAL HISTORY[1] MEDICATIONS: oxybutynin XL (DITROPAN XL) 5 mg 24 hr tablet Take 1 tablet by mouth once daily. pyrilamine-dextromet horphan (CAPRON DMT) 30-30 mg tab Take 1 tablet by mouth every 6 hours as needed. aspirin, enteric coated (ASPIRIN, ENTERIC COATED) 81 mg EC tablet Take 81 mg by mouth once daily. Biotin 10,000 mcg cap Take by mouth. atorvastatin (LIPITOR) 40 mg tablet Take 1 tablet by mouth once daily. amLODIPine (NORVASC) 5 mg tablet Magnesium Carbonate powd Mg unknown Zinc 50 mg tab Take by mouth. Ascorbic Acid (VITAMIN C) 1,000 mg tablet Take 1 tablet by mouth once daily. [place] [id number] rol 500 mg-500 mcg -1 mg-12.5 mg cap Take 500 mg by mouth once daily. ergocalciferol, vitamin D2, (VITAMIN D2 ORAL) Take by mouth. ALLERGIES: ALLERGIES Allergen Reactions Erythromycin GI Upset Latex Rash Penicillins GI Upset PHYSICAL EXAM: BP 132/74 (BP Site: Right Arm, BP Position: Sitting, BP Cuff Size: Regular Adult) Pulse 69 SpO2 99% Gen- no distress Ext- left posterior calf varicose veins, left pretibial varicose veins Diagnostic tests reviewed for today's visit: Most recent labs Most recent imaging Venous Reflux RIGHT SIDE - DEEP VEINS Negative for acute deep vein thrombosis in vessels visualized. Positive for valvular incompetency in the common femoral vein. RIGHT SIDE - SUPERFICIAL VEINS Positive for valvular incompetency in the great saphenous vein. Focal venous insufficiency at junction. No large branches or varicosities. Negative for valvular incompetency in the small saphenous vein. Negative for superficial thrombophlebitis in the great saphenous vein and small saphenous vein. LEFT SIDE - DEEP VEINS Negative for acute deep vein thrombosis in vessels visualized. Positive for valvular incompetency in the common femoral vein. LEFT SIDE - SUPERFICIAL VEINS Positive for valvular incompetency in the great saphenous vein. Focal venous insuffiency noted at junction and becomes small in mid thigh, discontinuous in calf. Positive for valvular incompetency in the small saphenous vein. Venous insufficiency noted with branches and varicosies off proximal small saphenous and traveling to lateral calf. Focal occlusion at mid calf and then reopens distally. Negative for superficial thrombophlebitis in the great saphenous vein. 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 IMPRESSION: Mrs. Dill is a 79 year old female with symptomatic varicose veins . CEAP CLASSIFICATION OF VENOUS DISEASE: CLINICAL C2: Varicose veins S: Symptomatic, including ache, pain, tightness, skin irritation, heaviness, muscle cramps and other complaints attribultable to venous dysfunction ETIOLOGY Ep: Primary ANATOMIC As: Superficial veins PATHOPYSIOLOGIC Pr: Reflux PLAN and RECOMMENDATIONS: Recommend left leg phlebectomy in OR in supine position to treat symptomatic varicose veins She would benefit as she has had previous EVLT in the past and symptoms have slowly worsened over the years despite EVLT and compression and now impact day to day activities Reviewed procedure and consent obtained SIGNATURE: Yee Saldana DO PATIENT NAME: Tamanna Dill DATE: February 28, 2025 TI (more content not included)... Normal [facility] VENOUS INCOMPETENCY JUANITO V LABon 02-13-2025 VENOUS INCOMPETENCY JUANITO VAS LAB Non-Invasive Vascular Laboratory [facility] Venous Valvular Incompetency Bilateral/Complete Date of service/time: 02/13/2025 8:16:12 AM Name: MRS. TAMANNA DILL Date of : 1945 Age: 79 years Gender: F Clinical Indication Lower extremity swelling. TECHNIQUE -------- A venous duplex ultrasound examination was performed, including grayscale imaging with compression maneuvers and color Doppler and spectral Doppler examination with augmentation maneuvers and response to respiration of the below mentioned veins. FINDINGS -------- RIGHT SIDE Common femoral vein Doppler: normal flow. Compression: normal. Profunda vein Compression: normal. Femoral vein Doppler: normal flow. Compression: normal. Popliteal vein Doppler: normal flow. Compression: normal. Great saphenous vein Compression: normal. Small saphenous vein Compression: normal. RIGHT GREAT SAPHENOUS VEIN Saphenofemoral junction Augmentation reflux greater than or equal to 0.5 second. Size 0.84 cm. Proximal thigh Augmentation reflux none. Size 0.46 cm. Mid thigh Augmentation reflux none. Size 0.33 cm. Distal thigh Augmentation reflux none. Size 0.30 cm. At Knee Augmentation reflux none. Size 0.24 cm. Proximal calf Augmentation reflux none. Size 0.22 cm. Mid calf Augmentation reflux none. Size 0.21 cm. Distal calf Augmentation reflux none. Size 0.25 cm. RIGHT SMALL SAPHENOUS VEIN Saphenopopliteal junction Augmentation reflux none. Size 0.27 cm. Proximal calf Augmentation reflux none. Size 0.19 cm. RIGHT ANTERIOR ACCESSORY GREAT SAPHENOUS VEIN Saphenous junction Augmentation reflux greater than or equal to 0.5 second. Size 0.31 cm. Proximal Thigh Augmentation reflux none. Size 0.21 cm. LEFT SIDE Common femoral vein Doppler: normal flow. Compression: normal. Profunda vein Compression: normal. Femoral vein Doppler: normal flow. Compression: normal. Popliteal vein Doppler: normal flow. Compression: normal. Great saphenous vein Compression: normal. Small saphenous vein Compression: abnormal. LEFT GREAT SAPHENOUS VEIN Saphenofemoral junction Valsalva reflux greater than or equal to 0.5 second. Size 0.64 cm. Proximal thigh Augmentation reflux none. Size 0.29 cm. Mid thigh Augmentation reflux none. Size 0.21 cm. Distal thigh Augmentation reflux none. Size 0.21 cm. At Knee Augmentation reflux none. Size 0.17 cm. LEFT SMALL SAPHENOUS VEIN Saphenopopliteal junction Augmentation reflux greater than or equal to 0.5 second. Size 0.51 cm. Proximal calf Augmentation reflux greater than or equal to 0.5 second. Size 0.45 cm. Mid calf Augmentation reflux none. Size 0.16 cm. Distal calf Augmentation reflux none. Size 0.31 cm. LEFT BRANCHES AND PERFORATORS Varicosity off SSV posterior calf Augmentation reflux greater than or equal to 0.5 second. Size 0.56 cm. Varicosity off SSV lateral calf Augmentation reflux greater than or equal to 0.5 second. Size 0.30 cm. Varicosity off SSV lateral calf Augmentation reflux greater than or equal to 0.5 second. Size 0.43 cm. IMPRESSION RIGHT SIDE - DEEP VEINS Negative for acute deep vein thrombosis in vessels visualized. Positive for valvular incompetency in the common femoral vein. RIGHT SIDE - SUPERFICIAL VEINS Positive for valvular incompetency in the great saphenous vein. Focal venous insufficiency at junction. No large branches or varicosities. Negative for valvular incompetency in the small saphenous vein. Negative for superficial thrombophlebitis in the great saphenous vein and small saphenous vein. LEFT SIDE - DEEP VEINS Negative for acute deep vein thrombosis in vessels visualized. Positive for valvular incompetency in the common femoral vein. LEFT SIDE - SUPERFICIAL VEINS Positive for valvular incompetency in the great saphenous vein. Focal venous insuffiency noted at junction and becomes small in mid thigh, discontinuous in calf. Positive for valvular incompetency in the small saphenous vein. Venous insufficiency noted with branches and varicosies off proximal small saphenous and traveling to lateral calf. Focal occlusion at mid calf and then reopens distally. Negative for superficial thrombophlebitis in the great saphenous vein. 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 Technologist: Betty Bonilla RVT Ordering physician: YEE SALDANA Interpreting physician: LATRELL Eugene MD Final CC [id number] Image : [id number] [employer] See Link below for Image Normal [facility] CNOVon 01-24-2025 CNOV Office Visit (VASSWS) TAMANNA DILL ([id number]) 1945 F Date Time Provider Department 01/24/25 11:00 AM YEE SALDANA During your visit today, we recorded the following information about you: Pulse Blood pressure 75/minute 109/68 Yee Saldana, DO 01/24/2025 1:37 PM Signed [facility] DEPARTMENT OF VASCULAR SURGERY OUTPATIENT VISIT DATE January 24, 2025 OUTPATIENT VISIT TYPE CONSULTATION SERVICE DATE: 01/24/2025 SERVICE TIME: 11:08 AM PRIMARY CARE PHYSICIAN: Coleen Barrera MD REFERRING PROVIDER: Coleen Barrera [id number] [facility] [id number] Consult requested for an opinion regarding the evaluation and treatment of the above. My final impression and recommendations will be communicated back to the requesting physician by way of the shared medical record or letter via US mail. CHIEF COMPLAINT: Patient presents with: New Patient History of Present Illness: Patient is a 79 year old White female presenting for consultation, evaluation and possible treatment of varicose veins.left sharp pain in lateral thigh and right posterior knee pain. . She has worn compression in the past. Predisposing factors included history of varicose vein surgery 2012 left SSV [address] Dr[address] Maxwell. Sclerotherapy. Her mother had varicose veins. No specific history of injury or prior problems. Relieving factors include elevation of legs, reduced activity, and OTC pain medication with mild improvement in symptoms. Patient denies DVT, phlebitis, and treatment with blood thinners. PAIN ASSESSMENT: PAIN EVALUATION No data found in the last 1 encounters. Obstetric History T1 L2 SAB0 IAB0 Ectopic0 Multiple0 Live Births0 Name of Baby 1: Not recorded Date: Not recorded GA: Not recorded Type: Not recorded Apgar1: Not recorded Apgar5: Not recorded Living: Not recorded Name of Baby 2: Not recorded Date: Not recorded GA: Not recorded Type: Not recorded Apgar1: Not recorded Apgar5: Not recorded Living: Not recorded Duration of Symptoms: Progressive PREVIOUS TESTS: None PAST MEDICAL HISTORY Diagnosis Date Asymptomatic varicose veins 03/31/2011 Diverticulosis of colon (without mention of hemorrhage) Hypertension OAB (overactive bladder) 01/17/2015 Osteoporosis, unspecified Other and unspecified hyperlipidemia 10/06/2007 Personal history of colonic polyps last colon 06/09, 5-year interval Varicose veins Venous insufficiency (chronic) (peripheral) 03/09/2008 PAST SURGICAL HISTORY Procedure Laterality Date COLONOSCOPY FLX DX W/COLLJ SPEC WHEN PFRMD 06/19/05 Colonoscopy COLONOSCOPY FLX DX W/COLLJ SPEC WHEN PFRMD 07/31/2011 Colonoscopy COLONOSCOPY FLX DX W/COLLJ SPEC WHEN PFRMD 11/25/2016 Normal colonoscopy-10 year follow-up LIG/TRNSXJ FLP TUBE ABDL/VAG APPR UNI/BI 1970 Tubal ligation SOCIAL HISTORY: Social History Tobacco Use Smoking status: Never Smokeless tobacco: Never Substance Use Topics Alcohol use: Not Currently Drug use: No Comment: marijuana use years ago FAMILY HISTORY Problem Relation Age of Onset Colon Cancer Mother Heart Father of SC Hypertension Brother Hypertension Sister Hypertension Sister Hypertension Sister Hypertension Sister Heart Brother SC Hypertension Brother Heart Sister Triple bypass Heart Son mitral valve prolapse other (Eczema) Son Coronary Artery Disease Sister MEDICATIONS: pyrilamine-dextromet horphan (CAPRON DMT) 30-30 mg tab Take 1 tablet by mouth every 6 hours as needed. oxybutynin XL (DITROPAN XL) 5 mg 24 hr tablet Take 1 tablet by mouth once daily. aspirin, enteric coated (ASPIRIN, ENTERIC COATED) 81 mg EC tablet Take 81 mg by mouth once daily. Biotin 10,000 mcg cap Take by mouth. atorvastatin (LIPITOR) 40 mg tablet Take 1 tablet by mouth once daily. amLODIPine (NORVASC) 5 mg tablet Magnesium Carbonate powd Mg unknown Zinc 50 mg tab Take by mouth. Ascorbic Acid (VITAMIN C) 1,000 mg tablet Take 1 tablet by mouth once daily. [place] [id number]-Epmuugmq rol 500 mg-500 mcg -1 mg-12.5 mg cap Take 500 mg by mouth once daily. ergocalciferol, vitamin D2, (VITAMIN D2 ORAL) Take by mouth. ALLERGIES: ALLERGIES Allergen Reactions Erythromycin GI Upset Latex Rash Penicillins GI Upset REVIEW of SYSTEMS: Constitutional: No weight loss, malaise or fevers. HEENT: Negative for frequent or significant headaches, No changes in hearing or vision, no nose bleeds or other nasal problems Respiratory: Negative for cough, wheezing, or shortness of breath Cardiovascular: Negative for chest pain, leg swelling or palpitations Gatrointestinal: Negative for abdominal discomfort, blood in stools or black stools or change in bowel habits Genitourinary: Positive for frequency Musculoskeletal: Negative for muscle pain and Positive for low back pain and joint p (more content not included)... Normal [facility] 25(OH)D3 [facility]-ncon 2024 25-hydroxyvitamin D3 [Mass/Vol] 33.5 ng/mL Normal 31.0-80.0 [facility] Comment on above: Order Comment: Speci men Type: BLOOD SPECIMENOrdering Facility: [facility] Address: [address] [place] [address] Result Comment: Clas sification of 25 [place] Vitamin D status: Deficiency/Insufficiency: < or = 30 ng/ml. Sufficiency/Optimal Levels: 31-80 ng/mL Toxicity: > 100 ng/mL. Test performed by chemiluminescent immunoassay. Performed By: #### 1 989-3 ####[facility] LABCLIA [id number] [address] OF [facility] CNOVon 01-17-2025 CNOV Office Visit (INTMWS) FUENTESTAMANNA Freed ([id number]) 1945 F Date Time Provider Department 01/17/25 10:00 AM COLEEN BARRERA INTMWS During your visit today, we recorded the following information about you: Pulse Respiration Blood pressure Weight 73/minute 16/minute 109/71 44.5 kg Height 1.473 m Coleen Barrera MD 01/17/2025 12:57 PM Signed Tamanna Freed Fuentes is a 79 year old female here for a Medicare wellness visit. Medicare Health Risk Assessment General Health Very good Exercise: Minutes/Day 60 min Exercise: Days/Week 5 days Alcohol: Daily Use Never Alcohol: Drinks/Day Patient does not drink Alcohol: 6 or more drinks Never Feel off balance No Concerns: Teeth/Dentures No Concerns: Sexual function No Troubled by feelings None of the above Frequency: Eating healthy diet Nearly every day ADLs requiring help None of the above Safety precautions in home/vehicle Yes Smoke, vape, chews tobacco No Difficulty hearing Yes, I wear a hearing aid Difficulty seeing No Current Providers Specialists: I have reviewed specialist-related care of the patient in the medical record. Medical/Family history review Reviewed and updated problem list, medical/surgical/fam norm/social history, medications, and allergies. Opioid use review Opioid Medications (last 90 days) No data to display Anxiety/Depression screening PHQ-9 Score: 0. SIDDHARTH-7 Score: 0. Recommendation: no further intervention at this time Cognitive screening Mini Cog Score: 5 Cognitive screening reviewed and No further action needed (score 3-5). Functional Observation Was the patient's Timed Up AND Go test unsteady or >= 12 seconds? No Advance Care Planning Surrogate decision maker and/or advance care plan documented Measurements BP 109/71 Pulse 73 Resp 16 Ht 147.3 cm (4' 9.99) Wt 44.5 kg (98 lb 3.2 oz) BMI 20.53 kg/m? Vision Screening: Follows with optometry/ophthalmol ogy Assessment/Plan Medicare annual wellness visit, initial (Z00.00) - Counseled on healthy diet and regular exercise - Fall avoidance information provided - Personalized prevention plan provided. Reason for Visit HPI Tamanna Dill is a 79-year-old female with a history of osteoporosis, right knee pain, varicose veins, and urinary frequency, presenting for evaluation of multiple concerns. Tamanna reports a significant decrease in physical activity due to right knee pain. She is under the care of an orthopedic surgeon, Dr. Stephens, who has recommended knee surgery, which she is reluctant to undergo. She is considering an evaluation at the [facility] for alternative treatments, such as hyaluronic acid injections. She has received two corticosteroid injections in the past, which provided temporary relief, but she is seeking a more permanent solution. She also reports a history of osteoporosis, with her last DEXA scan performed in 2018, which confirmed the diagnosis. Tamanna has not been on any medication for osteoporosis but is now open to treatment due to increasing concerns about her bone health. She experiences pain and numbness in her left thigh and suspects sciatica, noting that the pain radiates to the left side. She also reports low back pain, particularly in the morning. Tamanna has a history of varicose veins and has previously seen a vascular specialist, Dr. Maxwell, who performed sclerotherapy without significant improvement. She has used compression stockings in the past but found them difficult to manage. She reports a sensation of a knot in her leg and is concerned about the possibility of blood clots, although she denies any swelling. Additionally, Tamanna reports severe urinary frequency, describing it as out of control. She voids approximately every hour at night and multiple times during the day, with each episode producing about 4-6 ounces of urine. She drinks minimal water and consumes one cup of decaffeinated coffee in the morning. She was previously prescribed oxybutynin by a nurse practitioner but did not take it due to concerns about taking multiple medications. She is now willing to try the medication. She has a history of COVID-19 and was hospitalized in the ICU, where she noted excessive urine output. Tamanna has advanced directives and a living will in place. Social History Tobacco Use Smoking status: Never Smokeless tobacco: Never Substance Use Topics Alcohol use: Not Currently Drug use: No Comment: marijuana use years ago Past medical history, appointments, medications, allergies reviewed. Pertinent Lab/Diagnostic Studies are reviewed and discussed today Current Outpatient Medications: pyrilamine-dextromet horphan (CAPRON DMT) 30-30 mg tab oxybutynin XL (DITROPAN XL) 5 mg 24 hr tablet aspirin, enteric coated (ASPIRIN, ENTERIC COATED) 81 mg EC tablet Biotin 10,000 mcg cap (more content not included)... Normal [facility] PTH INTACTon 01-17-2025 Parathyrin.intact [Mass/Vol] 39 pg/mL 15 - 65 pg/mL [facility] PTH-Intact SerPl-ncon - Parathyrin.intact [Mass/Vol] 39 pg/mL Normal 15-65 [facility] Comment on above: Order Comment: Speci men Type: BLOOD SPECIMENOrdering Facility: [facility] Address: [address] [place] [address] Performed By: #### 2 731-8 ####[facility] LABCLIA [id number] [place] [address] [place] Parathyrin.intact [Mass/Vol] on 01-17-2025 Interpretation and review of laboratory results Normal [facility] XR LUMBAR 3V AP/LAT/L5-S1on 01-17-2025 XR LUMBAR 3V AP/LAT/L5-S1 * * *Final Report* * * DATE OF EXAM: Jan 17 2025 11:54AM WOX [id number] - XR LUMBAR 3V AP/LAT/L5-S1 / PROCEDURE REASON: multiple diagnoses * * * * Physician Interpretation * * * * EXAMINATION / TECHNIQUE: XR LUMBAR 3V AP/LAT/L5-S1 HISTORY: Chronic left-sided low back pain with left-sided sciatica Chronic left-sided low back pain with left-sided sciatica Chronic left-sided low back pain with left-sided sciatica COMPARISON: None RESULT: Counting reference: Lumbosacral junction. For the purposes of this report, L4-5 is considered the level of the iliac crest and assume there are 5 lumbar-type vertebrae. Anatomic variant: None. Mild rightward curvature of the lumbar spine. Vertebral body heights and sagittal alignment are maintained. Multilevel degenerative disc disease is moderate to severe at L4-L5. There is lower lumbar facet hypertrophy. IMPRESSION: Degenerative changes as described. Video Production Coordinator: [facility] ELIZABETH HOSPITALSandra Transcribe Date/Time: Jan 24 2025 9:08P Dictated by : WESTON MCKNIGHT MD This examination was interpreted and the report reviewed and electronically signed by: WESTON MCKNIGHT MD on Jan 24 2025 9:09PM EST [id number] CN Normal [facility] CBC panel Auto (Bld)on 01-09 Erythrocyte distribution width (RBC) [Ratio] 12.2 % Normal 11.5-15.0 [facility] Comment on above: Order Comment: Speci men Type: BLOOD SPECIMENOrdering Facility: [facility] Address: [address] [place] [address] Performed By: #### 5 8410-2 ####[facility] [id number] [place] [address] [place] Hematocrit (Bld) [Volume fraction] 39.1 % Normal 36.0-46.0 [facility] Comment on above: Order Comment: Speci men Type: BLOOD SPECIMENOrdering Facility: [facility] Address: [address] [place] [address] Performed By: #### 5 8410-2 ####[facility] KARLEYA [id number] [place] [address] [place] Hemoglobin (Bld) [Mass/Vol] 13.3 g/dL Normal 11.5-15.5 [facility] Comment on above: Order Comment: Speci men Type: BLOOD SPECIMENOrdering Facility: [facility] Address: [address] [place] [address] Performed By: #### 5 8410-2 ####[facility] SHANDRADULUTHBJ [id number] [place] [address] [place] MCH (RBC) [Entitic mass] 30.7 pg Normal 26.0-34.0 [facility] Comment on above: Order Comment: Speci men Type: BLOOD SPECIMENOrdering Facility: [facility] Address: [address] [place] [address] Performed By: #### 5 8410-2 ####[facility] FLORID[facility]iharika [id number] [address] [place] MCHC (RBC) [Mass/Vol] 34.0 g/dL Normal 30.5-36.0 [facility] Comment on above: Order Comment: Speci men Type: BLOOD SPECIMENOrdering Facility: [facility] Address: [address] [place] [address] Performed By: #### 5 8410-2 ####[facility] EMERALD COASTBJ [id number] [address] [place] MCV (RBC) [Entitic vol] 90.3 fL Normal 80.0-100.0 [facility] Comment on above: Order Comment: Speci men Type: BLOOD SPECIMENOrdering Facility: [facility] Address: [address] [place] [address] Performed By: #### 5 8410-2 ####[facility] EMERALD COASTNCLIA [id number] [place] [address] [place] Nucleated RBC (Bld) [#/Vol] 10*3/uL Normal <0.01 [facility] Comment on above: Order Comment: Speci men Type: BLOOD SPECIMENOrdering Facility: [facility] Address: [address] [place] [address] Performed By: #### 5 8410-2 ####[facility] EMERALD COASTNCLIA [id number] [place] [address] [place] Platelet mean volume (Bld) [Entitic vol] 9.9 fL Normal 9.0-12.7 [facility] Comment on above: Order Comment: Speci men Type: BLOOD SPECIMENOrdering Facility: [facility] Address: [address] [place] [address] Performed By: #### 5 8410-2 ####[facility] EMERALD COASTNCA [id number] [place] [address] [place] Platelets (Bld) [#/Vol] 273 10*3/uL Normal 150-400 [facility] Comment on above: Order Comment: Speci men Type: BLOOD SPECIMENOrdering Facility: [facility] Address: [address] [place] [address] Performed By: #### 5 8410-2 ####[facility] EMERALD COASTNCLIA [id number] [place] [address] [place] RBC (Bld) [#/Vol] 4.33 10*6/uL Normal 3.90-5.20 [facility] Comment on above: Order Comment: Speci men Type: BLOOD SPECIMENOrdering Facility: [facility] Address: [address] [place] [address] Performed By: #### 5 8410-2 ####[facility] EMERALD COASTNCLIA [id number] [place] [address] [place] WBC (Bld) [#/Vol] 6.55 10*3/uL Normal 3.70-11.00 [facility] Comment on above: Order Comment: Speci men Type: BLOOD SPECIMENOrdering Facility: [facility] Address: [address] [place] [address] Performed By: #### 5 8410-2 ####[facility] [id number] [place] [address] [place] Lipid 1996 panelon 5 Cholesterol [Mass/Vol] 183 mg/dL Normal <200 [facility] Comment on above: Order Comment: Speci men Type: BLOOD SPECIMENOrdering Facility: [facility] Address: [address] [place] [address] Result Comment: <200 mg/dL, Desirable 200-239 mg/dL, Borderline high >239 mg/dL, High Performed By: #### 2 4331-1 ####[facility] LABCLIA [id number] [address] [id number] [address] [place] Cholesterol in HDL [Mass/Vol] 80 mg/dL Normal >39 [facility] Comment on above: Order Comment: Speci men Type: BLOOD SPECIMENOrdering Facility: [facility] Address: [address] [place] [address] Result Comment: 40-5 9 mg/dL, Acceptable >59 mg/dL, High: Negative risk factor for coronary heart disease <40 mg/dL, Low: Positive risk factor for coronary heart disease Performed By: #### 2 4331-1 ####[facility] LABCLIA [id number] [address] [id number] [address] [place] Cholesterol in LDL [Mass/Vol] 87 mg/dL Normal <100 [facility] Comment on above: Order Comment: Speci men Type: BLOOD SPECIMENOrdering Facility: [facility] Address: [address] [place] [address] Result Comment: <100 mg/dL, Optimal 100-129 mg/dL, Near optimal/above optimal 130-159 mg/dL, Borderline high 160-189 mg/dL, High >189 mg/dL, Very high Secondary prevention optimal LDL Cholesterol levels are recommended to be <70 mg/dL LDL cholesterol is calculated using the Stanley-NIH equation. Performed By: #### 2 4331-1 ####[facility] LABCLIA [id number] [address] [id number] [place] [address] [place] Cholesterol in LDL/Cholesterol in HDL [Mass ratio] 1.09 {ratio} Normal <2.54 [facility] Comment on above: Order Comment: Speci men Type: BLOOD SPECIMENOrdering Facility: [facility] Address: [address] [place] [address] Result Comment: Refe rence: 1. National Cholesterol Education Program ATP III Guideline At-A-Glance Quick Desk Reference: National Heart, Lung, and Blood Bertrand. National Institutes of Health. 2001: NIH Publication No. 01-3305. 2. An International Atherosclerosis Society position paper: global recommendations for the management of dyslipidemia: executive summary, Atherosclerosis. 2014: 232(2):410-413. Performed By: #### 2 4331-1 ####[facility] LABIA [id number] [address] [id number] [place] [address] [place] Cholesterol in VLDL [Mass/Vol] 14 mg/dL Normal <30 [facility] Comment on above: Order Comment: Speci men Type: BLOOD SPECIMENOrdering Facility: [facility] Address: [address] [place] [address] Performed By: #### 2 4331-1 ####[facility] LABCLIA [id number] [address] [id number] [place] [address] OF [facility] Cholesterol non HDL [Mass/Vol] 103 mg/dL Normal <130 [facility] Comment on above: Order Comment: Speci men Type: BLOOD SPECIMENOrdering Facility: [facility] Address: [address] [place] [address] Result Comment: <130 mg/dL, Optimal 130-159 mg/dL, Near optimal/above optimal 160-189 mg/dL, Borderline high 190-219 mg/dL, High >219 mg/dL, Very high Secondary prevention optimal non HDL Cholesterol levels are recommended to be <100 mg/dL Performed By: #### 2 4331-1 ####[facility] LABCLIA [id number] [address] [id number] [place] [address] [place] [facility] Cholesterol.total/Choles terol in HDL [Mass ratio] 2.29 {ratio} Normal <5.10 [facility] Comment on above: Order Comment: Speci men Type: BLOOD SPECIMENOrdering Facility: [facility] Address: [address] [place] [address] Performed By: #### 2 4331-1 ####[facility] LABCLIA [id number] [address] [id number] [place] [address] [place] FASTING TIME 12 hrs Normal [facility] Comment on above: Order Comment: Speci men Type: BLOOD SPECIMENOrdering Facility: [facility] Address: [address] [place] [address] Performed By: #### 2 4331-1 ####[facility] LABCLIA [id number] [place] [id number] [facility] [id number] [place] [address] [place] Triglyceride [Mass/Vol] 87 mg/dL Normal <150 [facility] Comment on above: Order Comment: Speci men Type: BLOOD SPECIMENOrdering Facility: [facility] Address: [facility] [place] [address] Result Comment: <150 mg/dL, Normal 150-199 mg/dL, Borderline high 200-499 mg/dL, High >499 mg/dL, Very high Performed By: #### 2 4331-1 ####[facility] LABCLIA [id number] [address] [id number] [address] [place] Bilirubin directOrdered By: Gillian Fernandez on 12-14-2024 Bilirubin.direct [Mass/Vol] 0.18 mg/dL 0.00-0.30 [facility] Bilirubin, totalOrdered By: Gillian Fernandez on 12-14-2024 Bilirubin [Mass/Vol] 0.45 mg/dL 0.00-1.30 [facility] Calculated very low density lipoprotein (VLDL) cholesterol measurementOrdered By: Gillian Fernandez on 12-14-2024 Calculated very low density lipoprotein (VLDL) cholesterol measurement 21 mg/dL 5-40 [facility] Cardiology Visit Reporton Cardiology Visit Report [facility] [address] [facility] [place] [id number] OFFICE VISIT Date of Service: 12/14/24 MR#: [id number] Acct: [id number] Name: TAMANNA DILL Rep #: [id number] : 1945 Provider: YENI Blas Age/Sex: 79/F Location[place] [facility] [place] Status: Signed HPI HPI History of Present Illness Details: Patient comes in today is a 78-year-old white female with her family member for follow-up and monitoring of her cardiovascular disease. Patient carries a history of coronary disease with known stenting of the right coronary artery October 2023 when she was traveling in [place] at [facility]. The patient had presented with chest pain and profound shortness of breath and was evaluated the [place] emergency department the day prior but no objective evidence of ischemia was documented. She subsequently presented to [facility] with what appears to be a non-STEMI within 48 hours. Her catheterization shows mild diffuse disease throughout all 3 of her coronary arteries. The LAD had a 55% stenosis in the proximal segment the circumflex was moderate in size with mild diffuse disease throughout it and the right coronary had a 95% mid lesion which was stented with a 30 mm x 3.0 mm stent. She also has a history of hypertension, Hyperlipidemia and SVT. From a cardiac standpoint, patient is doing well. She does not have any chest discomfort/heaviness /tightness. Her exercise tolerance is stable for her age. She does not have any worsening symptoms of shortness of breath. She does not have any orthopnea. She denies PND. She does not have any symptoms of congestive heart failure. She does not have any palpitations that she is aware of. She does not have any lightheadedness or dizziness. She does not have any near- syncope or syncope. She does not have any lower extremity edema. She does not have any symptoms of claudication. She has used NTG approx 6 times this past year. It is for palpitations. She just feels uncomfortable and lightheaded. The NTG does help. Intake Vital Signs 06/10/24 10:35 10/10/24 10:28 12/14/24 08:42 Height 4 ft 10 in 4 ft 10 in 4 ft 10 in Weight: 99 lb BMI 20.7 BP 144/79 H Blood Pressure Location Lt brachial Position Sitting Respiration 16 Pulse 77 Pulse Source Monitor Intake Visit Reasons: 6 M FU Adobe Architect Required: No Accompanied by: Is patient in pain?: No Allergies Penicillins Allergy (Unknown, Verified 12/14/24 08:44) unknown erythromycin base Adverse Reaction (Unknown, Verified 12/14/24 08:44) Unknown latex Adverse Reaction (Unknown, Verified 12/14/24 08:44) unknown Medications ???Medication ???Instructions ???Recorded ???Confirmed ???Type omega-3 fatty acids 1 cap PO DAILY supplement 02/09/21 12/14/24 History ascorbic acid (vitamin C) 1,000 mg 1 g PO DAILY 09/24/21 12/14/24 H istory tablet zinc 50 mg tablet 50 mg PO DAILY 09/24/21 12/14/24 H istory cholecalciferol (vitamin D3) 25 25 mcg PO DAILY 09/25/21 12/14/24 History mcg (1,000 unit) capsule magnesium/calm PO DAILY 09/25/21 12/14/24 History aspirin 81 mg tablet,delayed 81 mg PO DAILY 10/19/23 12/14/24 H istory release (Adult Aspirin Regimen) nitroglycerin 0.4 mg sublingual 0.4 mg sublingual Q5-15M PRN 01/2812/14/24 History tablet amlodipine 5 mg tablet 5 mg PO DAILY #90 tabs 10/05/24 Rx atorvastatin 40 mg tablet 40 mg PO QDAY #90 tabs 10/05/24 Rx Have you fallen in the past year?: No PFSH Medical History Atherosclerosis of coronary artery of [place] post[place] heart without angina pectoris Multiple premature ventricular complexes Family history of coronary artery disease Fall from other slipping, tripping, or stumbling Contusion of face Closed head injury without loss of consciousness Severe malnutrition Thrombocytosis Acute respiratory failure with hypoxia COVID-19 (02/11/21) Pneumonia due to COVID-19 virus (02/09/21) Hyperlipidemia Pelvic relaxation due to uterovaginal prolapse, incomplete Osteoporosis Surgical History History of coronary artery stent placement (10/09/23) Hx of tubal ligation Family History Mother Colon cancer Father Myocardial infarction, Onset Age: 61 Brother Hypertension Myocardial infarction Sister CAD (coronary artery disease), Onset Age: 56 CABG History of coronary artery bypass surgery Son Mitral valve prolapse Sister CAD (coronary artery disease), Onset Age: 68 stent Social History Smoking Status: Never smoker alcohol intake: never substance (more content not included)... Normal [facility] LDL calc ser/plasOrdered By: Gillian Fernandez on 12-14-2024 Cholesterol in LDL [Mass/Vol] 64 mg/dL [facility] Comment on above: Aqyzgmtklx=883-756 m g/dL & Higher Fhjd=732 mg/dL or greater Laboratory - Chemistry and C hemistry - challengeOrdered By: Gillian Fernandez on 12-14-2024 AST [Catalytic activity/Vol] 26 U/L <32 [facility] Lipid Profileon 12-14-2024 CHOL:HDL 2.05 Normal [facility] Comment on above: Performed By: #### L 500.3400, L500.4100 #### [facility] [address] [place], [address] Cholesterol [Mass/Vol] 166 mg/dL Normal <=200 [facility] Comment on above: Result Comment: Chol esterol level, Desirable <200 mg/dL Borderline high cholesterol 200-239 mg/dL High cholesterol >=240 mg/dL Recommendations of the NCEP Adult Treatment Panel for the following risk-cutoff thresholds for the [place] population. Performed By: #### L 500.3400, L500.4100 #### [facility] [address] [place], [address] Cholesterol in HDL [Mass/Vol] 81 mg/dL Normal [facility] Comment on above: Result Comment: Tina onal Cholesterol Education Program (NCEP) guidelines: <40 mg/dL: Low HDL-cholesterol (major risk factor for CHD) >= 60 mg/dL: High HDL-cholesterol (negative risk factor for CHD) HDL-cholesterol is affected by a number of factors, e.g. smoking, exercise, hormones, sex and age. Performed By: #### L 500.3400, L500.4100 #### [facility] [address] [place], [address] Cholesterol in LDL [Mass/Vol] 64 mg/dL Normal [facility] Comment on above: Result Comment: Bord zwdxtg=565-649 mg/dL Higher Ycdx=967 mg/dL or greater Performed By: #### L 500.3400, L500.4100 #### [facility] [address] [place], [address] Cholesterol in VLDL [Mass/Vol] 21 mg/dL Normal 5-40 [facility] Comment on above: Performed By: #### L 500.3400, L500.4100 #### [facility] [address] [place], [address] Triglyceride [Mass/Vol] 104 mg/dL Normal [facility] Comment on above: Result Comment: The drugs N-Acetylcysteine and Metamizole may falsely depress this assay. Normal range: <150 mg/dL Borderline High: 150-199 mg/dL High: 200-499 mg/dL Very High: >500 mg/dL Performed By: #### L 500.3400, L500.4100 #### [facility] [address] [place], [address] Liver Profileon 12-14-2024 Albumin [Mass/Vol] 4.3 g/dL Normal 3.4-4.8 [facility] Comment on above: Performed By: #### L 500.3400, L500.4100 #### [facility] [address] [place], [address] ALK PHOS 58 U/L Normal 35-104 [facility] Comment on above: Performed By: #### L 500.3400, L500.4100 #### [facility] [address] [place], [address] ALT [Catalytic activity/Vol] 20 U/L Normal <=34 [facility] Comment on above: Performed By: #### L 500.3400, L500.4100 #### [facility] [address] [place], [address] AST [Catalytic activity/Vol] 26 U/L Normal <=31 [facility] Comment on above: Performed By: #### L 500.3400, L500.4100 #### [facility] [address] [place], [address] Bilirubin [Mass/Vol] 0.45 mg/dL Normal 0.00-1.30 [facility] Comment on above: Performed By: #### L 500.3400, L500.4100 #### [facility] [address] [place], [address] Bilirubin.direct [Mass/Vol] 0.18 mg/dL Normal 0.00-0.30 [facility] Comment on above: Performed By: #### L 500.3400, L500.4100 #### [facility] [address] [place], [address] Globulin (S) [Mass/Vol] 2.6 g/dL Normal 2.2-4.2 [facility] Comment on above: Performed By: #### L 500.3400, L500.4100 #### [facility] [address] [place], [address] T PROT 7.0 g/dL Normal 5.9-8.4 [facility] Comment on above: Performed By: #### L 500.3400, L500.4100 #### [facility] [address] [place], [address] Screening total cholesterol/ high density lipoprotein (HDL) cholesterol ratioOrdered By: Gillian Fernandez on 12-14-2024 Cholesterol.total/Choles terol in HDL [Mass ratio] 2.05 {ratio} [facility] Serum globulin measurementOr dered By: Gillian Fernandez on 12-14-2024 Globulin (S) [Mass/Vol] 2.6 g/dL 2.2-4.2 [facility] Serum or plasma alanine rose otransferase (ALT) measurementOrdered By: Gillian Fernandez on 12-14-2024 ALT [Catalytic activity/Vol] 20 U/L <35 [facility] Serum or plasma albumin drew urement (mass/volume)Ordered By: Gillian Fernandez on 12-14-2024 Albumin [Mass/Vol] 4.3 g/dL 3.4-4.8 [facility] Serum or plasma alkaline john sphatase measurementOrdered By: Gillian Fernandez on 12-14-2024 ALP [Catalytic activity/Vol] 58 U/L 35-104 [facility] Serum or plasma cholesterol in HDL measurement (mass/volume)Ordered By: Gillian Fernandez on 12-14-2024 Cholesterol in HDL [Mass/Vol] 81 mg/dL >40 [facility] Comment on above: National Cholesterol Education Program (NCEP) guidelines:<40 mg/dL: Low HDL-cholesterol (major risk factor for CHD)>= 60 mg/dL: High HDL-cholesterol (negative risk factor for CHD)HDL-cholesterol is affected by a number of factors, e.g. smoking, exercise, hormones, sex and age. Serum or plasma cholesterol measurement (mass/volume)Ordered By: Gillian Fernandez on 12-14-2024 Cholesterol [Mass/Vol] 166 mg/dL <201 [facility] Comment on above: Cholesterol level, D esirable <200 mg/dLBorderline high cholesterol 200-239 mg/dLHigh cholesterol >=240 mg/dLRecommendations of the NCEP Adult Treatment Panel for the following risk-cutoff thresholds for the [place] population. Total proteinOrdered By: Ector Fernandez on 12-14-2024 Protein [Mass/Vol] 7.0 g/dL 5.9-8.4 [facility] Triglycerides measurementOrd ered By: Gillian Fernandez on 12-14-2024 Triglyceride [Mass/Vol] 104 mg/dL <199 [facility] Comment on above: The drugs N-Acetylcy steine and Metamizole may falsely depress this assay. Normal range: <150 mg/dLBorderline High: 150-199 mg/dLHigh: 200-499 mg/dLVery High: >500 mg/dL [employer] Office Visit Reporton 10-10-2024 [employer] Office Visit Report [facility]'[address], [address] [place] [id number] OFFICE VISIT Date of Service: 10/10/24 MR#: [id number] Acct: [id number] Name: TAMANNA DILL Rep #: [id number] : 1945 Provider: SONAL faulkner Age/Sex: 78/F [place] [facility] [place]: [place] Intake Vital Signs 07/04/24 14:07 10/10/24 10:24 10/10/24 10:28 Height 4 ft 10 in 4 ft 10 in 4 ft 10 in Weight: 97 lb BMI 20.2 BP 120/70 Intake Visit Reasons: PESSARY CHECK Chief Complaint: Pessary check Adobe Architect Required: No Is patient in pain?: No Allergies Penicillins Allergy (Unknown, Verified 10/10/24 10:24) unknown erythromycin base Adverse Reaction (Unknown, Verified 10/10/24 10:24) Unknown latex Adverse Reaction (Unknown, Verified 10/10/24 10:24) unknown Medications ???Medication ???Instructions ???Recorded ???Confirmed ???Type omega-3 fatty acids 1 cap PO DAILY supplement 02/09/21 10/10/24 History ascorbic acid (vitamin C) 1,000 mg 1 g PO DAILY 09/24/21 10/10/24 H istory tablet zinc 50 mg tablet 50 mg PO DAILY 09/24/21 10/10/24 H istory cholecalciferol (vitamin D3) 25 25 mcg PO DAILY 09/25/21 10/10/24 History mcg (1,000 unit) capsule magnesium/calm PO DAILY 09/25/21 10/10/24 History aspirin 81 mg tablet,delayed 81 mg PO DAILY 10/19/23 10/10/24 H istory release (Adult Aspirin Regimen) nitroglycerin 0.4 mg sublingual 0.4 mg sublingual Q5-15M PRN 01/2810/10/24 History tablet amlodipine 5 mg tablet 5 mg PO DAILY #90 tabs 10/05/24 Rx atorvastatin 40 mg tablet 40 mg PO QDAY #90 tabs 10/05/24 Rx clopidogrel 75 mg tablet (Plavix) 75 mg PO DAILY #90 tabs 10/05/24 10/10/24 Rx Is last menstrual period known: No Post menopausal: Yes Patient : No : No PFSH Medical History Atherosclerosis of coronary artery of [place] post[place] heart without angina pectoris Multiple premature ventricular complexes Family history of coronary artery disease Fall from other slipping, tripping, or stumbling Contusion of face Closed head injury without loss of consciousness Severe malnutrition Thrombocytosis Acute respiratory failure with hypoxia COVID-19 (02/11/21) Pneumonia due to COVID-19 virus (02/09/21) Hyperlipidemia Pelvic relaxation due to uterovaginal prolapse, incomplete Osteoporosis Surgical History History of coronary artery stent placement (10/09/23) Hx of tubal ligation Family History Mother Colon cancer Father Myocardial infarction, Onset Age: 61 Brother Hypertension Myocardial infarction Sister CAD (coronary artery disease), Onset Age: 56 CABG History of coronary artery bypass surgery Son Mitral valve prolapse Sister CAD (coronary artery disease), Onset Age: 68 stent Social History Smoking Status: Never smoker alcohol intake: never substance use type: does not use caffeine: Yes what type of physical activity do you participate in: walking seatbelt use: always do you feel safe at home: Yes additional social history: Matthew- Both are retired HPI PESSARY CHECK Details: TAMANNA DILL is a 78 year old who presents for pessary check. Denies concerns. History 2 Elective abortions Hx Para 2 Spontaneous abortions Hx # Term Pregnancies Ectopic pregnancies Hx # Pregnancies Multiple births # of living children Past Pregnancies Del. Date Name GA/Weeks Outcome Route Bth Weight Infant Gen Labor Lgth Anesthesia Del Locatn Provider FOB Unknown 1967 Luis W live - full term Unknown 1968 Annabel live - full term ROS Const Constitutional: Reports system reviewed and no additional complaints, except as documented Eyes Eyes: Reports system reviewed and no additional complaints, except as documented GI GI: Denies abdominal pain or change in bowel habits : Reports as per HPI Exam Const General: cooperative and no acute distress Nutritional Appearance: well nourished Orientation: oriented x3 Resp Effort Inspection: normal respiratory effort External Female Exam: normal external appearance Speculum Exam - Vagina: normal vaginal discharge and vagina atrophic Speculum Exam - Cervix: closed Bimanual Exam- Vagina Uterus: normal bimanual exam and uterine size normal Bimanual Exam- Adnexa, other: normal adnexae, no masses and non-tender Other: #1 ring pessary with support removed. No excoriations, bleeding or unusual discharge. Pessary cleaned and easily replaced with trimosan gel. Patient tolerated well. Coding (more content not included)... Normal [facility] [employer] Office Visit Reporton 07-04-2024 [employer] Office Visit Report [facility] [address], [address] [place] [address] OFFICE VISIT Date of Service: 07/04/24 MR#: [id number] Acct: [id number] Name: TAMANNA DILL Rep #: [id number] : 1945 Provider: SONAL faulkner Age/Sex: 78/F [place] [facility] [place]: Signed Intake Vital Signs 03/01/24 10:33 06/10/24 10:35 07/04/24 14:00 07/04/24 14:07 Height 4 ft 10 in 4 ft 10 in 4 ft 10 in 4 ft 10 in Weight: 98 lb 4 oz BMI 20.5 BP 122/74 H Intake Visit Reasons: PESSARY CHECK Chief Complaint: Pessary check Adobe Architect Required: No Is patient in pain?: No Allergies Penicillins Allergy (Unknown, Verified 07/04/24 13:59) unknown erythromycin base Adverse Reaction (Unknown, Verified 07/04/24 13:59) Unknown latex Adverse Reaction (Unknown, Verified 07/04/24 13:59) unknown Medications ???Medication ???Instructions ???Recorded ???Confirmed ???Type omega-3 fatty acids 1 cap PO DAILY supplement 02/09/21 07/04/24 History ascorbic acid (vitamin C) 1,000 mg 1 g PO DAILY 09/24/21 07/04/24 History tablet zinc 50 mg tablet 50 mg PO DAILY 09/24/21 07/04/24 History cholecalciferol (vitamin D3) 25 25 mcg PO DAILY 09/25/21 07/04/24 History mcg (1,000 unit) capsule magnesium/calm PO DAILY 09/25/21 07/04/24 History aspirin 81 mg tablet,delayed 81 mg PO DAILY 10/19/23 07/04/24 History release (Adult Aspirin Regimen) clopidogrel 75 mg tablet (Plavix) 75 mg PO DAILY 10/19/23 07/04/24 History amlodipine 5 mg tablet 5 mg PO DAILY #90 tabs 12/17/23 07/04/24 Rx atorvastatin 40 mg tablet 40 mg PO QDAY 01/29/24 07/04/24 History nitroglycerin 0.4 mg sublingual 0.4 mg sublingual Q5-15M PRN 01/29/24 07/04/24 History tablet Is last menstrual period known: No Post menopausal: Yes Patient : No : No PFSH Medical History Atherosclerosis of coronary artery of [place] post[place] heart without angina pectoris Multiple premature ventricular complexes Family history of coronary artery disease Fall from other slipping, tripping, or stumbling Contusion of face Closed head injury without loss of consciousness Severe malnutrition Thrombocytosis Acute respiratory failure with hypoxia COVID-19 (02/11/21) Pneumonia due to COVID-19 virus (02/09/21) Hyperlipidemia Pelvic relaxation due to uterovaginal prolapse, incomplete Osteoporosis Surgical History History of coronary artery stent placement (10/09/23) Hx of tubal ligation Family History Mother Colon cancer Father Myocardial infarction, Onset Age: 61 Brother Hypertension Myocardial infarction Sister CAD (coronary artery disease), Onset Age: 56 CABG History of coronary artery bypass surgery Son Mitral valve prolapse Sister CAD (coronary artery disease), Onset Age: 68 stent Social History Smoking Status: Never smoker alcohol intake: never substance use type: does not use caffeine: Yes what type of physical activity do you participate in: walking seatbelt use: always do you feel safe at home: Yes additional social history: Matthew- Both are retired HPI PESSARY CHECK Details: TAMANNA DILL is a 78 year old who presents for pessary maintenance. Denies concerns Mammogram 05/2024 History 2 Elective abortions Hx Para 2 Spontaneous abortions Hx # Term Pregnancies Ectopic pregnancies Hx # Pregnancies Multiple births # of living children Past Pregnancies Del. Date Name GA/Weeks Outcome Route Bth Weight Infant Gen Labor Lgth Anesthesia Del Locatn Provider FOB Unknown 1967 Luis Mart live - full term Unknown 1968 Annabel live - full term ROS Const Constitutional: Reports system reviewed and no additional complaints, except as documented Eyes Eyes: Reports system reviewed and no additional complaints, except as documented GI GI: Denies abdominal pain or change in bowel habits : Reports as per HPI Exam Const General: cooperative and no acute distress Nutritional Appearance: well nourished Orientation: oriented x3 Resp Effort Inspection: normal respiratory effort External Female Exam: normal external appearance Speculum Exam - Vagina: normal vaginal discharge and vagina atrophic Speculum Exam - Cervix: closed Bimanual Exam- Vagina Uterus: normal bimanual exam and uterine size normal Bimanual Exam- Adnexa, other: normal adnexae, no masses and non-tender Other: #1 ring pessary with support removed. No excoriations, bleeding or unusual discharge. Pessary cleaned and easily replaced with trimosan gel. Patien (more content not included)... Normal [facility] Cardiology Visit Reporton Cardiology Visit Report [facility] [address] [place] [address]. [address] [place] [address] OFFICE VISIT Date of Service: 06/10/24 MR#: [id number] Acct: [id number] Name: TAMANNA DILL Rep #: [id number] : 1945 Provider: Dr. Blaine gil MD Age/Sex: 78/F [place] [facility] [place] Signed HPI HPI History of Present Illness Details: Patient comes in today is a 78-year-old white female with her family member for follow-up and monitoring of her cardiovascular disease. Patient carries a history of coronary disease with known stenting of the right coronary artery October 2023 when she was traveling in [place] at [facility]. The patient had presented with chest pain and profound shortness of breath and was evaluated the [place] emergency department the day prior but no objective evidence of ischemia was documented. She subsequently presented to [facility] with what appears to be a non-STEMI within 48 hours. Her catheterization shows mild diffuse disease throughout all 3 of her coronary arteries. The LAD had a 55% stenosis in the proximal segment the circumflex was moderate in size with mild diffuse disease throughout it and the right coronary had a 95% mid lesion which was stented with a 30 mm x 3.0 mm stent. The patient's had no recurrence of this chest pain associated with the shortness of breath. During cardiac rehab she had a couple of episodes not with activity with some chest sensations which she took nitroglycerin for. She is only used it 3 times and none in the last several months. She feels this was probably anxiety related. The patient is very active and tolerating her medical regiment without any significant incidents. The patient is contemplating dental work with a bridge for her front upper teeth. She also has issues with her right knee which may require surgical intervention. The patient is due to stop her Plavix at 1 year which would be November 2024. After that point in time the patient will be able to interrupt her aspirin as well for surgical intervention as needed. If her knee becomes [id number] limiting and requires intervention with injection therapy or some other surgical intervention we would have to reconsider interrupting the Plavix for short period of time prior to November 2024. The patient denies any syncope or near syncope she denies any lower extremity edema denies any PND orthopnea. I do not have an objective measurement of her LV function. Intake Vital Signs 03/01/24 10:33 06/10/24 10:35 Height 4 ft 10 in 4 ft 10 in Weight: 99 lb BMI 20.7 BP 137/82 H Blood Pressure Location Lt brachial Position Sitting Respiration 18 Pulse 61 Pulse Source Monitor Pulse Oximetry (%) 98 Oxygen Delivery Method room air Intake Visit Reasons: 6 M Adobe Architect Required: No Accompanied by: Is patient in pain?: No Allergies Penicillins Allergy (Unknown, Verified 06/10/24 10:36) unknown erythromycin base Adverse Reaction (Unknown, Verified 06/10/24 10:36) Unknown latex Adverse Reaction (Unknown, Verified 06/10/24 10:36) unknown Medications ???Medication ???Instructions ???Recorded ???Confirmed ???Type omega-3 fatty acids 1 cap PO DAILY supplement 02/09/21 06/10/24 History ascorbic acid (vitamin C) 1,000 mg 1 g PO DAILY 09/24/21 06/10/24 History tablet zinc 50 mg tablet 50 mg PO DAILY 09/24/21 06/10/24 History cholecalciferol (vitamin D3) 25 25 mcg PO DAILY 09/25/21 06/10/24 History mcg (1,000 unit) capsule magnesium/calm PO DAILY 09/25/21 06/10/24 History aspirin 81 mg tablet,delayed 81 mg PO DAILY 10/19/23 06/10/24 History release (Adult Aspirin Regimen) clopidogrel 75 mg tablet (Plavix) 75 mg PO DAILY 10/19/23 06/10/24 History amlodipine 5 mg tablet 5 mg PO DAILY #90 tabs 12/17/23 06/10/24 Rx atorvastatin 40 mg tablet 40 mg PO QDAY 01/29/24 06/10/24 History nitroglycerin 0.4 mg sublingual 0.4 mg sublingual Q5-15M PRN 01/29/24 06/10/24 History tablet Have you fallen in the past year?: No [facility] History Atherosclerosis of coronary artery of [place] post[place] heart without angina pectoris Multiple premature ventricular complexes Family history of coronary artery disease Fall from other slipping, tripping, or stumbling Contusion of face Closed head injury without loss of consciousness Severe malnutrition Thrombocytosis Acute respiratory failure with hypoxia COVID-19 (02/11/21) Pneumonia due to COVID-19 virus (02/09/21) Hyperlipidemia Pelvic relaxation due to uterovaginal prolapse, incomplete Osteoporosis Surgical History History of coronary artery stent placement (10/09/23) Hx of tubal ligation Family History (Reviewed 06/10/24 (more content not included)... Normal [facility] Lipid Profileon 06-10-2024 Cholesterol [Mass/Vol] 180 mg/dL Normal 200 [facility] Comment on above: Result Comment: <200 mg/dL Desirable 200-240 mg/dL Borderline >240 mg/dL High Risk Performed By: #### L 500.4100, L500.3400 #### [facility] [address] [place], [address] Cholesterol in HDL [Mass/Vol] 76 mg/dL Normal [facility] Comment on above: Result Comment: The drugs N-Acetylcysteine and Metamizole may falsely depress this assay. Reference Range HDL <40 mg/dL Low HDL Cholesterol HDL >or= 60 mg/dL High HDL Cholesterol Performed By: #### L 500.4100, L500.3400 #### [facility] [address] [place], [address] Cholesterol in LDL [Mass/Vol] 70 mg/dL Normal 0-130 [facility] Comment on above: Performed By: #### L 500.4100, L500.3400 #### [facility] [address] [place], [address] Cholesterol in VLDL [Mass/Vol] 34 mg/dL Normal 5-40 [facility] Comment on above: Performed By: #### L 500.4100, L500.3400 #### [facility] [address] [place], [address] Triglyceride [Mass/Vol] 170 mg/dL Normal [facility] Comment on above: Result Comment: The drugs N-Acetylcysteine and Metamizole may falsely depress this assay. Serum Triglycerides Reference Interval Normal <150 mg/dL Borderline high 150 - 199 mg/dL High 200 - 499 mg/dL Very High > or = 500 mg/dL Performed By: #### L 500.4100, L500.3400 #### [facility] [address] [place], [address] Liver Profileon 06-10-2024 Albumin [Mass/Vol] 3.8 g/dL Normal 3.2-5.0 [facility] Comment on above: Performed By: #### L 500.4100, L500.3400 #### [facility] [address] [place], [address] ALK P 67 U/L Normal 45-117 [facility] Comment on above: Performed By: #### L 500.4100, L500.3400 #### [facility] [address] [place], [address] ALT [Catalytic activity/Vol] 24 U/L Normal 13-56 [facility] Comment on above: Performed By: #### L 500.4100, L500.3400 #### [facility] [address] [place], [address] AST [Catalytic activity/Vol] 23 U/L Normal 15-37 [facility] Comment on above: Performed By: #### L 500.4100, L500.3400 #### [facility] [address] [place], [address] Bilirubin [Mass/Vol] 0.50 mg/dL Normal 0.20-1.00 [facility] Comment on above: Result Comment: For patients on eltrombopag therapy, use of Dimension [place] TBIL is not recommended. Performed By: #### L 500.4100, L500.3400 #### [facility] [address] [place], [address] Bilirubin.direct [Mass/Vol] 0.14 mg/dL Normal 0.00-0.30 [facility] Comment on above: Performed By: #### L 500.4100, L500.3400 #### [facility] [address] [place], [address] Globulin (S) [Mass/Vol] 3.6 g/dL Normal 2.2-4.2 [facility] Comment on above: Performed By: #### L 500.4100, L500.3400 #### [facility] [address] [place], [address] T PROT 7.4 g/dL Normal 6.4-8.2 [facility] Comment on above: Performed By: #### L 500.4100, L500.3400 #### [facility] [address] [place], [address] CNOVon 05-20-2024 CNOV Office Visit (INTMWS) TAMANNA DILL ([id number]) 1945 F Date Time Provider Department 05/20/24 10:40 AM EMILY CARRERA INTMWS During your visit today, we recorded the following information about you: Temperature Pulse Respiration Blood pressure 98.9 degrees 83/minute 16/minute 118/68 Weight 44.1 kg Emily Carrera, CORPORATE LIBRARIAN.[facility] 05/20/2024 10:52 AM Signed CC: Patient presents with: nagging cough and runny nose x 1 week HPI: Tamanna Dill is a 78 year old female who presents to the office with above complaint Symptoms began about one week ago and are about the same Symptoms include: Temperature elevation: No Chills: No Cough: Yes productive with clear sputum Shortness of breath: No Fatigue: No Muscle aches: No Headache: No New loss of smell or taste: No Sore throat: No Nasal congestion: No Rhinorrhea: Yes with clear drainage Nausea and/or vomiting: No Diarrhea: No Other Associated symptoms: post nasal drip. PMH: Non-contributory OTC meds/remedies that patient has tried: [place] cough drops. Exposures: Sick contacts? No Family or close contacts with confirmed/probable COVID-19 in last 14 days? No Home COVID test: no Review of Systems See HPI PAST MEDICAL HISTORY Diagnosis Date Asymptomatic varicose veins 03/31/2011 Diverticulosis of colon (without mention of hemorrhage) Hypertension OAB (overactive bladder) 01/17/2015 Osteoporosis, unspecified Other and unspecified hyperlipidemia 10/06/2007 Personal history of colonic polyps last colon 06/09, 5-year interval Varicose veins Venous insufficiency (chronic) (peripheral) 03/09/2008 PAST SURGICAL HISTORY Procedure Laterality Date COLONOSCOPY FLX DX W/COLLJ SPEC WHEN PFRMD 06/19/05 Colonoscopy COLONOSCOPY FLX DX W/COLLJ SPEC WHEN PFRMD 07/31/2011 Colonoscopy COLONOSCOPY FLX DX W/COLLJ SPEC WHEN PFRMD 11/25/2016 Normal colonoscopy-10 year follow-up LIG/TRNSXJ FLP TUBE ABDL/VAG APPR UNI/BI 1970 Tubal ligation ALLERGIES Erythromycin, Latex, and Penicillins MEDICATIONS oxybutynin XL (DITROPAN XL) 5 mg 24 hr tablet Take 1 tablet by mouth once daily. clopidogrel (PLAVIX) 75 mg tablet Take 75 mg by mouth once daily. aspirin, enteric coated (ASPIRIN, ENTERIC COATED) 81 mg EC tablet Take 81 mg by mouth once daily. Biotin 10,000 mcg cap Take by mouth. glucosam/chond/hyalu /CF borate (MOVE FREE JOINT HEALTH ORAL) Take by mouth. atorvastatin (LIPITOR) 40 mg tablet Take 1 tablet by mouth once daily. amLODIPine (NORVASC) 5 mg tablet Magnesium Carbonate powd Mg unknown Zinc 50 mg tab Take by mouth. Ascorbic Acid (VITAMIN C) 1,000 mg tablet Take 1 tablet by mouth once daily. [place] 1-[id number]-[id number]-HX-M4-Hwfhetmo rol 500 mg-500 mcg -1 mg-12.5 mg cap Take 500 mg by mouth once daily. ergocalciferol, vitamin D2, (VITAMIN D2 ORAL) Take by mouth. FAMILY HISTORY Problem Relation Age of Onset Colon Cancer Mother Heart Father of SC Hypertension Brother Hypertension Sister Hypertension Sister Hypertension Sister Hypertension Sister Heart Brother SC Hypertension Brother Heart Sister Triple bypass Heart Son mitral valve prolapse other (Eczema) Son Coronary Artery Disease Sister Social History Tobacco Use Smoking status: Never Smokeless tobacco: Never Substance Use Topics Alcohol use: Not Currently Drug use: No Comment: marijuana use years ago BP 118/68 Pulse 83 Temp 37.2 ?C (98.9 ?F) (Temporal) Resp 16 Wt 44.1 kg (97 lb 3.6 oz) SpO2 95% BMI 20.32 kg/m? Physical Exam Vitals reviewed. Constitutional: Appearance: Normal appearance. Cardiovascular: Rate and Rhythm: Normal rate and regular rhythm. Heart sounds: Normal heart sounds. No murmur heard. Pulmonary: Effort: Pulmonary effort is normal. Breath sounds: Normal breath sounds. No wheezing, rhonchi or rales. Skin: General: Skin is warm and dry. Neurological: Mental Status: She is alert and oriented to person, place, and time. Psychiatric: Mood and Affect: Mood normal. Behavior: Behavior normal. Cognition and Memory: Cognition normal. ASSESSMENT/PLAN: 1. Viral URI with cough - ICD9: 465.9, ICD10: J06.9 - Discussed viral etiology and rationale for treatment. - Symptomatic treatment with prn analgesia - Supportive care with fluids and rest - cough care advice given - The patient may also use [place] DM every 6 hours as needed. - Follow up in 3-5 days if symptoms persist or sooner if worsening of symptoms Prescription instructions reviewed with patient as applicable. Potential red flag symptoms discussed with the patient. Reviewed appropriate action plan to take if red flag symptoms occur. Patient agreeable to treatment plan. Emily Carrera APRN.Emily Nazario APRN.FARHAD 05/20/2024 10:49 AM Signed CARE ADVICE FOR COUGH: Drink warm fluids. Inhale warm mist. (Reason: both relax th (more content not included)... Normal [facility] SCRN MAMM (CAD)W/JOSIAH BILATo n 05-11-2024 SCRN MAMM (CAD)W/JOSIAH BILAT [facility] [address] [place] [address] [id number] SCRN MAMM (CAD)W/JOSIAH BILAT MR#: [id number] Acct: [id number] Name: TAMANNA DILL Rep #: [id number] : 1945 F 78 From: Felipe grigsby MD PCP: Dr. Coleen Barrera MD Status: [facility] Study: SCRN MAMM (CAD)W/JOSIAH BILAT Date of Exam: 12/27 Exam# [id number] Ordering Dr: Theresa Flowers NP ARTIST CONSULTANT -C [id number] MAMMOGRAPHY - BILATERAL SCREENING REASON FOR EXAM: Female, 78 years old. Routine annual screening examination. PERTINENT HISTORY: Non-contributory. TECHNIQUE: Digital bilateral breast josiah (3D mammographic acquisition) in the CC and MLO projections. 2-D mediolateral oblique (MLO) and craniocaudad (CC) views of both breasts were obtained. CAD: Full Field Digital Mammography with Computer Added Detection was performed. COMPARISON: Comparison is made with prior outside examination dated May 18, 2019 FINDINGS: Breast Composition: There are scattered areas of fibroglandular density. There are no dominant masses or suspicious calcifications. Stable asymmetry of breast tissue were more breast tissue is seen in the upper outer quadrant of the left breast as compared to the right side. Stable bilateral fat containing axillary lymph nodes. No other significant abnormalities are identified. There has been no significant change since the prior study. BI/SCRN MAMM (CAD)W/JOSIAH BILAT IMPRESSION: Stable bilateral screening mammogram. Yearly follow-up mammogram recommended. (A) ASSESSMENT CATEGORY: BIRADS Category 2: Benign. A letter regarding these results will be sent to the patient by the facility within 30 days. Approximately 10% of breast cancers are not detected by mammography. A normal mammogram should not delay biopsy of a clinically suspicious abnormality. [id number] Electronically Signed: Felipe Smyth MD at 9:51 EST , CC: SONAL Flowers; Dr. Coleen Barrera MD Video Production Coordinator: Signed Normal [facility] UA DIP, URINE (POC)on 2023 BILIRUBIN UA (POCT) Negative Negative [facility] CLARITY UA (POCT) Clear [facility] COLOR UA (POCT) Yellow [facility] GLUCOSE UA (POCT) Negative Negative mg/dL [facility] Hemoglobin Ql (U) Negative Negative [facility] Interpretation and review of laboratory results Abnormal [facility] KETONE UA (POCT) Negative Negative mg/dL [facility] LEUKOCYTES UA (POCT) Trace Abnormal Negative [facility] NITRITE UA (POCT) Negative Negative [facility] PH UA (POCT) 5.5 4.5 - 8.0 [facility] Protein Ql (U) Negative Negative mg/dL [facility] SPECIFIC GRAVITY UA (POCT) 1.025 1.005 - 1.030 [facility] UROBILINOGEN UA (POCT) 0.2 Abbi l E.U./dL [facility] Location:Formerly [facility], [address] [place] [address], [place], [place], [id number] [place] [address] POINT OF CARE [facility] ECG 12 lead ([employer])on 10-04 [facility] HbA1c (Bld) [Mass fraction]o n 10-10-2023 Mean Bld Glu Estim. 111 mg/dL Normal [facility] Comment on above: Order Comment: HbA1c values of 5.7-6.4 percent indicate an increased risk for developing diabetes mellitus. HbA1c values greater than or equal to 6.5 percent are diagnostic of diabetes mellitus. For diagnosis of diabetes in individuals without unequivocal hyperglycemia, results should be confirmed by repeat testing. Performed By: #### 4 548-4 #### [facility] [address] [place] [address] HbA1c MFr Bldon 10-10-2023 HbA1c (Bld) [Mass fraction] 5.5 % Normal <=5.6 [facility] Comment on above: Order Comment: HbA1c values of 5.7-6.4 percent indicate an increased risk for developing diabetes mellitus. HbA1c values greater than or equal to 6.5 percent are diagnostic of diabetes mellitus. For diagnosis of diabetes in individuals without unequivocal hyperglycemia, results should be confirmed by repeat testing. Performed By: #### 4 548-4 #### [facility] [address] [place] [address] Hemogram and platelets WO di fferential panel (Bld)on 10-10-2023 Erythrocyte distribution width (RBC) [Ratio] 13.2 % Normal 11.0-14.8 [facility] Comment on above: Performed By: #### 2 4317-0 #### [facility] [address] [place] [address] Hematocrit (Bld) [Volume fraction] 38.6 % Normal 34.3-47.9 [facility] Comment on above: Performed By: #### 2 4317-0 #### [facility] [address] [place] [address] Hemoglobin (Bld) [Mass/Vol] 13.1 g/dL Normal 12.0-16.0 [facility] Comment on above: Performed By: #### 2 4316-0 #### [facility] [address] [place] [address] MCH 31.3 pcg Normal 27.0-34.0 [facility] Comment on above: Performed By: #### 2 4316-0 #### [facility] [address] [place] [address] MCHC (RBC) [Mass/Vol] 33.9 g/dL Normal 30.8-35.3 [facility] Comment on above: Performed By: #### 2 7-0 #### [facility] [address] [place] [address] MCV (RBC) [Entitic vol] 92.3 fL Normal 80.0-97.0 [facility] Comment on above: Performed By: #### 2 4317-0 #### [facility] [address] [place] [address] Platelet mean volume (Bld) [Entitic vol] 9.8 fL Normal 6.2-12.1 [facility] Comment on above: Performed By: #### 2 4317-0 #### [facility] [address] [place] [address] Platelets (Bld) [#/Vol] 302 10*3/uL Normal 142-424 [facility] Comment on above: Performed By: #### 2 4317-0 #### [facility] [address] [place] [address] RBC (Bld) [#/Vol] 4.18 10*6/uL Normal 3.74-5.34 [facility] Comment on above: Performed By: #### 2 4317-0 #### [facility] [address] [place] [address] WBC (Bld) [#/Vol] 10.8 10*3/uL High 4.6-10.2 [facility] Comment on above: Performed By: #### 2 4317-0 #### [facility] [address] [place] [address] Erythrocyte distribution width (RBC) [Ratio] 13.2 % 11.0 - 14.8 % [facility] Hematocrit (Bld) [Volume fraction] 38.6 % 34.3 - 47.9 % [facility] Hemoglobin (Bld) [Mass/Vol] 13.1 g/dL 12.0 - 16.0 g/dL [facility] Interpretation and review of laboratory results Abnormal [facility] MCH (RBC) [Entitic mass] 31.3 pg [facility] MCHC (RBC) [Mass/Vol] 33.9 g/dL 30.8 - 35.3 g/dL [facility] MCV (RBC) [Entitic vol] 92.3 fL T [facility] Platelet mean volume (Bld) [Entitic vol] 9.8 fL [facility]i [employer] Platelets (Bld) [#/Vol] 302 10*3/uL [facility] RBC (Bld) [#/Vol] 4.18 10*6/uL [facility] WBC (Bld) [#/Vol] 10.8 10*3/uL [facility] Lipid panel with direct LDLo n 10-10-2023 Cholesterol [Mass/Vol] 177 mg/dL Normal <200 Mo [facility] Comment on above: Performed By: #### 5 7698-3 #### [facility] [address] [place] [address] Cholesterol in HDL [Mass/Vol] 71 mg/dL Normal >=40 [facility] Comment on above: Performed By: #### 5 7698-3 #### [facility] [address] [place] [address] Cholesterol in LDL [Mass/Vol] 77 mg/dL Normal <100 [facility] Comment on above: Performed By: #### 5 7698-3 #### [facility] [address] [place] [address] Triglyceride [Mass/Vol] 144 mg/dL Normal <200 M [facility] Comment on above: Performed By: #### 5 7698-3 #### [facility] [address] [place] [address] VLDL Cholesterol Vamshi 28.8 mg/dL Normal 2-38 [facility] Comment on above: Performed By: #### 5 7698-3 #### [facility] [address] [place] [address] Cholesterol [Mass/Vol] 177 mg/dL NINF - 200 mg/dL [facility] Cholesterol in HDL [Mass/Vol] 71 mg/dL 40 - PINF mg/dL [facility] Cholesterol in LDL [Mass/Vol] 77 mg/dL NINF - 100 mg/dL [facility] Cholesterol in VLDL [Mass/Vol] 28.8 mg/dL 2 - 38 mg/dL [facility] Interpretation and review of laboratory results Normal [facility] Triglyceride [Mass/Vol] 144 mg/dL NINF - 200 mg/dL Flor[facility] [employer] Transthoracic echocardiogram (TTE) complete with PRN contrast, bubble, strain, and 3D order panelOrdered By: Wagner Mullen on 10-10-2023 Ao VTI 24.3 cm [employer] Work Phone: Aortic Root 2.7 cm [employer] Work Phone: Aortic Root Index 2.00 cm/m2 [employer] Work Phone: Ascending Aorta 2.7 cm [employer] Phone: Ascending Aorta Index 2.00 cm/m2 [facility] [employer] Work Phone: AV Area Continuity Equation 2.7 cm2 [employer] Phone: AV Area Peak Velocity 2.6 cm2 Tri [employer] Phone: AV Mean Gradient 4 mmHg [employer] Phone: AV Peak Gradient 8 mmHg [employer] Phone: AV Peak Chao 1.4 m/s [employer] Phone: AV Velocity Ratio 0.93 [employer] Phone: PAVEL Index (Pk Chao) 1.93 cm2/m2 [facility] [employer] Phone: PAVEL Index (VTI) 1.98 cm2/m2 [employer] Phone: Body surface area Derived from formula 1.36 m2 [employer] Phone: E Wave Deceleration Time 180 ms 119 - 242 ms [employer] Phone: E/E' Ratio Averaged 10 Christine ty [employer] Phone: E/E' Ratio Lateral 9 [facility] [employer] Work Phone: E/E' Ratio Septal 10 [employer] Phone: Ejection Fraction (3D) 61 % Tr [facility] [employer] Phone: Est. RA Pressure 3 mmHg [employer] Phone: FS 33 % [employer] Phone: Global Longitudinal Strain -25.4 % [employer] Phone: Interpretation and review of laboratory results Abnormal [employer] Phone: IVC Proximal 1.0 cm [employer] Phone: IVSD 0.6 cm 0.6 - 0.9 cm [employer] Work Phone: LA Area Sys (A2C) 17 cm2 [employer] Work Phone: LA Area Sys (A4C) 17 cm2 [employer] Work Phone: LA Dimension Index 2D 2.3 cm/m2 [facility] Work Phone: LA Size 3.1 cm [employer] Work Phone: LA Volume (BP) 40 mL [employer] Work Phone: LA Volume Index (BP) 30 mL/m2 [employer] Work Phone: LA/Ao Ratio 1.1 [employer] Phone: Left Atrium Major Benton 5.6 cm Tr [employer] Work Phone: Left Atrium Minor Benton 5.7 cm Tr [employer] Work Phone: LV Pruitt Vol 3D 66 mL [employer] Work Phone: LV EDV Index (3D) 49 mL/m2 [employer] Phone: LV ESV Index (3D) 19 mL/m2 [employer] Phone: LV Mass 2D 71 g [employer] Phone: LV Mass 3D 78 g [employer] Work Phone: LV Mass Index 2D 53 g/m2 [employer] Phone: LV Mass Index 3D 58 g/m2 [employer] Phone: LV Sys Vol 3D 26 mL [employer] Work Phone: LVIDD 4.0 cm 3.8 - 5.2 cm [employer] Phone: LVIDD Index 2.96 cm/m2 [employer] Work Phone: LVIDS 2.7 cm 2.2 - 3.5 cm [employer] Phone: LVIDS Index 2.00 cm/m2 [employer] Phone: LVOT Area 2.8 cm2 [employer] Phone: LVOT Diameter 1.9 cm [employer] Phone: LVOT flow 227 mL/s [employer] Phone: LVOT Mean Grad 3 mmHg [employer] Phone: LVOT Mean Chao 0.8 m/s [employer] Phone: LVOT Peak Gradient 7 mmHg [employer] Phone: LVOT Peak Chao 1.3 m/s [employer] Phone: LVOT Peak VTI 22.9 cm [employer] Phone: LVOT Stroke Index 48 mL/m2 [employer] Phone: LVOT Stroke Volume 65 mL [employer] Phone: LVOT:AV VTI Index 0.94 [employer] Phone: LVPWD 0.7 cm 0.6 - 0.9 cm [employer] Phone: Microscopic observation Wyatt (Ear) [Interp] 0.7 [employer] Phone: Mitral Valve Max Velocity 1.2 m/s [employer] Phone: MV Area Continuity Equation 2.3 cm2 [employer] Phone: MV Area PHT 2.0 cm2 [employer] Phone: MV Deceleration [place] 2.4 m/s2 [facility] Phone: MV E' Tissue Velocity Lateral 9 cm/s [employer] Phone: MV E' Tissue Velocity Septal 8 cm/s [employer] Phone: MV Mean Gradient 3 mmHg [employer] Phone: MV Peak A Chao 1.15 m/s [employer] Phone: MV Peak E Chao 0.81 m/s [employer] Phone: MV Peak Gradient 6 mmHg [employer] Phone: MV PHT 113 ms [employer] Phone: MV VTI 27.7 cm [employer] Phone: MV VTI:LVOT VTI ratio 1.2 Tri [employer] Phone: Relative Wall Thickness ratio 0.35 [employer] Phone: Right Ventricular Peak Systolic Pressure 26 mmHg [employer] Phone: RV Diastolic Basal Dimension 2.3 cm Abnormal 2.5 - 4.1 cm [employer] Phone: RV Diastolic Length 6.8 cm 5.9 - 8. 3 cm [employer] Phone: RV Diastolic Mid Dimension 1.9 cm 1.9 - 3.5 cm [employer] Phone: RV S' 15 cm/s [employer] Phone: TR Peak Gradient 23 mmHg [employer] Phone: TR Peak Velocity 2.40 m/s [employer] Phone: [employer] Phone: Transthoracic echocardiogram (TTE) complete with PRN contrast, bubble, strain, and 3D order panelon 10-10-2023 Left Ventricle: Left ventricle cavity size is normal. Wall thickness is normal. Systolic function is normal. The quantitative EF by 3D imaging is 61%. LV global longitudal strain is normal. Global longitudinal strain is -25.4%. There are no regional LV wall motion abnormalities. Right Ventricle: Right ventricle cavity appears normal. Systolic function is normal. Left Atrium: Left atrium cavity size is normal. Valves: No significant valvular abnormalities. Left Ventricle Left ventricle cavity size is normal. Wall thickness is normal. Systolic function is normal. The quantitative EF by 3D imaging is 61%. LV global longitudal strain is normal. Global longitudinal strain is -25.4%. There are no regional LV wall motion abnormalities. There is no diastolic dysfunction. Right Ventricle Right ventricle cavity appears normal. Systolic function is normal. Left Atrium Left atrium cavity size is normal. Right Atrium Right atrium cavity is normal. IVC/SVC Inferior vena cava structure is normal. RA pressures is estimated to be 3 mmHg (IVC diameter <21 mm and decreases >50% during inspiration). Mitral Valve The leaflets are mildly thickened and exhibit normal excursion. There is trace regurgitation. There is no significant stenosis noted. Tricuspid Valve Tricuspid valve structure is normal. There is trace regurgitation. There is no significant tricuspid valve stenosis. The RVSP is estimated at 26 mmHg. Aortic Valve The aortic valve is trileaflet. The leaflets are not thickened and exhibit normal excursion. There is no regurgitation or stenosis. Pulmonic Valve The pulmonic valve was not well visualized. No significant pulmonic valve regurgitation. No significant pulmonary valve stenosis noted. Ascending Aorta The aorta appears normal in size. Pericardium Pericardium appears normal. There is no pericardial effusion. Study Details Overall the study quality was adequate. Additional technique includes 3D imaging and postprocessing performed without an independent workstation and myocardial strain. The underlying ECG rhythm was sinus rhythm. CV PACS ACT Diatomaceous earth induc ed (Bld)on 10-09-2023 Activated Clotting Time Celite POCT 263 sec High 74-125 [facility] Comment on above: Performed By: #### 8 0658-8 #### [facility] [address] [place] [address] Activated Clotting Time [employer]ite POCT 251 sec High 74-125 [facility] Comment on above: Performed By: #### 8 0658-8 #### [facility] [address] [place] [address] Activated Clotting Time [employer]ite POCT 263 High [facility] Interpretation and review of laboratory results Abnormal [facility] Activated Clotting Time Celite POCT 251 High [facility] Interpretation and review of laboratory results Abnormal [facility] Basic metabolic 2000 panelon 10-09-2023 Anion gap [Moles/Vol] 6 mmol/L Normal 6-18 Jennifer [facility] Comment on above: Performed By: #### 2 4321-2 #### [facility] [place] [address] Calcium [Mass/Vol] 8.9 mg/dL Normal 8.9-10.3 [facility] Comment on above: Performed By: #### 2 4321-2 #### [facility] [address] [place] [address] Chloride [Moles/Vol] 109 mmol/L High 98-107 Moun [facility] Comment on above: Performed By: #### 2 4321-2 #### [facility] [place] [address] CO2 [Moles/Vol] 24 mmol/L Normal 22-32 [facility] Comment on above: Performed By: #### 2 4321-2 #### [facility] [address] [place] [address] Creatinine [Mass/Vol] 0.54 mg/dL Low 0.60-1.30 Jennifer [facility] Comment on above: Performed By: #### 2 4321-2 #### [facility] [place] [address] GFR/1.73 sq M.predicted among non-blacks MDRD (S/P/Bld) [Vol rate/Area] 94 mL/min/{1.73_m2} Normal >=60 [facility] Comment on above: Result Comment: Calc ulation based on the?Chronic Kidney Disease Epidemiology Collaboration (CKD-EPI) equation refit?without adjustment for race. Performed By: #### 2 4321-2 #### [facility] [address] [place] [address] Glucose [Mass/Vol] 93 mg/dL Normal 70-99 [facility] Comment on above: Performed By: #### 2 4321-2 #### [facility] [address] [place] [address] Potassium [Moles/Vol] 3.8 mmol/L Normal 3.6-5.1 Jennifer [facility] Comment on above: Performed By: #### 2 4321-2 #### [facility] [address] [place] [address] Sodium [Moles/Vol] 139 mmol/L Normal 136-145 [facility] Comment on above: Performed By: #### 2 4321-2 #### [facility] [address] [place] [address] Urea nitrogen [Mass/Vol] 15 mg/dL Normal 8-20 [facility] Comment on above: Performed By: #### 2 4321-2 #### [facility] [address] [place] [address] Urea nitrogen/Creatinine [Mass ratio] 27.8 mg/mg High 12.0-20.0 [facility] Comment on above: Performed By: #### 2 4321-2 #### [facility] [address] [place] [address] Anion gap [Moles/Vol] 6 mmol/L 6 - 18 [facility] Calcium [Mass/Vol] 8.9 mg/dL 8.9 - 10. 3 mg/dL [facility] Chloride [Moles/Vol] 109 mmol/L High 98 - 10 7 mmol/L [facility] CO2 [Moles/Vol] 24 mmol/L 22 - 32 mmol/L [facility] Creatinine [Mass/Vol] 0.54 mg/dL Low 0.60 - 1.30 mg/dL [facility] GFR/1.73 sq M.predicted among non-blacks MDRD (S/P/Bld) [Vol rate/Area] 94 mL/min/{1.73_m2} - PINF [facility] Comment on above: Calculation based on the Chronic Kidney Disease Epidemiology Collaboration (CKD-EPI) equation refit without adjustment for race. Glucose [Mass/Vol] 93 mg/dL 70 - 99 mg/dL [facility] Interpretation and review of laboratory results Abnormal [facility] Potassium [Moles/Vol] 3.8 mmol/L 3.6 - 5.1 mmol/L [facility] Sodium [Moles/Vol] 139 mmol/L 136 - 145 mmol/L [facility] Urea nitrogen [Mass/Vol] 15 mg/dL 8 - 20 mg/dL [facility] Urea nitrogen/Creatinine [Mass ratio] 27.8 mg/mg High 12.0 - 20.0 [facility] CBC W Differential panel, ms thod unspecified (Bld)on 10-09-2023 Basophils (Bld) [#/Vol] 0.02 10*3/uL Normal 0.00-0.20 [facility] Comment on above: Performed By: #### 6 9742-5 #### [facility] [address] [place] [address] Basophils/100 WBC (Bld) 0.2 % Normal 0.0-2.0 [facility] Comment on above: Performed By: #### 6 9742-5 #### [facility] [address] [place] [address] Eosinophils (Bld) [#/Vol] 0.01 10*3/uL Normal 0.00-0.70 [facility] Comment on above: Performed By: #### 6 9742-5 #### [facility] [address] [place] [address] Eosinophils/100 WBC (Bld) 0.1 % Normal 0.0-7.0 [facility] Comment on above: Performed By: #### 6 9742-5 #### [facility] [address] [place] [address] Erythrocyte distribution width (RBC) [Ratio] 13.1 % Normal 11.0-14.8 [facility] Comment on above: Performed By: #### 6 9742-5 #### [facility] [address] [place] [address] Hematocrit (Bld) [Volume fraction] 33.1 % Low 34.3-47.9 [facility] Comment on above: Performed By: #### 6 9742-5 #### [facility] [address] [place] [address] Hemoglobin (Bld) [Mass/Vol] 11.3 g/dL Low 12.0-16.0 [facility] Comment on above: Performed By: #### 6 9742-5 #### [facility] [address] [place] [address] Immature granulocytes (Bld) [#/Vol] 0.03 10*3/uL Normal 0.00-0.10 [facility] Comment on above: Performed By: #### 6 9742-5 #### [facility] [address] [place] [address] Immature granulocytes/100 WBC (Bld) 0.3 % Normal 0.0-1.2 [facility] Comment on above: Performed By: #### 6 9742-5 #### [facility] [address] [place] [address] Lymphocytes (Bld) [#/Vol] 2.76 10*3/uL Normal 1.00-4.80 [facility] Comment on above: Performed By: #### 6 9742-5 #### [facility] [address] [place] [address] Lymphocytes/100 WBC (Bld) 27.7 % Normal 17.9-49.6 [facility] Comment on above: Performed By: #### 6 9742-5 #### [facility] [address] [place] [address], [place] [address] MCH 31.1 pcg Normal 27.0-34.0 [facility] Comment on above: Performed By: #### 6 9742-5 #### [facility] [address] [place] [address] MCHC (RBC) [Mass/Vol] 34.1 g/dL Normal 30.8-35.3 Jennifer [facility] Comment on above: Performed By: #### 6 9742-5 #### [facility] [address] [place] [address] MCV (RBC) [Entitic vol] 91.2 fL Normal 80.0-97.0 M [facility] Comment on above: Performed By: #### 6 9742-5 #### [facility] [address] [place] [address] Monocytes (Bld) [#/Vol] 0.76 10*3/uL Normal 0.00-0.90 [facility] Comment on above: Performed By: #### 6 9742-5 #### [facility] [address] [place] [address] Monocytes/100 WBC (Bld) 7.6 % Normal 4.0-23.0 M [facility] Comment on above: Performed By: #### 6 9742-5 #### [facility] [address] [place] [address] Neutrophils Absolute 6.37 K/mcL Normal 1.80-7.70 [facility] Comment on above: Performed By: #### 6 9742-5 #### [facility] [address] [place] [address] Neutrophils/100 WBC (Bld) 64.1 % Normal 38.1-75.5 [facility] Comment on above: Performed By: #### 6 9742-5 #### [facility] [address] [place] [address] Platelet mean volume (Bld) [Entitic vol] 10.0 fL Normal 6.2-12.1 [facility] Comment on above: Performed By: #### 6 9742-5 #### [facility] [address] [place] [address] Platelets (Bld) [#/Vol] 285 10*3/uL Normal 142-424 [facility] Comment on above: Performed By: #### 6 9742-5 #### [facility] [address] [place] [address] RBC (Bld) [#/Vol] 3.63 10*6/uL Low 3.74-5.34 [facility] Comment on above: Performed By: #### 6 9742-5 #### [facility] [address] [place] [address] WBC (Bld) [#/Vol] 10.0 10*3/uL Normal 4.6-10.2 [facility] Comment on above: Performed By: #### 6 9742-5 #### [facility] [address] [place] [address] Basophils (Bld) [#/Vol] 0.02 10*3/uL [facility] Basophils/100 WBC (Bld) 0.2 % 0.0 - 2.0 % [facility] Eosinophils (Bld) [#/Vol] 0.01 10*3/uL [facility] Eosinophils/100 WBC (Bld) 0.1 % 0.0 - 7.0 % [facility] Erythrocyte distribution width (RBC) [Ratio] 13.1 % 11.0 - 14.8 % [facility] Hematocrit (Bld) [Volume fraction] 33.1 % Low 34.3 - 47.9 % [facility] Hemoglobin (Bld) [Mass/Vol] 11.3 g/dL Low 12.0 - 16.0 g/dL [facility] Immature granulocytes (Bld) [#/Vol] 0.03 10*3/uL [facility] Immature granulocytes/100 WBC (Bld) 0.3 % 0.0 - 1.2 % [facility] Interpretation and review of laboratory results Abnormal [facility] Lymphocytes (Bld) [#/Vol] 2.76 10*3/uL [facility] Lymphocytes/100 WBC (Bld) 27.7 % 17.9 - 49.6 % [facility] MCH (RBC) [Entitic mass] 31.1 pg [facility] MCHC (RBC) [Mass/Vol] 34.1 g/dL 30.8 - 35.3 g/dL [facility] MCV (RBC) [Entitic vol] 91.2 fL T [facility] Monocytes (Bld) [#/Vol] 0.76 10*3/uL [facility] Monocytes/100 WBC (Bld) 7.6 % 4.0 - 23.0 % [facility] Neutrophils (Bld) [#/Vol] 6.37 10*3/uL [facility] Neutrophils/100 WBC (Bld) 64.1 % 38.1 - 75.5 % [facility] Platelet mean volume (Bld) [Entitic vol] 10.0 fL [facility] Platelets (Bld) [#/Vol] 285 10*3/uL [facility] RBC (Bld) [#/Vol] 3.63 10*6/uL Low [facility] WBC (Bld) [#/Vol] 10.0 10*3/uL [facility] Cardiac cath procedureon Coronary artery disease as described below Successful percutaneous coronary invention of mid RCA stenosis with deployment of a 3.0 x 30 mm DOUG FRONTIER BRIDGETT Coronary Findings Diagnostic Dominance: Right Left Main: The vessel was visualized by angiography, is moderate in size and is angiographically normal. Left Anterior Descending: The vessel was visualized by angiography and is small. There is mild diffuse disease throughout the vessel. The vessel is moderately tortuous. Prox LAD lesion is 55% stenosed. NEETA flow is 3. Left Circumflex: The vessel was visualized by angiography and is moderate in size. There is mild diffuse disease throughout the vessel. The vessel is moderately tortuous. Right Coronary Artery: The vessel was visualized by angiography and is moderate in size. There is mild diffuse disease throughout the vessel. Mid RCA lesion is 95% stenosed. Culprit lesion. NEETA flow is 3. Intervention Mid RCA lesion: Angioplasty: Angioplasty using a standard balloon was performed prior to stent deployment. Angioplasty performed using multiple inflations technique. The balloon used was a BLN [id number] EUPHORA RX US. Inflation 1 - Maximum pressure: 14 john; Time: 9 sec. Supplies Used: BLN [id number] EUPHORA RX US Angioplasty: Angioplasty using a standard balloon was performed prior to stent deployment. Angioplasty performed using multiple inflations technique. The balloon used was a BLN [id number] EUPHORA RX US. Inflation 1 - Maximum pressure: 12 john; Time: 7 sec. Supplies Used: BLN [id number] EUPHORA RX US Stent: Drug-eluting stent was successfully placed. Multiple inflations done and stents placed. The stent used was a STENT DOUG [id number]. Inflation 1 - Maximum pressure: 12 john; Time: 15 sec. Supplies Used: STENT DOUG [id number] Angioplasty: Angioplasty using a standard balloon was performed following stent deployment. Angioplasty performed using multiple inflations technique. The balloon used was a BLN [id number] RX US NC EUPHORA. Inflation 1 - Maximum pressure: 24 john; Time: 20 sec. Inflation 2 - Maximum pressure: 20 john; Time: 10 sec. Supplies Used: BLN [id number] RX US NC EUPHORA Post-Intervention Lesion Assessment: The intervention was successful. The guidewire crossed the lesion. Device was deployed. Post-intervention NEETA flow is 3. There were no complications. There is a 0% residual stenosis post intervention. Cath Recommendations Recommendations: routine post PCI care, routine post-cath care, maximize medical management, continue medical management, risk factor reductions, cardiac rehab referral, ASA 81mg daily, Clopidogrel (Plavix) and statin therapy. CV CATH [facility] TRANSTHORACIC ECHOCARDIOGRAM (TTE) COMPLETE (CONTRAST/BUBBLE/3D PRN)on 10-09-2023 TRANSTHORACIC ECHOCARDIOGRAM (TTE) COMPLETE (CONTRAST/BUBBLE/3D PRN) This is a summary report. The complete report is available in the patient's medical record. If you cannot access the medical record, please contact the sending organization for a detailed fax or copy. ? Left?Ventricle: Left ventricle cavity size is normal. Wall thickness is normal. Systolic function is normal. The quantitative EF by 3D imaging is 61%. LV global longitudal strain is normal. Global longitudinal strain is -25.4%. There are no regional LV wall motion abnormalities. ? Right?Ventricle: Right ventricle cavity appears normal. Systolic function is normal. ? Left?Atrium: Left atrium cavity size is normal. ? Valves: No significant valvular abnormalities. LA MINOR: 5.7 cm LA MAJOR: 5.6 cm LEFT ATRIUM AREA SYSTOLIC (APICAL 2 CHAMBER): 17 cm2 LEFT ATRIUM AREA SYSTOLIC (APICAL 4 CHAMBER): 17 cm2 LEFT ATRIUM VOLUME (MOD BIPLANE): 40 mL LEFT ATRIUM SIZE: 3.1 cm AV MEAN GRADIENT: 4 mmHg DOP CALC AO VTI: 24.3 cm DOP CALC AO PEAK CHAO: 1.4 m/s AV PEAK GRADIENT: 8 mmHg AV AREA BY CONTINOUS VTI: 2.7 cm2 AV AREA PEAK VELOICTY: 2.6 cm2 AORTIC ROOT: 2.7 cm ASCENDING AORTA: 2.7 cm ECHO 3D EJECTION FRACTION: 61 % DOP CALC LVOT STROKE VOLUME: 65 mL LEFT VENTRICLE DIASTOLIC VOLUME 3D: 66 mL LEFT VENTRICLE SYSTOLIC VOLUME 3D: 26 mL LEFT VENTRICULAR MASS 3D: 78 g INTERVENTRICULAR SEPTUM: 0.6 cm LEFT VENTRICULAR INTERNAL DIMENSION IN DIASTOLE: 4.0 cm LEFT INTERNAL DIMENSION IN SYSTOLE: 2.7 cm DOP CALC LVOT DIAMETER: 1.9 cm LVOT MEAN VELOCITY: 0.8 m/s AV LVOT MEAN GRADIENT: 3 mmHg DOP CALC LVOT PEAK CHAO VTI: 22.9 cm DOP CALC LVOT PEAK CHAO: 1.3 m/s AV LVOT PEAK GRADIENT: 7 mmHg POSTERIOR WALL: 0.7 cm MV E' LATERAL TISSUE VELOCITY: 9 cm/s MV E'TISSUE CHAO-MED: 8 cm/s GLOBAL LONGITUIDAL STRAIN: -25.4 % DOP CALC LVOT AREA: 2.8 cm2 IVC PROX: 1.0 cm MV DEC SLOPE: 2.4 m/s2 E WAVE DECELARTION TIME: 180 ms MV PRESSURE HALF TIME: 113 ms MV PEAK A CHAO: 1.15 m/s MV PEAK E CHAO: 0.81 m/s MV MEAN GRADIENT: 3 mmHg DOP CALC MV VTI: 27.7 cm MV VMAX: 1.2 m/s MV PEAK GRADIENT: 6 mmHg MV VALVE AREA P 1/2 METHOD: 2.0 cm2 MV VALVE AREA BY CONTINUITY EQUATION: 2.3 cm2 RA PRESSURE ESTIMATED: 3 mmHg RIGHT VENTRICLE DIASTOLIC BASAL DIMENSION: 2.3 cm RIGHT VENTRICLE DIASTOLIC LENGTH: 6.8 cm RIGHT VENTRICLE DIASTOLIC MID DIMENSION: 1.9 cm TASV: 15 cm/s TR PEAK VELOCITY: 2.40 m/s TR MAX P mmHg RV PSP: 26 mmHg E/E' RATIO SEPTAL: 10 E/E' RATIO AVERAGED: 10 DOP CALC LVOT STROKE INDEX: 48 mL/m2 LEFT ATRIUM DIMENSION INDEX 2D: 2.3 cm/m2 LV RELATIVE WALL THICKNESS RATIO: 0.35 LEFT VENTRICULAR MASS INDEX 3D: 58 g/m2 LVOT AV VTI INDEX: 0.94 FRACTIONAL SHORTENIN % LEFT VENTRICULAR MASS: 71 g ASCENDING AORTA INDEX: 2.00 cm/m2 MV VTI:LVOT VTI RATIO: 1.2 LVOT FLOW: 227 mL/s PAVEL INDEX (CONT VTI): 1.98 cm2/m2 PAVEL INDEX (PK CHAO): 1.93 cm2/m2 LVIDD INDEX: 2.96 cm/m2 LVIDS INDEX: 2.00 cm/m2 AO ROOT INDEX: 2.00 cm/m2 LEFT VENTRICLE END DIASTOLIC VOLUME INDEX (3D): 49 mL/m2 LEFT VENTRICLE END SYSTOLIC VOLUME INDEX (3D): 19 mL/m2 AV VELOCITY RATIO: 0.93 E/A RATIO: 0.7 E/E' RATIO: 9 LEFT ATRIUM VOLUME INDEX (MOD BIPLANE): 30 mL/m2 LEFT VENTRICLE MASS INDEX: 53 g/m2 LA/AORTA RATIO: 1.1 BSA FOR ECHO PROCEDURE: 1.36 m2 Normal [facility] Basic metabolic 2000 panelon 10-08-2023 Anion gap [Moles/Vol] 9 mmol/L 6 - 18 [facility] Calcium [Mass/Vol] 9.2 mg/dL 8.9 - 10. 3 mg/dL [facility] Chloride [Moles/Vol] 104 mmol/L 98 - 10 7 mmol/L [facility] CO2 [Moles/Vol] 22 mmol/L 22 - 32 mmol/L [facility] Creatinine [Mass/Vol] 0.75 mg/dL 0.60 - 1.30 mg/dL [facility] GFR/1.73 sq M.predicted among non-blacks MDRD (S/P/Bld) [Vol rate/Area] 82 mL/min/{1.73_m2} - PINF [facility] Comment on above: Calculation based on the Chronic Kidney Disease Epidemiology Collaboration (CKD-EPI) equation refit without adjustment for race. Glucose [Mass/Vol] 347 mg/dL High 70 - 99 mg/dL [facility] Interpretation and review of laboratory results Abnormal [place] [facility] Potassium [Moles/Vol] 3.8 mmol/L 3.6 - 5.1 mmol/L [facility] Sodium [Moles/Vol] 135 mmol/L Low 136 - 145 mmol/L [facility] Urea nitrogen [Mass/Vol] 22 mg/dL High 8 - 20 mg/dL [facility] Urea nitrogen/Creatinine [Mass ratio] 29.3 mg/mg High 12.0 - 20.0 [facility] CBC W Differential panel, ms thod unspecified (Bld)on 10-08-2023 Basophils (Bld) [#/Vol] 0.00 10*3/uL Normal 0.00-0.20 [facility] Comment on above: Performed By: #### 6 9742-5 #### [facility] [place] [address] Basophils/100 WBC (Bld) 0.0 % Normal 0.0-2.0 [facility] Comment on above: Performed By: #### 6 9742-5 #### [facility] [address] [place] [address] Eosinophils (Bld) [#/Vol] 0.00 10*3/uL Normal 0.00-0.70 [facility] Comment on above: Performed By: #### 6 9742-5 #### [facility] [address] [place] [address] Eosinophils/100 WBC (Bld) 0.0 % Normal 0.0-7.0 [facility] Comment on above: Performed By: #### 6 9742-5 #### [facility] [address] [place] [address] Erythrocyte distribution width (RBC) [Ratio] 13.1 % Normal 11.0-14.8 [facility] Comment on above: Performed By: #### 6 9742-5 #### [facility] [address] [place] [address] Hematocrit (Bld) [Volume fraction] 34.1 % Low 34.3-47.9 [facility] Comment on above: Performed By: #### 6 9742-5 #### [facility] [address] [place] [address] Hemoglobin (Bld) [Mass/Vol] 11.6 g/dL Low 12.0-16.0 [facility] Comment on above: Performed By: #### 6 9742-5 #### [facility] [address] [place] [address] Immature granulocytes (Bld) [#/Vol] 0.05 10*3/uL Normal 0.00-0.10 [facility] Comment on above: Performed By: #### 6 9742-5 #### [facility] [address] [place] [address] Immature granulocytes/100 WBC (Bld) 0.5 % Normal 0.0-1.2 [facility] Comment on above: Performed By: #### 6 9742-5 #### [facility] [address] [place] [address] Lymphocytes (Bld) [#/Vol] 0.72 10*3/uL Low 1.00-4.80 [facility] Comment on above: Performed By: #### 6 9742-5 #### [facility] [address] [place] [address] Lymphocytes/100 WBC (Bld) 7.1 % Low 17.9-49.6 [facility] Comment on above: Performed By: #### 6 9742-5 #### [facility] [address] [place] [address] MCH 31.2 pcg Normal 27.0-34.0 [facility] Comment on above: Performed By: #### 6 9742-5 #### [facility] [address] [place] [address] MCHC (RBC) [Mass/Vol] 34.0 g/dL Normal 30.8-35.3 Jennifer nt [facility] Comment on above: Performed By: #### 6 9742-5 #### [facility] [address] [place] [address] MCV (RBC) [Entitic vol] 91.7 fL Normal 80.0-97.0 M [facility] Comment on above: Performed By: #### 6 9742-5 #### [facility] [address] [place] [address] Monocytes (Bld) [#/Vol] 0.07 10*3/uL Normal 0.00-0.90 [facility] Comment on above: Performed By: #### 6 9742-5 #### [facility] [address] [place] [address] Monocytes/100 WBC (Bld) 0.7 % Low 4.0-23.0 M [facility] Comment on above: Performed By: #### 6 9742-5 #### [facility] [address] [place] [address] Neutrophils Absolute 9.34 K/mcL High 1.80-7.70 Moun t [facility] Comment on above: Performed By: #### 6 9742-5 #### [facility] [address] [place] [address] Neutrophils/100 WBC (Bld) 91.7 % High 38.1-75.5 [facility] Comment on above: Performed By: #### 6 9742-5 #### [facility] [address] [place] [address] Platelet mean volume (Bld) [Entitic vol] 9.9 fL Normal 6.2-12.1 [facility] Comment on above: Performed By: #### 6 9742-5 #### [facility] [address] [place] [address] Platelets (Bld) [#/Vol] 288 10*3/uL Normal 142-424 [facility] Comment on above: Performed By: #### 6 9742-5 #### [facility] [address] [place] [address] RBC (Bld) [#/Vol] 3.72 10*6/uL Low 3.74-5.34 [facility] Comment on above: Performed By: #### 6 9742-5 #### [facility] [address] [place] [address] WBC (Bld) [#/Vol] 10.2 10*3/uL Normal 4.6-10.2 [facility] Comment on above: Performed By: #### 6 9742-5 #### [facility] [address] [place] [address] Basophils (Bld) [#/Vol] 0.00 10*3/uL [facility] Basophils/100 WBC (Bld) 0.0 % 0.0 - 2.0 % [facility] Eosinophils (Bld) [#/Vol] 0.00 10*3/uL [facility] Eosinophils/100 WBC (Bld) 0.0 % 0.0 - 7.0 % [facility] Erythrocyte distribution width (RBC) [Ratio] 13.1 % 11.0 - 14.8 % [facility] Hematocrit (Bld) [Volume fraction] 34.1 % Low 34.3 - 47.9 % [facility] Hemoglobin (Bld) [Mass/Vol] 11.6 g/dL Low 12.0 - 16.0 g/dL [facility] Immature granulocytes (Bld) [#/Vol] 0.05 10*3/uL [facility] Immature granulocytes/100 WBC (Bld) 0.5 % 0.0 - 1.2 % [facility] Interpretation and review of laboratory results Abnormal [facility] Lymphocytes (Bld) [#/Vol] 0.72 10*3/uL Low [facility] Lymphocytes/100 WBC (Bld) 7.1 % Low 17.9 - 49.6 % [facility] MCH (RBC) [Entitic mass] 31.2 pg [facility] MCHC (RBC) [Mass/Vol] 34.0 g/dL 30.8 - 35.3 g/dL [facility] MCV (RBC) [Entitic vol] 91.7 fL T [facility] Monocytes (Bld) [#/Vol] 0.07 10*3/uL [facility] Monocytes/100 WBC (Bld) 0.7 % Low 4.0 - 23.0 % [facility] Neutrophils (Bld) [#/Vol] 9.34 10*3/uL High [facility] Neutrophils/100 WBC (Bld) 91.7 % High 38.1 - 75.5 % [facility] Platelet mean volume (Bld) [Entitic vol] 9.9 fL [facility] Platelets (Bld) [#/Vol] 288 10*3/uL [facility] RBC (Bld) [#/Vol] 3.72 10*6/uL Low Christine [facility] WBC (Bld) [#/Vol] 10.2 10*3/uL [facility] Tropinin I.cardiac panel Hig h sensitivity methodon 10-08-2023 High Sensitivity Troponin I 9 ng/L Normal <14 [facility] Comment on above: Order Comment: Draw 1 hour after initial troponin Performed By: #### 8 9577-1 #### [facility] [address] [place] [address] Anion gap [Moles/Vol] 9 mmol/L Normal 6-18 Jennifer [facility] Comment on above: Performed By: #### 8 0658-8 #### [facility] [address] [place] [address] Calcium [Mass/Vol] 9.2 mg/dL Normal 8.9-10.3 [facility] Comment on above: Performed By: #### 8 0658-8 #### [facility] [address] [place] [address] Chloride [Moles/Vol] 104 mmol/L Normal 98-107 Moun t [facility] Comment on above: Performed By: #### 8 0658-8 #### [facility] [address] [place] [address] CO2 [Moles/Vol] 22 mmol/L Normal 22-32 [facility] Comment on above: Performed By: #### 8 0658-8 #### [facility] [address] [place] [address] Creatinine [Mass/Vol] 0.75 mg/dL Normal 0.60-1.30 Jennifer [facility] Comment on above: Performed By: #### 8 0658-8 #### [facility] [address] [place] [address] GFR/1.73 sq M.predicted among non-blacks MDRD (S/P/Bld) [Vol rate/Area] 82 mL/min/{1.73_m2} Normal >=60 [facility] Comment on above: Result Comment: Calc ulation based on the?Chronic Kidney Disease Epidemiology Collaboration (CKD-EPI) equation refit?without adjustment for race. Performed By: #### 8 0658-8 #### [facility] [address] [place] [address] Glucose [Mass/Vol] 347 mg/dL High 70-99 [facility] Comment on above: Performed By: #### 8 0658-8 #### [facility] [address] [place] [address] Potassium [Moles/Vol] 3.8 mmol/L Normal 3.6-5.1 Jennifer [facility] Comment on above: Performed By: #### 8 0658-8 #### [facility] [address] [place] [address] Sodium [Moles/Vol] 135 mmol/L Low 136-145 [facility] Comment on above: Performed By: #### 8 0658-8 #### [facility] [address] [place] [address] Urea nitrogen [Mass/Vol] 22 mg/dL High 8-20 [facility] Comment on above: Performed By: #### 8 0658-8 #### [facility] [address] [place] [address] Urea nitrogen/Creatinine [Mass ratio] 29.3 mg/mg High 12.0-20.0 [facility] Comment on above: Performed By: #### 8 0658-8 #### [facility] [address] [place] [address] Interpretation and review of laboratory results Normal [facility] Troponin I.cardiac High sensitivity method [Mass/Vol] 9 ng/L NINF - 14 ng/L [facility] Interpretation and review of laboratory results Normal [employer] Troponin I.cardiac High sensitivity method [Mass/Vol] 5 ng/L NINF - 14 ng/L [facility] [employer] XR CHEST 1 VIEWon 10-08-2023 XR CHEST 1 VIEW EXAMINATION TYPE: XR CHEST 1 VIEW DATE OF EXAM: 10/08/2023 6:49 PM COMPARISON: NONE HISTORY: chest discomfort FINDINGS: The heart size is normal. Negative for lobar consolidation, effusion, or pneumothorax. Minimal interstitial prominence with a nonspecific pattern possibly minimal congestion. Negative for mediastinal widening. IMPRESSION: The heart size is normal. Negative for lobar consolidation, effusion, or pneumothorax. Minimal interstitial prominence with a nonspecific pattern possibly minimal congestion in the acute setting or mild interstitial lung disease in the chronic setting, no comparisons are available. -------- FINAL REPORT -------- Dictated By: Marcus Staples Dictated Date: 10/08/2023 18:51 Assigned Physician: Marcus Staples Reviewed and Electronically Signed By: Marcus Staples Signed Date: 10/08/2023 18:52 Workstation ID: [id number] Transcribed By: Self Edit Transcribed Date: 10/08/2023 18:51 Normal [facility] XR Chest 1 Viewon 10-08-2023 The heart size is normal. Negative for lobar consolidation, effusion, or pneumothorax. Minimal interstitial prominence with a nonspecific pattern possibly minimal congestion in the acute setting or mild interstitial lung disease in the chronic setting, no comparisons are available. -------- FINAL REPORT -------- Dictated By: Marcus Staples Dictated Date: 10/08/2023 18:51 Assigned Physician: Marcus Staples Reviewed and Electronically Signed By: Marcus Staples Signed Date: 10/08/2023 18:52 Workstation ID: [id number] Transcribed By: Self Edit Transcribed Date: 10/08/2023 18:51 POWERSCRIBE EXAMINATION TYPE: XR CHEST 1 VIEW DATE OF EXAM: 10/08/2023 6:49 PM COMPARISON: NONE HISTORY: chest discomfort FINDINGS: The heart size is normal. Negative for lobar consolidation, effusion, or pneumothorax. Minimal interstitial prominence with a nonspecific pattern possibly minimal congestion. Negative for mediastinal widening. POWERSCRIBE Marcus Staples MD - 10/08/2023 EXAMINATION TYPE: XR CHEST 1 VIEW DATE OF EXAM: 10/08/2023 6:49 PM COMPARISON: NONE HISTORY: chest discomfort FINDINGS: The heart size is normal. Negative for lobar consolidation, effusion, or pneumothorax. Minimal interstitial prominence with a nonspecific pattern possibly minimal congestion. Negative for mediastinal widening. IMPRESSION: The heart size is normal. Negative for lobar consolidation, effusion, or pneumothorax. Minimal interstitial prominence with a nonspecific pattern possibly minimal congestion in the acute setting or mild interstitial lung disease in the chronic setting, no comparisons are available. -------- FINAL REPORT -------- Dictated By: Marcus Staples Dictated Date: 10/08/2023 18:51 Assigned Physician: Marcus Staples Reviewed and Electronically Signed By: Marcus Staples Signed Date: 10/08/2023 18:52 Workstation ID: [id number] Transcribed By: Self Edit Transcribed Date: 10/08/2023 18:51 [facility] Radiology Study observation (narrative) [facility] XR Chest 1 ViewOrdered By: Niharika Staples on 10-08-2023 Flori [employer] Work Phone: Absolute lymphocyte countOrd ered By: Luis Cummings on 10-07-2023 Lymphocytes Auto (Unsp spec) [#/Vol] 0.69 10*3/uL 0.83-4.51 [facility] Absolute lymphocyte countOrd ered By: Gillian Fernandez on 10-07-2023 Lymphocytes Auto (Unsp spec) [#/Vol] 2.66 10*3/uL 0.83-4.51 [facility] Automated lymphocyte count a s percentage of total leukocytesOrdered By: Luis Cummings on 10-07-2023 Lymphocytes/100 WBC Auto (Unsp spec) 10.0 % - [facility] Automated lymphocyte count a s percentage of total leukocytesOrdered By: Gillian Fernandez on 10-07-2023 Lymphocytes/100 WBC Auto (Unsp spec) 38.8 % 19- [facility] Basophil percentageOrdered B y: Luis Cummings on 10-07-2023 Basophils/100 WBC (Bld) 0.1 % 0-1 [facility] Chloride [Moles/Vol] 106 mmol/L 98-107 [facility] Eosinophils/100 WBC (Bld) 0.0 % 0-5 [facility] Glucose [Mass/Vol] 268 mg/dL 74-106 [facility] Comment on above: Glucose result great er than or equal to 200 mg/dLsuggests DIABETES MELLITUS per A.D.A. criteria. Hemoglobin (Bld) [Mass/Vol] 13.2 g/dL 12.0-15.0 [facility] Monocytes/100 WBC (Bld) 0.6 % 0-10 [facility] Neutrophils (Bld) [#/Vol] 6.1 10*3/uL 2.0-7.7 [facility] Neutrophils/100 WBC (Bld) 88.9 % 47-70 [facility] Potassium [Moles/Vol] 3.6 mmol/L 3.5-5.[address] [facility] Sodium [Moles/Vol] 138 mmol/L 136-145 [facility] WBC (Bld) [#/Vol] 6.9 10*3/uL 4.4-11.0 [facility] Basophil percentageOrdered B y: Gillian Fernandez on 10-07-2023 Basophils/100 WBC (Bld) 0.9 % 0-1 [facility] Bilirubin [Mass/Vol] 0.60 mg/dL 0.20-1.00 [facility] Comment on above: For patients on eltr ombopag therapy, use of Dimension [place] TBIL is not recommended. Chloride [Moles/Vol] 108 mmol/L 98-107 [facility] Eosinophils/100 WBC (Bld) 2.0 % 0-5 [facility] Glucose [Mass/Vol] 119 mg/dL 74-106 [facility] Comment on above: Fasting Glucose resu lt from 100 to 125 mg/dL suggests IMPAIRED HOMEOSTASIS per A.D.A. criteria. Hemoglobin (Bld) [Mass/Vol] 13.2 g/dL 12.0-15.0 [facility] Monocytes/100 WBC (Bld) 7.7 % 0-10 [facility] Neutrophils (Bld) [#/Vol] 3.5 10*3/uL 2.0-7.7 [facility] Neutrophils/100 WBC (Bld) 50.5 % 47-70 [facility] Potassium [Moles/Vol] 3.6 mmol/L 3.5-5.[address] [facility] Protein [Mass/Vol] 7.4 g/dL 6.4-8.2 [facility] Sodium [Moles/Vol] 140 mmol/L 136-145 [facility] WBC (Bld) [#/Vol] 6.9 10*3/uL 4.4-11.0 [facility] Determination of erythrocyte mean corpuscular volume (MCV)Ordered By: Luis Cummings on 10-07-2023 MCV (RBC) [Entitic vol] 91.2 fL 81-99 [facility] Determination of erythrocyte mean corpuscular volume (MCV)Ordered By: Gillian Fernandez on 10-07-2023 MCV (RBC) [Entitic vol] 92.2 fL 81-99 [facility] Erythrocyte distribution wid th ratioOrdered By: Luis Cummings on 10-07-2023 Erythrocyte distribution width (RBC) [Ratio] 13.0 % 11.6-14.6 [facility] Erythrocyte distribution wid th ratioOrdered By: Gillian Fernandez on 10-07-2023 Erythrocyte distribution width (RBC) [Ratio] 13.0 % 11.6-14.6 [facility] Erythrocyte distribution wid th standard deviationOrdered By: Luis Cummings on 10-07-2023 Erythrocyte distribution width (RBC) [Entitic vol] 42.9 fL 35.1-43.9 [facility] Erythrocyte distribution wid th standard deviationOrdered By: Gillian Fernandez on 10-07-2023 Erythrocyte distribution width (RBC) [Entitic vol] 43.3 fL 35.1-43.9 [facility] Hematocrit Auto (Bld) [Volum e fraction]Ordered By: Luis Cummings on 10-07-2023 Hematocrit (Bld) [Volume fraction] 40.3 % 37-47 [facility] Hematocrit Auto (Bld) [Volum e fraction]Ordered By: Gillian Fernandez on 10-07-2023 Hematocrit (Bld) [Volume fraction] 39.1 % 37-47 [facility] Immature granulocytes/100 WB C Auto (Bld)Ordered By: Luis Cummings on 10-07-2023 Immature granulocytes/100 WBC (Bld) 0.400 % 0.0-0.9 [facility] Comment on above: IG% - Immature Granu locytes (promyelocytes, myelocytes and metamyelocytes) > 1% indicates that a LEFT SHIFT is Present. Immature granulocytes/100 WB C Auto (Bld)Ordered By: Gillian Fernandez on 10-07-2023 Immature granulocytes/100 WBC (Bld) 0.100 % 0.0-0.9 [facility] Comment on above: IG% - Immature Granu locytes (promyelocytes, myelocytes and metamyelocytes) > 1% indicates that a LEFT SHIFT is Present. Laboratory - Chemistry and C hemistry - challengeOrdered By: Luis Cummings on 10-07-2023 CO2 [Moles/Vol] 24.0 mmol/L 21.0-32.0 [facility] Urea nitrogen/Creatinine [Mass ratio] 20.8 mg/mg 10-20 [facility] Laboratory - Chemistry and C hemistry - challengeOrdered By: Gillian Fernandez on 10-07-2023 Albumin/Globulin [Mass ratio] 1.2 {ratio} 0.9-2.4 [facility] ALP [Catalytic activity/Vol] 50 U/L 45-117 [facility] ALT [Catalytic activity/Vol] 37 U/L 13-56 [facility] CO2 [Moles/Vol] 26.0 mmol/L 21.0-32.0 [facility] Globulin (S) [Mass/Vol] 3.4 g/dL 2.2-4.2 [facility] Natriuretic peptide B (Bld) [Mass/Vol] 68.1 pg/mL 0-100 [facility] Urea nitrogen/Creatinine [Mass ratio] 15.0 mg/mg - [facility] Laboratory - Hematology and Cell countsOrdered By: Luis Cummings on 10-07-2023 MCH (RBC) [Entitic mass] 29.9 pg 27.0-32.0 [facility] MCHC (RBC) [Mass/Vol] 32.8 g/dL 32-[address] [facility] Nucleated RBC/100 WBC (Bld) [Ratio] 0 % 0-5 [facility] Platelet mean volume (Bld) [Entitic vol] 9.8 fL 6.2-12.0 [facility] Platelets (Bld) [#/Vol] 321 10*3/uL 150-450 [facility] Laboratory - Hematology and Cell countsOrdered By: Gillian Fernandez on 10-07-2023 MCH (RBC) [Entitic mass] 31.1 pg 27.0-32.0 [facility] MCHC (RBC) [Mass/Vol] 33.8 g/dL 32-[address] [facility] Nucleated RBC/100 WBC (Bld) [Ratio] 0 % 0-5 [facility] Platelet mean volume (Bld) [Entitic vol] 9.6 fL 6.2-12.0 [facility] Platelets (Bld) [#/Vol] 302 10*3/uL 150-450 [facility] Laboratory - Microbiology an d Antimicrobial susceptibilityOrdered By: Luis Cummings on 10-07-2023 SARS-CoV-2 (COVID-19) RNA CHANDU+probe Ql (Unsp spec) [facility] SARS-CoV-2 (COVID-19) RNA CHANDU+probe Ql (Unsp spec) SARS-CoV-2 (COVID 19 PCR) [facility] No Panel InformationOrdered By: Luis Cummings on 10-07-2023 Estimated Creatinine Clearance Calc 29.69 ml/min [facility] Estimated GFR (MDRD) Amer 64 mL/min >60 [facility] Comment on above: GFR Calc Estimated GFR (MDRD) Non-Af Amer 53 mL/min >60 [facility] Comment on above: Non- GFR Calc Troponin I High Sensitivity 4 pg/mL 3.0-54.0 [facility] Comment on above: Please Note: New Janeth t Units and Gender Specific Reference Ranges. For more information see Policy Stat Procedure [place] High Sensitivity Troponin (TNIH) and attachments. No Panel InformationOrdered By: Gillian Fernandez on 10-07-2023 Estimated GFR (MDRD) Amer 99 mL/min >60 [facility] Comment on above: GFR Calc Estimated GFR (MDRD) Non-Af Amer 82 mL/min >60 [facility] Comment on above: Non- GFR Calc RBC Auto (Bld) [#/Vol]Ordere d By: Luis Cummings on 10-07-2023 RBC (Bld) [#/Vol] 4.42 10*6/uL 4.2-5.4 [facility] RBC Auto (Bld) [#/Vol]Ordere d By: Gillian Fernandez on 10-07-2023 RBC (Bld) [#/Vol] 4.24 10*6/uL 4.2-5.4 [facility] Serum or plasma calcium drew urement (mass/volume)Ordered By: Luis Cummings on 10-07-2023 Calcium [Mass/Vol] 9.7 mg/dL 8.5-10.1 [facility] Serum or plasma calcium drew urement (mass/volume)Ordered By: Gillian Fernandez on 10-07-2023 Calcium [Mass/Vol] 10.2 mg/dL 8.5-10.1 [facility] Serum or plasma creatinine m easurement (mass/volume)Ordered By: Luis Cummings on 10-07-2023 Creatinine [Mass/Vol] 1.06 mg/dL 0.55-1.[address] [facility] Comment on above: The validity of the calculated GFR & GFRAA in patients over 70 years has not been determined. Clinical correlation is essential. Serum or plasma creatinine m easurement (mass/volume)Ordered By: Gillian Fernandez on 10-07-2023 Creatinine [Mass/Vol] 0.73 mg/dL 0.55-1.[address] [facility] Comment on above: The validity of the calculated GFR & GFRAA in patients over 70 years has not been determined. Clinical correlation is essential. Serum or plasma urea nitroge n measurement (mass/volume)Ordered By: Luis Cummings on 10-07-2023 Urea nitrogen [Mass/Vol] 22 mg/dL 01-20 [facility] Serum or plasma urea nitroge n measurement (mass/volume)Ordered By: Gillian Fernandez on 10-07-2023 Urea nitrogen [Mass/Vol] 11 mg/dL 01-20 [facility] Thin prep Papanicolaou smear with manual screeningOrdered By: Luis Cummings on 10-07-2023 Thin prep Papanicolaou smear with manual screening 8 11-17 [facility] Thin prep Papanicolaou smear with manual screeningOrdered By: Gillian Fernandez on 10-07-2023 Thin prep Papanicolaou smear with manual screening 4.0 g/dL 3.2-5.0 [facility] Thin prep Papanicolaou smear with manual screening 31 U/L [facility] Thin prep Papanicolaou smear with manual screening 6 - [facility] CBC W Auto Differential pane l (Bld)on 10-13-2022 Basophils (Bld) [#/Vol] 0.05 10*3/uL <0.11 k/uL [facility] Basophils/100 WBC (Bld) 0.9 % [facility] Differential cell count method Nom (Bld) Auto [facility] Eosinophils (Bld) [#/Vol] 0.20 10*3/uL <0.46 k/uL [facility] Eosinophils/100 WBC (Bld) 3.6 % [facility] Erythrocyte distribution width (RBC) [Ratio] 12.0 % 11.5 - 15.0 % [facility] Hematocrit (Bld) [Volume fraction] 40.0 % 36.0 - 46.0 % [facility] Hemoglobin (Bld) [Mass/Vol] 13.5 g/dL 11.5 - 15.5 g/dL [facility] Immature granulocytes (Bld) [#/Vol] <0.10 k/uL [facility] Immature granulocytes/100 WBC (Bld) 0.4 % [facility] Lymphocytes (Bld) [#/Vol] 2.54 10*3/uL 1.00 - 4.00 k/uL [facility] Lymphocytes/100 WBC (Bld) 45.8 % [facility] MCH (RBC) [Entitic mass] 30.8 pg 26. 0 - 34.0 pg [facility] MCHC (RBC) [Mass/Vol] 33.8 g/dL 30.5 - 36.0 g/dL [facility] MCV (RBC) [Entitic vol] 91.3 fL 80.0 - 100.0 fL [facility] Monocytes (Bld) [#/Vol] 0.52 10*3/uL <0.87 k/uL [facility] Monocytes/100 WBC (Bld) 9.4 % [facility] Neutrophils (Bld) [#/Vol] 2.21 10*3/uL 1.45 - 7.50 k/uL [facility] Neutrophils/100 WBC (Bld) 39.9 % [facility] Nucleated RBC (Bld) [#/Vol] <0.01 k/uL [facility] Nucleated RBC/100 WBC (Bld) [Ratio] 0.0 /100 WBC [facility] Platelet mean volume (Bld) [Entitic vol] 10.0 fL 9.0 - 12.7 fL [facility] Platelets (Bld) [#/Vol] 256 10*3/uL 150 - 400 k/uL [facility] RBC (Bld) [#/Vol] 4.38 10*6/uL 3.90 - 5.2 0 m/uL [facility] WBC (Bld) [#/Vol] 5.54 10*3/uL 3.70 - 11.00 k/uL [facility] Comprehensive metabolic 2000 panelon 10-13-2022 Albumin [Mass/Vol] 4.5 g/dL 3.9 - 4.9 g/dL [facility] ALP [Catalytic activity/Vol] 52 U/L 34 - 123 U/L [facility] ALT [Catalytic activity/Vol] 25 U/L 7 - 38 U/L [facility] Anion gap [Moles/Vol] 10 mmol/L 9 - 18 mmol/L [facility] AST [Catalytic activity/Vol] 30 U/L 13 - 35 U/L [facility] Bilirubin [Mass/Vol] 0.4 mg/dL 0.2 - 1 .3 mg/dL [facility] Calcium [Mass/Vol] 9.5 mg/dL 8.5 - 10. 2 mg/dL [facility] Chloride [Moles/Vol] 104 mmol/L 97 - 10 5 mmol/L [facility] CO2 [Moles/Vol] 25 mmol/L 22 - 30 mmol/L [facility] Creatinine [Mass/Vol] 0.66 mg/dL 0.58 - 0.96 mg/dL [facility] Estimated Glomerular Filtration Rate 90 mL/min/1.73m >=60 mL/min/1.73 m [facility] Glucose [Mass/Vol] 100 mg/dL High 74 - 99 mg/dL [facility] Potassium [Moles/Vol] 3.9 mmol/L 3.7 - 5.1 mmol/L [facility] Protein [Mass/Vol] 7.4 g/dL 6.3 - 8.0 g/dL [facility] Sodium [Moles/Vol] 139 mmol/L 136 - 144 mmol/L [facility] Urea nitrogen [Mass/Vol] 11 mg/dL 7 - 21 mg/dL [facility] Lipid 1996 panelon 3 Cholesterol [Mass/Vol] 209 mg/dL High <200 mg/dL [facility] Cholesterol in HDL [Mass/Vol] 85 mg/dL >39 mg/dL [facility] Cholesterol in LDL [Mass/Vol] 108 mg/dL High <100 mg/dL [facility] Cholesterol in LDL/Cholesterol in HDL [Mass ratio] 1.27 {ratio} <2.54 [facility] Cholesterol in VLDL [Mass/Vol] 16 mg/dL <30 mg/dL [facility] Cholesterol non HDL [Mass/Vol] 124 mg/dL <130 mg/dL [facility] Cholesterol.total/Choles terol in HDL [Mass ratio] 2.46 {ratio} <5.10 [facility] Fasting Time 12 hrs [facility] Triglyceride [Mass/Vol] 82 mg/dL <150 mg/dL [facility] MAGNESIUM BLDon 10-13-2022 Magnesium [Mass/Vol] 2.2 mg/dL 1.7 - 2 .3 mg/dL [facility] Absolute lymphocyte countOrd ered By: Dr. Rdz on 09-02-2022 Lymphocytes Auto (Unsp spec) [#/Vol] 1.72 10*3/uL 0.83-4.51 [facility] Basophil percentageOrdered B y: Dr. Rdz on 09-02-2022 Basophils/100 WBC (Bld) 0.7 % 0-1 [facility] Chloride [Moles/Vol] 107 mmol/L 98-107 [facility] Eosinophils/100 WBC (Bld) 2.9 % 0-5 [facility] Glucose [Mass/Vol] 100 mg/dL 74-106 [facility] Comment on above: Fasting Glucose resu lt from 100 to 125 mg/dL suggests IMPAIRED HOMEOSTASIS per A.D.A. criteria. Neutrophils (Bld) [#/Vol] 3.1 10*3/uL 2.0-7.7 [facility] Neutrophils/100 WBC (Bld) 57.3 % 47-70 [facility] Potassium [Moles/Vol] 3.8 mmol/L 3.5-5.[address] [facility] Sodium [Moles/Vol] 139 mmol/L 136-145 [facility] WBC (Bld) [#/Vol] 5.5 10*3/uL 4.4-11.0 [facility] Blood erythrocytes count (nu mber/volume)Ordered By: Dr. Rdz on 09-02-2022 RBC (Bld) [#/Vol] 4.48 10*6/uL 4.2-5.4 [facility] Blood hemoglobin measurement (mass/volume)Ordered By: Dr. Rdz on 09-02-2022 Hemoglobin (Bld) [Mass/Vol] 13.8 g/dL 12.0-15.0 [facility] Blood lymphocytes/100 leukoc ytesOrdered By: Dr. Rdz on 09-02-2022 Lymphocytes/100 WBC (Bld) 31.4 % 19-41 [facility] Blood monocytes/100 leukocyt esOrdered By: Dr. Rdz on 09-02-2022 Monocytes/100 WBC (Bld) 7.5 % 0-10 [facility] Blood platelet mean volumeOr dered By: Dr. Rdz on 09-02-2022 Platelet mean volume (Bld) [Entitic vol] 10.1 fL 6.2-12.0 [facility] Determination of erythrocyte mean corpuscular volume (MCV)Ordered By: Dr. Rdz on 09-02-2022 MCV (RBC) [Entitic vol] 90.2 fL 81-99 [facility] Hematocrit Auto (Bld) [Volum e fraction]Ordered By: Dr. Rdz on 09-02-2022 Hematocrit (Bld) [Volume fraction] 40.4 % 37-47 [facility] Laboratory - Chemistry and C hemistry - challengeOrdered By: Dr. Rdz on 09-02-2022 CO2 [Moles/Vol] 25.0 mmol/L 21.0-32.0 [facility] Urea nitrogen/Creatinine [Mass ratio] 25.2 mg/mg 10-20 [facility] Laboratory - Hematology and Cell countsOrdered By: Dr. Rdz on 09-02-2022 Erythrocyte distribution width (RBC) [Entitic vol] 39.9 fL 35.1-43.9 [facility] Erythrocyte distribution width (RBC) [Ratio] 12.1 % 11.6-14.6 [facility] Immature granulocytes/100 WBC (Bld) 0.200 % 0.0-0.9 [facility] Comment on above: IG% - Immature Granu locytes (promyelocytes, myelocytes and metamyelocytes) > 1% indicates that a LEFT SHIFT is Present. MCH (RBC) [Entitic mass] 30.8 pg 27.0-32.0 [facility] Nucleated RBC/100 WBC (Bld) [Ratio] 0 % 0-5 [facility] MCHC Auto (RBC) [Mass/Vol]Or dered By: Dr. Rdz on 09-02-2022 MCHC (RBC) [Mass/Vol] 34.2 g/dL 32-[address] [facility] No Panel InformationOrdered By: Dr. Rdz on 09-02-2022 Troponin I High Sensitivity 9 pg/mL 3.0-54.0 [facility] Comment on above: Please Note: New Janeth t Units and Gender Specific Reference Ranges. For more information see Policy Stat Procedure [place] High Sensitivity Troponin (TNIH) and attachments. D-Dimer Quantitative (PE/DVT) < 0.27 FEU/ug/m 0.27-0.49 [facility] Comment on above: NORMAL D-Dimer level (<0.50) indicates no DVT or PE. Estimated Creatinine Clearance Calc 35.55 ml/min [facility] Estimated GFR (MDRD) Amer 102 mL/min >60 [facility] Comment on above: GFR Calc Estimated GFR (MDRD) Non-Af Amer 84 mL/min >60 [facility] Comment on above: Non- GFR Calc Platelets bldOrdered By: Dr. Rdz on 09-02-2022 Platelets (Bld) [#/Vol] 242 10*3/uL 150-450 [facility] Serum or plasma calcium drew urement (mass/volume)Ordered By: Dr. Rdz on 09-02-2022 Calcium [Mass/Vol] 9.1 mg/dL 8.5-10.1 [facility] Serum or plasma creatinine m easurement (mass/volume)Ordered By: Dr. Rdz on 09-02-2022 Creatinine [Mass/Vol] 0.71 mg/dL 0.55-1.[address] [facility] Comment on above: The validity of the calculated GFR & GFRAA in patients over 70 years has not been determined. Clinical correlation is essential. Serum or plasma urea nitroge n measurement (mass/volume)Ordered By: Dr. Rdz on 09-02-2022 Urea nitrogen [Mass/Vol] 18 mg/dL 7-18 [facility] Thin prep Papanicolaou smear with manual screeningOrdered By: Dr. Rdz on 09-02-2022 Thin prep Papanicolaou smear with manual screening 7 5-15 [facility] XR Chest PA and Lateralon IMPRESSION: Findings suspicious for pneumonia. Video Production Coordinator: MARJAN Transcribe Date/Time: Mar 04 2021 4:23P Dictated by : SHADIA MCPHERSON MD This examination was interpreted and the report reviewed and electronically signed by: SHADIA MCPHERSON MD on Mar 04 2021 4:25PM [facility] DIVISION OF RADIOLOGY * * *Final Report* * * DATE OF EXAM: Mar 04 2021 4:15PM WOX [id number] - XR CHEST 2V FRONTAL/LAT / PROCEDURE REASON: multiple diagnoses * * * * Physician Interpretation * * * * EXAMINATION: CHEST RADIOGRAPH (2 VIEW FRONTAL & LATERAL) CLINICAL HISTORY: Pneumonia due to COVID-19 virus Pneumonia due to COVID-19 virus MQ: [id number] EXAM DATE/TIME: 03/04/2021 4:15 PM COMPARISON: 11/25/2013 RESULT: Lines, tubes, and devices: None. Lungs and pleura: Now seen is left mid to lower lung and right lower lung interstitial prominence, pneumonic infiltrate suspected. No lung mass. No pleural effusion. No pneumothorax. Cardiomediastinal silhouette: Normal cardiomediastinal silhouette. Bones and soft tissues: Unremarkable. DIVISION OF RADIOLOGY Provider, [facility] - 03/04/2021 * * *Final Report* * * DATE OF EXAM: Mar 04 2021 4:15PM WOX [id number] - XR CHEST 2V FRONTAL/LAT / PROCEDURE REASON: multiple diagnoses * * * * Physician Interpretation * * * * EXAMINATION: CHEST RADIOGRAPH (2 VIEW FRONTAL & LATERAL) CLINICAL HISTORY: Pneumonia due to COVID-19 virus Pneumonia due to COVID-19 virus MQ: [id number] EXAM DATE/TIME: 03/04/2021 4:15 PM COMPARISON: 11/25/2013 RESULT: Lines, tubes, and devices: None. Lungs and pleura: Now seen is left mid to lower lung and right lower lung interstitial prominence, pneumonic infiltrate suspected. No lung mass. No pleural effusion. No pneumothorax. Cardiomediastinal silhouette: Normal cardiomediastinal silhouette. Bones and soft tissues: Unremarkable. IMPRESSION IMPRESSION: Findings suspicious for pneumonia. Video Production Coordinator: PSCSandra Transcribe Date/Time: Mar 04 2021 4:23P Dictated by : SHADIA MCPHERSON MD This examination was interpreted and the report reviewed and electronically signed by: SHADIA MCPHERSON MD on Mar 04 2021 4:25PM [facility] Radiology Study observation (narrative) [facility] XR Chest PA and LateralOrder ed By: [facility] Provider on 03-04-2021 [facility] Office Visit: pessary checko n 06-02-2017 Documentation of current medications (procedure) Done Invalid Interpretation Code [facility] Fall risk assessment No Invalid Interpretation Code [facility] Tobacco smoking status NHIS Never Invalid Interpretation Code [facility] Tobacco use CPHS Never smoker Invalid Interpretation Code [facility] Office Visit: pessary checko n 05-06-2017 Breast Mammogram screening Normal Bilateral Invalid Interpretation Code [facility] Office Visit: pessary checko n 10-30-2014 General categories [Interpretation] of Cervical or vaginal smear or scraping by Cyto stain Normal Invalid Interpretation Code [facility] Vital Signs Date Time Vital Sign Value Performing Clinician Deliai sofia 03-13-2025 11:57-0400 Body mass index (BMI) [Ratio] 20.74 kg/m2 Coleen Barrera MD Work Phone: [facility] 03-13-2025 11:57-0400 Body weight 45 kg Coleen Barrera MD Work Phone: [facility] 03-13-2025 11:57-0400 Diastolic blood pressure 71 mm[Hg] Coleen Barrera MD Work Phone: [facility] 03-13-2025 11:57-0400 Heart rate 67 /min Coleen Barrera MD Work Phone: [facility] 03-13-2025 11:57-0400 Respiratory rate 16 /min Coleen Barrera MD Work Phone: [facility] 03-13-2025 11:57-0400 Systolic blood pressure 123 mm[Hg] Coleen Barrera MD Work Phone: [facility] 03-01-2025 09:25-0400 Body height 147.[address] Coleen Barrera MD Work Phone: [facility] 03-01-2025 09:21-0400 Body mass index (BMI) [Ratio] 20.5 kg/m2 Dr. Coleen Barrera MD Work Phone: [facility] 03-01-2025 09:21-0400 Body weight 44.[address] Coleen Barrera MD Work Phone: [facility] 03-01-2025 09:21-0400 Diastolic blood pressure 72 mm[Hg] Dr. Coleen Barrera MD Work Phone: [facility] 03-01-2025 09:21-0400 Systolic blood pressure 124 mm[Hg] Dr. Coleen Barrera MD Work Phone: [facility] 02-28-2025 10:40-0400 Diastolic blood pressure 74 mm[Hg] Yee Saldana DO Work Phone: [facility] 02-28-2025 10:40-0400 Heart rate 69 /min Yee Saldana DO Work Phone: [facility] 02-28-2025 10:40-0400 SaO2% (BldA) [Mass fraction] 99 % Yee Saldana DO Work Phone: [facility] 02-28-2025 10:40-0400 Systolic blood pressure 132 mm[Hg] Yee Saldana DO Work Phone: [facility] 01-24-2025 11:14-0400 Diastolic blood pressure 68 mm[Hg] Yee Saldana DO Work Phone: [facility] 01-24-2025 11:14-0400 Heart rate 75 /min Yee Saldana DO Work Phone: [facility] 01-24-2025 11:14-0400 SaO2% (BldA) [Mass fraction] 98 % Yee Saldana DO Work Phone: [facility] 01-24-2025 11:14-0400 Systolic blood pressure 109 mm[Hg] Yee Saldana DO Work Phone: [facility] 01-17-2025 10:19-0400 Body height 147.3 cm Coleen Barrera MD Work Phone: [facility] 01-17-2025 10:19-0400 Body mass index (BMI) [Ratio] 20.53 kg/m2 Coleen Barrera MD Work Phone: 2(312)806-062017 [place] [address] 01-17-2025 10:19-0400 Body weight 44.54 kg Coleen Barrera MD Work Phone: 3(862)340-373517 [place] [address] 01-17-2025 10:19-0400 Diastolic blood pressure 71 mm[Hg] Coleen Barrera MD Work Phone: 1(821)608-332417 [place] [address] 01-17-2025 10:19-0400 Heart rate 73 /min Coleen Barrera MD Work Phone: 7(234)764-281017 [place] [address] 01-17-2025 10:19-0400 Respiratory rate 16 /min Coleen Barrera MD Work Phone: 0(352)676-550717 [place] [address] 01-17-2025 10:19-0400 Systolic blood pressure 109 mm[Hg] Coleen Barrera MD Work Phone: 1(534)353-558207 [place] [address] 12-14-2024 08:42-0400 Body height 147.[address] Coleen Barrera MD Work Phone: 5(015)093-919135 [place] [address] 12-14-2024 08:42-0400 Body mass index (BMI) [Ratio] 20.7 kg/m2 Dr. Coleen Barrera MD Work Phone: 3(205)864-248535 [place] [address] 12-14-2024 08:42-0400 Body weight 44.[address] Coleen Barrera MD Work Phone: 9(882)659-629835 [place] [address] 12-14-2024 08:42-0400 Diastolic blood pressure 79 mm[Hg] Dr. Coleen Barrera MD Work Phone: 3(781)573-370835 [place] [address] 12-14-2024 08:42-0400 Heart rate 77 /min Dr. Coleen Barrera MD Work Phone: 9(733)297-354835 [place] [address] 12-14-2024 08:42-0400 Respiratory rate 16 /min Dr. Coleen Barrera MD Work Phone: 4(194)714-369835 [place] [address] 12-14-2024 08:42-0400 Systolic blood pressure 144 mm[Hg] Dr. Coleen Barrera MD Work Phone: [facility] 10-10-2024 10:24-0400 Body mass index (BMI) [Ratio] 20.2 kg/m2 Dr. Coleen Barrera MD Work Phone: [facility] 10-10-2024 10:24-0400 Body weight 43.[address] Coleen Barrera MD Work Phone: [facility] 10-10-2024 10:24-0400 Diastolic blood pressure 70 mm[Hg] Dr. Coleen Barrera MD Work Phone: [facility] 10-10-2024 10:24-0400 Systolic blood pressure 120 mm[Hg] Dr. Coleen Barrera MD Work Phone: [facility] 05-20-2024 10:38-0500 Body mass index (BMI) [Ratio] 20.32 kg/m2 Emily Carrera CORPORATE LIBRARIAN.SSIS SSRS DEVELOPER Work Phone: [facility] 05-20-2024 10:38-0500 Body temperature 98.91 [degF] Emily Carrera CORPORATE LIBRARIAN.SSIS SSRS DEVELOPER Work Phone: [facility] 05-20-2024 10:38-0500 Body weight 44.1 kg Emily Carrera APRN.SSIS SSRS DEVELOPER Work Phone: [facility] 05-20-2024 10:38-0500 Diastolic blood pressure 68 mm[Hg] Emily Carrera CORPORATE LIBRARIAN.SSIS SSRS DEVELOPER Work Phone: [facility] 05-20-2024 10:38-0500 Heart rate 83 /min Emily Carrera CORPORATE LIBRARIAN.SSIS SSRS DEVELOPER Work Phone: [facility] 05-20-2024 10:38-0500 Respiratory rate 16 /min Emily Carrera CORPORATE LIBRARIAN.SSIS SSRS DEVELOPER Work Phone: [facility] 05-20-2024 10:38-0500 SaO2% (BldA) [Mass fraction] 95 % Emily Carrera APRN.SSIS SSRS DEVELOPER Work Phone: [facility] 05-20-2024 10:38-0500 Systolic blood pressure 118 mm[Hg] Emily Neo CORPORATE LIBRARIAN.SSIS SSRS DEVELOPER Work Phone: [facility] 01-18-2024 08:01-0400 Body mass index (BMI) [Ratio] 20.48 kg/m2 Kaity Older CORPORATE LIBRARIAN.SSIS SSRS DEVELOPER Work Phone: [facility] 01-18-2024 08:01-0400 Body weight 44.45 kg Kaity Older CORPORATE LIBRARIAN.SSIS SSRS DEVELOPER Work Phone: [facility] 01-18-2024 08:01-0400 Diastolic blood pressure 70 mm[Hg] Kaity Older CORPORATE LIBRARIAN.SSIS SSRS DEVELOPER Work Phone: [facility] 01-18-2024 08:01-0400 Heart rate 76 /min Kaity Older CORPORATE LIBRARIAN.SSIS SSRS DEVELOPER Work Phone: [facility] 01-18-2024 08:01-0400 Respiratory rate 16 /min Kaity CORPORATE LIBRARIAN.SSIS SSRS DEVELOPER Work Phone: [facility] 01-18-2024 08:01-0400 SaO2% (BldA) [Mass fraction] 97 % CORPORATE LIBRARIAN.SSIS SSRS DEVELOPER Work Phone: [facility] 01-18-2024 08:01-0400 Systolic blood pressure 130 mm[Hg] Kaity Older CORPORATE LIBRARIAN.SSIS SSRS DEVELOPER Work Phone: [facility] 12-04-2023 08:36-0400 Body mass index (BMI) [Ratio] 20.9 kg/m2 Emily Neo CORPORATE LIBRARIAN.SSIS SSRS DEVELOPER Work Phone: [facility] 12-04-2023 08:36-0400 Body temperature 98.1 [degF] Emily Neo CORPORATE LIBRARIAN.SSIS SSRS DEVELOPER Work Phone: [facility] 12-04-2023 08:36-0400 Body weight 45.36 kg Emily Neo CORPORATE LIBRARIAN.SSIS SSRS DEVELOPER Work Phone: [facility] 12-04-2023 08:36-0400 Diastolic blood pressure 74 mm[Hg] Emily Neo CORPORATE LIBRARIAN.SSIS SSRS DEVELOPER Work Phone: [facility] 12-04-2023 08:36-0400 Heart rate 80 /min Emily CastilloNeo CORPORATE LIBRARIAN.SSIS SSRS DEVELOPER Work Phone: [facility] 12-04-2023 08:36-0400 SaO2% (BldA) [Mass fraction] 99 % Emily CastilloNeo CORPORATE LIBRARIAN.SSIS SSRS DEVELOPER Work Phone: [facility] 12-04-2023 08:36-0400 Systolic blood pressure 120 mm[Hg] Emily CastilloNeo CORPORATE LIBRARIAN.SSIS SSRS DEVELOPER Work Phone: [facility] 10-28-2023 13:25-0400 Body mass index (BMI) [Ratio] 22.57 kg/m2 Xiomara Singh CORPORATE LIBRARIAN.SSIS SSRS DEVELOPER Work Phone: [facility] 10-28-2023 13:25-0400 Body weight 48.99 kg Xiomara Babinhobrayden CORPORATE LIBRARIAN.SSIS SSRS DEVELOPER Work Phone: [facility] 10-28-2023 13:25-0400 Diastolic blood pressure 68 mm[Hg] Xiomara Babinhof CORPORATE LIBRARIAN.SSIS SSRS DEVELOPER Work Phone: [facility] 10-28-2023 13:25-0400 Heart rate 80 /min Xiomara Babinhof CORPORATE LIBRARIAN.SSIS SSRS DEVELOPER Work Phone: [facility] 10-28-2023 13:25-0400 Respiratory rate 16 /min Xiomara Babinhof CORPORATE LIBRARIAN.SSIS SSRS DEVELOPER Work Phone: [facility] 10-28-2023 13:25-0400 SaO2% (BldA) [Mass fraction] 99 % Xiomara Babinhof CORPORATE LIBRARIAN.SSIS SSRS DEVELOPER Work Phone: [facility] 10-28-2023 13:25-0400 Systolic blood pressure 128 mm[Hg] Xiomara Babinhof CORPORATE LIBRARIAN.SSIS SSRS DEVELOPER Work Phone: [facility] 10-28-2023 08:37-0400 Body mass index (BMI) [Ratio] 20.7 kg/m2 Dr. Coleen Barrera Work Phone: [facility] 10-28-2023 08:37-0400 Body weight 46.[address] Coleen Barrera Work Phone: [facility] 10-28-2023 08:37-0400 Diastolic blood pressure 76 mm[Hg] Dr. Coleen Barrera Work Phone: [facility] 10-28-2023 08:37-0400 Heart rate 72 /min Dr. Coleen Barrera Work Phone: [facility] 10-28-2023 08:37-0400 Respiratory rate 14 /min Dr. Coleen Barrera Work Phone: [facility] 10-28-2023 08:37-0400 SaO2% (BldA) [Mass fraction] 98 % Dr. Coleen Barrera Work Phone: [facility] 10-28-2023 08:37-0400 Systolic blood pressure 125 mm[Hg] Dr. Coleen Barrera Work Phone: [facility] 10-28-2023 08:19-0400 Body height 147.[address] Coleen Barrera Work Phone: [facility] 10-20-2023 12:21-0400 Body height 147.3 cm Blaine Cummins NP Work Phone: [facility] 10-20-2023 12:21-0400 Body mass index (BMI) [Ratio] 20.65 kg/m2 Blaine Cummins NP Work Phone: [facility] 10-20-2023 12:21-0400 Body weight 44.81 kg Blaine Cummins NP Work Phone: [facility] 10-20-2023 12:21-0400 Diastolic blood pressure 71 mm[Hg] Blaine Cummins NP Work Phone: [facility] 10-20-2023 12:21-0400 Heart rate 76 /min Blaine Cummins NP Work Phone: [facility] 10-20-2023 12:21-0400 Systolic blood pressure 113 mm[Hg] Blaine Cummins NP Work Phone: [facility] 10-19-2023 09:20-0400 Body mass index (BMI) [Ratio] 20.4 kg/m2 Dr. Coleen Barrera Work Phone: [facility] 10-19-2023 09:20-0400 Body weight 45.[address] Coleen Barrera Work Phone: [facility] 10-19-2023 09:20-0400 Diastolic blood pressure 82 mm[Hg] Dr. Coleen Barrera Work Phone: [facility] 10-19-2023 09:20-0400 Systolic blood pressure 122 mm[Hg] Dr. Coleen Barrera Work Phone: [facility] 10-13-2023 10:49-0400 Body weight 45.81 kg Emily Carrera CORPORATE LIBRARIAN.SSIS SSRS DEVELOPER Work Phone: [facility] 10-13-2023 10:49-0400 Diastolic blood pressure 72 mm[Hg] Emily Carrera CORPORATE LIBRARIAN.SSIS SSRS DEVELOPER Work Phone: [facility] 10-13-2023 10:49-0400 Heart rate 79 /min Emily Carrera CORPORATE LIBRARIAN.SSIS SSRS DEVELOPER Work Phone: [facility] 10-13-2023 10:49-0400 Respiratory rate 16 /min Emily Carrera CORPORATE LIBRARIAN.SSIS SSRS DEVELOPER Work Phone: [facility] 10-13-2023 10:49-0400 SaO2% (BldA) [Mass fraction] 98 % Emily Carrera CORPORATE LIBRARIAN.SSIS SSRS DEVELOPER Work Phone: [facility] 10-13-2023 10:49-0400 Systolic blood pressure 132 mm[Hg] Emily Carrera CORPORATE LIBRARIAN.SSIS SSRS DEVELOPER Work Phone: [facility] 10-10-2023 11:42-0400 Body temperature 97.9 [degF] Gurinder Ibarra DO Work Phone: [facility] 10-10-2023 11:42-0400 Diastolic blood pressure 70 mm[Hg] Gurinder Harclerode DO Work Phone: [facility] 10-10-2023 11:42-0400 Heart rate 85 /min Gurinder Harclerode DO Work Phone: [facility] 10-10-2023 11:42-0400 SaO2% (BldA) [Mass fraction] 95 % Gurinder Harclerode DO Work Phone: [facility] 10-10-2023 11:42-0400 Systolic blood pressure 127 mm[Hg] Gurinder Harclerode DO Work Phone: [facility] 10-10-2023 08:00-0400 Body height 147 cm Gurinder Harclerode DO Work Phone: [facility] 10-10-2023 08:00-0400 Body mass index (BMI) [Ratio] 20.82 kg/m2 Gurinder Harclerode DO Work Phone: [facility] 10-10-2023 08:00-0400 Body weight 45 kg Gurinder Harclerode DO Work Phone: [facility] 10-10-2023 03:54-0400 Respiratory rate 16 /min Gurinder Briceclerode DO Work Phone: [facility] 10-07-2023 20:40-0400 Body temperature 97.8 [degF] [facility] 10-07-2023 20:40-0400 Diastolic blood pressure 69 mm[Hg] [facility] 10-07-2023 20:40-0400 Heart rate 102 /min [facility] 10-07-2023 20:40-0400 Respiratory rate 21 /min [facility] 10-07-2023 20:40-0400 SaO2% (BldA) [Mass fraction] 97 % [facility] 10-07-2023 20:40-0400 Systolic blood pressure 125 mm[Hg] [facility] 10-07-2023 17:53-0400 Body mass index (BMI) [Ratio] 19.1 kg/m2 [facility] 10-07-2023 17:53-0400 Body weight 43 kg [facility] 10-07-2023 17:05-0400 Body height 149.86 cm [facility] 10-06-2023 10:54-0400 Body temperature 99.19 [degF] Emily Neo CORPORATE LIBRARIAN.SSIS SSRS DEVELOPER Work Phone: [facility] 10-06-2023 10:54-0400 Body weight 45.81 kg Emily Neo CORPORATE LIBRARIAN.SSIS SSRS DEVELOPER Work Phone: [facility] 10-06-2023 10:54-0400 Diastolic blood pressure 73 mm[Hg] Emily Neo CORPORATE LIBRARIAN.SSIS SSRS DEVELOPER Work Phone: [facility] 10-06-2023 10:54-0400 Heart rate 82 /min Emily Neo CORPORATE LIBRARIAN.SSIS SSRS DEVELOPER Work Phone: [facility] 10-06-2023 10:54-0400 Respiratory rate 12 /min Emily Neo CORPORATE LIBRARIAN.SSIS SSRS DEVELOPER Work Phone: [facility] 10-06-2023 10:54-0400 Systolic blood pressure 132 mm[Hg] Emily Neo CORPORATE LIBRARIAN.SSIS SSRS DEVELOPER Work Phone: [facility] 01-12-2023 08:01-0400 Body weight 46.27 kg Kaity Older CORPORATE LIBRARIAN.SSIS SSRS DEVELOPER Work Phone: [facility] 01-12-2023 08:01-0400 Diastolic blood pressure 76 mm[Hg] Kaity Older CORPORATE LIBRARIAN.SSIS SSRS DEVELOPER Work Phone: [facility] 01-12-2023 08:01-0400 Heart rate 68 /min Kaity Older CORPORATE LIBRARIAN.SSIS SSRS DEVELOPER Work Phone: [facility] 01-12-2023 08:01-0400 Respiratory rate 16 /min Kaity Older CORPORATE LIBRARIAN.SSIS SSRS DEVELOPER Work Phone: [facility] 01-12-2023 08:01-0400 Systolic blood pressure 128 mm[Hg] Kaity Older CORPORATE LIBRARIAN.SSIS SSRS DEVELOPER Work Phone: [facility] 09-02-2022 11:39-0500 Body temperature 98.3 [degF] Dr. Coleen Barrera Work Phone: 3(697)477-737423 [place] [address] 09-02-2022 11:39-0500 Diastolic blood pressure 77 mm[Hg] Dr. Coleen Barrera Work Phone: 4(103)240-249335 [place] [address] 09-02-2022 11:39-0500 Heart rate 68 /min Dr. Coleen Barrera Work Phone: 9(809)588-857535 [place] [address] 09-02-2022 11:39-0500 Respiratory rate 17 /min Dr. Coleen Barrera Work Phone: 4(738)333-371135 [place] [address] 09-02-2022 11:39-0500 SaO2% (BldA) [Mass fraction] 99 % Dr. Coleen Barrera Work Phone: 7(756)093-437635 [place] [address] 09-02-2022 11:39-0500 Systolic blood pressure 155 mm[Hg] Dr. Coleen Barrera Work Phone: 1(818)248-517035 [place] [address] 09-02-2022 06:40-0500 Body height 147.[address] Coleen Barrera Work Phone: 1(782)324-502735 [place] [address] 09-02-2022 06:40-0500 Body mass index (BMI) [Ratio] 22 kg/m2 Dr. Coleen Barrera Work Phone: 7(218)722-438035 [place] [address] 09-02-2022 06:40-0500 Body weight 47.[address] Coleen Barrera Work Phone: 2(902)231-022335 [place] [address] 04-07-2022 13:58-0400 Diastolic blood pressure 70 mm[Hg] Dr. Coleen Barrera Work Phone: 5(619)232-607223 [place] [address] Work Phone: 04-07-2022 13:58-0400 Systolic blood pressure 120 mm[Hg] Dr. Coleen Barrera Work Phone: 7(693)100-452523 [place] [address] Work Phone: 04-07-2022 13:48-0400 Body height 147.[address] Coleen Barrera Work Phone: [facility] Work Phone: 04-07-2022 13:46-0400 Body mass index (BMI) [Ratio] 21.5 kg/m2 Dr. Coleen Barrera Work Phone: [facility] Work Phone: 04-07-2022 13:46-0400 Body weight 46.[address] Coleen Barrera Work Phone: [facility] Work Phone: 04-07-2022 13:46-0400 Heart rate 73 /min Dr. Coleen Barrera Work Phone: [facility] Work Phone: 04-07-2022 13:46-0400 Respiratory rate 18 /min Dr. Coleen Barrera Work Phone: [facility] Work Phone: 04-07-2022 13:46-0400 SaO2% (BldA) [Mass fraction] 98 % Dr. oCleen Barrera Work Phone: [facility] Work Phone: 12-24-2021 08:45-0400 Body height 147.3 cm Coleen Barrera MD Work Phone: [facility] 12-24-2021 08:45-0400 Body temperature 96.69 [degF] Coleen Barrera MD Work Phone: [facility] 12-24-2021 08:45-0400 Body weight 47.63 kg Coleen Barrera MD Work Phone: [facility] 12-24-2021 08:45-0400 Diastolic blood pressure 70 mm[Hg] Coleen Barrera MD Work Phone: [facility] 12-24-2021 08:45-0400 Heart rate 69 /min Coleen Barrera MD Work Phone: [facility] 12-24-2021 08:45-0400 Respiratory rate 12 /min Coleen Barrera MD Work Phone: [facility] 12-24-2021 08:45-0400 SaO2% (BldA) [Mass fraction] 100 % Coleen Barrera MD Work Phone: [facility] 12-24-2021 08:45-0400 Systolic blood pressure 122 mm[Hg] Coleen Barrera MD Work Phone: [facility] 06-02-2017 07:58-0500 BMI (Body Mass Index) 22.8 kg/m2 Aria Field MD [facility] 06-02-2017 07:58-0500 BP Diastolic 76 mm[Hg] Aria Field MD [facility] 06-02-2017 07:58-0500 BP Systolic 168 mm[Hg] Aria Field MD [facility] 06-02-2017 07:58-0500 Height 151.13 cm Aria Field MD [facility] 06-02-2017 07:58-0500 Weight 52.07 kg Aria Field MD [facility] Encounters Encounter Date Encounter Type Care Provider Facility Start: 03-13-2025 End: 03-13-2025 Office outpatient visit 15 minutes Coleen Barrera MD Work Phone: [facility] [place] Comment on above: OAB (overactive blad ren); Urge incontinence; Valvular incompetence Start: 03-13-2025 End: 03-13-2025 ambulatory COLEEN BARRERA Facility:[facility] Start: 03-01-2025 End: 03-01-2025 Patient encounter procedure Theresa PRUITT -[facility] Work Phone: Start: 03-01-2025 End: 03-01-[address] Coleen Barrera MD Work Phone: -[facility] Start: 02-28-2025 End: 02-28-2025 Patient encounter procedure Yee Saldana DO Work Phone: Vascular Surgery Comment on above: Varicose veins of scarlet th lower extremities with pain (Primary Dx) Start: 02-28-2025 End: 02-28-2025 ambulatory YEE SALDANA Facility:[facility] Start: 02-13-2025 End: 02-13-2025 ambulatory YEE SALDANA Facility:[facility] Start: 01-24-2025 End: 01-24-2025 Patient encounter procedure Yee Saldana DO Work Phone: Vascular Surgery Comment on above: Varicose veins of scarlet th lower extremities with pain Start: 01-24-2025 End: 01-24-2025 ambulatory YEE SALDANA Facility:[facility] Start: 01-19-2025 End: 02-02-2025 Refill Coleen Barrera MD Work Phone: Family [facility] Comment on above: Refill Request Start: 01-17-2025 End: 01-17-2025 Subsequent hospital visit by physician [facility] Work Phone: Radiology Comment on above: Chronic left-sided l ow back pain with left-sided sciatica [M54.42, G89.29] Start: 01-17-2025 End: 01-17-2025 ambulatory COLEEN BARRERA Facility:[facility] Start: 01-17-2025 End: 01-17-2025 Office outpatient visit 25 minutes Coleen Barrera MD Work Phone: Internal Medicine [place] Comment on above: Medicare annual well ness visit, subsequent (Primary Dx); Varicose veins of both lower extremities with pain; Chronic left-sided low back pain with left-sided sciatica; Neurogenic bladder; Urinary frequency; Screening for depression; Encounter for screening examination for other mental health and behavioral disorders; Age-related osteoporosis without current pathological fracture; Vitamin D deficiency Start: 01-17-2025 End: 01-17-2025 ambulatory COLEEN BARRERA Facility:[facility] Start: 01-17-2025 End: 01-17-2025 Patient encounter procedure Coleen Barrera MD Work Phone: [facility] Start: 01-09-2025 End: 01-09-2025 ambulatory COLEEN BARRERA Facility:[facility] Start: 01-03-2025 End: 01-06-2025 ambulatory Coleen Barrera MD Work Phone: Internal Medicine [facility] Start: 12-14-2024 End: 12-14-[address] Coleen Barrera MD Work Phone: [facility] Work Phone: Start: 12-14-2024 End: 12-14-2024 Patient encounter procedure Gillian Fernandez PA -Laboratory Work Phone: Start: 12-14-2024 End: 12-14-2024 Patient encounter procedure Gillian Fernandez PA -[facility] Work Phone: Start: 12-14-2024 End: 12-14-[address] Coleen Barrera MD Work Phone: [facility] Work Phone: Start: 12-14-2024 End: 12-14-[address] [facility] Facility:[facility] Start: 10-10-2024 End: 10-10-2024 Patient encounter procedure Theresa Flowers ARTIST CONSULTANT-C -[facility] Work Phone: Start: 10-10-2024 End: 10-10-[address] [facility] Facility:[facility] Start: 07-04-2024 End: 07-04-[address] [facility] Facility:[facility] Start: 06-10-2024 End: 06-10-[address] [facility] Facility:[facility] Start: 06-10-2024 End: 06-10-[address] [facility] Facility:[facility] Start: 05-20-2024 End: 05-20-2024 ambulatory [facility] Facility:[facility] Start: 05-20-2024 End: 05-20-2024 Patient encounter procedure Emily Carrera APRN.SSIS SSRS DEVELOPER Work Phone: Internal Medicine [place] Comment on above: Viral URI with cough (Primary Dx) Start: 05-11-2024 End: 05-11-2024 ambulatory Theresa Flowers NP Facility:[facility] Start: 03-16-2024 ambulatory [place] Facility:[facility] Start: 02-19-2024 ambulatory Beverly Fowler MA [facility] [place] Start: 02-19-2024 Patient encounter procedure Beverly Fowler MA 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 Coleen Barrera Work Phone: [facility] Work Phone: Comment on above: Cough Start: 10-28-2023 End: 10-28-2023 Patient encounter procedure Xiomara Singh APRN.SSIS SSRS DEVELOPER Work Phone: Family [facility] Comment on above: Bronchitis (Primary Dx) Start: 10-28-2023 End: 10-28-[address] Coleen Barrera Work Phone: [facility]Cardiac Rehab Work Phone: Start: 10-20-2023 End: 10-20-2023 ambulatory COLEEN BARRERA [facility] Start: 10-20-2023 End: 10-20-2023 Office outpatient visit 15 minutes Blaine Cummins NP Work Phone: [facility] Comment on above: Chest pain, unspecif ied type (Primary Dx) Start: 10-20-2023 End: 10-20-2023 Patient encounter procedure Blaine Cummins ARTIST CONSULTANT Work Phone: [facility] Start: 10-19-2023 End: 10-19-[address] Coleen Barrera Work Phone: [facility] Work Phone: Start: 10-16-2023 Non-patient / Non-visit Dr. Jennifer Barrera Work Phone: [facility] Start: 10-14-2023 End: 10-14-2023 Telephone encounter Carmenza Lopez [facility] Comment on above: cardiac rehab Start: 10-13-2023 End: 10-13-2023 Patient encounter procedure Emily Carrera APRN.CNP Work Phone: [facility] [place] Comment on above: Coronary artery dise ase involving la posta coronary artery of la posta heart without angina pectoris (Primary Dx); Pain behind the ear, left; Palpitations; S/P drug eluting coronary stent placement; Hyperlipidemia, unspecified hyperlipidemia type; Overactive bladder Start: 10-09-2023 End: 10-10-2023 Evaluation and management of inpatient TYESHA GOTTIPATI [facility] Start: 10-08-2023 End: 10-08-2023 ambulatory NO PCP PHYSICIAN [facility] Start: 10-08-2023 End: 10-10-2023 Evaluation and management of inpatient Gurinder Ibarra DO Work Phone: [facility] Comment on above: Chest pain, unspecif ied type (Primary Dx); Unstable angina (CMS/HCC) Start: 10-08-2023 End: 10-08-2023 Office outpatient new 60 minutes Tanner Rice ARTIST CONSULTANT Work Phone: [facility] Comment on above: Chest pain, unspecif ied type (Primary Dx); Shortness of breath Start: 10-08-2023 End: 10-08-2023 Patient encounter procedure Tanner Rice ARTIST CONSULTANT Work Phone: [facility] Start: 10-07-2023 End: 10-07-2023 Emergency department patient visit [facility] Work Phone: Start: 10-07-2023 End: 10-07-2023 ambulatory [facility] Work Phone: Start: 10-07-2023 End: 10-07-2023 Patient encounter procedure [facility]Laboratory Work Phone: Start: 10-06-2023 End: 10-06-2023 Patient encounter procedure Emily Carrera CORPORATE LIBRARIAN.SSIS SSRS DEVELOPER Work Phone: [facility] [place] Comment on above: Pain behind the ear, left (Primary Dx) Start: 06-12-2023 End: 06-12-2023 ambulatory Yamilet Diaz CORPORATE LIBRARIAN.BUFFER NICKEL Work Phone: [facility] [place] Comment on above: COVID-19 virus infec tion (Primary Dx) Start: 06-12-2023 End: 06-12-2023 Telemedicine consultation with patient Yamilet Diaz APRN.BUFFER NICKEL Work Phone: [facility] Start: 06-11-2023 Telephone encounter Coleen stephens MD Work Phone: [facility] [place] Comment on above: Covid Positive Start: 01-12-2023 End: 01-12-2023 Patient encounter procedure Kaity Matt APRN.SSIS SSRS DEVELOPER Work Phone: [facility] [place] Comment on above: Medicare annual well ness visit, subsequent (Primary Dx); Encounter for immunization Start: 10-08-2022 Patient encounter procedure Kaity Matt APRN.SSIS SSRS DEVELOPER Work Phone: [facility] [place] Start: 10-08-2022 Refill Kaity BalderramaSSIS SSRS DEVELOPER Work Phone: [facility] [place] Comment on above: Refill Request Start: 09-02-2022 End: 09-02-2022 Emergency department patient visit Dr. Coleen Barrera Work Phone: [facility]Emergency Department Start: 05-14-2022 Non-patient / Non-visit Dr. Jennifer Barrera Work Phone: [facility] Start: 05-14-2022 End: 05-14-[address] Coleen Barrera Work Phone: [facility] Work Phone: Start: 05-14-2022 End: 05-14-[address] Coleen Barrera Work Phone: [facility]Cardiovascular Services Start: 04-07-2022 End: 04-07-[address] Coleen Barrera Work Phone: [facility] Start: 12-24-2021 End: 12-24-2021 Patient encounter procedure Coleen Barrera MD Work Phone: [facility] [place] Comment on above: Medicare annual well ness visit, subsequent (Primary Dx); Hyperlipidemia, unspecified hyperlipidemia type; Hypercalcemia Start: 03-04-2021 End: 03-04-2021 Subsequent hospital visit by physician [facility] Work Phone: Radiology Comment on above: Pneumonia due to COV ID-19 virus [U07.1, J12.82] Procedures Date Procedure Procedure Detail Performing Clinician Start: 01-17-2025 Adult depression screening assessment Coleen Barrera MD Work Phone: Start: 01-18-2024 Urnls dip stick/tabl et rgnt auto w/o microscopy Kaity Matt CORPORATE LIBRARIAN.SSIS SSRS DEVELOPER Work Phone: Start: 10-20-2023 Ecg routine ecg w/le ast 12 lds w/i&r Blaine Cummins ARTIST CONSULTANT Work Phone: Start: 10-13-2023 History of placement of stent for coronary artery disease S/P drug eluting coronary stent placement Emily Carrera CORPORATE LIBRARIAN.SSIS SSRS DEVELOPER Work Phone: Start: 10-10-2023 Lipid panel Faith cardona ARTIST CONSULTANT Work Phone: Start: 10-10-2023 Echo tthrc r-t 2d w/wom-mode compl spec&colr d Kei Magallon MD Work Phone: Start: 10-10-2023 Blood count complete automated Tyesha Llamas MD Work Phone: Start: 10-09-2023 Ecg routine ecg w/le ast 12 lds trcg only w/o i&r Gurinder Briceclerode DO Work Phone: Start: 10-09-2023 CARDIAC PROCEDURE Zack a Karve Work Phone: Start: 10-09-2023 CARDIAC PROCEDURE Zack a Karve Work Phone: Start: 10-09-2023 CARDIAC PROCEDURE Zack a Karve Work Phone: Start: 10-09-2023 End: 10-09-2023 POCT ACTIVATED CLOTTING TIME CELITE Tyesha Llamas MD Work Phone: Start: 10-09-2023 History of placement of stent for coronary artery disease History of coronary artery stent placement Gillian JAIME Comment on above: PCI-BRIDGETT mRCA w/3 x 3 0 mm [place] [employer] BRIDGETT 10/09/23 @ [facility]. Start: 10-09-2023 Basic metabolic pane l calcium total David Paulette Leyla DO Work Phone: Start: 10-09-2023 CBC W Auto Different ial panel - Blood David Mayer DO Work Phone: Start: 10-08-2023 Assay of troponin quantitative Gurinder Briceclerode DO Work Phone: Start: 10-08-2023 Radiologic exam ches t single view Gurinder Briceclerode DO Work Phone: Start: 10-08-2023 Basic metabolic pane l calcium total Gurinder Briceclerode DO Work Phone: Start: 10-08-2023 CBC W Auto Different ial panel - Blood Gurinder Ibarra DO Work Phone: Start: 10-07-2023 SARS-CoV-2, Influenz a & RSV (PCR) Start: 10-07-2023 Plain chest X-ray Start: 09-02-2022 Plain chest X-ray Dr. Debra Barrera Work Phone: Start: 03-04-2021 Radiologic exam ches t 2 views Jin Yates MD Work Phone: Start: 03-03-2021 Adult depression screening assessment Coleen Barrera MD Work Phone: Plan of Treatment Date Care Activity Detail Author Start: 10-09-2028 Lipid panel Cholesterol Sc [facility] (Lipid Panel) [facility] Start: 01-11-2027 [facility] Start: 10-09-2026 [facility] Start: 03-13-2026 Annual PCP Team Braille Coder rahul Disease Visit Annual PCP Team Chronic Disease Visit [facility] Start: 01-17-2026 Annual PCP Team Braille Coder rahul Disease Visit Annual PCP Team Chronic Disease Visit [facility] Start: 01-17-2026 Anxiety Screening Anxiety Screening [facility] Start: 01-17-2026 Depression Screening Depression Scre [facility] Start: 01-17-2026 RSV Vaccine (1 - 1-d ose 75+ series) RSV Vaccine (1 - 1-dose 75+ series) [facility] Comment on above: Postponed from 12/11 (Declined at this time) Start: 01-09-2026 Hepatitis B surface antibody level LDL Cholesterol [facility] Start: 10-13-2025 DIABETES SCREEN DIABETES SCREEN [facility] Start: 10-13-2025 Diabetes Screening Diabetes Screenin g [facility] Start: 06-13-2025 End: 06-13-2025 Patient encounter procedure 06/13/2025 8:40 AM EST Office Visit [facility] [place] [address] [place] [address] Coleen Barrera MD [address] [place] [address] 3 month follow up [facility] [place] Comment on above: 3 month follow up Start: 05-20-2025 Annual PCP Team Braille Coder rahul Disease Visit Annual PCP Team Chronic Disease Visit [facility] Start: 05-20-2025 BP Controlled (<130/80) BP Controlle d (<130/80) [facility] Start: 03-13-2025 End: 03-13-2025 Patient encounter procedure 03/13/2025 11:20 AM EDT Office Visit [facility] [place] [address] [place] [address] Coleen Barrera MD [address] [place] [address] 1 month follow up [facility] Comment on above: 1 month follow up Start: 03-06-2025 Influenza vaccination Influenza Vacc ine (#1) [facility] Start: 02-28-2025 End: 02-28-2025 Patient encounter procedure 02/28/2025 10:30 AM EDT Office Visit Vascular Surgery [address] [place] [address] Yee Saldana, DO [address] [place] [address] follow up Vascular Surgery Comment on above: follow up Start: 02-22-2025 End: 02-22-2025 Patient encounter procedure 02/22/2025 9:00 AM EDT Office Visit [facility] [place] [address] [place] [address] Coleen Barrera MD [address] [place] [address] 1 month follow up [facility] [place] Comment on above: 1 month follow up Start: 02-13-2025 End: 02-13-2025 Patient encounter procedure 02/13/2025 8:00 AM EDT Office Visit Vasculary Surgery [address] [place], [place] [address] Dx: Varicose veins of both lower extremities with pain [I83.813] [facility] Comment on above: Dx: Varicose veins o f both lower extremities with pain [I83.813] Start: 01-24-2025 End: 01-24-2025 Patient encounter procedure 01/24/2025 11:00 AM EDT Office Visit Vascular Surgery [address] [place] [address] Yee Saldana, [address] [place] [address] Varicose veins of both lower extremities with pain [I83.813] [facility] Comment on above: Varicose veins of scarlet th lower extremities with pain [I83.813] Start: 01-17-2025 End: 04-18-2025 25-hydroxyvitamin D3 [Mass/volume] in Serum or Plasma [facility] Comment on above: Expected: 01/17/2025 , Expires: 04/18/2025 Start: 01-17-2025 Annual PCP Team Braille Coder rahul Disease Visit Annual PCP Team Chronic Disease Visit [facility] Start: 01-17-2025 End: 01-17-2025 Patient encounter procedure 01/17/2025 10:00 AM EDT Office Visit [facility] [place] [address] [place] [address] Coleen Barrera MD [address] [place] [address] medicare wellness [facility] [place] Comment on above: medicare wellness Start: 01-11-2025 Hepatitis B surface antibody level LDL Cholesterol [facility] Start: 01-03-2025 End: 04-04-2025 CBC panel - Blood by Automated count COMPLETE BLOOD COUNT Lab Routine Medication management Expected: 01/03/2025, Expires: 04/04/2025 [facility] Comment on above: Expected: 01/03/2025 , Expires: 04/04/2025 Start: 01-03-2025 End: 04-04-2025 Lipid 1996 panel - Serum or Plasma LIPID PANEL, FASTING Lab Routine Hyperlipidemia Expected: 01/03/2025, Expires: 04/04/2025 [facility] Work Phone: Comment on above: Expected: 01/03/2025 , Expires: 04/04/2025 Start: 12-03-2024 Annual PCP Team Braille Coder rahul Disease Visit Annual PCP Team Chronic Disease Visit [facility] Start: 10-27-2024 Annual PCP Team Braille Coder rahul Disease Visit Annual PCP Team Chronic Disease Visit [facility] Start: 10-12-2024 Annual PCP Team Braille Coder rahul Disease Visit Annual PCP Team Chronic Disease Visit [facility] Start: 10-09-2024 Falls Risk Assessment Falls Risk Ass essment [facility] Start: 10-08-2024 Hypertension/CHF/CAD Annual BMP Blood Test Hypertension/CHF/CAD Annual BMP Blood Test [facility] Start: 08-12-2024 DIABETES SCREEN DIABETES SCREEN [facility] Start: 07-20-2024 RSV Vaccine (1 - 1-d ose 60+ series) RSV Vaccine (1 - 1-dose 60+ series) [facility] Comment on above: Postponed from 12/11 (Declined at this time) Start: 07-20-2024 RSV Vaccine (1 - 1-d ose 75+ series) RSV Vaccine (1 - 1-dose 75+ series) [facility] Comment on above: Postponed from 12/11 (Declined at this time) Start: 07-06-2024 Advance Directive Discussion Advance Directive Discussion [facility] Start: 07-06-2024 Medicare Advantage Annual Wellness Visit Medicare [facility] Annual Wellness Visit [facility] Start: 03-06-2024 Covid-19 Vaccine ( season) Covid-19 Vaccine ( season) [facility] Start: 03-06-2024 Influenza vaccination [facility] Start: 02-15-2024 End: 02-15-2024 Patient encounter procedure 02/15/2024 9:40 AM EDT Office Visit [facility] [place] [address] [place] [address] Kaity Matt APRN.SSIS SSRS DEVELOPER [address] [facility] [place] [address] 4 week medication follow up [facility] [place] Comment on above: 4 week medication fo llow up Start: 01-18-2024 End: 01-18-2024 Patient encounter procedure 01/18/2024 8:00 AM EDT Office Visit [facility] [place] [address] [place] [address] Kaity Matt APRN.SSIS SSRS DEVELOPER [address] [place] [address] 6 month follow up [facility] [place] Comment on above: 6 month follow up Start: 01-13-2024 COVID-19 VACCINE (#1) COVID-19 VACCI NE (#1) [facility] Comment on above: Postponed from 06/12 (Declined at this time) Start: 01-13-2024 HEPATITIS C SCREENING HEPATITIS C [facility] Comment on above: Postponed from 12/11 (Declined at this time) Start: 01-13-2024 Hepatitis C screening Hepatitis C [facility] Comment on above: Postponed from 12/11 (Declined at this time) Start: 01-13-2024 SHINGRIX VACCINE (2 of 3) SHINGRIX VACCINE (2 of 3) [facility] Comment on above: Postponed from 03/15 (Declined at this time) Start: 01-13-2024 Urine microalbumin profile [facility] Comment on above: Postponed from 12/11 (Declined at this time) Start: 11-13-2023 End: 11-13-2023 Patient encounter procedure 11/13/2023 10:40 AM EDT Office Visit [facility] [address] [facility] [address] [place] [id number] Latosha Cameron [address] [facility] [address] [place] [address] [facility] Start: 10-28-2023 Patient referral to dietitian [facility] Start: 10-20-2023 End: 10-20-2023 Patient encounter procedure 10/20/2023 12:30 PM EDT Office Visit [facility] [address] [facility] [address] [place] [id number] Blaine Cummins NP [address] [facility] [address] [place] [id number] [facility] Destineeallie Start: 10-16-2023 Patient referral [facility] Work Phone: Start: 10-14-2023 Hepatitis B surface antibody level LDL Cholesterol [facility] Start: 10-09-2023 Adolescent depressio n screening assessment Depression Screening [facility] Start: 10-09-2023 Hepatitis C screening Hepatitis C Sc reening [facility] Start: 10-09-2023 Medicare Annual Wellness Visit Medicare Annual Wellness Visit [facility] Start: 10-09-2023 Screening for osteoporosis Osteoporosis Screening (Bone Density Screening) [facility] Start: 10-09-2023 Social Influencers o f Health Screening Social Influencers of Health Screening [facility] Start: 10-07-2023 [facility] Start: 07-06-2023 Behavioral Health Screening Behavioral Health Screening [facility] Start: 03-06-2023 Covid-19 Vaccine ( season) Covid-19 Vaccine ( season) [facility] Start: 03-06-2023 Influenza vaccination C [facility] Start: 12-24-2022 PNEUMOCOCCAL: 65+ (2 - PCV) PNEUMOCOCCAL: 65+ (2 - PCV) [facility] Comment on above: Postponed from 05/28 (Declined at this time) Start: 09-02-2022 [facility] Start: 07-06-2022 ADVANCE DIRECTIVE DISCUSSION ADVANCE DIRECTIVE DISCUSSION [facility] Start: 07-06-2022 DEPRESSION ASSESSMENT DEPRESSION ASS ESSMENT [facility] Start: 06-25-2022 End: 08-25-2022 Comprehensive metabolic 2000 panel - Serum or Plasma COMP METABOLIC PANEL Lab Routine Hypercalcemia Expected: 06/25/2022, Expires: 08/25/2022 [facility] Work Phone: Comment on above: Expected: 06/25/2022 , Expires: 08/25/2022 Start: 06-25-2022 End: 08-25-2022 Lipid 1996 panel - Serum or Plasma LIPID PANEL BASIC Lab Routine Hyperlipidemia, unspecified hyperlipidemia type Expected: 06/25/2022, Expires: 08/25/2022 [facility] Work Phone: Comment on above: Expected: 06/25/2022 , Expires: 08/25/2022 Start: 04-18-2022 COVID-19 VACCINE (#1) COVID-19 VACCI NE (#1) [facility] Comment on above: Postponed from 12/11 (Declined at this time) Start: 03-06-2022 Influenza vaccination INFLUENZA (Sea son Ended) [facility] Start: 03-03-2022 Adult depression screening assessment DEPRESSION SCREENING [facility] Start: 12-12-2019 RSV Vaccine (1 - 1-d ose 75+ series) RSV Vaccine (1 - 1-dose 75+ series) [facility] Start: 08-25-2019 Screening for osteoporosis Bone Density Screening [facility] Start: 06-02-2017 End: 06-02-2017 Appointment Appointment [facility] Start: 2009 Pneumococcal Vaccine : 65+ Years (1 of 1 - PCV) Pneumococcal Vaccine: 65+ Years (1 of 1 - PCV) [facility] Start: 03-15-2009 SHINGRIX VACCINE (2 of 3) SHINGRIX VACCINE (2 of 3) [facility] Start: 03-15-2009 Zoster Vaccines (2 o f 3) Zoster Vaccines (2 of 3) [facility] Start: 2004 RSV Immunization Patients 60+ Years Old (1 - 1-dose 60+ series) RSV Immunization Patients 60+ Years Old (1 - 1-dose 60+ series) [facility] Start: 2004 RSV Vaccine (1 - 1-d ose 60+ series) RSV Vaccine (1 - 1-dose 60+ series) [facility] Start: 1994 Zoster Vaccines (1 o f 2) Zoster Vaccines (1 of 2) [facility] Start: 12-12-1963 DTaP,Tdap,and Td Vaccines (1 - Tdap) DTaP,Tdap,and Td Vaccines (1 - Tdap) [facility] Start: 12-12-1963 Urine microalbumin profile [facility] Start: 1962 Anxiety Screening Anxiety Screening [facility] Start: 1962 BP Controlled (<130/80) BP Controlle d (<130/80) [facility] Start: 1962 Depression Screening Depression Scre ening [facility] Start: 1962 HEPATITIS C SCREENING HEPATITIS C SC KENYETTA [facility] Start: 06-12-1945 COVID-19 VACCINE (#1) COVID-19 VACCI NE (#1) [facility] ECG 12 lead ECG 12 lead ECG STAT 10/09/2023 3:22 PM EDT [facility] Work Phone: End: 10-10-2023 Hemoglobin A1c/Hemoglobin.total in Blood [facility] Work Phone: Comment on above: Once for 1 Occurrenc es starting 10/10/2023 until 10/10/2023 Hepatic function panel [facility] Lipid 1996 panel - Serum or Plasma [facility] Patient Education [facility] Work Phone: Patient referral [facility] Work Phone: UA DIP, URINE (POC) UA DIP, URIN E (POC) Lab Routine OAB (overactive bladder) Urge incontinence Ordered: 01/18/2024 [facility] Work Phone: Comment on above: Ordered: 01/18/2024 End: 01-24-2026 US Vein - bilateral US VENOUS INCOMPETENCY [facility] Routine Varicose veins of both lower extremities with pain 1 Occurrences starting 01/24/2025 until 01/24/2026 [facility] Work Phone: Comment on above: 1 Occurrences starti ng 01/24/2025 until 01/24/2026 End: 02-16-2026 XR Lumbar spine 3 Views XR LUMBAR GENERAL 3V AP/LAT/L5-S1 Radiology Routine Chronic left-sided low back pain with left-sided sciatica 1 Occurrences starting 01/17/2025 until 02/16/2026 [facility] Work Phone: Comment on above: 1 Occurrences starti ng 01/17/2025 until 02/16/2026 XR Lumbar spine 3 Views XR LUMBA R GENERAL 3V AP/LAT/L5-S1 Radiology Routine Chronic left-sided low back pain with left-sided sciatica 01/17/2025 11:54 AM EDT [facility] Immunizations Immunization Date Immunization Notes Care Provider Brinda alvarez 01-12-2023 pneumococcal (PCV20) vaccine, 20 valent (PREVNAR 20) Kaity Matt CORPORATE LIBRARIAN.SSIS SSRS DEVELOPER Work Phone: [facility] 01-12-2023 pneumococcal Conjuga te, unspecified formulation Kaity Matt CORPORATE LIBRARIAN.SSIS SSRS DEVELOPER Work Phone: [facility] Work Phone: 05-25-2019 influenza, high dose seasonal, preservative-free Coleen Barrera MD Work Phone: [facility] 05-25-2019 influenza virus vacc ine, unspecified formulation Coleen Barrera MD Work Phone: [facility] 04-30-[address] Coleen Barrera Work Phone: [facility] 03-24-2018 influenza, high dose seasonal, preservative-free Coleen Barrera MD Work Phone: [facility] Work Phone: 06-17-2016 influenza, high dose seasonal, preservative-free Coleen Barrera MD Work Phone: [facility] Work Phone: 05-28-2011 pneumococcal polysaccharide vaccine, 23 valent Coleen Barrera MD Work Phone: [facility] 01-18-2009 zoster vaccine, live Coleen Barrera MD Work Phone: [facility] 05-11-2006 influenza virus vacc ine, unspecified formulation Coleen Barrera MD Work Phone: [facility] Work Phone: Payers Date Payer Category Payer Self-pay [id number] 2023 Medicare BL[place] MEDICARE ADVANTAGE [facility] [id number] 2023-[facility] [id number] [place] [id number] 2017 Medicare (Managed Care) VAUGHN AZEVEDO HMO [id number] 2017 Unknown ANTHULISSES BLUE CROS S AND BLUE SHIELD ANTHULISSES MEDIBLUE O [id number] 2017-Present [id number] [place] [id number] [facility] [id number] 2017 Unknown [id number] 2017 Medicare [id number] 1944 Unknown [id number] 1944 Unknown [id number] 1944 Unknown [id number] Medicare MEDICARE PART A B [id number] Unknown [id number] Unknown [facility] *DO NOT USE* [id number] Unknown [id number] Unknown [id number] Unknown [id number] [id number] Unknown [id number] [id number] Unknown [id number] [id number] Unknown [id number] [id number] Unknown [id number] [id number] Unknown [id number] [id number] Unknown [id number] [id number] Social History Date Type Detail Facility Start: 10-13-2023 End: 10-28-2023 Tobacco smoking status NHIS Never smoked tobacco [facility] Work Phone: Start: 12-24-2021 End: 03-13-2025 Alcohol intake Ex-drinker (finding) [facility] Start: 06-17-2021 History SDOH Alcohol Frequency 1 [facility] Start: 06-17-2021 History SDOH Alcohol Std Drinks 98 [facility] Start: 06-17-2021 History SDOH Social Connections Phone 5 [facility] Start: 06-17-2021 History SDOH Social Connections Get Together 2 [facility] Start: 06-17-2021 History SDOH Social Connections Religion 3 [facility] Start: 06-17-2021 History SDOH Physical Activity DPW 4 [facility] Start: 06-13-2020 Education 16 [facility] Start: 1945 Sex Assigned At Not on file [facility] Start: 02-02-2021 End: 12-24-2021 Exposure to SARS-CoV-2 (event) Not sure [facility] Work Phone: Start: 04-07-2022 End: 10-28-2023 Tobacco smoking status NHIS Unknown if ever smoked [facility] Start: 07-11-2018 Rare [facility] Start: 07-11-2018 None [facility] Start: 07-11-2018 Spouse/ Significant Other [facility] Start: 04-28-2014 Non-smoker [facility] Start: 1945 Sex Assigned At Female [facility] Start: 01-11-2023 End: 01-12-2024 History of Social function [facility] Start: 01-11-2023 End: 01-12-2024 Social connection and isolation panel [facility] Do you belong to any clubs or organizations such as orthodox groups, [employer], [employer] or athletic groups, or school groups? Yes [facility] Are you now , , , , never or living with a partner? [facility] How often to you hav e a drink containing alcohol? Never [facility] Start: 06-06-2012 How many standard drinks containing alcohol do you have on a typical day? Patient does not drink [facility] Do you feel stress - tense, restless, nervous, or anxious, or unable to sleep at night because your mind is troubled all the time - these days [OSQ] Not at all [facility] (I/We) worried wheth er (my/our) food would run out before (I/we) got money to buy more. Never true [facility] In the past 12 month s, was there a time when you were not able to pay the mortgage or rent on time? No [facility] Start: 10-13-2023 End: 10-20-2023 Tobacco use and exposure Smokeless tobacco non-user [facility] Start: 10-11-2023 Gender identity Identifies as female gender (finding) [facility] Start: 10-11-2023 Sexual orientation Heterosexual (finding) [facility] Start: 10-20-2023 Alcoholic beverage intake Lifetime non-drinker (finding) [facility] Start: 03-04-2021 Alcoholic beverage intake Current drinker of alcohol (finding) [facility] Medical Equipment Procedure Code Equipment Code Equipment Origin al Text Equipment Identifier Dates Stent [place] 3.00x 30rx - [id number] [facility] Start: 10-09-2023 Goals Date Patient Goal Desired Activity /State Personal health goal Functional Status Date Assessment Result Facility 01-18-2015 Are you deaf, or do you have serious difficulty hearing No 01/18/2015 8:53 AM Fior Crane RN No [facility] 01-18-2015 Are you blind, or do you have serious difficulty seeing, even when wearing glasses No 01/18/2015 8:53 AM Fior Crane RN No [facility] 01-18-2015 Do you have serious difficulty walking or climbing stairs No 01/18/2015 8:53 AM Fior Crane RN No [facility] 01-18-2015 Do you have difficul ty dressing or bathing No 01/18/2015 8:53 AM Fior Crane RN No [facility] 01-18-2015 Because of a physica l, mental, or emotional condition, do you have difficulty doing errands alone such as visiting a physician's office or shopping No 01/18/2015 8:53 AM Fior Crane RN No [facility] Mental Status Date Assessment Result Facility 10-07-2023 Cognitive function Level Of Cons ciousness Awake;Alert;Appropriate [facility] Work Phone: 09-02-2022 Cognitive function Voice/Name [facility] Work Phone: 01-18-2015 Because of a physica l, mental, or emotional condition, do you have serious difficulty concentrating, remembering, or making decisions No 01/18/2015 8:53 AM Fior Crane RN No [facility] Clinical Notes 08-17-2013 to 03-13-2025 Coleen Barrera MD - 03/13/2025 12:32 PM EDTPatient Yee Hoang, DO - 02/28/2025 10:56 AM EDTTelephone Encounter - Margie Dennison RN - 01/30/2025 10:21 AM EDT Note Date & Type Note Facility 03-13-2025 Note HNO ID: [id number] Author: COLEEN BARRERA MD Service: ? Author Type: Physician Type: Progress Notes Filed: 03/13/2025 12:38 Note Text: Reason for Visit Med efficacy follow up HPI Tamanna Dill is an 79-year-old female presenting for a 1-month follow-up to evaluate the effectiveness of oxybutynin for bladder issues. Tamanna reports that oxybutynin has been effective in managing her bladder symptoms. However, she has noticed a side effect of ocular dryness since starting the medication. She denies any worsening of memory over the past 2 months.She emphatically denies any feelings of depression. Tamanna is awaiting insurance approval for a procedure recommended by Dr. Saldana on 02/13 to address valvular incompetency. She expresses a desire to be sedated during the procedure. Tamanna is not currently taking any medication for osteoporosis and prefers to manage it with weight-bearing exercises, vitamin D, and calcium supplements. Has refused osteoporosis treatment multiple times She had a referral to Dr. Carter but has postponed it to focus on her leg issues first. SOCIAL HISTORY[1] Past medical history, appointments, medications, allergies reviewed. Pertinent Lab/Diagnostic Studies are reviewed and discussed today Current Outpatient Medications: pyrilamine-dextromethorphan (CAPRON DMT) 30-30 mg tab aspirin, enteric coated (ASPIRIN, ENTERIC COATED) 81 mg EC tablet Biotin 10,000 mcg cap atorvastatin (LIPITOR) 40 mg tablet amLODIPine (NORVASC) 5 mg tablet Magnesium Carbonate powd Zinc 50 mg tab Ascorbic Acid (VITAMIN C) 1,000 mg tablet [place] [id number] 500 mg-500 mcg -1 mg-12.5 mg cap ergocalciferol, vitamin D2, (VITAMIN D2 ORAL) trospium (SANCTURA) 20 mg tablet Health Maintenance DTaP,Tdap,Td Vaccine(1 - Tdap) Shingrix Vaccine(2 of 3) Bone Density Screening Advance Directive Discussion Influenza Vaccine(1)@ Review Of Systems Neurological: (-) memory loss Psychiatric: (-) depressed mood Physical Exam BP 123/71 Pulse 67 Resp 16 Wt 45 kg (99 lb 3.2 oz) BMI 20.74 kg/m? GENERAL: NAD, alert and oriented SKIN: unremarkable, no rash or skin lesions. HEAD: normocephalic EYES: PERRLA, EOMI, conjunctiva clear EARS: external ears normal, canals clear, TM's normal. LUNGS: Clear to auscultation bilaterally, no wheezes/rhonchi/rales. HEART: Regular rate and rhythm, no murmurs. No ectopy. EXTREMITIES: Normal, No deformities, No skin discoloration, No edema. NEURO: Awake, alert and oriented x3, cranial nerves II-XII grossly intact, normal gait, no involuntary motions Labs: Tests: Imaging: (02/13) Imaging study: Valvular incompetency. Assessment and Plan 1. OAB (overactive bladder) (N32.81) 2. Urge incontinence (N39.41) Oxybutynin has been effective for OAB and urge incontinence, but patient reports visual changes and concerns about potential cognitive side effects. - Discontinue oxybutynin. - Start trospium 20 mg PO BID; prescription for 60 tablets with 2 refills sent to [facility]. - Advised patient to monitor for side effects and contact clinic if medication is not tolerated or is cost-prohibitive. - Discussed that oxybutynin may worsen memory; trospium does not cross the blood-brain barrier and is less likely to cause cognitive side effects. - Instructed patient to notify clinic if trospium is well-tolerated so prescription can be sent to mail-order pharmacy. 3. Valvular incompetence (I38) Reviewed Dr. Saldana's note from 02/13 regarding valvular incompetence; awaiting insurance approval for recommended procedure. - Will contact Dr. Saldana's office to check on insurance approval status for the procedure. Voice recognition software was used to compose this office note. Please excuse any unintended typographical errors. Recording using [employer] software for draft documentation of the visit was discussed with the patient/authorized wireless sales representative; all questions welcomed and answered. Patient/authorized wireless sales representative agreed to proceed Coleen Brarera MD [1] Social History Tobacco Use Smoking status: Never Smokeless tobacco: Never Substance Use Topics Alcohol use: Not Currently Drug use: No Comment: marijuana use years ago [facility] 03-13-2025 History of Presen t illness Narrative Reason for Visit Med efficacy follow up HPI Tamanna Dill is an 79-year-old female presenting for a 1-month follow-up to evaluate the effectiveness of oxybutynin for bladder issues. Tamanna reports that oxybutynin has been effective in managing her bladder symptoms. However, she has noticed a side effect of ocular dryness since starting the medication. She denies any worsening of memory over the past 2 months.She emphatically denies any feelings of depression. Tamanna is awaiting insurance approval for a procedure recommended by Dr. Saldana on 02/13 to address valvular incompetency. She expresses a desire to be sedated during the procedure. Tamanna is not currently taking any medication for osteoporosis and prefers to manage it with weight-bearing exercises, vitamin D, and calcium supplements. Has refused osteoporosis treatment multiple times She had a referral to Dr. Carter but has postponed it to focus on her leg issues first. SOCIAL HISTORY[1] Past medical history, appointments, medications, allergies reviewed. Pertinent Lab/Diagnostic Studies are reviewed and discussed today Current Outpatient Medications: pyrilamine-dextromethorphan (CAPRON DMT) 30-30 mg tab aspirin, enteric coated (ASPIRIN, ENTERIC COATED) 81 mg EC tablet Biotin 10,000 mcg cap atorvastatin (LIPITOR) 40 mg tablet amLODIPine (NORVASC) 5 mg tablet Magnesium Carbonate powd Zinc 50 mg tab Ascorbic Acid (VITAMIN C) 1,000 mg tablet [place] [id number] 500 mg-500 mcg -1 mg-12.5 mg cap ergocalciferol, vitamin D2, (VITAMIN D2 ORAL) trospium (SANCTURA) 20 mg tablet Health Maintenance DTaP,Tdap,Td Vaccine(1 - Tdap) Shingrix Vaccine(2 of 3) Bone Density Screening Advance Directive Discussion Influenza Vaccine(1)@ Review Of Systems Neurological: (-) memory loss Psychiatric: (-) depressed mood Physical Exam BP 123/71 Pulse 67 Resp 16 Wt 45 kg (99 lb 3.2 oz) BMI 20.74 kg/m GENERAL: NAD, alert and oriented SKIN: unremarkable, no rash or skin lesions. HEAD: normocephalic EYES: PERRLA, EOMI, conjunctiva clear EARS: external ears normal, canals clear, TM's normal. LUNGS: Clear to auscultation bilaterally, no wheezes/rhonchi/rales. HEART: Regular rate and rhythm, no murmurs. No ectopy. EXTREMITIES: Normal, No deformities, No skin discoloration, No edema. NEURO: Awake, alert and oriented x3, cranial nerves II-XII grossly intact, normal gait, no involuntary motions Labs: Tests: Imaging: (02/13) Imaging study: Valvular incompetency. Assessment and Plan 1. OAB (overactive bladder) (N32.81) 2. Urge incontinence (N39.41) Oxybutynin has been effective for OAB and urge incontinence, but patient reports visual changes and concerns about potential cognitive side effects. - Discontinue oxybutynin. - Start trospium 20 mg PO BID; prescription for 60 tablets with 2 refills sent to [facility]. - Advised patient to monitor for side effects and contact clinic if medication is not tolerated or is cost-prohibitive. - Discussed that oxybutynin may worsen memory; trospium does not cross the blood-brain barrier and is less likely to cause cognitive side effects. - Instructed patient to notify clinic if trospium is well-tolerated so prescription can be sent to mail-order pharmacy. 3. Valvular incompetence (I38) Reviewed Dr. Saldana's note from 02/13 regarding valvular incompetence; awaiting insurance approval for recommended procedure. - Will contact Dr. Saldana's office to check on insurance approval status for the procedure. Voice recognition software was used to compose this office note. Please excuse any unintended typographical errors. Recording using [employer] software for draft documentation of the visit was discussed with the patient/authorized wireless sales representative; all questions welcomed and answered. Patient/authorized wireless sales representative agreed to proceed Coleen Barrera MD [1] Social History Tobacco Use Smoking status: Never Smokeless tobacco: Never Substance Use Topics Alcohol use: Not Currently Drug use: No Comment: marijuana use years ago documented in this encounter [facility] 03-13-2025 Instructions Coleen Barrera MD - 03/13/2025 12:19 PM EDT We discussed your bladder medication: - You reported that the current medication is working well for you. - I will send a prescription for a new medication (60 pills, taken twice daily) to [facility] with 2 refills. - If the cost of the new medication is too high or if you experience any issues tolerating it, please send me a message through [facility]. If needed, I can switch you back to your previous medication. - Once you confirm that the new medication works well for you, I can send a 90-day supply to your mail-order pharmacy for convenience and cost savings. We discussed your memory: - You mentioned occasional concerns about memory. The current medication may contribute to memory issues. - I offered an alternative medication (Tospian), which does not cross the blood-brain barrier and is less likely to affect memory. However, it may be more expensive depending on your insurance coverage. - We will start with the new medication and assess how you tolerate it. If it works well and is affordable, we can transition to a mail-order supply. We discussed your osteoporosis: - You declined medication for osteoporosis. - Please continue weight-bearing exercises and take vitamin D and calcium as part of your management plan. We discussed your referral to Dr. Carter: - You mentioned that you did not hear back regarding the referral and have decided to postpone it for now. We discussed your upcoming procedure for valvular incompetency: - Dr. Saldana is working with your insurance to obtain approval for the procedure. - I will follow up with her office to check on the status of the insurance approval. - You requested to be sedated (put out) for the procedure. Please let me know if you have any additional questions or concerns. documented in this encounter [facility] 03-01-2025 Progress note [facility] 02-28-2025 Note HNO ID: [id number] Author: YEE SALDANA, DO Service: ? Author Type: Physician Type: Progress Notes Filed: 02/28/2025 13:47 Note Text: [facility]PART[facility] OF VASCULAR SURGERY OUTPATIENT VISIT DATE February 28, 2025 OUTPATIENT VISIT TYPE ESTABLISHED SERVICE DATE: 02/28/2025 SERVICE TIME: 10:57 AM PRIMARY CARE PHYSICIAN: Coleen Barrera MD HISTORY OF PRESENT ILLNESS: Mrs. Dill is a 79 year old female who presents today for a vascular surgery follow-up visit for venous reflux testing. She has history of venous interventions with Dr. Maxwell in the past. She has worn compression without significant improvement in symptoms PAST MEDICAL HISTORY Diagnosis Date Asymptomatic varicose veins 03/31/2011 Diverticulosis of colon (without mention of hemorrhage) Hypertension OAB (overactive bladder) 01/17/2015 Osteoporosis, unspecified Other and unspecified hyperlipidemia 10/06/2007 Personal history of colonic polyps last colon 06/09, 5-year interval Varicose veins Venous insufficiency (chronic) (peripheral) 03/09/2008 PAST SURGICAL HISTORY Procedure Laterality Date COLONOSCOPY FLX DX W/COLLJ SPEC WHEN PFRMD 06/19/05 Colonoscopy COLONOSCOPY FLX DX W/COLLJ SPEC WHEN PFRMD 07/31/2011 Colonoscopy COLONOSCOPY FLX DX W/COLLJ SPEC WHEN PFRMD 11/25/2016 Normal colonoscopy-10 year follow-up LIG/TRNSXJ FLP TUBE ABDL/VAG APPR UNI/BI 1970 Tubal ligation SOCIAL HISTORY SOCIAL HISTORY[1] MEDICATIONS: oxybutynin XL (DITROPAN XL) 5 mg 24 hr tablet Take 1 tablet by mouth once daily. pyrilamine-dextromethorphan (CAPRON DMT) 30-30 mg tab Take 1 tablet by mouth every 6 hours as needed. aspirin, enteric coated (ASPIRIN, ENTERIC COATED) 81 mg EC tablet Take 81 mg by mouth once daily. Biotin 10,000 mcg cap Take by mouth. atorvastatin (LIPITOR) 40 mg tablet Take 1 tablet by mouth once daily. amLODIPine (NORVASC) 5 mg tablet Magnesium Carbonate powd Mg unknown Zinc 50 mg tab Take by mouth. Ascorbic Acid (VITAMIN C) 1,000 mg tablet Take 1 tablet by mouth once daily. [place] [id number] 500 mg-500 mcg -1 mg-12.5 mg cap Take 500 mg by mouth once daily. ergocalciferol, vitamin D2, (VITAMIN D2 ORAL) Take by mouth. ALLERGIES: ALLERGIES Allergen Reactions Erythromycin GI Upset Latex Rash Penicillins GI Upset PHYSICAL EXAM: BP 132/74 (BP Site: Right Arm, BP Position: Sitting, BP Cuff Size: Regular Adult) Pulse 69 SpO2 99% Gen- no distress Ext- left posterior calf varicose veins, left pretibial varicose veins Diagnostic tests reviewed for today's visit: Most recent labs Most recent imaging Venous Reflux RIGHT SIDE - DEEP VEINS Negative for acute deep vein thrombosis in vessels visualized. Positive for valvular incompetency in the common femoral vein. RIGHT SIDE - SUPERFICIAL VEINS Positive for valvular incompetency in the great saphenous vein. Focal venous insufficiency at junction. No large branches or varicosities. Negative for valvular incompetency in the small saphenous vein. Negative for superficial thrombophlebitis in the great saphenous vein and small saphenous vein. LEFT SIDE - DEEP VEINS Negative for acute deep vein thrombosis in vessels visualized. Positive for valvular incompetency in the common femoral vein. LEFT SIDE - SUPERFICIAL VEINS Positive for valvular incompetency in the great saphenous vein. Focal venous insuffiency noted at junction and becomes small in mid thigh, discontinuous in calf. Positive for valvular incompetency in the small saphenous vein. Venous insufficiency noted with branches and varicosies off proximal small saphenous and traveling to lateral calf. Focal occlusion at mid calf and then reopens distally. Negative for superficial thrombophlebitis in the great saphenous vein. 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 IMPRESSION: Mrs. Dill is a 79 year old female with symptomatic varicose veins . CEAP CLASSIFICATION OF VENOUS DISEASE: CLINICAL C2: Varicose veins S: Symptomatic, including ache, pain, tightness, skin irritation, heaviness, muscle cramps and other complaints attribultable to venous dysfunction ETIOLOGY Ep: Primary ANATOMIC As: Superficial veins PATHOPYSIOLOGIC Pr: Reflux PLAN and RECOMMENDATIONS: Recommend left leg phlebectomy in OR in supine position to treat symptomatic varicose veins She would benefit as she has had previous EVLT in the past and symptoms have slowly worsened over the years despite EVLT and compression and now impact day to day activities Reviewed procedure and consent obtained SIGNATURE: Yee Saldana DO PATIENT NAME: Tamanna Dill DATE: February 28, 2025 TIME: 10:57 AM [1] Social History Tobacco Use Smoking status: Never Smokeless tobacco: Never Substance Use Topics Alcohol use: Not Currently Drug use: No Comment: marijuana use years ago [facility] 02-28-2025 History of Present illness Narrative Images from the original note were not included. [facility]PART[facility] OF VASCULAR SURGERY OUTPATIENT VISIT DATE February 28, 2025 OUTPATIENT VISIT TYPE ESTABLISHED SERVICE DATE: 02/28/2025 SERVICE TIME: 10:57 AM PRIMARY CARE PHYSICIAN: Coleen Barrera MD HISTORY OF PRESENT ILLNESS: Mrs. Dill is a 79 year old female who presents today for a vascular surgery follow-up visit for venous reflux testing. She has history of venous interventions with Dr. Maxwell in the past. She has worn compression without significant improvement in symptoms PAST MEDICAL HISTORY Diagnosis Date Asymptomatic varicose veins 03/31/2011 Diverticulosis of colon (without mention of hemorrhage) Hypertension OAB (overactive bladder) 01/17/2015 Osteoporosis, unspecified Other and unspecified hyperlipidemia 10/06/2007 Personal history of colonic polyps last colon 06/09, 5-year interval Varicose veins Venous insufficiency (chronic) (peripheral) 03/09/2008 PAST SURGICAL HISTORY Procedure Laterality Date COLONOSCOPY FLX DX W/COLLJ SPEC WHEN PFRMD 06/19/05 Colonoscopy COLONOSCOPY FLX DX W/COLLJ SPEC WHEN PFRMD 07/31/2011 Colonoscopy COLONOSCOPY FLX DX W/COLLJ SPEC WHEN PFRMD 11/25/2016 Normal colonoscopy-10 year follow-up LIG/TRNSXJ FLP TUBE ABDL/VAG APPR UNI/BI 1970 Tubal ligation SOCIAL HISTORY SOCIAL HISTORY[1] MEDICATIONS: oxybutynin XL (DITROPAN XL) 5 mg 24 hr tablet Take 1 tablet by mouth once daily. pyrilamine-dextromethorphan (CAPRON DMT) 30-30 mg tab Take 1 tablet by mouth every 6 hours as needed. aspirin, enteric coated (ASPIRIN, ENTERIC COATED) 81 mg EC tablet Take 81 mg by mouth once daily. Biotin 10,000 mcg cap Take by mouth. atorvastatin (LIPITOR) 40 mg tablet Take 1 tablet by mouth once daily. amLODIPine (NORVASC) 5 mg tablet Magnesium Carbonate powd Mg unknown Zinc 50 mg tab Take by mouth. Ascorbic Acid (VITAMIN C) 1,000 mg tablet Take 1 tablet by mouth once daily. [place] [id number] 500 mg-500 mcg -1 mg-12.5 mg cap Take 500 mg by mouth once daily. ergocalciferol, vitamin D2, (VITAMIN D2 ORAL) Take by mouth. ALLERGIES: ALLERGIES Allergen Reactions Erythromycin GI Upset Latex Rash Penicillins GI Upset PHYSICAL EXAM: BP 132/74 (BP Site: Right Arm, BP Position: Sitting, BP Cuff Size: Regular Adult) Pulse 69 SpO2 99% Gen- no distress Ext- left posterior calf varicose veins, left pretibial varicose veins Diagnostic tests reviewed for today's visit: Most recent labs Most recent imaging Venous Reflux RIGHT SIDE - DEEP VEINS Negative for acute deep vein thrombosis in vessels visualized. Positive for valvular incompetency in the common femoral vein. RIGHT SIDE - SUPERFICIAL VEINS Positive for valvular incompetency in the great saphenous vein. Focal venous insufficiency at junction. No large branches or varicosities. Negative for valvular incompetency in the small saphenous vein. Negative for superficial thrombophlebitis in the great saphenous vein and small saphenous vein. LEFT SIDE - DEEP VEINS Negative for acute deep vein thrombosis in vessels visualized. Positive for valvular incompetency in the common femoral vein. LEFT SIDE - SUPERFICIAL VEINS Positive for valvular incompetency in the great saphenous vein. Focal venous insuffiency noted at junction and becomes small in mid thigh, discontinuous in calf. Positive for valvular incompetency in the small saphenous vein. Venous insufficiency noted with branches and varicosies off proximal small saphenous and traveling to lateral calf. Focal occlusion at mid calf and then reopens distally. Negative for superficial thrombophlebitis in the great saphenous vein. 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 IMPRESSION: Mrs. Dill is a 79 year old female with symptomatic varicose veins . CEAP CLASSIFICATION OF VENOUS DISEASE: CLINICAL C2: Varicose veins S: Symptomatic, including ache, pain, tightness, skin irritation, heaviness, muscle cramps and other complaints attribultable to venous dysfunction ETIOLOGY Ep: Primary ANATOMIC As: Superficial veins PATHOPYSIOLOGIC Pr: Reflux PLAN and RECOMMENDATIONS: Recommend left leg phlebectomy in OR in supine position to treat symptomatic varicose veins She would benefit as she has had previous EVLT in the past and symptoms have slowly worsened over the years despite EVLT and compression and now impact day to day activities Reviewed procedure and consent obtained SIGNATURE: Yee Saldana DO PATIENT NAME: Tamanna Dill DATE: February 28, 2025 TIME: 10:57 AM [1] Social History Tobacco Use Smoking status: Never Smokeless tobacco: Never Substance Use Topics Alcohol use: Not Currently Drug use: No Comment: marijuana use years ago documented in this encounter [facility] 01-30-2025 Telephone encounter Note Patient calls to check on below. Reviewed request. Patient reports that she has been taking medication and at her OV On 01/17/[address] Barrera she didn't need a refill but realized what she has is and she does need a refill. Margie Dennison RN [facility] 01-30-2025 Miscellaneous Notes Patient calls to check on below. Reviewed request. Patient reports that she has been taking medication and at her OV On 01/17/[address] Barrera she didn't need a refill but realized what she has is and she does need a refill. Margie Dennison RN This has not bee filled in a year. Has she bee taking this? Thank you Kaity Matt APRN.FARHAD Prescription Refill Information The patient has been identified by name and date of : Yes Caregiver verified no other encounters exist for this prescription request: Yes Caregiver confirmed with patient/requestor that no other refills are due, in the near future, with this provider at this time: Yes The last office visit in the department: 01/17/2025 Does the patient have a future office visit with this provider/department: Yes Requested Prescriptions Pending Prescriptions Disp Refills oxybutynin XL (DITROPAN XL) 5 mg 24 hr tablet 30 tablet 1 Sig: Take 1 tablet by mouth once daily. Viviana Eagle January 19, 2025 3:29 PM documented in this encounter [facility] 01-24-2025 Instructions Yee Saldana, - 01/24/2025 11:45 AM EDT Stocking Wear and Care Your doctor has recommended for you to wear compression stockings. The following instructions are to help you maintain your treatment plan and care for your stockings. You must be properly fitted before ordering your stockings. Ill-fitting stockings could be ineffective or cause injury. Put your stockings on first thing when you wake up, BEFORE you get out of bed. If you need to shower, it is recommended to lie back down after for 20-30 minutes with your feet elevated prior to putting on your stockings. Take your stockings off before bed. Do not sleep in them, unless instructed to do so after a procedure. To wash your stockings, wash with mild soap or detergent (do not use any bleach containing product), rinse well. Roll them in a towel to remove excess water and allow to air dry. There are also sr community manager recommendations included with your stockings. Skin care- Wash your legs and feet and dry them well each day, especially between your toes. Before bed, moisturize liberally with a fragrant free, creamy moisturizer (Lubriderm, Jennifer, Eucerin, Sandra) Never moisturize between toes. Avoid moisturizing immediately prior to putting on your stockings. You can use rubber gloves, such as Playtex or Sigvaris, when putting on your stockings. The grooves in the palm of the gloved will help you administrative hearing officer the stocking while putting it on. Be sure to place the heel on first, prior to pulling up the stocking. Other devices to help with putting on stockings, like the easy glide, can be ordered online and from the location you order your stockings from. Knee- High stockings should end about an inch below the knee, if you pull them up too high, do not fold or roll them down. Place the top of the stockings in the correct place and snap out or pinch out any wrinkles. Over time, the stockings will lose their elasticity and therefore, their effectiveness. If one pair is worn daily, they should be replaced about every 4 months. If alternating between multiple pairs, they will last longer. Begin looking for replacements about a month prior to them needing replaced. This will help avoid a gap in therapeutic use. It is recommended to keep the original box so that re ordering will be easier. It is also recommended that a new fitting be completed to ensure you are wearing the most effective size. Locations: [facility]- [phone] [employer] [phone] www.[employer]- [phone] [employer]- [phone] Located in [facility] [employer]- call local store and schedule a fitting. [employer]- online source 10. Recommend Sigvaris SHEER stockings 15-20 mmHg PROCEDURE NAME- PHLEBECTOMY (removing the varicose veins with tiny incisions) Leg Measurements- (cm) Ankle 18cm, calf 31cm length 32 cm documented in this encounter [facility] 01-24-2025 Note HNO ID: [id number] Author: YEE SALDANA DO Service: ? Author Type: Physician Type: Progress Notes Filed: 01/24/2025 13:37 Note Text: [facility] DEPARTMENT OF VASCULAR SURGERY OUTPATIENT VISIT DATE January 24, 2025 OUTPATIENT VISIT TYPE CONSULTATION SERVICE DATE: 01/24/2025 SERVICE TIME: 11:08 AM PRIMARY CARE PHYSICIAN: Coleen Barrera MD REFERRING PROVIDER: Coleen Barrera [id number] [facility] [id number] Consult requested for an opinion regarding the evaluation and treatment of the above. My final impression and recommendations will be communicated back to the requesting physician by way of the shared medical record or letter via [place] mail. CHIEF COMPLAINT: Patient presents with: New Patient History of Present Illness: Patient is a 79 year old White female presenting for consultation, evaluation and possible treatment of varicose veins.left sharp pain in lateral thigh and right posterior knee pain. . She has worn compression in the past. Predisposing factors included history of varicose vein surgery 2012 left SSV [address] Dr[address] Maxwell. Sclerotherapy. Her mother had varicose veins. No specific history of injury or prior problems. Relieving factors include elevation of legs, reduced activity, and OTC pain medication with mild improvement in symptoms. Patient denies DVT, phlebitis, and treatment with blood thinners. PAIN ASSESSMENT: PAIN EVALUATION No data found in the last 1 encounters. Obstetric History T1 L2 SAB0 IAB0 Ectopic0 Multiple0 Live Births0 Name of Baby 1: Not recorded Date: Not recorded GA: Not recorded Type: Not recorded Apgar1: Not recorded Apgar5: Not recorded Living: Not recorded Name of Baby 2: Not recorded Date: Not recorded GA: Not recorded Type: Not recorded Apgar1: Not recorded Apgar5: Not recorded Living: Not recorded Duration of Symptoms: Progressive PREVIOUS TESTS: None PAST MEDICAL HISTORY Diagnosis Date Asymptomatic varicose veins 03/31/2011 Diverticulosis of colon (without mention of hemorrhage) Hypertension OAB (overactive bladder) 01/17/2015 Osteoporosis, unspecified Other and unspecified hyperlipidemia 10/06/2007 Personal history of colonic polyps last colon 06/09, 5-year interval Varicose veins Venous insufficiency (chronic) (peripheral) 03/09/2008 PAST SURGICAL HISTORY Procedure Laterality Date COLONOSCOPY FLX DX W/COLLJ SPEC WHEN PFRMD 06/19/05 Colonoscopy COLONOSCOPY FLX DX W/COLLJ SPEC WHEN PFRMD 07/31/2011 Colonoscopy COLONOSCOPY FLX DX W/COLLJ SPEC WHEN PFRMD 11/25/2016 Normal colonoscopy-10 year follow-up LIG/TRNSXJ FLP TUBE ABDL/VAG APPR UNI/BI 1970 Tubal ligation SOCIAL HISTORY: Social History Tobacco Use Smoking status: Never Smokeless tobacco: Never Substance Use Topics Alcohol use: Not Currently Drug use: No Comment: marijuana use years ago FAMILY HISTORY Problem Relation Age of Onset Colon Cancer Mother Heart Father of SC Hypertension Brother Hypertension Sister Hypertension Sister Hypertension Sister Hypertension Sister Heart Brother SC Hypertension Brother Heart Sister Triple bypass Heart Son mitral valve prolapse other (Eczema) Son Coronary Artery Disease Sister MEDICATIONS: pyrilamine-dextromethorphan (CAPRON DMT) 30-30 mg tab Take 1 tablet by mouth every 6 hours as needed. oxybutynin XL (DITROPAN XL) 5 mg 24 hr tablet Take 1 tablet by mouth once daily. aspirin, enteric coated (ASPIRIN, ENTERIC COATED) 81 mg EC tablet Take 81 mg by mouth once daily. Biotin 10,000 mcg cap Take by mouth. atorvastatin (LIPITOR) 40 mg tablet Take 1 tablet by mouth once daily. amLODIPine (NORVASC) 5 mg tablet Magnesium Carbonate powd Mg unknown Zinc 50 mg tab Take by mouth. Ascorbic Acid (VITAMIN C) 1,000 mg tablet Take 1 tablet by mouth once daily. [place] [id number] 500 mg-500 mcg -1 mg-12.5 mg cap Take 500 mg by mouth once daily. ergocalciferol, vitamin D2, (VITAMIN D2 ORAL) Take by mouth. ALLERGIES: ALLERGIES Allergen Reactions Erythromycin GI Upset Latex Rash Penicillins GI Upset REVIEW of SYSTEMS: Constitutional: No weight loss, malaise or fevers. HEENT: Negative for frequent or significant headaches, No changes in hearing or vision, no nose bleeds or other nasal problems Respiratory: Negative for cough, wheezing, or shortness of breath Cardiovascular: Negative for chest pain, leg swelling or palpitations Gatrointestinal: Negative for abdominal discomfort, blood in stools or black stools or change in bowel habits Genitourinary: Positive for frequency Musculoskeletal: Negative for muscle pain and Positive for low back pain and joint pain Endocrine: Negative for cold or heat intolerance, polyuria, polydipsia and goiter Hematology/Lymphatic: Negative for prolonged bleeding, bruising easily or swollen nodes Neurologic: No history or headaches, syncope, paralysis, sei (more content not included)... [facility] 01-24-2025 History of Present illness Narrative Images from the original note were not included. [facility] DEPARTMENT OF VASCULAR SURGERY OUTPATIENT VISIT DATE January 24, 2025 OUTPATIENT VISIT TYPE CONSULTATION SERVICE DATE: 01/24/2025 SERVICE TIME: 11:08 AM PRIMARY CARE PHYSICIAN: Coleen Barrera MD REFERRING PROVIDER: Coleen Barrera [address] [facility] [id number] Consult requested for an opinion regarding the evaluation and treatment of the above. My final impression and recommendations will be communicated back to the requesting physician by way of the shared medical record or letter via [place] mail. CHIEF COMPLAINT: Patient presents with: New Patient History of Present Illness: Patient is a 79 year old White female presenting for consultation, evaluation and possible treatment of varicose veins.left sharp pain in lateral thigh and right posterior knee pain. . She has worn compression in the past. Predisposing factors included history of varicose vein surgery 2012 left SSV [address] with Dr. Maxwell. Sclerotherapy. Her mother had varicose veins. No specific history of injury or prior problems. Relieving factors include elevation of legs, reduced activity, and OTC pain medication with mild improvement in symptoms. Patient denies DVT, phlebitis, and treatment with blood thinners. PAIN ASSESSMENT: PAIN EVALUATION No data found in the last 1 encounters. Obstetric History T1 L2 SAB0 IAB0 Ectopic0 Multiple0 Live Births0 Name of Baby 1: Not recorded Date: Not recorded GA: Not recorded Type: Not recorded Apgar1: Not recorded Apgar5: Not recorded Living: Not recorded Name of Baby 2: Not recorded Date: Not recorded GA: Not recorded Type: Not recorded Apgar1: Not recorded Apgar5: Not recorded Living: Not recorded Duration of Symptoms: Progressive PREVIOUS TESTS: None PAST MEDICAL HISTORY Diagnosis Date Asymptomatic varicose veins 03/31/2011 Diverticulosis of colon (without mention of hemorrhage) Hypertension OAB (overactive bladder) 01/17/2015 Osteoporosis, unspecified Other and unspecified hyperlipidemia 10/06/2007 Personal history of colonic polyps last colon 06/09, 5-year interval Varicose veins Venous insufficiency (chronic) (peripheral) 03/09/2008 PAST SURGICAL HISTORY Procedure Laterality Date COLONOSCOPY FLX DX W/COLLJ SPEC WHEN PFRMD 06/19/05 Colonoscopy COLONOSCOPY FLX DX W/COLLJ SPEC WHEN PFRMD 07/31/2011 Colonoscopy COLONOSCOPY FLX DX W/COLLJ SPEC WHEN PFRMD 11/25/2016 Normal colonoscopy-10 year follow-up LIG/TRNSXJ FLP TUBE ABDL/VAG APPR UNI/BI 1970 Tubal ligation SOCIAL HISTORY: Social History Tobacco Use Smoking status: Never Smokeless tobacco: Never Substance Use Topics Alcohol use: Not Currently Drug use: No Comment: marijuana use years ago FAMILY HISTORY Problem Relation Age of Onset Colon Cancer Mother Heart Father of SC Hypertension Brother Hypertension Sister Hypertension Sister Hypertension Sister Hypertension Sister Heart Brother SC Hypertension Brother Heart Sister Triple bypass Heart Son mitral valve prolapse other (Eczema) Son Coronary Artery Disease Sister MEDICATIONS: pyrilamine-dextromethorphan (CAPRON DMT) 30-30 mg tab Take 1 tablet by mouth every 6 hours as needed. oxybutynin XL (DITROPAN XL) 5 mg 24 hr tablet Take 1 tablet by mouth once daily. aspirin, enteric coated (ASPIRIN, ENTERIC COATED) 81 mg EC tablet Take 81 mg by mouth once daily. Biotin 10,000 mcg cap Take by mouth. atorvastatin (LIPITOR) 40 mg tablet Take 1 tablet by mouth once daily. amLODIPine (NORVASC) 5 mg tablet Magnesium Carbonate powd Mg unknown Zinc 50 mg tab Take by mouth. Ascorbic Acid (VITAMIN C) 1,000 mg tablet Take 1 tablet by mouth once daily. [place] [id number] 500 mg-500 mcg -1 mg-12.5 mg cap Take 500 mg by mouth once daily. ergocalciferol, vitamin D2, (VITAMIN D2 ORAL) Take by mouth. ALLERGIES: ALLERGIES Allergen Reactions Erythromycin GI Upset Latex Rash Penicillins GI Upset REVIEW of SYSTEMS: Constitutional: No weight loss, malaise or fevers. HEENT: Negative for frequent or significant headaches, No changes in hearing or vision, no nose bleeds or other nasal problems Respiratory: Negative for cough, wheezing, or shortness of breath Cardiovascular: Negative for chest pain, leg swelling or palpitations Gatrointestinal: Negative for abdominal discomfort, blood in stools or black stools or change in bowel habits Genitourinary: Positive for frequency Musculoskeletal: Negative for muscle pain and Positive for low back pain and joint pain Endocrine: Negative for cold or heat intolerance, polyuria, polydipsia and goiter Hematology/Lymphatic: Negative for prolonged bleeding, bruising easily or swollen nodes Neurologic: No history or headaches, syncope, paralysis, seizures or tremors Integumentary: Negative for lesions, rash, and itching. PHYSICAL EXAM: VITALS: There were no vitals taken for this visit. General: Alert, oriented, cooperative, healthy appearance Integumentary: Normal color, no rash, no lesions. HEENT: EOM, pupils equal, round and reactive. Cardiovascular: Pulse regular. Lungs: No chest deformities or chest wall tenderness. Abdomen: Not examined Extremities: Varicose veins Neurological: AAOx3. Normal cognition and motor skills. Vascular: Dorsalis Pedal Right: Normal - Left: Normal Diagnostic tests reviewed for today's visit: Most recent labs Most recent imaging IMPRESSION: Ms. Dill is a 79 year old female with symptomatic varicose veins . PLAN and RECOMMENDATIONS: Discussed venous pathology with patient Recommend continued use of compression stockings, elevation and exercise Will get venous reflux testing and follow up to discuss results Prescription provided for compression stockings 20-30 mmHg and instructed on use SIGNATURE: Yee Saldana DO PATIENT NAME: Tamanna Dill DATE: January 24, 2025 TIME: 11:08 AM documented in this encounter [facility] 01-20-2025 Telephone encounter Note This has not bee filled in a year. Has she bee taking this? Thank you Kaity Matt APRN.FARHAD [facility] 01-19-2025 Telephone encounter Note Prescription Refill Information The patient has been identified by name and date of : Yes Caregiver verified no other encounters exist for this prescription request: Yes Caregiver confirmed with patient/requestor that no other refills are due, in the near future, with this provider at this time: Yes The last office visit in the department: 01/17/2025 Does the patient have a future office visit with this provider/department: Yes Requested Prescriptions Pending Prescriptions Disp Refills oxybutynin XL (DITROPAN XL) 5 mg 24 hr tablet 30 tablet 1 Sig: Take 1 tablet by mouth once daily. Viviana Eagle January 19, 2025 3:29 PM [facility] 01-17-2025 History of Present illness Narrative Radiology Service Progress Note PATIENT NAME: Tamanna Dill DATE OF SERVICE: January 17, 2025 TIME: 11:42 AM PATIENT IDENTITY VERIFICATION COMPLETED USING TWO (2) IDENTIFIERS: Name and Date of confirmed by patient verbally. FALL SCREENING: Has the patient had 2 falls in the last year or 1 fall with injury or currently using an Ambulatory Assistive Device (Walker, Cane, Wheelchair, Crutches, etc.)? No PATIENT GENDER DATA: Assigned female at . status: : No status: NO. PATIENT RELEVANT IMPLANT DATA REVIEWED: Yes PATIENT PRESENTS WITH AN IMPLANTABLE OR ATTACHED WATCH HAIRSPRING ASSEMBLER: No RADIOLOGY DEPARTMENT: General X-ray: Exam(s) Completed: Spine X-Ray(s): Lumbar AP / LAT / L5-S1 PERIPHERAL IV DATA: Not applicable SIGNED BY: RT Dominick(R) January 17, 2025 11:42 AM documented in this encounter [facility] 01-17-2025 Note HNO ID: [id number] Author: CHELSEY KRUEGER RT(R) Service: ? Author Type: Editor News Type: Progress Notes Filed: 01/17/2025 11:53 Note Text: Radiology Service Progress Note PATIENT NAME: Tamanna Dill DATE OF SERVICE: January 17, 2025 TIME: 11:42 AM PATIENT IDENTITY VERIFICATION COMPLETED USING TWO (2) IDENTIFIERS: Name and Date of confirmed by patient verbally. FALL SCREENING: Has the patient had 2 falls in the last year or 1 fall with injury or currently using an Ambulatory Assistive Device (Walker, Cane, Wheelchair, Crutches, etc.)? No PATIENT GENDER DATA: Assigned female at . status: : No status: NO. PATIENT RELEVANT IMPLANT DATA REVIEWED: Yes PATIENT PRESENTS WITH AN IMPLANTABLE OR ATTACHED WATCH HAIRSPRING ASSEMBLER: No RADIOLOGY DEPARTMENT: General X-ray: Exam(s) Completed: Spine X-Ray(s): Lumbar AP / LAT / L5-S1 PERIPHERAL IV DATA: Not applicable SIGNED BY: RT Dominick(R) January 17, 2025 11:42 AM [facility] 01-17-2025 Instructions Coleen Barrera MD - 01/17/2025 10:56 AM EDT We discussed your knee pain: - You are currently seeing Dr. Stephens, an orthopedic surgeon, for your right knee pain. You have decided against knee surgery and are exploring alternative treatments, such as gel injections, which may provide relief for up to six months. - You have previously had two cortisone shots, which were effective, but you are seeking a more long-term solution. - You may consider consulting the [facility] for further evaluation of non-surgical options. We discussed your osteoporosis: - Your last DEXA scan was in 2018, which confirmed osteoporosis. You were not on medication at that time but are now open to treatment. - I recommend starting weight-bearing exercises, such as walking, and taking calcium and vitamin D supplements. However, these measures will only provide minimal improvement. - To significantly improve bone density, I recommend starting osteoporosis medications. Please let me know if you would like to proceed with this. We discussed your varicose veins: - You have significant varicose veins, particularly on one side, which can cause discomfort and throbbing. You have previously tried compression stockings and vein injections without success. - I will refer you to Dr. Yee Saldana, a vascular specialist, for further evaluation and management. She may perform an ultrasound to assess blood flow and vein function. We discussed your bladder issues: - You experience frequent urination, particularly at night (hourly), and during the day. This may be due to an overactive bladder or neurogenic bladder. - You have a prescription for oxybutynin, which can help relax the bladder muscle and reduce the urge to urinate frequently. Please start taking this medication as prescribed and monitor your symptoms. - I will refer you to Dr. Neena Lilly, a urogynecologist in [place], for further evaluation, including possible urodynamic testing to assess bladder function. We discussed your left thigh pain and possible sciatica: - You experience pain and numbness in your left thigh, which may be related to sciatica caused by nerve compression in your back. - I will order an X-ray of your back to evaluate for degenerative changes or nerve compression. - If needed, we will discuss further management based on the results. We discussed your overall health: - Your recent lab work, including kidney function and electrolytes, was normal. - You do not have symptoms of blood clots, such as swelling, redness, or pain in your calves. However, I will refer you to Dr. Saldana for further evaluation of your leg symptoms and varicose veins. Follow-Up: - Please schedule the following appointments: - Dr. Yee Saldana (vascular specialist) for evaluation of your varicose veins and leg symptoms. - Dr. Neena Lilly (urogynecologist) for bladder evaluation and testing. - Complete the X-ray of your back as ordered. - Follow up with me in 2-3 weeks to discuss your progress and test results. documented in this encounter [facility] 01-17-2025 Note HNO ID: [id number] Author: COLEEN BARRERA MD Service: ? Author Type: Physician Type: Progress Notes Filed: 01/17/2025 12:57 Note Text: Tamanna Dill is a 79 year old female here for a Medicare wellness visit. Medicare Health Risk Assessment General Health Very good Exercise: Minutes/Day 60 min Exercise: Days/Week 5 days Alcohol: Daily Use Never Alcohol: Drinks/Day Patient does not drink Alcohol: 6 or more drinks Never Feel off balance No Concerns: Teeth/Dentures No Concerns: Sexual function No Troubled by feelings None of the above Frequency: Eating healthy diet Nearly every day ADLs requiring help None of the above Safety precautions in home/vehicle Yes Smoke, vape, chews tobacco No Difficulty hearing Yes, I wear a hearing aid Difficulty seeing No Current Providers Specialists: I have reviewed specialist-related care of the patient in the medical record. Medical/Family history review Reviewed and updated problem list, medical/surgical/family/social history, medications, and allergies. Opioid use review Opioid Medications (last 90 days) No data to display Anxiety/Depression screening PHQ-9 Score: 0. SIDDHARTH-7 Score: 0. Recommendation: no further intervention at this time Cognitive screening Mini Cog Score: 5 Cognitive screening reviewed and No further action needed (score 3-5). Functional Observation Was the patient's Timed Up AND Go test unsteady or >= 12 seconds? No Advance Care Planning Surrogate decision maker and/or advance care plan documented Measurements BP 109/71 Pulse 73 Resp 16 Ht 147.3 cm (4' 9.99) Wt 44.5 kg (98 lb 3.2 oz) BMI 20.53 kg/m? Vision Screening: Follows with optometry/ophthalmology Assessment/Plan Medicare annual wellness visit, initial (Z00.00) - Counseled on healthy diet and regular exercise - Fall avoidance information provided - Personalized prevention plan provided. Reason for Visit HPI Tamanna Dill is a 79-year-old female with a history of osteoporosis, right knee pain, varicose veins, and urinary frequency, presenting for evaluation of multiple concerns. Tamanna reports a significant decrease in physical activity due to right knee pain. She is under the care of an orthopedic surgeon, Dr. Stephens, who has recommended knee surgery, which she is reluctant to undergo. She is considering an evaluation at the [facility] for alternative treatments, such as hyaluronic acid injections. She has received two corticosteroid injections in the past, which provided temporary relief, but she is seeking a more permanent solution. She also reports a history of osteoporosis, with her last DEXA scan performed in 2018, which confirmed the diagnosis. Tamanna has not been on any medication for osteoporosis but is now open to treatment due to increasing concerns about her bone health. She experiences pain and numbness in her left thigh and suspects sciatica, noting that the pain radiates to the left side. She also reports low back pain, particularly in the morning. Tamanna has a history of varicose veins and has previously seen a vascular specialist, Dr. Maxwell, who performed sclerotherapy without significant improvement. She has used compression stockings in the past but found them difficult to manage. She reports a sensation of a knot in her leg and is concerned about the possibility of blood clots, although she denies any swelling. Additionally, Tamanna reports severe urinary frequency, describing it as out of control. She voids approximately every hour at night and multiple times during the day, with each episode producing about 4-6 ounces of urine. She drinks minimal water and consumes one cup of decaffeinated coffee in the morning. She was previously prescribed oxybutynin by a nurse practitioner but did not take it due to concerns about taking multiple medications. She is now willing to try the medication. She has a history of COVID-19 and was hospitalized in the ICU, where she noted excessive urine output. Tamanna has advanced directives and a living will in place. Social History Tobacco Use Smoking status: Never Smokeless tobacco: Never Substance Use Topics Alcohol use: Not Currently Drug use: No Comment: marijuana use years ago Past medical history, appointments, medications, allergies reviewed. Pertinent Lab/Diagnostic Studies are reviewed and discussed today Current Outpatient Medications: pyrilamine-dextromethorphan (CAPRON DMT) 30-30 mg tab oxybutynin XL (DITROPAN XL) 5 mg 24 hr tablet aspirin, enteric coated (ASPIRIN, ENTERIC COATED) 81 mg EC tablet Biotin 10,000 mcg cap atorvastatin (LIPITOR) 40 mg tablet amLODIPine (NORVASC) 5 mg tablet Magnesium Carbonate powd Zinc 50 mg tab Ascorbic Acid (VITAMIN C) 1,000 mg tablet [place] [id number] 500 mg-500 mcg -1 mg-12.5 mg cap ergocalciferol, vitamin D2, (VITAMIN D2 ORAL) glucosam/chond/h (more content not included)... [facility] 01-17-2025 History of Present illness Narrative Images from the original note were not included. Tamanna Dill is a 79 year old female here for a Medicare wellness visit. Medicare Health Risk Assessment General Health Very good Exercise: Minutes/Day 60 min Exercise: Days/Week 5 days Alcohol: Daily Use Never Alcohol: Drinks/Day Patient does not drink Alcohol: 6 or more drinks Never Feel off balance No Concerns: Teeth/Dentures No Concerns: Sexual function No Troubled by feelings None of the above Frequency: Eating healthy diet Nearly every day ADLs requiring help None of the above Safety precautions in home/vehicle Yes Smoke, vape, chews tobacco No Difficulty hearing Yes, I wear a hearing aid Difficulty seeing No Current Providers Specialists: I have reviewed specialist-related care of the patient in the medical record. Medical/Family history review Reviewed and updated problem list, medical/surgical/family/social history, medications, and allergies. Opioid use review Opioid Medications (last 90 days) No data to display Anxiety/Depression screening PHQ-9 Score: 0. SIDDHARTH-7 Score: 0. Recommendation: no further intervention at this time Cognitive screening Mini Cog Score: 5 Cognitive screening reviewed and No further action needed (score 3-5). Functional Observation Was the patient's Timed Up & Go test unsteady or >= 12 seconds? No Advance Care Planning Surrogate decision maker and/or advance care plan documented Measurements BP 109/71 Pulse 73 Resp 16 Ht 147.3 cm (4' 9.99) Wt 44.5 kg (98 lb 3.2 oz) BMI 20.53 kg/m Vision Screening: Follows with optometry/ophthalmology Assessment/Plan Medicare annual wellness visit, initial (Z00.00) - Counseled on healthy diet and regular exercise - Fall avoidance information provided - Personalized prevention plan provided. Reason for Visit HPI Tamanna Dill is a 79-year-old female with a history of osteoporosis, right knee pain, varicose veins, and urinary frequency, presenting for evaluation of multiple concerns. Tamanna reports a significant decrease in physical activity due to right knee pain. She is under the care of an orthopedic surgeon, Dr. Stephens, who has recommended knee surgery, which she is reluctant to undergo. She is considering an evaluation at the [facility] for alternative treatments, such as hyaluronic acid injections. She has received two corticosteroid injections in the past, which provided temporary relief, but she is seeking a more permanent solution. She also reports a history of osteoporosis, with her last DEXA scan performed in 2018, which confirmed the diagnosis. Tamanna has not been on any medication for osteoporosis but is now open to treatment due to increasing concerns about her bone health. She experiences pain and numbness in her left thigh and suspects sciatica, noting that the pain radiates to the left side. She also reports low back pain, particularly in the morning. Tamanna has a history of varicose veins and has previously seen a vascular specialist, Dr. Maxwell, who performed sclerotherapy without significant improvement. She has used compression stockings in the past but found them difficult to manage. She reports a sensation of a knot in her leg and is concerned about the possibility of blood clots, although she denies any swelling. Additionally, Tamanna reports severe urinary frequency, describing it as out of control. She voids approximately every hour at night and multiple times during the day, with each episode producing about 4-6 ounces of urine. She drinks minimal water and consumes one cup of decaffeinated coffee in the morning. She was previously prescribed oxybutynin by a nurse practitioner but did not take it due to concerns about taking multiple medications. She is now willing to try the medication. She has a history of COVID-19 and was hospitalized in the ICU, where she noted excessive urine output. Tamanna has advanced directives and a living will in place. Social History Tobacco Use Smoking status: Never Smokeless tobacco: Never Substance Use Topics Alcohol use: Not Currently Drug use: No Comment: marijuana use years ago Past medical history, appointments, medications, allergies reviewed. Pertinent Lab/Diagnostic Studies are reviewed and discussed today Current Outpatient Medications: pyrilamine-dextromethorphan (CAPRON DMT) 30-30 mg tab oxybutynin XL (DITROPAN XL) 5 mg 24 hr tablet aspirin, enteric coated (ASPIRIN, ENTERIC COATED) 81 mg EC tablet Biotin 10,000 mcg cap atorvastatin (LIPITOR) 40 mg tablet amLODIPine (NORVASC) 5 mg tablet Magnesium Carbonate powd Zinc 50 mg tab Ascorbic Acid (VITAMIN C) 1,000 mg tablet [place] [id number] 500 mg-500 mcg -1 mg-12.5 mg cap ergocalciferol, vitamin D2, (VITAMIN D2 ORAL) glucosam/chond/hyalu/CF borate (MOVE FREE JOINT HEALTH ORAL) Health Maintenance Depression Screening Anxiety Screening DTaP,Tdap,Td Vaccine(1 - Tdap) Shingrix Vaccine(2 of 3) Bone Density Screening Covid-19 Vaccine( - season) Advance Directive Discussion Medicare Advantage Annual Wellness Visit@ Review Of Systems Musculoskeletal: (+) right knee pain, (+) left thigh pain, (+) leg pain, (+) bilateral leg fatigue, (+) low back pain Neurological: (+) left thigh numbness Cardiovascular: (-) lower extremity swelling Genitourinary: (+) urinary frequency Psychiatric: (-) depressed mood Physical Exam BP 109/71 Pulse 73 Resp 16 Ht 147.3 cm (4' 9.99) Wt 44.5 kg (98 lb 3.2 oz) BMI 20.53 kg/m GENERAL: NAD, alert and oriented. SKIN: Unremarkable, no rash or skin lesions. HEAD: Normocephalic. EYES: PERRLA, EOMI, conjunctiva clear. LUNGS: Clear to auscultation bilaterally, no wheezes/rhonchi/rales. HEART: Regular rate and rhythm, no murmurs. No ectopy. EXTREMITIES: No deformities, no skin discoloration, no edema. Significant varicose veins noted. NEURO: Awake, alert and oriented x3, cranial nerves II-XII grossly intact, normal gait, no involuntary motions. Able to recall 3 words. Labs - Laboratory evaluation: Normal renal function; blood tests within normal limits Imaging (2018) DEXA Scan: Findings consistent with osteoporosis Assessment and Plan 1. Medicare annual wellness visit, subsequent (Z00.00) Completed. Patient is generally in good health, does not consume alcohol, and denies depression. Hearing aid in use. No concerns with memory or cognitive function based on recall and clock drawing tests. - Discussed importance of regular exercise; patient currently limited by knee issues. - Follow-up in 2-3 weeks to discuss progress and any new findings from referrals and tests. 2. Varicose veins of both lower extremities with pain (I83.813) Significant varicose veins noted on examination. Previous treatment with compression stockings was unsuccessful due to difficulty in application and removal. - Referred to Dr. Yee Saldana, vascular specialist, for further evaluation and management. 3. Chronic left-sided low back pain with left-sided sciatica (M54.42) Experiencing pain and numbness in the left thigh, consistent with sciatica. No current medication for osteoporosis, which may contribute to vertebral compression and nerve impingement. - Ordered X-ray of the lumbar spine to assess for degenerative changes and potential nerve impingement. 4. Neurogenic bladder (N31.9) Urinary frequency (R35.0) Frequent urination, especially nocturnally, with small volumes. Previously prescribed oxybutynin but has not initiated treatment. - Advised to start oxybutynin as prescribed to reduce urinary frequency. - Ordered 24-hour urine collection to quantify total urine output. - Referred to Dr. Neena Lilly, urogynecologist, for comprehensive evaluation and potential urodynamic testing. 5. Screening for depression (Z13.31) No signs of depression reported or observed. 6. Encounter for screening examination for other mental health and behavioral disorders (Z13.39) No concerns identified during the visit. 7. Age-related osteoporosis without current pathological fracture (M81.0) Last DEXA scan in 2018 confirmed osteoporosis. No current treatment with bisphosphonates or other osteoporosis medications. - Discussed the importance of medication to prevent further bone loss and potential fractures. - Recommended weight-bearing exercises and supplementation with vitamin D and calcium. Voice recognition software was used to compose this office note. Please excuse any unintended typographical errors. Recording using Aquir[employer] software for draft documentation of the visit was discussed with the patient/authorized wireless sales representative; all questions welcomed and answered. Patient/authorized wireless sales representative agreed to proceed Coleen Barrera MD documented in this encounter [facility] 01-03-2025 Note Patient Outreach (IN [facility]) TAMANNA DILL ([id number]) 1945 F Date Time Provider Department 01/03/25 COLEEN BARRERA During your visit today, we recorded the following information about you: Allergies As of Date: 01/03/2025 Noted Allergy Reaction ERYTHROMYCIN 06/04/2009 8 - GI Upset LATEX 07/25/2011 2 - Rash PENICILLINS 06/04/2009 8 - GI Upset Date Reviewed: 05/20/2024 Reviewed by: Emily Carrera APRN.SSIS SSRS DEVELOPER - Fully Assessed Visit Diagnoses:Hyperlipidemia [E78.5] Medication management [Z79.899] Order(s):LIPID PANEL, FASTING [SQLIPB] Order #: [id number] FUTURE COMPLETE BLOOD COUNT [SQCBC] Order #: [id number] FUTURE Prescriptions as of 01/06/2025 - pyrilamine-dextromethorphan (CAPRON DMT) 30-30 mg tab Take 1 tablet by mouth every 6 hours as needed. - oxybutynin XL (DITROPAN XL) 5 mg 24 hr tablet Take 1 tablet by mouth once daily. - aspirin, enteric coated (ASPIRIN, ENTERIC COATED) 81 mg EC tablet Take 81 mg by mouth once daily. - Biotin 10,000 mcg cap Take by mouth. - glucosam/chond/hyalu/CF borate (MOVE FREE JOINT HEALTH ORAL) Take by mouth. - atorvastatin (LIPITOR) 40 mg tablet Take 1 tablet by mouth once daily. - amLODIPine (NORVASC) 5 mg tablet - Magnesium Carbonate powd Mg unknown - Zinc 50 mg tab Take by mouth. - Ascorbic Acid (VITAMIN C) 1,000 mg tablet Take 1 tablet by mouth once daily. - [place] [id number]-[id number] 500 mg-500 mcg -1 mg-12.5 mg cap Take 500 mg by mouth once daily. - ergocalciferol, vitamin D2, (VITAMIN D2 ORAL) Take by mouth. Meds Comments as of 04/18/2021: Takes Folic Acid 800 mcg once daily. Vitamin D3 50 mcg daily. [place] 3 500 mg daily. Vitamin B 1,000 mg daily. Problem List As Of Date 01/03/2025 Noted Resolved FAMILY HX GI MALIGNANCY [Z80.0] History of colon polyps [Z86.0100] Benign neoplasm of other specified sites [D36.7]07/30/2005 04/23/2015 BONE AND CARTILAGE DIS NOS [M89.9, M94.9] 03/23/2006 10/06/2007 Osteoporosis [M81.0] Hyperlipidemia [E78.5] 10/06/2007 PAIN LEG [M79.609] 03/09/2008 04/23/2015 Incomplete uterovaginal prolapse [N81.2] 04/17/2008 Porokeratosis [Q82.8] 05/24/2009 Varicose veins [I83.90] 04/23/2015 Sciatica [M54.30] 01/28/2012 04/23/2015 Hypertension [I10] 08/17/2013 04/23/2015 Urge incontinence of urine [N39.41] 05/30/2018 Voiding dysfunction [N39.8] 05/30/2018 Vaginal atrophy [N95.2] 05/30/2018 Pelvic muscle wasting [N81.84] 05/30/2018 Coronary artery disease involving [place]*10/13/2023 Palpitations [R00.2] 10/13/2023 S/P drug eluting coronary stent placement [Z95.*10/13/2023 Overactive bladder [N32.81] 10/13/2023 Encounter Status:Closed by SHERLY PRODUSER on 01/06/25 [facility] 12-14-2024 Evaluation note Diagnosis Onset Date Resolution Atherosclerosis of coronary artery of [place] heart without angina pectoris acute December 14, 2024 8:31am History of coronary artery stent placement October 09, 2023 acute December 14, 2024 8:31am Hyperlipidemia acute December 14, 2024 8:31am Hypertension inactive December 14 025 8:31am Cystocele acute March 01, 2025 9:13am Pessary maintenance acute Augus 2024 9:13am [facility] Work Phone: [phone]) 955-487904-07-2025 Evaluation note* Diagnosis Onset Date Resolution Status Admit Date Cystocele acute October 10 10:21am Pessary maintenance acute October 10, 2024 10:21am Atherosclerosis of coronary artery of [place] heart without angina pectoris acute December 14, 2024 8:31am History of coronary artery stent placement October 09, 2023 acute December 14, 2024 8:31am Hyperlipidemia acute December 14, 2024 8:31am Hypertension inactive December 14, 025 8:31am [facility] Work Phone: [phone] Instructions* Patient Instructions* Emily Carrera APRN.SSIS SSRS DEVELOPER - 05/20/2024 10:49 AM EST CARE ADVICE FOR COUGH: Drink warm fluids. Inhale warm mist. (Reason: both relax the airway and loosen up the phlegm) Suck on cough drops or hard candy to coat the irritated throat. OTC COUGH DROPS: Cough drops can help a lot, especially for mild coughs. They reduce coughing by soothing your irritated throat and removing that tickle sensation in the back of the throat. Cough drops also have the advantage of portability - you can carry them with you. HOME REMEDY - HARD CANDY: Hard candy works just as well as medicine-flavored OTC cough drops. People who have diabetes should use sugar-free candy. HOME REMEDY - HONEY: This old home remedy has been shown to help decrease coughing at night. The adult dosage is 2 teaspoons (10 ml) at bedtime. Honey should not be given to infants under one year ofage. HUMIDIFIER: If the air is dry, use a humidifier in the bedroom. (Reason: dry air makes coughs worse) AVOID TOBACCO SMOKE: Smoking or being exposed to smoke makes coughs much worse. SORE THROAT For relief of sore throat: Sip warm chicken broth or apple juice Suck on hard candy or a throat lozenge (OTC) Gargle with warm salt water four times a day To make salt water, put 1/2 teaspoon of salt in 8 oz (240 ml) of warm water. Avoid cigarette smoke CALL BACK IF: Difficulty breathing occurs You develop any new or worsening symptoms You have any questions or concerns [facility] NoteHNO ID: [id number] Author: EMILY CARRERA APRN.SSIS SSRS DEVELOPER Service: ? Author Type: Nurse Practitioner Type: Progress Notes Filed: 05/20/2024 10:52 Note Text: CC: Patient presents with: nagging cough and runny nose x 1 week HPI: Tamanna Dill is a 78 year old female who presents to the office with above complaint Symptoms began about one week ago and are about the same Symptoms include: Temperature elevation: No Chills: No Cough: Yes productive with clear sputum Shortness of breath: No Fatigue: No Muscle aches: No Headache: No New loss of smell or taste: No Sore throat: No Nasal congestion: No Rhinorrhea: Yes with clear drainage Nausea and/or vomiting: No Diarrhea: No Other Associated symptoms: post nasal drip. PMH: Non-contributory OTC meds/remedies that patient has tried: [place] cough drops. Exposures: Sick contacts? No Family or close contacts with confirmed/probable COVID-19 in last 14 days? No Home COVID test: no Review of Systems See HPI PAST MEDICAL HISTORY Diagnosis Date Asymptomatic varicose veins 03/31/2011 Diverticulosis of colon (without mention of hemorrhage) Hypertension OAB (overactive bladder) 01/17/2015 Osteoporosis, unspecified Other and unspecified hyperlipidemia 10/06/2007 Personal history of colonic polyps last colon 06/09, 5-year interval Varicose veins Venous insufficiency (chronic) (peripheral) 03/09/2008 PAST SURGICAL HISTORY Procedure Laterality Date COLONOSCOPY FLX DX W/COLLJ SPEC WHEN PFRMD 06/19/05 Colonoscopy COLONOSCOPY FLX DX W/COLLJ SPEC WHEN PFRMD 07/31/2011 Colonoscopy COLONOSCOPY FLX DX W/COLLJ SPEC WHEN PFRMD 11/25/2016 Normal colonoscopy-10 year follow-up LIG/TRNSXJ FLP TUBE ABDL/VAG APPR UNI/BI 1970 Tubal ligation ALLERGIES Erythromycin, Latex, and Penicillins MEDICATIONS oxybutynin XL (DITROPAN XL) 5 mg 24 hr tablet Take 1 tablet by mouth once daily. clopidogrel (PLAVIX) 75 mg tablet Take 75 mg by mouth once daily. aspirin, enteric coated (ASPIRIN, ENTERIC COATED) 81 mg EC tablet Take 81 mg by mouth once daily. Biotin 10,000 mcg cap Take by mouth. glucosam/chond/hyalu/CF borate (MOVE FREE JOINT HEALTH ORAL) Take by mouth. atorvastatin (LIPITOR) 40 mg tablet Take 1 tablet by mouth once daily. amLODIPine (NORVASC) 5 mg tablet Magnesium Carbonate powd Mg unknown Zinc 50 mg tab Take by mouth. Ascorbic Acid (VITAMIN C) 1,000 mg tablet Take 1 tablet by mouth once daily. [place] [id number]-Hjrbdzyxqpv 500 mg-500 mcg -1 mg-12.5 mg cap Take 500 mg by mouth once daily. ergocalciferol, vitamin D2, (VITAMIN D2 ORAL) Take by mouth. FAMILY HISTORY Problem Relation Age of Onset Colon Cancer Mother Heart Father of [place] Hypertension Brother Hypertension Sister Hypertension Sister Hypertension Sister Hypertension Sister Heart Brother [place] Hypertension Brother Heart Sister Triple bypass Heart Son mitral valve prolapse other (Eczema) Son Coronary Artery Disease Sister Social History Tobacco Use Smoking status: Never Smokeless tobacco: Never Substance Use Topics Alcohol use: Not Currently Drug use: No Comment: marijuana use years ago BP 118/68 Pulse 83 Temp 37.2 ?C (98.9 ?F) (Temporal) Resp 16 Wt 44.1 kg (97 lb 3.6 oz) SpO2 95% BMI 20.32 kg/m? Physical Exam Vitals reviewed. Constitutional: Appearance: Normal appearance. Cardiovascular: Rate and Rhythm: Normal rate and regular rhythm. Heart sounds: Normal heart sounds. No murmur heard. Pulmonary: Effort: Pulmonary effort is normal. Breath sounds: Normal breath sounds. No wheezing, rhonchi or rales. Skin: General: Skin is warm and dry. Neurological: Mental Status: She is alert and oriented to person, place, and time. Psychiatric: Mood and Affect: Mood normal. Behavior: Behavior normal. Cognition and Memory: Cognition normal. ASSESSMENT/PLAN: 1. Viral URI with cough - ICD9: 465.9, ICD10: J06.9 - Discussed viral etiology and rationale for treatment. - Symptomatic treatment with prn analgesia - Supportive care with fluids and rest - cough care advice given - The patient may also use [place] DM every 6 hours as needed. - Follow up in 3-5 days if symptoms persist or sooner if worsening of symptoms Prescription instructions reviewed with patient as applicable. Potential red flag symptoms discussed with the patient. Reviewed appropriate action plan to take if red flag symptoms occur. Patient agreeable to treatment plan. Emily Carrera APRN.[facility]11-15-2024 History of Present illness Narrative* Emily Carrera APRN.SSIS SSRS DEVELOPER - 05/20/2024 10:41 AM EST CC: Patient presents with: nagging cough and runny nose x 1 week HPI: Tamanna Dill is a 78 year old female who presents to the office with above complaint Symptoms began about one week ago and are about the same Symptoms include: Temperature elevation: No Chills: No Cough: Yes productive with clear sputum Shortness of breath: No Fatigue: No Muscle aches: No Headache: No New loss of smell or taste: No Sore throat: No Nasal congestion: No Rhinorrhea: Yes with clear drainage Nausea and/or vomiting: No Diarrhea: No Other Associated symptoms: post nasal drip. PMH: Non-contributory OTC meds/remedies that patient has tried: [place] cough drops. Exposures: Sick contacts? No Family or close contacts with confirmed/probable COVID-19 in last 14 days? No Home COVID test: no Review of Systems See HPI PAST MEDICAL HISTORY Diagnosis Date Asymptomatic varicose veins 03/31/2011 Diverticulosis of colon (without mention of hemorrhage) Hypertension OAB (overactive bladder) 01/17/2015 Osteoporosis, unspecified Other and unspecified hyperlipidemia 10/06/2007 Personal history of colonic polyps last colon 06/09, 5-year interval Varicose veins Venous insufficiency (chronic) (peripheral) 03/09/2008 PAST SURGICAL HISTORY Procedure Laterality Date COLONOSCOPY FLX DX W/COLLJ SPEC WHEN PFRMD 06/19/05 Colonoscopy COLONOSCOPY FLX DX W/COLLJ SPEC WHEN PFRMD 07/31/2011 Colonoscopy COLONOSCOPY FLX DX W/COLLJ SPEC WHEN PFRMD 11/25/2016 Normal colonoscopy-10 year follow-up LIG/TRNSXJ FLP TUBE ABDL/VAG APPR UNI/BI 1970 Tubal ligation ALLERGIES Erythromycin, Latex, and Penicillins MEDICATIONS oxybutynin XL (DITROPAN XL) 5 mg 24 hr tablet Take 1 tablet by mouth once daily. clopidogrel (PLAVIX) 75 mg tablet Take 75 mg by mouth once daily. aspirin, enteric coated (ASPIRIN, ENTERIC COATED) 81 mg EC tablet Take 81 mg by mouth once daily. Biotin 10,000 mcg cap Take by mouth. glucosam/chond/hyalu/CF borate (MOVE FREE JOINT HEALTH ORAL) Take by mouth. atorvastatin (LIPITOR) 40 mg tablet Take 1 tablet by mouth once daily. amLODIPine (NORVASC) 5 mg tablet Magnesium Carbonate powd Mg unknown Zinc 50 mg tab Take by mouth. Ascorbic Acid (VITAMIN C) 1,000 mg tablet Take 1 tablet by mouth once daily. [place] [id number]-Kqjtaeqqktu 500 mg-500 mcg -1 mg-12.5 mg cap Take 500 mg by mouth once daily. ergocalciferol, vitamin D2, (VITAMIN D2 ORAL) Take by mouth. FAMILY HISTORY Problem Relation Age of Onset Colon Cancer Mother Heart Father of [place] Hypertension Brother Hypertension Sister Hypertension Sister Hypertension Sister Hypertension Sister Heart Brother [place] Hypertension Brother Heart Sister Triple bypass Heart Son mitral valve prolapse other (Eczema) Son Coronary Artery Disease Sister Social History Tobacco Use Smoking status: Never Smokeless tobacco: Never Substance Use Topics Alcohol use: Not Currently Drug use: No Comment: marijuana use years ago BP 118/68 Pulse 83 Temp 37.2 C (98.9 F) (Temporal) Resp 16 Wt 44.1 kg (97 lb 3.6 oz) HuR101% BMI 20.32 kg/m Physical Exam Vitals reviewed. Constitutional: Appearance: Normal appearance. Cardiovascular: Rate and Rhythm: Normal rate and regular rhythm. Heart sounds: Normal heart sounds. No murmur heard. Pulmonary: Effort: Pulmonary effort is normal. Breath sounds: Normal breath sounds. No wheezing, rhonchi or rales. Skin: General: Skin is warm and dry. Neurological: Mental Status: She is alert and oriented to person, place, and time. Psychiatric: Mood and Affect: Mood normal. Behavior: Behavior normal. Cognition and Memory: Cognition normal. ASSESSMENT/PLAN: 1. Viral URI with cough - ICD9: 465.9, ICD10: J06.9 - Discussed viral etiology and rationale for treatment. - Symptomatic treatment with prn analgesia - Supportive care with fluids and rest - cough care advice given - The patient may also use Bl[place]om DM every 6 hours as needed. - Follow up in 3-5 days if symptoms persist or sooner if worsening of symptoms Prescription instructions reviewed with patient as applicable. Potential red flag symptoms discussed with the patient. Reviewed appropriate action plan to take if red flag symptoms occur. Patient agreeable to treatment plan. Emily Carrera APRN.SSIS SSRS DEVELOPER documented in this encounterMarymount Hospital08-16-2024 History of Present illness Narrative* Beverly Fowler MA - 02/19/2024 11:54 AM EDT POPULATION HEALTH NAVIGATION OUTREACH Action/FYI Patient is on [facility] CURRENT ROSTER Workbench list for below and needs appointment to address: Depression Screening Anxiety Screening BP Controlled (<130/80) DTaP,Tdap,Td Vaccine(1 - Tdap) Shingrix Vaccine(2 of 3) Bone Density Screening Covid-19 Vaccine( - season) No results found for: HBA1C Patient due for: Medicare Annual Wellness Visit Controlling Blood Pressure Left message for patient to call back. Sent Here@ Networks message. No HCC Reason for Outreach Care Gap/HCC or Scheduling Wellness Visits Care Gaps due: Medicare Annual Wellness Visit Controlling Blood Pressure Patient Contacted: Unable or unnecessary to reach patient: Left message Action [employer] message sent Navigation Signature: Beverly Fowler MA February 19, 2024 11:54 AM documented in this encounterMarymount Hospital07-15-2024 History of Present illness Narrative* Kaity Matt APRN.CNP - 01/18/2024 8:17 AM EDT CC: Patient presents with: Recheck: 6 month follow up HPI Tamanna Dill is a 78 year old female who presents today for routine follow up but with concerns. CAD HLD and HTN: Ms. Dill indicates that she is feeling well and denies any symptoms referable toelevated blood pressure. Specifically denies headache, chest pain, palpitations, dyspnea, and peripheral edema. Patient denies any side effects of her medication(s) and is compliant with their regimen. She does check BP's away from this office with average BP's in the 120s/60s range. She watches her diet for sodium, low fat and low cholesterol most of the time. In cardiac rehab after stent placement this past October and starting to use weights for strengthening. Last 3 Encounter BP Readings: Date: BP: 01/18/2024 130/70 12/04/2023 120/74 10/28/2023 128/68 Has had urinary incontinence with frequency for years. Has some during the day but mainly at night uses the restroom on average 15 times with some urge incontinence. Has a pessary she states is for uterine prolapse and follows with Dr. Field for gynecology. Has not seen a urologist for urinary issues. Denies abdominal pain, difficulty/pain urinating, fever, chills, blood in urine, dark/foul smellingurine, or N/V. REVIEW OF SYSTEMS See HPI PAST MEDICAL HISTORY Diagnosis Date Asymptomatic varicose veins 03/31/2011 Diverticulosis of colon (without mention of hemorrhage) Hypertension OAB (overactive bladder) 01/17/2015 Osteoporosis, unspecified Other and unspecified hyperlipidemia 10/06/2007 Personal history of colonic polyps last colon 06/09, 5-year interval Varicose veins Venous insufficiency (chronic) (peripheral) 03/09/2008 PAST SURGICAL HISTORY Procedure Laterality Date COLONOSCOPY FLX DX W/COLLJ SPEC WHEN PFRMD 06/19/05 Colonoscopy COLONOSCOPY FLX DX W/COLLJ SPEC WHEN PFRMD 07/31/2011 Colonoscopy COLONOSCOPY FLX DX W/COLLJ SPEC WHEN PFRMD 11/25/2016 Normal colonoscopy-10 year follow-up LIG/TRNSXJ FLP TUBE ABDL/VAG APPR UNI/BI 1970 Tubal ligation ALLERGIES Erythromycin, Latex, and Penicillins MEDICATIONS clopidogrel (PLAVIX) 75 mg tablet Take 75 mg by mouth once daily. aspirin, enteric coated (ASPIRIN, ENTERIC COATED) 81 mg EC tablet Take 81 mg by mouth once daily. Biotin 10,000 mcg cap Take by mouth. glucosam/chond/hyalu/CF borate (MOVE FREE JOINT HEALTH ORAL) Take by mouth. atorvastatin (LIPITOR) 40 mg tablet Take 1 tablet by mouth once daily. amLODIPine (NORVASC) 5 mg tablet Magnesium Carbonate powd Mg unknown Zinc 50 mg tab Take by mouth. Ascorbic Acid (VITAMIN C) 1,000 mg tablet Take 1 tablet by mouth once daily. [place] [id number] 500 mg-500 mcg -1 mg-12.5 mg cap Take 500 mg by mouth once daily. ergocalciferol, vitamin D2, (VITAMIN D2 ORAL) Take by mouth. FAMILY HISTORY Problem Relation Age of Onset Colon Cancer Mother Heart Father of SC Hypertension Brother Hypertension Sister Hypertension Sister Hypertension Sister Hypertension Sister Heart Brother SC Hypertension Brother Heart Sister Triple bypass Heart Son mitral valve prolapse other (Eczema) Son Coronary Artery Disease Sister Social History Tobacco Use Smoking status: Never Smokeless tobacco: Never Substance Use Topics Alcohol use: Not Currently Drug use: No Comment: marijuana use years ago PHYSICAL EXAM BP 130/70 Pulse 76 Resp 16 Wt 44.5 kg (98 lb) SpO2 97% BMI 20.48 kg/m General Appearance: well appearing, in no acute distress, alert Eyes: conjunctiva pink and moist, no icterus, sclera white, non-injected Lungs: Lungs clear to auscultation. No wheezing, rhonchi, rales. Heart: RRR without murmur, gallop, or rubs. No ectopy Abdomen: Abdomen soft, non-tender. Bowel sounds normal. No masses, organomegaly Health maintenance reviewed with patient: DTaP,Tdap,Td Vaccine(1 - Tdap) Never done Shingrix Vaccine(2 of 3) due on 03/15/2009 Bone Density Screening due on 08/25/2019 Covid-19 Vaccine(1 - 2022-24 season) Never done RSV Vaccine(1 - 1-dose 60+ series) due on 07/20/2024 Influenza Vaccine(1) due on 03/06/2024 Annual PCP Team Chronic Disease Visit due on 12/03/2024 LDL Cholesterol due on 01/11/2025 Diabetes Screening due on 01/11/2027 Advance Directive Discussion Completed Behavioral Health Screening Completed Pneumococcal Vaccine: 65+ Completed Mammogram Screening Discontinued Colorectal Cancer Screening Discontinued DATA REVIEWED: Most recent labs ASSESSMENT/PLAN: 1. Coronary artery disease involving la posta coronary artery of la posta heart without angina pectoris- ICD9: 414.01, ICD10: I25.10 (primary diagnosis) Stable at this time Continue with cardiac rehab, current medications, and recommendations by cardiology 2. Hypertension, unspecified type - ICD9: 401.9, ICD10: I10 - Controlled - Continue current medications - Recommend home blood pressure monitoring, to bring results to next visit - Encouraged sodium restriction, DASH or Mediterranean diet - Recommend regular aerobic exercise 3. OAB (overactive bladder) - ICD9: 596.51, ICD10: N32.81 - chronic issue, blood work unremarkable and urine normal outside of trace leuks, will try oxybutynin. Follow up in 4 weeks. - UA DIP, URINE (POC) - OXYBUTYNIN CHLORIDE ER 5 MG TABLET,EXTENDED RELEASE 24 HR 4. Urge incontinence - ICD9: 788.31, ICD10: N39.41 As above - UA DIP, URINE (POC) - OXYBUTYNIN CHLORIDE ER 5 MG TABLET,EXTENDED RELEASE 24 HR 5. Hyperlipidemia, unspecified hyperlipidemia type - ICD9: 272.4, ICD10: E78.5 - Controlled - Continue current medications - Counseled on healthy diet and regular exercise Prescription instructions reviewed with patient as applicable. Potential red flag symptoms discussed with the patient. Reviewed appropriate action plan to take if red flag symptoms occur. Patient agreeable to treatment plan. Kaity Matt APRN.FARHAD documented in this encounterMarymount Hospital06-13-2024 Telephone encounter Note * Telephone Encounter - Yudelka Chang LPN - 12/17/2023 8:55 AM EDT Spoke with pt and information listed below given. Pt ill check on this. Yudelka Chang LPN [facility]06-13-2024 Miscellaneous Notes* Telephone Encounter - Yudelka Chang LPN - 12/17/2023 8:55 AM EDT Spoke with pt and information listed below given. Pt ill check on this. Yudelka Chang LPN * Telephone Encounter - Leanne aHger MA - 12/16/2023 4:46 PM EDT LM for patient to contact office to inform her to contact the physician who prescribed amlodipine, which was not at CC. Leanne Hager MA * Telephone Encounter - Kaity Matt APRN.CNP - 12/16/2023 3:16 PM EDT We have never prescribed amlodipine for her. She needs to reach out to prescriber. Thank you Kaity Matt APRN.CNP * Telephone Encounter - Bianca Blanco - 12/16/2023 10:34 AM EDT Prescription Refill Information The patient has been identified by name and date of : Yes Caregiver verified no other encounters exist for this prescription request: Yes Caregiver confirmed with patient/requestor that no other refills are due, in the near future, with this provider at this time: Yes The last office visit in the department: 12/04/23 Does the patient have a future office visit with this provider/department: Yes Requested Prescriptions Pending Prescriptions Disp Refills amLODIPine (NORVASC) 5 mg tablet Bianca Alvarenga December 16, 2023 10:34 AM documented in this encounterMarymount Hospital06-12-2024 Telephone encounter Note * Telephone Encounter - Leanne Hager MA - 12/16/2023 4:46 PM EDT LM for patient to contact office to inform her to contact the physician who prescribed amlodipine, which was not at CC. Leanne Hager MA [facility]06-12-2024 Telephone encounter Note* Telephone Encounter - Kaity Matt APRN.CNP - 12/16/2023 3:16 PM EDT We have never prescribed amlodipine for her. She needs to reach out to prescriber. Thank you Kaity Matt APRN.CNP [facility]06-12-[facility] Telephone encounter Note* Telephone Encounter - Bianca Blanco - 12/16/2023 10:34 AM EDT Prescription Refill Information The patient has been identified by name and date of : Yes Caregiver verified no other encounters exist for this prescription request: Yes Caregiver confirmed with patient/requestor that no other refills are due, in the near future, with this provider at this time: Yes The last office visit in the department: 12/04/23 Does the patient have a future office visit with this provider/department: Yes Requested Prescriptions Pending Prescriptions Disp Refills amLODIPine (NORVASC) 5 mg tablet Bianca Alvarenga December 16, 2023 10:34 AM [facility] Instructions* Patient Instructions* Emily Carrera APRN.CNP - 12/04/2023 8:51 AM EDT For swelling and bruising: keep leg elevated while at rest, heating pad and/or ice, compression with FATOUMATA wrap Let me know in two weeks if there is no improvement or sooner if worsening. Let me know right away if you develop worsening pain, swelling, redness, increased warmth, red streaking documented in this encounterMarymount Hospital05-31-2024 History of Present illness Narrative* Emily Carrera APRN.CNP - 12/04/2023 8:43 AM EDT Images from the original note were not included. CC: Patient presents with: bruised lower left leg x 10 days HPI Tamanna Dill is a 77 year old female who presents today for above. Patient reports bruising and swelling left lower shipman after striking it against a dresser about 10 days ago. Ambulating withoutdifficulty or pain. Denies pain, redness, increased warmth, open wounds or drainage. She is on Plavix and ASA daily. Review of Systems See HPI PAST MEDICAL HISTORY Diagnosis Date Asymptomatic varicose veins 03/31/2011 Diverticulosis of colon (without mention of hemorrhage) Hypertension OAB (overactive bladder) 01/17/2015 Osteoporosis, unspecified Other and unspecified hyperlipidemia 10/06/2007 Personal history of colonic polyps last colon 06/09, 5-year interval Varicose veins Venous insufficiency (chronic) (peripheral) 03/09/2008 PAST SURGICAL HISTORY Procedure Laterality Date COLONOSCOPY FLX DX W/COLLJ SPEC WHEN PFRMD 06/19/05 Colonoscopy COLONOSCOPY FLX DX W/COLLJ SPEC WHEN PFRMD 07/31/2011 Colonoscopy COLONOSCOPY FLX DX W/COLLJ SPEC WHEN PFRMD 11/25/2016 Normal colonoscopy-10 year follow-up LIG/TRNSXJ FLP TUBE ABDL/VAG APPR UNI/BI 1970 Tubal ligation ALLERGIES Erythromycin, Latex, and Penicillins MEDICATIONS clopidogrel (PLAVIX) 75 mg tablet Take 75 mg by mouth once daily. aspirin, enteric coated (ASPIRIN, ENTERIC COATED) 81 mg EC tablet Take 81 mg by mouth once daily. Biotin 10,000 mcg cap Take by mouth. glucosam/chond/hyalu/CF borate (MOVE FREE JOINT HEALTH ORAL) Take by mouth. atorvastatin (LIPITOR) 40 mg tablet Take 1 tablet by mouth once daily. amLODIPine (NORVASC) 5 mg tablet Magnesium Carbonate powd Mg unknown Zinc 50 mg tab Take by mouth. Ascorbic Acid (VITAMIN C) 1,000 mg tablet Take 1 tablet by mouth once daily. [place] [id number] 500 mg-500 mcg -1 mg-12.5 mg cap Take 500 mg by mouth once daily. ergocalciferol, vitamin D2, (VITAMIN D2 ORAL) Take by mouth. FAMILY HISTORY Problem Relation Age of Onset Colon Cancer Mother Heart Father of SC Hypertension Brother Hypertension Sister Hypertension Sister Hypertension Sister Hypertension Sister Heart Brother SC Hypertension Brother Heart Sister Triple bypass Heart Son mitral valve prolapse other (Eczema) Son Coronary Artery Disease Sister Social History Tobacco Use Smoking status: Never Smokeless tobacco: Never Substance Use Topics Alcohol use: Not Currently Drug use: No Comment: marijuana use years ago BP 120/74 Pulse 80 Temp 36.7 C (98.1 F) (Temporal) Wt 45.4 kg (100 lb) SpO2 99% BMI 20.90kg/m Physical Exam Vitals reviewed. Constitutional: Appearance: Normal appearance. Cardiovascular: Pulses: Dorsalis pedis pulses are 2+ on the right side and 2+ on the left side. Posterior tibial pulses are 2+ on the right side and 2+ on the left side. Musculoskeletal: Right lower leg: Normal. Left lower leg: No deformity, lacerations or bony tenderness. Legs: Skin: Capillary Refill: Capillary refill takes less than 2 seconds. Neurological: Mental Status: She is alert. ASSESSMENT/PLAN: 1. Localized swelling, mass, or lump of lower extremity, left - ICD9: 782.2, ICD10: R22.42 Suspect hematoma. Patient concerned about blood clots, no symptoms or exam findings consistent withthis and no imaging indicated. Reassurance given. Symptom management discussed, see patient instructions Follow-up in two weeks if no improvement or sooner if worsening Prescription instructions reviewed with patient as applicable. Potential red flag symptoms discussed with the patient. Reviewed appropriate action plan to take if red flag symptoms occur. Patient agreeable to treatment plan. Emily Carrera APRN.SSIS SSRS DEVELOPER documented in this encounterMarymount Hospital04-24-2024 Instructions* Patient Instructions* Xiomara Singh APRN.FARHAD - 10/28/2023 1:35 PM EDT Start Doxycycline, take with food. Stay well hydrated If needed may try Coricidin over the counter heart safe cough medication as needed. Follow up if no Improvement. documented in this encounterMarymount Hospital04-24-2024 History of Present illness Narrative* Xiomara Singh APRN.CNP - 10/28/2023 1:20 PM EDT This is a 77 year old female who presents today with: Patient presents with: Acute Visit: cough for 3 weeks HISTORY OF PRESENT ILLNESS: Tamanna Dill is a 77 year old female. Patient presents with: Acute Visit: cough for 3 weeks Here in the office for productive cough. Started about 3 weeks ago. Coughing up yellow mucus. Had astent placed about 3 weeks ago. Has been in cardiac rehab, the staff recommend she be seen due to symptoms. Cough seems to be progressively getting worse. Increase in mucus production. Has not tried any OTC medication at this time. No SOB, fever, or chills. PAST MEDICAL HISTORY: PAST MEDICAL HISTORY Diagnosis Date Asymptomatic varicose veins 03/31/2011 Diverticulosis of colon (without mention of hemorrhage) Hypertension OAB (overactive bladder) 01/17/2015 Osteoporosis, unspecified Other and unspecified hyperlipidemia 10/06/2007 Personal history of colonic polyps last colon 06/09, 5-year interval Varicose veins Venous insufficiency (chronic) (peripheral) 03/09/2008 PAST SURGICAL HISTORY Procedure Laterality Date COLONOSCOPY FLX DX W/COLLJ SPEC WHEN PFRMD 06/19/05 Colonoscopy COLONOSCOPY FLX DX W/COLLJ SPEC WHEN PFRMD 07/31/2011 Colonoscopy COLONOSCOPY FLX DX W/COLLJ SPEC WHEN PFRMD 11/25/2016 Normal colonoscopy-10 year follow-up LIG/TRNSXJ FLP TUBE ABDL/VAG APPR UNI/BI 1970 Tubal ligation ALLERGIES Erythromycin, Latex, and Penicillins MEDICATIONS Current Outpatient Medications Medication Sig clopidogrel (PLAVIX) 75 mg tablet Take 75 mg by mouth once daily. aspirin, enteric coated (ASPIRIN, ENTERIC COATED) 81 mg EC tablet Take 81 mg by mouth once daily. Biotin 10,000 mcg cap Take by mouth. glucosam/chond/hyalu/CF borate (MOVE FREE JOINT HEALTH ORAL) Take by mouth. atorvastatin (LIPITOR) 40 mg tablet Take 1 tablet by mouth once daily. amLODIPine (NORVASC) 5 mg tablet Magnesium Carbonate powd Mg unknown Zinc 50 mg tab Take by mouth. Ascorbic Acid (VITAMIN C) 1,000 mg tablet Take 1 tablet by mouth once daily. [place] [id number] 500 mg-500 mcg -1 mg-12.5 mg cap Take 500 mg by mouth once daily. ergocalciferol, vitamin D2, (VITAMIN D2 ORAL) Take by mouth. No current facility-administered medications for this visit. FAMILY HISTORY Problem Relation Age of Onset Colon Cancer Mother Heart Father of SC Hypertension Brother Hypertension Sister Hypertension Sister Hypertension Sister Hypertension Sister Heart Brother SC Hypertension Brother Heart Sister Triple bypass Heart Son mitral valve prolapse other (Eczema) Son Coronary Artery Disease Sister Social History Tobacco Use Smoking status: Never Smokeless tobacco: Never Substance Use Topics Alcohol use: Not Currently Drug use: No Comment: marijuana use years ago REVIEW OF SYSTEMS GENERAL: No weight loss, malaise or fevers/chills HEENT: Negative for frequent or significant headaches, No changes in hearing or vision. NECK: Negative for lumps, goiter, pain and significant neck swelling RESPIRATORY: + Cough CARDIOVASCULAR: Negative for chest pain, leg swelling, orthopnea, or palpitations GI: No nausea, vomiting, or diarrhea/constipation. No hematochezia/melena. No heartburn or reflux symptoms. : No history of dysuria, frequency or incontinence MUSCULOSKELETAL: Negative for joint pain or swelling. SKIN: Negative for lesions, rash, and itching ENDOCRINE: Negative for cold or heat intolerance, polyuria, polydipsia and goiter NEURO: No history of headaches, syncope, paralysis, seizures or tremors MOOD: Negative for depression, anxiety, or suicidal ideation. EXAM: BP 128/68 Pulse 80 Resp 16 Wt 49 kg (108 lb) SpO2 99% BMI 22.57 kg/m PHYSICAL EXAM: General Appearance: Well appearing, alert, in no acute distress, well-hydrated, well nourished. Skin: Skin color, texture, turgor normal, no suspicious rashes or lesions. Head: Normocephalic, no masses, lesions, tenderness or abnormalities. Eyes: Anicteric sclera. Extraocular movements are intact. Ears: External ears normal, canals clear. TMs pearly avila. Nose/Sinuses: Nares normal, septum midline, mucosa normal, no drainage or sinus tenderness. Oropharynx: Lips, mucosa, and tongue normal, teeth and gums normal, oropharynx normal. Neck: Supple, no adenopathy; thyroid symmetric, normal size, no bruits. Lungs: Lungs clear to auscultation. No wheezing, rhonchi, rales. Cough. Heart: RRR without murmur, gallop, or rubs. No ectopy. Extremities: No deformities, edema, skin discoloration, clubbing or cyanosis. Good capillary refill. Peripheral Pulses: Normal, Capillary refill <2secs, strong peripheral pulses, Pulses palpable. Neurologic: Gait normal. Sensation grossly intact. ASSESSMENT/PLAN: 1. Bronchitis - ICD9: 490, ICD10: J40 - Due to recent cardiac history will treat bronchitis with 7 day course of doxycycline. - Continue supportive care at home. - May use coricidin as needed. - DOXYCYCLINE HYCLATE 100 MG TABLET Follow up if no improvement. Discussed treatment plan and patient voices understanding. Patient's questions answered appropriately. Medications and potential side effects were discussed and patient voices understanding. Xiomara Singh APRN.FARHAD This note was partially generated using [employer] voice recognition system. Note was reviewed for accuracy. There may be minor misspellings or grammar miscues with Dragon voice recognition. documented in this encounterMarymount Hospital04-24-2024 Telephone encounter Note * Telephone Encounter - Arian Sloan RN - 10/28/2023 9:32 AM EDT Patient has been coughing up green thick mucous for 3 weeks. Mucous changes color sometimes yellow.Comes and goes. No other symptoms. Reports she had SC 3 weeks ago with 1 stent placed. Patient plans to do cardiac rehab and saw them today. Cardiac rehab advised her to see pcp as she may need an AB. Protocol reviewed and recommends see provider in 24 hours. Patient needs to be seen today, as she is leaving for vacation tomorrow morning. No openings in IM. Scheduled same day appt in [facility]. Reason for Disposition Change in color of sputum (e.g., from white to yellow-green sputum) Answer Assessment - Initial Assessment Questions 1. ONSET: 3 weeks ago 2. SEVERITY: Comes and goes. 3. SPUTUM: Thick chunks green mucous. Changes color, sometimes yellow. 4. HEMOPTYSIS: No blood 5. DIFFICULTY BREATHING: No SOB 6. FEVER: No fever 7. CARDIAC HISTORY: Had SC 3 weeks ago. Had heart cath with 1 stent placed in heart. Plans to do cardiac rehab. 8. LUNG HISTORY: No lung hx 9. PE RISK FACTORS: No blood clots. Had stent placed in heart in right artery at [facility] [place] 3 weeks ago. 10. OTHER SYMPTOMS: No other symptoms. 11. : Post menopause. 12. TRAVEL: No travel. No exposures. Protocols used: Cough - [id number] [facility]04-24-2024 Miscellaneous Notes* Telephone Encounter - Arian Sloan RN - 10/28/2023 9:32 AM EDT Patient has been coughing up green thick mucous for 3 weeks. Mucous changes color sometimes yellow.Comes and goes. No other symptoms. Reports she had SC 3 weeks ago with 1 stent placed. Patient plans to do cardiac rehab and saw them today. Cardiac rehab advised her to see pcp as she may need an AB. Protocol reviewed and recommends see provider in 24 hours. Patient needs to be seen today, as she is leaving for vacation tomorrow morning. No openings in IM. Scheduled same day appt in [facility]. Reason for Disposition Change in color of sputum (e.g., from white to yellow-green sputum) Answer Assessment - Initial Assessment Questions 1. ONSET: 3 weeks ago 2. SEVERITY: Comes and goes. 3. SPUTUM: Thick chunks green mucous. Changes color, sometimes yellow. 4. HEMOPTYSIS: No blood 5. DIFFICULTY BREATHING: No SOB 6. FEVER: No fever 7. CARDIAC HISTORY: Had SC 3 weeks ago. Had heart cath with 1 stent placed in heart. Plans to do cardiac rehab. 8. LUNG HISTORY: No lung hx 9. PE RISK FACTORS: No blood clots. Had stent placed in heart in right artery at [facility] [place] 3 weeks ago. 10. OTHER SYMPTOMS: No other symptoms. 11. : Post menopause. 12. TRAVEL: No travel. No exposures. Protocols used: Cough - [id number] documented in this encounterMarymount Hospital04-16-2024 NoteSinus Rhythm - frequent ectopic ventricular beats # VECs = 2 -Poor R-wave progression -nonspecific -consider old anterior infarct. [facility] NoteSinus Rhythm -frequent ectopic ventricular beats # VECs = 2 -Poor R-wave progression -nonspecific -consider old anterior infarct. [facility]04-16-2024 History of Present illness Narrative* Blaine Cummins NP - 10/20/2023 12:30 PM EDT Images from the original note were not included. [employer] Patient Name : Tamanna Dill 1945 Date of Service: 10/20/23 HPI: Ms. Tamanna Dill presents to the [facility] office in hospital follow up accompanied by her Matthew. To briefly review, she presented [place] [facility] with several month history of exertional chest pain and dyspnea initially when [facility] which had progressed too much exertion promptingadmit with cardiology consultation and concern for unstable angina prompting urgent cardiac catheterization demonstrating mild to moderate nonobstructive coronary artery disease of the left coronary artery and high-grade mid RCA lesion treated successfully with PCI and 1 drug-eluting stent. The following day a surface echo revealed well-preserved biventricular function and no significant valve or pericardial disease. She was optimized medically and discharged home. Since discharge, she has been compliant with her dual antiplatelet therapy tolerating well without bleeding or easy bruising. She feels her stamina levels are stable and is anxious to get back on thegolf course. She admittedly has not exercise as much as usual since diagnosed with COVID a year agothat was planning to resume. She has adjusted her diet and plans to discuss with a dietitian locally. Socially she denies tobacco, alcohol, recreational drug use. As you recall, she has a past medical history significant for: - Chronic ischemic heart disease status post PCI mid RCA ([place] 3.0 x 30 mm BRIDGETT) with mild to moderate nonobstructive disease of left coronary artery performed 10/09/2023 in the setting of unstable angina - History of PVCs with OS event monitor 08/2021 revealing 15.6% burden managed conservatively per patient report/request - Essential hypertension - Mixed hyperlipidemia ROS: Pertinent positives and negatives as mentioned above otherwise patient does not report any fever, chills, night sweats, dry eyes, epistaxis, dysphagia, chest pain, pressure, tightness, palpitations, dyspnea, orthopnea, PND, bendopnea, syncope, presyncope, edema, claudication, bleeding, unintentional weight change, unilateral weakness, nausea, vomiting, diarrhea, constipation, dysuria, acute back or joint pain, skin rash, severe anxiety/depression, suicidal ideation. Cardiac testing (Reviewed 10/20/23): ECG 10/20/2023: Sinus rhythm, normal axis, anterior infarct of indeterminate age with poor R wave progression, without notable ST-T wave changes. Isolated PVCs. Transthoracic echocardiogram 10/10/2023: Normal biventricular size and function with LVEF 61% with normal wall motion. Normal LA size No significant valve or pericardial disease. Cardiac catheterization 10/09/2023: USA Right dominant Left Main normal LAD proximal 55% otherwise mild diffuse disease throughout moderately tortuous vessel LCx moderate-sized vessel with mild diffuse disease, moderately tortuous RCA mid 95% stenosis status post PCI with 3.0 x 30 mm [place] BRIDGETT Event monitor 2 weeks 08/2021 ([facility]): Predominant underlying rhythm sinus rhythm with average heart rate 79 bpm (58- 179 bpm). She had 1 run of NSVT lasting 4 beats with max rate of 162 bpm She had 3 runs of SVT with fastest interval lasting 4 beats at max rate of 179 bpm and longest interval lasting 6 beats with average rate of 127 bpm Rare PACs. Isolated PVCs 15.6% with intermittent bigeminy and trigeminy Lab Results Component Value Date WBC 10.8 (H) 10/10/2023 HGB 13.1 10/10/2023 HCT 38.6 10/10/2023 MCV 92.3 10/10/2023 PLT 302 10/10/2023 Lab Results Component Value Date GLUCOSE 93 10/09/2023 CALCIUM 8.9 10/09/2023 NA 139 10/09/2023 K 3.8 10/09/2023 CO2 24 10/09/2023 CL 109 (H) 10/09/2023 BUN 15 10/09/2023 CREATININE 0.54 (L) 10/09/2023 GFR 10/09/2023: 94 No results found for: ALT, AST, GGT, ALKPHOS, BILITOT Lipids 10/10/2023: HDL 71, TG 144, LDL 77, non-HDL TC 106 HgbA1c: 5.5 I have personally reviewed the patient's past medical, surgical and family history and made changesas appropriate. Allergies Allergen Reactions Latex Hives Current Outpatient Medications Medication Instructions amLODIPine (NORVASC) 5 mg, oral, Daily ascorbic acid (VITAMIN C) 1,000 mg, oral, Daily aspirin 81 mg, oral, Daily atorvastatin (LIPITOR) 40 mg, oral, Nightly cholecalciferol (VITAMIN D-3) 1,000 Units, oral, Daily clopidogreL (PLAVIX) 75 mg, oral, Daily fish oil with B and D vitamins (ANIMI-3) 500 mg-500 mcg -1 mg-12.5 mg capsule 500 mg, oral, Daily folic acid (FOLVITE) 800 mcg, oral, Daily magnesium carbonate, bulk, powder Other meloxicam (MOBIC) 15 mg, oral, Daily nitroglycerin (NITROSTAT) 0.4 mg, sublingual, Every 5 min PRN, May repeat dose every 5 minutes for up to 3 doses total. GTYG-4-YRC-DHA-FISH OIL-FLAX-E ORAL 1 capsule, oral, Daily zinc gluconate 50 mg, oral, Daily Visit Vitals BP 113/71 (BP Location: Left arm, Patient Position: Sitting) Pulse 76 Ht 1.473 m (58) Wt (!) 44.8 kg (98 lb 12.8 oz) BMI 20.65 kg/m Smoking Status Never BSA 1.35 m Wt Readings from Last 3 Encounters: 10/20/23 (!) 44.8 kg (98 lb 12.8 oz) 10/10/23 (!) 45 kg (99 lb 3.3 oz) PHYSICAL EXAM Alert, calm, no acute distress HEENT exam grossly benign Respiratory effort unlabored, lung sounds clear to auscultation bilateral PMI nondisplaced. Regular rate and rhythm. S1-S2 normal. No detectable murmurs, rubs, gallops. No JVP or HJR. Carotids 2+ without appreciable bruits. Abdomen soft, nontender, nondistended. No edema. Peripheral pulses 2+. Right TR arteriotomy site clean, dry, open to air. No bruit or hematoma. Scant ecchymosis. Skin warm dry without cyanosis. Upper extremities without obvious disruption of range of motion. Gait not assessed. Mood, memory, judgment, affect appear stable. Alert and oriented without obvious focal deficit. Impression: - Chronic ischemic heart disease - PVCs - Essential hypertension - Mixed hyperlipidemia Plan: Tamanna is stable from a cardiovascular standpoint as she is without cardiopulmonary complaints with ECG revealing maintenance of normal sinus and vital signs controlled. I reviewed her cardiovascular testing results, diagnoses, medications, longitudinal plan of care in detail with her and her today. She is recommended to continue aspirin 81 mg daily and Plavix 75 mg daily both uninterrupted for the next 1 year following PCI, longer as tolerated and is recommended to continue single antiplatelet therapy indefinitely. She is to continue high intensity atorvastatin 40 mg nightly and amlodipine 5 mg daily unchanged. She reports her PVCs have been managed conservatively and continues to decline additional medications given concern of polypharmacy. Given her lack of symptoms and overall preserved LVEF, this is reasonable and can be further assessed by her local line assembly utility worker and [place] for which she plans to follow up longitudinally. She is recommended aggressive secondary risk factor management/lifestyle modifications including initiation of a Dash diet and formal exercise regimen as part of cardiac rehabilitation. She is recommended to maintain adequate hydration and avoid cardiac stimulants. No cardiovascular testing indicated this time. As above, she will follow-up with her local line assembly utility worker however we are happy to assist in her care if she is in the [place] area going forward. Blaine Cummins APRN-SSIS SSRS DEVELOPER 10/20/23 12:57 PM EDT [place] Senior Tableau Developer [facility] Thank you for this consultation. If you have any questions, please feel free to call. First Call Mon-Fri [phone]: [facility] [place] [phone] [facility] [phone] [facility] [phone] After hours/Weekends: [phone] For listed Attendings On-Call at each site click here documented in this encounterDepartment Of Veterans Affairs Medical Center-[id number] History of Present illness Narrative* Carmenza Lopez - 10/14/2023 1:16 PM EDT Inpatient Cardiac Rehab consultation complete via telephone due to pt being d/c. Educated on program overview and goals. Given information on program and contact information. Patient verbalized understanding. Pt would like to go to [facility] since she lives near [place]. AC documented in this encounterDepartment Of Veterans Affairs Medical Center-[id number] History of Present illness Narrative* Emily Carrera APRN.SSIS SSRS DEVELOPER - 10/13/2023 11:08 AM EDT CC: Patient presents with: 1 week follow up HPI Tamanna Dill is a 77 year old female who presents today for above. She was seen last week for left post auricular pain. She had no other symptoms, pain attributed to possible occipital neuralgiaand was prescribed 12 day tapering course of prednisone. The following day she went to [facility] ER with complaints of SOB, cough and fatigue x 4-5 days which she had actually denied at office visit. EKG showed sinus rhythm. Chest x-ray was negative. COVID was positive, she did not qualify for Paxlovid and she was discharged home. The following day she was visiting family in [place] when she developedsevere chest pains. She was admitted to [facility] and heart cath on 10/08 indicated 90% blockage mid RCA with placement of BRIDGETT. Echocardiogram 10/09 revealed LVEF 61%, no acute findings. She was discharged home 10/09 on Plavix and ASA which she will be on for one year. Her line assembly utility worker is with the [facility] however she will be following up with line assembly utility worker in [place] next week. She had one episode of chest discomfort since discharge. Denies SOB and feeling much better overall. Rivera mcintosh has chronic palpitations for the past couple years and is concerned she may have Afib. This has not been seen on EKG's or heart monitoring during admission. She was told they will place a heart monitor at cardiology follow-up next week. In regards to ear pain this has significantly improved, no pain since yesterday. She has almost completed tapering course of prednisone. Denies any new or or worsening symptoms in reference to the ear pain. She also mentions issues with urinary frequency and urgency for quite a few years. She has a history of uterine prolapse which is currently treated with a pessary. Next appointment with computer security manager is in one week. Wondering about possible treatment for urinary symptoms. Review of Systems Constitutional: Negative for chills, diaphoresis, fatigue and fever. HENT: Negative for hearing loss, sinus pressure, sinus pain, sore throat and tinnitus. Eyes: Negative for visual disturbance. Respiratory: Negative for cough, shortness of breath and wheezing. Cardiovascular: Negative for leg swelling. Genitourinary: Negative for dysuria, hematuria and pelvic pain. Neurological: Negative for dizziness, syncope, weakness, light-headedness, numbness and headaches. PAST MEDICAL HISTORY Diagnosis Date Asymptomatic varicose veins 03/31/2011 Diverticulosis of colon (without mention of hemorrhage) Hypertension OAB (overactive bladder) 01/17/2015 Osteoporosis, unspecified Other and unspecified hyperlipidemia 10/06/2007 Personal history of colonic polyps last colon 06/09, 5-year interval Varicose veins Venous insufficiency (chronic) (peripheral) 03/09/2008 PAST SURGICAL HISTORY Procedure Laterality Date COLONOSCOPY FLX DX W/COLLJ SPEC WHEN PFRMD 06/19/05 Colonoscopy COLONOSCOPY FLX DX W/COLLJ SPEC WHEN PFRMD 07/31/2011 Colonoscopy COLONOSCOPY FLX DX W/COLLJ SPEC WHEN PFRMD 11/25/2016 Normal colonoscopy-10 year follow-up LIG/TRNSXJ FLP TUBE ABDL/VAG APPR UNI/BI 1970 Tubal ligation ALLERGIES Erythromycin, Latex, and Penicillins MEDICATIONS clopidogrel (PLAVIX) 75 mg tablet Take 75 mg by mouth once daily. aspirin, enteric coated (ASPIRIN, ENTERIC COATED) 81 mg EC tablet Take 81 mg by mouth once daily. Biotin 10,000 mcg cap Take by mouth. glucosam/chond/hyalu/CF borate (MOVE FREE JOINT HEALTH ORAL) Take by mouth. predniSONE (DELTASONE) 10 mg tablet Take 4 tabs daily x 3 days, then 3 tabs x 3 days, 2 tabs x 3 days, then 1 tab x3 days with food. atorvastatin (LIPITOR) 10 mg tablet Take 1 tablet by mouth once daily. (Patient taking differently:Take 40 mg by mouth once daily.) amLODIPine (NORVASC) 5 mg tablet Magnesium Carbonate powd Mg unknown Zinc 50 mg tab Take by mouth. Ascorbic Acid (VITAMIN C) 1,000 mg tablet Take 1 tablet by mouth once daily. [place] [id number] 500 mg-500 mcg -1 mg-12.5 mg cap Take 500 mg by mouth once daily. ergocalciferol, vitamin D2, (VITAMIN D2 ORAL) Take by mouth. fluticasone (FLONASE) 50 mcg/actuation nasal spray Use 2 Sprays in each nostril once daily. Rinse mouth after use. folic acid 800 mcg tablet Take 1 tablet by mouth once daily. (Patient not taking: Reported on 10/13/2023) FAMILY HISTORY Problem Relation Age of Onset Colon Cancer Mother Heart Father of [place] Hypertension Brother Hypertension Sister Hypertension Sister Hypertension Sister Hypertension Sister Heart Brother [place] Hypertension Brother Heart Sister Triple bypass Heart Son mitral valve prolapse other (Eczema) Son Coronary Artery Disease Sister Social History Tobacco Use Smoking status: Never Smokeless tobacco: Never Substance Use Topics Alcohol use: Not Currently Drug use: No Comment: marijuana use years ago BP 132/72 Pulse 79 Resp 16 Wt 45.8 kg (101 lb) SpO2 98% BMI 21.11 kg/m Physical Exam Vitals reviewed. Constitutional: Appearance: Normal appearance. Cardiovascular: Rate and Rhythm: Normal rate and regular rhythm. Pulses: Normal pulses. Heart sounds: Normal heart sounds. No murmur heard. Pulmonary: Effort: Pulmonary effort is normal. Breath sounds: Normal breath sounds. No wheezing, rhonchi or rales. Skin: General: Skin is warm and dry. Neurological: Mental Status: She is alert. Psychiatric: Mood and Affect: Mood normal. DATA REVIEWED: Outside chart from [facility] ER and [facility] admission records reviewed. ASSESSMENT/PLAN: 1. Coronary artery disease involving [place] posta coronary artery of [place] post[place] heart without angina pectoris- ICD9: 414.01, ICD10: I25.10 (primary diagnosis) Newly diagnosed. BRIDGETT placed on 10/09. Patient is doing well post discharge. Continue medications as prescribed and follow-up with line assembly utility worker next week as scheduled. 2. Pain behind the ear, left - ICD9: 388.70, ICD10: H92.02 Occipital neuralgia remains the most likely diagnosis. Complete course of prednisone as prescribed.Follow-up for any recurrent and/or persistent symptoms. 3. Palpitations - ICD9: 785.1, ICD10: R00.2 Chronic. She will have heart monitor placed next week at cardiology follow-up. 4. S/P drug eluting coronary stent placement - ICD9: V45.82, ICD10: Z95.5 See #1 5. Hyperlipidemia, unspecified hyperlipidemia type - ICD9: 272.4, ICD10: E78.5 Lipitor increased to 40 mg during admission, continue with current dose - ATORVASTATIN 40 MG TABLET 6. Overactive bladder - ICD9: 596.51, ICD10: N32.81 Recommend discussing further with computer security manager at appointment next week Prescription instructions reviewed with patient as applicable. Potential red flag symptoms discussed with the patient. Reviewed appropriate action plan to take if red flag symptoms occur. Patient agreeable to treatment plan. Emily Carrera APRN.SSIS SSRS DEVELOPER documented in this encounterMarymount Hospital04-[facility]24 Hospital course Narrative * Tyesha Llamas MD - 10/10/2023 12:42 PM EDT Images from the original note were not included. Discharge Summary Discharge Diagnosis: Unstable angina, pain behind left ear, hypertension, hyperlipidemia Discharge Follow up: PCP, cardiology Clinical Course: Patient is a 77-year-old female with past medical history significant for hypertension, overactive bladder, osteoporosis, hyperlipidemia, varicose veins who presented to the emergency department 10/07 for further evaluation of chest pain. She reported that she follows with a line assembly utility worker who recommended stress test which has not yet been performed. Labs performed in the emergency department significant for sodium 135, glucose 347, white count 10.2, hemoglobin 11.6. High-sensitivity troponin x 2 negative. Chest x-ray with minimal interstitial prominence with a nonspecific pattern possibly minimal congestion in the acute setting or mild interstitial lung disease in the chronic setting. 1. Chest pain: With concern for unstable angina. -Cardiology consulted and provided care. -Status post cardiac catheterization 10/08 with PCI of mid RCA stenosis with BRIDGETT. -Echocardiogram 10/09 revealed LVEF 61%, no regional wall motion abnormalities, RV cavity size and systolic function normal, no significant valvular abnormalities. -Patient is to continue aspirin and Plavix uninterrupted for at least 12 months. -Continue atorvastatin 40 mg daily. -Cardiac rehab information provided. -Outpatient follow-up with cardiology. 2. Pain behind left ear: With concern for occipital neuralgia. -Patient was started on prednisone taper in outpatient setting, continue at the time of discharge. 3. Hypertension: -Continue amlodipine 5 mg daily. 4. Hyperlipidemia: -Continue atorvastatin 40 mg nightly, dose was increased during hospitalization. Patient was discharged home in fair condition on 10/10/2023. Instructions provided including medication use, follow-up. All of the patient's questions were answered prior to discharge. Disposition: Home Time Spent: 32 minutes including [id number] time, coordination of care Discharge Medications: Your medication list START taking these medications Instructions Last Dose Given Next Dose Due aspirin 81 mg EC tablet Start taking on: October 11, 2023 Take 1 tablet (81 mg total) by mouth 1 (one) time each day. clopidogreL 75 mg tablet Commonly known as: PLAVIX Start taking on: October 11, 2023 Take 1 tablet (75 mg total) by mouth 1 (one) time each day. CHANGE how you take these medications Instructions Last Dose Given Next Dose Due atorvastatin 40 mg tablet Commonly known as: LIPITOR What changed: medication strength how much to take Take 1 tablet (40 mg total) by mouth at bedtime. CONTINUE taking these medications Instructions Last Dose Given Next Dose Due amLODIPine 5 mg tablet Commonly known as: NORVASC Take 1 tablet (5 mg total) by mouth 1 (one) time each day. ascorbic acid 1,000 mg tablet Commonly known as: VITAMIN C Take 1 tablet (1,000 mg total) by mouth daily. cholecalciferol 25 mcg (1,000 unit) tablet Commonly known as: VITAMIN D-3 Take 1 tablet (1,000 Units total) by mouth 1 (one) time each day. CHCV-3-VCM-DHA-FISH OIL-FLAX-E ORAL Take 1 capsule by mouth 1 (one) time each day. predniSONE 10 mg tablet Commonly known as: DELTASONE take 4 tabs daily x 3 days, then 3 tabs x 3 days, 2 tabs x 3 days, then 1 tab x3 days with food.Instructions:Take 4 tabs daily x 3 days, then 3 tabs x 3 days, 2 tabs x 3 days, then 1 tab x3 days withfood. zinc gluconate 50 mg tablet Take 1 tablet (50 mg total) by mouth 1 (one) time each day. Where to Get Your Medications These medications were sent to [facility]/pharmacy #[id number] - [place], [place] - [address] [facility]. [id number] [facility] [facility] [address] aspirin 81 mg EC tablet atorvastatin 40 mg tablet clopidogreL 75 mg tablet Physical Exam: Visit Vitals BP 127/70 Pulse 85 Temp 36.6 C (97.9 F) (Oral) Resp 16 General: NAD. HEENT: NCAT. Respiratory: CTA B/L. Cardiovascular: RRR. Gastrointestinal: Soft, non-tender, non-distended. Musculoskeletal: No edema bilateral lower extremities. Skin: Dressing in place right radial cardiac catheterization entry site. Neurologic: CN 2-12 grossly intact. Psychiatric: Normal mood. Tyesha Llamas MD [facility] Hospitalist documented in this encounterDepartment Of Veterans Affairs Medical Center-[id number] History of Present illness Narrative* Jose Carter, BLEACH BOILER FILLER - 10/10/2023 12:10 PM EDT Case Management Discharge Note Coordination of Care Handover Tamanna Dill : 1945 Living Arrangements: Spouse/significant other Support Systems: Spouse/significant other, Immediate family, Extended family Do we have authorization to contact this patient's emergency contact?: Yes Extended Emergency Contact Information Primary Emergency Contact: Matthew Dill Mobile Relation: Spouse Adobe Architect needed? No SIOH Flowsheet Completed?: Yes, no needs at this time Medical Admission Information Main Diagnosis: Chest pain History reviewed. No pertinent past medical history. Discharge Information Final Discharge Disposition: Home or Self Care N/A Facility Phone Numbers for report: N/A Transportation at discharge: Family // What day is the transport expected?: 10/10/23 // What time is the transport expected?: 1230 Discharge plan communicated with patient, family, attending, and bedside nurse and all are in agreement with discharge plan. DME on admission: Assistive Devices: None (DME provider is: N/A) DME ordered @ discharge: None Community Service(s) on admission: None New Community Referrals made to: None Discharge concerns: None Narrative Note : Patient going home with family. Patient stated she has no needs at this time. Spouse is here to transport. Team aware. Miscellaneous Information Vitals @ Discharge: Visit Vitals BP 127/70 Pulse 85 Temp 36.6 C (97.9 F) (Oral) Resp 16 Ht 1.47 m (57.87) Wt (!) 45 kg (99 lb 3.3 oz) SpO2 95% BMI 20.82 kg/m BSA 1.35 m Diet Orders: Diet Instructions Discharge Diet: Cardiac Heart Healthy Diet (Low Cholesterol / Low Fat / No Added Salt) Allergies: Allergies Allergen Reactions Latex Hives Mobility Status: Mobility: No limitations Readmission Risk Score @ Discharge: Predictive Model Details 9% (Low) Factor Value Calculated 10/10/2023 12:05 Number of active inpatient medication orders 25 IP Risk of Unplanned Readmission Model ECG/EKG order present in last 6 months Imaging order present in last 6 months Age 77 Number of ED visits in last six months 1 Active anticoagulant inpatient medication order present Active corticosteroid inpatient medication order present Future appointment scheduled Current length of stay 0.751 days * Isma Alan RN - 10/10/2023 12:09 PM EDT Problem: Falls: Fall Risk (Adult IP BH) Goal: Patient will not fall or injure themselves during hospitalization. Outcome: Progressing Problem: Tissue Perfusion:Tissue Perfusion, Cardiac; Alteration or Risk of Goal: Ability to achieve and maintain adequate cardiopulmonary perfusion will improve Outcome: Progressing Problem: Skin Integrity: Pressure Injury Actual or Risk of Goal: Will not develop new pressure injury Outcome: Progressing Problem: Fluid Volume: Bleeding Risk Goal: Will show no signs and symptoms of excessive bleeding Outcome: Progressing Goals: Identify possible barriers to meeting goals/advancing plan of care: Stability of the patient: Moderately Stable - Low risk of patient condition declining or worsening End of Shift Summary: * Faith Mtz NP - 10/10/2023 8:49 AM EDT Images from the original note were not included. CARDIOLOGY PROGRESS NOTE Impression: Ms. Tamanna Dill is a 77 y.o. female who presents with chest pain and shortness of breath concerning for unstable angina. Unstable angina: Status post PCI with BRIDGETT to RCA Coronary artery disease: [facility] 4 showed 95% mid RCA stenosis status post PCI with BRIDGETT and 55% proximal LAD lesion Hypertension Hyperlipidemia Family history of CAD Recommendations: -DAPT with aspirin and clopidogrel uninterrupted for at least 12 months -Continue atorvastatin 40 mg daily -Check fasting lipid panel and A1c to assess for modifiable cardiovascular risk factors -Routine post cath site care -Cardiac rehab following discharge -Echocardiogram ordered -Continue amlodipine 5 mg daily -Telemetry If no structural heart abnormalities noted on echocardiogram, patient can discharge from cardiologyperspective. We will make arrangements for outpatient follow-up. Faith Mtz NP 10/10/23 8:49 AM EDT [place] Senior Tableau Developer [facility] Thank you for this consultation. If you have any questions, please feel free to call. First Call Mon-Fri [phone]: [facility] [phone] [facility] [phone] [facility] [phone] After hours/Weekends: [phone] For listed Attendings On-Call at each site click here Primary Audio Visual Specialist: None Subjective / Interval History: No complaints this morning. at bedside. No chest pain or shortness of breath. Said that herright radial site was oozing last evening. No recurrence or sensation changes of right hand. Hemodynamically stable. We reviewed findings from her cardiac catheterization, and lifestyle modifications for secondary prevention of CAD. ROS: CARDIAC: Denies chest pain, pressure, tightness or fullness, palpitations, dyspnea on exertion, orthopnea, PND, nocturia, or peripheral edema. GENERAL: Denies fatigue, weakness or malaise, fever, chills, night sweats, or weight gain/loss. PULMONARY: Denies shortness of breath, wheezing, cough, hemoptysis, apnea/snoring, or pain with inspiration. Cardiographics: Telemetry personally reviewed which shows: SR Objective: Patient Vitals for the past 24 hrs: BP Temp Temp src Pulse Resp SpO2 Height Weight 10/10/23 0831 (!) 146/83 36.3 C (97.3 F) Oral 76 -- 100 % -- -- 10/10/23 0800 115/73 -- -- -- -- -- 1.47 m (57.87) (!) 45 kg (99 lb 3.3 oz) 10/10/23 0542 -- -- -- -- -- -- -- (!) 45.2 kg (99 lb 10.4 oz) 10/10/23 0354 115/73 36.4 C (97.5 F) Oral 74 16 97 % -- -- 10/09/239 122/71 36.6 C (97.9 F) Oral 74 16 96 % -- -- 10/09/23 1938 104/60 36.7 C (98.1 F) Oral 70 16 97 % -- -- 10/09/23 1647 (!) 155/76 36.4 C (97.6 F) Oral 76 16 96 % -- -- 10/09/23 1615 113/70 -- -- 74 17 97 % -- -- 10/09/23 1600 124/67 -- -- 71 20 97 % -- -- 10/09/23 1545 108/64 -- -- 75 18 96 % -- -- 10/09/23 1530 107/66 -- -- 73 18 95 % -- -- 10/09/23 1515 133/62 -- -- 72 16 100 % -- -- 10/09/23 1126 138/76 -- Oral 80 18 96 % -- -- Intake/Output Summary (Last 24 hours) at 10/10/2023 0849 Last data filed at 10/10/2023 0400 Gross per 24 hour Intake 360 ml Output 905 ml Net -545 ml Wt Readings from Last 3 Encounters: 10/10/23 (!) 45 kg (99 lb 3.3 oz) Body mass index is 20.82 kg/m . Allergies Allergen Reactions Latex Hives Physical Examination: General appearance/constitutional: The patient is in no distress. EYES: Normal conjunctiva. EOM intact. Ears, Nose, Mouth and Throat: Normocephalic, atraumatic head. Trachea midline. Neck: No obvious neck tenderness, masses or nodules. Respiratory/chest: Lung sounds are clear bilaterally. No audible rales, rhonchi, or wheezes auscultated. Heart: Regular rate and rhythm. S1, S2 normal. No audible murmurs, gallops, or rubs. Abdomen/gastrointestinal: Soft, symmetric, and non-tender. Extremities: There is no lower extremity edema. Musculoskeletal: Normal range of motion in the arms. Gait was not assessed. Back: Symmetric. No CVA tenderness. Skin: Right radial site with 4 x 4 gauze and transparent dressing. Localized bruising. No shadow drainage or hematoma. Neurologic: The patient is oriented to time, place and person. No focal neuro deficits. Sensation intact. No tremor. Psychiatric: Appropriate judgement and insight. Labs: Lab Results Component Value Date WBC 10.0 10/09/2023 HGB 11.3 (L) 10/09/2023 HCT 33.1 (L) 10/09/2023 MCV 91.2 10/09/2023 PLT 285 10/09/2023 Lab Results Component Value Date GLUCOSE 93 10/09/2023 CALCIUM 8.9 10/09/2023 NA 139 10/09/2023 K 3.8 10/09/2023 CO2 24 10/09/2023 CL 109 (H) 10/09/2023 BUN 15 10/09/2023 CREATININE 0.54 (L) 10/09/2023 Lab Results Component Value Date HSTROPI 9 10/08/2023 No results found for: TSH No results found for: ALT, AST, GGT, ALKPHOS, BILITOT No results found for: INR, PTT * Belle Ayon RN - 10/09/2023 10:25 PM EDT At 2050 a duress was called by [facility] due to right wrist heart cath site bleeding. Site with 4x4 and tegaderm with bleeding noted. Pressure held for 15 minutes, thrombix applied, 4x4 and tegaderm. Bruising noted and outlined. Pt denies any pain to site. Bedrest continued for an additional 4 hours. Will frequently continue to monitor site throughout shift. * Belle Ayon RN - 10/09/2023 10:24 PM EDT Goals: Maintain no bleeding to HC site Identify possible barriers to meeting goals/advancing plan of care: Stability of the patient: Moderately Unstable - Medium risk of patient condition declining or worsening End of Shift Summary: * Tyesha Llamas MD - 10/09/2023 3:08 PM EDT Images from the original note were not included. Progress Note Assessment and Plan: Patient is a 77-year-old female with past medical history significant for hypertension, overactive bladder, osteoporosis, hyperlipidemia, varicose veins who presented to the emergency department 10/07 for further evaluation of chest pain. She reports that she follows with a line assembly utility worker who recommended a stress test which has not yet been performed. Labs performed in the emergency department significant for sodium 135, glucose 347, white count 10.2, hemoglobin 11.6. High-sensitivity troponin x 2 negative. Chest x-ray with minimal interstitial prominence with a nonspecific pattern possibly minimal congestion in the acute setting or mild interstitial lung disease in the chronic setting. 1. Chest pain: With concern for unstable angina. -Cardiology consulted and following. -Plan for echocardiogram and left heart catheterization today. -If this workup is negative, 2-week event monitor with primary line assembly utility worker recommended. 2. Pain behind left ear: With concern for occipital neuralgia. -Patient was started on prednisone taper in outpatient setting, continue at this time. 3. Hypertension: -Continue amlodipine 5 mg daily. 4. Hyperlipidemia: -Continue atorvastatin 10 mg nightly. Code Status: Full Code - Default DVT Prophylaxis: Mechanical ADOD: 10/08-10/09 pending clinical course, specialist clearance. Next site of custodial. Tyesha Llamas MD [facility] Subjective: Patient seen and examined at bedside. She is chest pain-free at the time my examination. Patient denies shortness of breath, nausea as well. She is wanting her 1000 mg Tylenol dose this morning. Discussed clinical course and treatment plan with patient, patient's at bedside. Objective: Visit Vitals BP 138/76 Pulse 80 Temp 36.8 C (98.3 F) Resp 18 General: NAD. HEENT: NCAT. Respiratory: CTA B/L. Cardiovascular: RRR. Gastrointestinal: Soft, non-tender, non-distended. Musculoskeletal: No edema bilateral lower extremities. Skin: Visible skin warm, dry. Neurologic: CN 2-12 grossly intact. Psychiatric: Normal mood. Labs: Lab Results Component Value Date WBC 10.0 10/09/2023 HGB 11.3 (L) 10/09/2023 HCT 33.1 (L) 10/09/2023 MCV 91.2 10/09/2023 PLT 285 10/09/2023 Lab Results Component Value Date GLUCOSE 93 10/09/2023 CALCIUM 8.9 10/09/2023 NA 139 10/09/2023 K 3.8 10/09/2023 CO2 24 10/09/2023 CL 109 (H) 10/09/2023 BUN 15 10/09/2023 CREATININE 0.54 (L) 10/09/2023 All labs, imaging, and diagnostic studies reviewed. Current Home and Inpatient Medications: Current Facility-Administered Medications Medication Dose Route Frequency Provider Last Rate Last Admin amLODIPine (NORVASC) tablet 5 mg 5 mg oral Daily David Mayer, DO 5 mg at 10/09/23 0831 aspirin chewable tablet 324 mg 324 mg oral Daily David Mayer DO 324 mg at 10/09/23 0831 atorvastatin (LIPITOR) tablet 10 mg 10 mg oral Nightly David Mayer DO 10 mg at 10/08/23 2356 enoxaparin (LOVENOX) injection 30 mg 30 mg subcutaneous q24h [facility] David Mayer DO 30 mg at 10/09/23 0830 nitroglycerin (NITROSTAT) SL tablet 0.4 mg 0.4 mg sublingual q5 min PRN David Mayer DO sodium chloride 0.9 % infusion - ADS Override Pull * Minda Mac - 10/09/2023 12:44 PM EDT Patient is requesting the [employer] Librarian see her. She is listed as Scientologist and a consult has been entered. I told her the Certified Solid Waste Facility Operator will be here over the weekend also * Gurinder Ibarra DO - 10/08/2023 6:29 PM EDT Chief Complaint Patient presents with Chest Pain Patient c/o cp that started about 2 hours ago, ems administered 2 nitro tabs and nitro paste, also gave 324 ASA, patient denies cp on arrival, denies sob/dizziness, AAOX4 History of Present Illness: Tamanna Dill is a 77 y.o. female with a history of paroxysmal A-fib diagnosed yesterday after a visit to [facility] where the patient was evaluated for shortness of breath and chest discomfort. A-fib resolved upon route to the hospital. She was subsequently discharged home and states she does follow with cardiology. Dr. Ron. Her line assembly utility worker did recommend a upcoming stress test which has yet to be performed. Has not had a stress test, echocardiogram or other cardiac restratification in quite some time. History of hyperlipidemia and hypertension and family history of heart disease. Denies any tobacco or alcohol dependence. Today she had onset of severe crushing chest pain. Near syncope. Shortness of breath. Diaphoresis. States she was evaluated in urgent care and had a EKG done concerning for ST segment changes. EMS attempted to call STEMI prehospital due to prehospital EKG. I did not see any ST elevation necessitating prehospital STEMI alert. Patient was given 324 mg aspirin and 2 nitroglycerin sublingual and Nitropaste. Resolves with resolution of symptoms. Denies any current chest pain. Has had chronic shortness of breath ongoing since COVID 2 and half years ago. Denies any significant change in her chronic shortness of breath currently. Denies any history of DVT or PE, lower extremity pain or swelling, other acute complaints including any nausea vomiting, abdominal pain, bowel or bladder dysfunction. Discussed with independent historian -: Yes, EMS Review of External Record -: Yes: Cannot see ED visit from yesterday but do see patient was seen for ear pain 2 days ago. No previous cardiac testing in our system. PAST MEDICAL HISTORY: Patient Active Problem List Diagnosis Chest pain History reviewed. No pertinent past medical history. History reviewed. No pertinent surgical history. Not on File No family history on file. SOCIAL HISTORY: Social History Tobacco Use Smoking status: Not on file Smokeless tobacco: Not on file Substance Use Topics Alcohol use: Not on file Social History Social History Narrative Not on file REVIEW OF SYSTEMS: Otherwise as per HPI. PHYSICAL EXAM: ED Triage Vitals [10/08/23 1833] Temp Heart Rate Resp BP 36.8 C (98.3 F) 102 18 (!) 144/77 SpO2 Temp src Heart Rate Source Patient Position 100 % -- -- -- BP Location FiO2 (%) -- -- CONSTITUTIONAL: Well appearing, no apparent distress EYES: Pupils are equally round and reactive to light. There is no evidence of conjunctival pallor. HENT: Mucous membranes moist. Oropharynx unremarkable. CARDIOVASCULAR: Heart is regular, no murmurs. Good peripheral pulses. PULMONARY/CHEST: Lungs are clear to auscultation bilaterally. No signs of respiratory distress. Nitropaste across left upper chest wall. ABDOMINAL: Soft, nontender, nondistended. MUSCULOSKELETAL: No deformities. No pedal edema. NEURO: The patient is AAOx3. There are no focal neurologic deficits. SKIN: Warm, well perfused. No acute rashes. PSYCH: Normal affect. ED STUDIES: Labs Reviewed BASIC METABOLIC PANEL - Abnormal Result Value Sodium 135 (*) Potassium 3.8 Chloride 104 CO2 22 Anion Gap 9 Glucose 347 (*) BUN 22 (*) Creatinine 0.75 eGFR 82 BUN/Creatinine Ratio 29.3 (*) Calcium 9.2 CBC WITH AUTO DIFFERENTIAL - Abnormal WBC 10.2 RBC 3.72 (*) Hemoglobin 11.6 (*) Hematocrit 34.1 (*) MCV 91.7 MCH 31.2 MCHC 34.0 RDW 13.1 Platelets 288 MPV 9.9 Neutrophils Relative 91.7 (*) Lymphocytes Relative 7.1 (*) Monocytes Relative 0.7 (*) Eosinophils Relative 0.0 Basophils Relative 0.0 Immature Granulocytes Relative 0.5 Neutrophils Absolute 9.34 (*) Lymphocytes Absolute 0.72 (*) Monocytes Absolute 0.07 Eosinophils Absolute 0.00 Basophils Absolute 0.00 Immature Granulocytes Absolute 0.05 TROPONIN I HIGH SENSITIVITY - Normal High Sensitivity Troponin I 5 TROPONIN I HIGH SENSITIVITY - Normal High Sensitivity Troponin I 9 CBC AND DIFFERENTIAL Narrative: The following orders were created for panel order CBC and differential. Procedure Abnormality Status --------- ------ CBC auto differential[[id number]] Abnormal Final result Please view results for these tests on the individual orders. XR Chest 1 View Final Result The heart size is normal. Negative for lobar consolidation, effusion, or pneumothorax. Minimal interstitial prominence with a nonspecific pattern possibly minimal congestion in the acute setting or mild interstitial lung disease in the chronic setting, no comparisons are available. -------- FINAL REPORT -------- Dictated By: Marcus Staples Dictated Date: 10/08/2023 18:51 Assigned Physician: Marcus Staples Reviewed and Electronically Signed By: Marcus Staples Signed Date: 10/08/2023 18:52 Workstation ID: [id number] Transcribed By: Self Edit Transcribed Date: 10/08/2023 18:51 ED COURSE: Vitals: 10/08/23 1833 10/08/23 1900 10/08/23 2100 10/08/23 2110 BP: (!) 144/77 116/56 115/60 Pulse: 102 94 75 Resp: 18 15 19 Temp: 36.8 C (98.3 F) SpO2: 100% 100% 100% 98% Medications aspirin chewable tablet 324 mg (has no administration in time range) nitroglycerin (NITROSTAT) SL tablet 0.4 mg (has no administration in time range) amLODIPine (NORVASC) tablet 5 mg (has no administration in time range) atorvastatin (LIPITOR) tablet 10 mg (has no administration in time range) enoxaparin (LOVENOX) injection 40 mg (has no administration in time range) acetaminophen (TYLENOL) tablet 650 mg (650 mg oral Given 10/08/232200) In summary, Tamanna Dill is a 77 y.o. female presenting to the ED with above complaint. Vital signs within normal limits. Patient well-appearing. No acute distress. History and exam as above. Consistent with likely stable angina. Upon walking to the bathroom had return of shortness of breath andchest pain. Controlled at rest with Nitropaste currently. Has already received aspirin. EKG prehospital said STEMI but it was a wandering baseline. No considerable ST elevation or depression. I am concerned for underlying cardiac etiology though given her symptoms and feel she would benefit in cardiac observation. Normal sinus rhythm. No overly concerning ST-T wave changes. Initial and repeat trop onin 5 and 9 respectively. Remainder of her workup relatively unremarkable and reviewed besides hyperglycemia with normal anion gap. Given Tylenol and given her recent history of trigeminal neuralgia. Independent interpretation of EKG, rhythm strip, or radiology study? Yes, EKG: My interpretation isNSR. No overly concerning ischemic changes and Plain x-ray: My interpretation is no focal pneumonia DIAGNOSTIC IMPRESSION: 1. Chest pain, unspecified type DISPOSITION: Observation PDMP Reviewed by: on ED Prescriptions None Medical Decision Making Procedures Gurinder Ibarra DO 10/08/23 883 Gurinder Ibarra DO 10/08/23 0816 documented in this encounterDepartment Of [facility]-[id number] Hospital Discharge instructions* Discharge Instructions* Tyesha Llamas MD - 10/10/2023 11:49 AM EDT You will need to take Aspirin and Plavix uninterrupted for at least 12 months. If you have recurrence of your symptoms or overall worsening of your condition, please return to the ER. Complete your Prednisone taper starting from tomorrow with 30 mg dose. This would be your second day taking Prednisone 30 mg. Your cardiology follow-up will be arranged. Please follow-up with your PCP in 5-7 days. * Attachments The following attachments cannot be sent through Care Everywhere. * PCI (Percutaneous Coronary Intervention): Post-op (French) documented in this encounterDepartment Of Veterans Affairs Medical Center-[id number] Nurse Note* Caren Peña RN - 10/09/2023 3:40 PM EDT Patient was provided with Cardiac Rehab education with the list of choices of Cardiac Rehab Programs. Referral was made (or sent to Outpatient CRP) and patient given contact information of the cardiac rehab program of choice. [facility]-[id number] Procedure note* Caren Peña RN - 10/09/2023 3:40 PM EDT Patient was provided with Cardiac Rehab education with the list of choices of Cardiac Rehab Programs. Referral was made (or sent to Outpatient CRP) and patient given contact information of the cardiac rehab program of choice. * Kei Magallon MD - 10/09/2023 11:43 AM EDT Pre-Sedation Evaluation Heart/Lung Review: Heart Exam: normal Lung Exam: normal Pertinent Medical History: Stridor/Snoring/Sleep Apnea: yes Previous problems with sedation: no Airway examination results: Neck extension: normal Dentition: normal ASA: Class 3 - patient with severe systemic disease Mallampati classification: II - soft palate, uvula, fauces visible Sedation plan: local anesthesia, level 2-1: moderate/analgesia (conscious sedation) and minimal sedation Sedation plan and risks discussed with patient. Use of blood products discussed with patient who consented to blood products. Immediate reassessment prior to sedation: Patient's status reviewed and vital signs assessed; acceptable to perform procedure and proceed to administer sedation as planned. documented in this encounterDepartment Of Veterans Affairs Medical Center-[id number] Nurse procedure note* Kei Magallon MD - 10/09/2023 11:43 AM EDT Pre-Sedation Evaluation Heart/Lung Review: Heart Exam: normal Lung Exam: normal Pertinent Medical History: Stridor/Snoring/Sleep Apnea: yes Previous problems with sedation: no Airway examination results: Neck extension: normal Dentition: normal ASA: Class 3 - patient with severe systemic disease Mallampati classification: II - soft palate, uvula, fauces visible Sedation plan: local anesthesia, level 2-1: moderate/analgesia (conscious sedation) and minimal sedation Sedation plan and risks discussed with patient. Use of blood products discussed with patient who consented to blood products. Immediate reassessment prior to sedation: Patient's status reviewed and vital signs assessed; acceptable to perform procedure and proceed to administer sedation as planned. [facility] Center-[id number] Attending History and physical note* Kei Magallon MD - 10/09/2023 11:43 AM EDT Reviewed Plan [facility] +/- PCI Source Note - Latosha Cameron - 10/09/2023 8:18 AM EDT [employer] Patient Name : Tamanna Dill 1945 Date of Service: 10/09/23 HPI: 77 year old woman here with chest pain. BP is 127/74, HR is 74, RR is 16. Tn 5, then 9. She initially said that she was having some atrial fibrillation but this was per self diagnosis. On further question it sounds like she has been having chest pain and shortness of breath after climbing stairs toher orthodox starting several months ago, now it is occurring with less exertion and in the last 48 ho urs, occurred a few times at rest, was severe. It brought her to an ER and urgent care twice in thelast weeks and workup was normal. No evidence of AF. She explicitly denies feeling any irregular heart rate or heart racing. Extensive family hx of coronary disease but non prematurely. She had a stress test last year which was negative. Follows with Dr. Lawson. No prior lhc. ROS: Pertinent positives and negatives as mentioned above otherwise patient does not report any fever, chills, night sweats, dry eyes, epistaxis, dysphagia, chest pain, pressure, tightness, palpitations, dyspnea, orthopnea, PND, bendopnea, syncope, presyncope, edema, claudication, bleeding, unintentional weight change, unilateral weakness, nausea, vomiting, diarrhea, constipation, dysuria, acute back or joint pain, skin rash, severe anxiety/depression, suicidal ideation. Cardiac testing (Reviewed 10/09/23): I have personally reviewed the patient's past medical, surgical and family history and made changesas appropriate. Not on File Current Outpatient Medications Medication Instructions amLODIPine (NORVASC) 5 mg, oral, Daily ascorbic acid (VITAMIN C) 1,000 mg, oral, Daily atorvastatin (LIPITOR) 10 mg, oral, Nightly cholecalciferol (VITAMIN D-3) 1,000 Units, oral, Daily [id number]-DHA-FISH OIL-FLAX-E ORAL 1 capsule, oral, Daily predniSONE (DELTASONE) 10 mg tablet take 4 tabs daily x 3 days, then 3 tabs x 3 days, 2 tabs x 3 days, then 1 tab x3 days with food.Instructions:Take 4 tabs daily x 3 days, then 3 tabs x 3 days, 2 tabs x 3 days, then 1 tab x3 days with food. zinc gluconate 50 mg, oral, Daily Visit Vitals BP 127/74 Pulse 74 Temp 36.8 C (98.3 F) Resp 16 Ht 1.473 m (58) Wt (!) 44.9 kg (99 lb) SpO2 99% BMI 20.69 kg/m BSA 1.35 m Wt Readings from Last 3 Encounters: 10/09/23 (!) 44.9 kg (99 lb) PHYSICAL EXAM Alert, calm, no acute distress HEENT exam grossly benign Respiratory effort unlabored, lung sounds clear to auscultation bilateral PMI nondisplaced. Regular rate and rhythm. S1-S2 normal. No detectable murmurs, rubs, gallops. No JVP or HJR. Carotids 2+ without appreciable bruits. Abdomen soft, nontender, nondistended. No edema. Peripheral pulses 2+. Skin warm dry without cyanosis. Upper extremities without obvious disruption of range of motion. Gait not assessed. Mood, memory, judgment, affect appear stable. Alert and oriented without obvious focal deficit. Impression: Unstable angina Plan: [facility] today Echocardiogram If workup negative, 2 week event monitor with primary line assembly utility worker. Latosha Cameron MD 10/09/23 8:18 AM EDT [employer] Senior Table[employer] Developer [facility] Thank you for this consultation. If you have any questions, please feel free to call. First Call Mon-Fri [phone]: [facility] [place] [phone] [facility] [phone] [facility] [phone] After hours/Weekends: [phone] [employer] Phone: [phone] History and physical note* Kei Magallon MD - 10/09/2023 11:43 AM EDT Reviewed Plan [facility] +/- PCI Source Note - Latosha Cameron - 10/09/2023 8:18 AM EDT [employer] Patient Name : Tamanna Dill 1945 Date of Service: 10/09/23 HPI: 77 year old woman here with chest pain. BP is 127/74, HR is 74, RR is 16. Tn 5, then 9. She initially said that she was having some atrial fibrillation but this was per self diagnosis. On further question it sounds like she has been having chest pain and shortness of breath after climbing stairs toher orthodox starting several months ago, now it is occurring with less exertion and in the last 48 ho urs, occurred a few times at rest, was severe. It brought her to an ER and urgent care twice in thelast weeks and workup was normal. No evidence of AF. She explicitly denies feeling any irregular heart rate or heart racing. Extensive family hx of coronary disease but non prematurely. She had a stress test last year which was negative. Follows with Dr. Lawson. No prior lhc. ROS: Pertinent positives and negatives as mentioned above otherwise patient does not report any fever, chills, night sweats, dry eyes, epistaxis, dysphagia, chest pain, pressure, tightness, palpitations, dyspnea, orthopnea, PND, bendopnea, syncope, presyncope, edema, claudication, bleeding, unintentional weight change, unilateral weakness, nausea, vomiting, diarrhea, constipation, dysuria, acute back or joint pain, skin rash, severe anxiety/depression, suicidal ideation. Cardiac testing (Reviewed 10/09/23): I have personally reviewed the patient's past medical, surgical and family history and made changesas appropriate. Not on File Current Outpatient Medications Medication Instructions amLODIPine (NORVASC) 5 mg, oral, Daily ascorbic acid (VITAMIN C) 1,000 mg, oral, Daily atorvastatin (LIPITOR) 10 mg, oral, Nightly cholecalciferol (VITAMIN D-3) 1,000 Units, oral, Daily [id number]-6-[id number]-DHA-FISH OIL-FLAX-E ORAL 1 capsule, oral, Daily predniSONE (DELTASONE) 10 mg tablet take 4 tabs daily x 3 days, then 3 tabs x 3 days, 2 tabs x 3 days, then 1 tab x3 days with food.Instructions:Take 4 tabs daily x 3 days, then 3 tabs x 3 days, 2 tabs x 3 days, then 1 tab x3 days with food.
zinc gluconate 50 mg, oral, Daily Visit Vitals BP 127/74 Pulse 74 Temp 36.8 C (98.3 F) Resp 16 Ht 1.473 m (58) Wt (!) 44.9 kg (99 lb) SpO2 99% BMI 20.69 kg/m BSA 1.35 m Wt Readings from Last 3 Encounters: 10/09/23 (!) 44.9 kg (99 lb) PHYSICAL EXAM Alert, calm, no acute distress HEENT exam grossly benign Respiratory effort unlabored, lung sounds clear to auscultation bilateral PMI nondisplaced. Regular rate and rhythm. S1-S2 normal. No detectable murmurs, rubs, gallops. No JVP or HJR. Carotids 2+ without appreciable bruits. Abdomen soft, nontender, nondistended. No edema. Peripheral pulses 2+. Skin warm dry without cyanosis. Upper extremities without obvious disruption of range of motion. Gait not assessed. Mood, memory, judgment, affect appear stable. Alert and oriented without obvious focal deficit. Impression: Unstable angina Plan: [facility] today Echocardiogram If workup negative, 2 week event monitor with primary line assembly utility worker. Latosha Cameron MD 10/09/23 8:18 AM EDT Black Senior Tableau Developer [facility] Thank you for this consultation. If you have any questions, please feel free to call. First Call Mon-Fri [phone]: [facility] [place] [phone] [facility] [phone] [facility] [phone] After hours/Weekends: [phone] * David Mayer DO - 10/08/2023 8:49 PM EDT Images from the original note were not included. History and Physical David Mayer DO [employer] Chief Complaint: Chest pain History of Presenting Illness: Patient presented to the emergency department with chest pain. Also some associated shortness of breath. Patient does follow with a line assembly utility worker who recommended a stress test which is yet to be performed. Patient denies fever, chills, nausea, vomiting, headache, dizziness. Vital signs within normallimits and stable. The patient is afebrile. Laboratory studies demonstrate sodium 135, glucose 347,hemoglobin 11.6. EKG did not show any acute changes. Troponins 5 and 9 respectively. Previous Medical History: History reviewed. No pertinent past medical history. Previous Surgical History: History reviewed. No pertinent surgical history. Social History: Social History Socioeconomic History Marital status: Spouse name: Not on file Number of children: Not on file Years of education: Not on file Highest education level: Not on file Occupational History Not on file Tobacco Use Smoking status: Not on file Smokeless tobacco: Not on file Substance and Sexual Activity Alcohol use: Not on file Drug use: Not on file Sexual activity: Not on file Other Topics Concern Not on file Social History Narrative Not on file Family History: No family history on file. Current Home and Inpatient Medications: Current Facility-Administered Medications Medication Dose Route Frequency Provider Last Rate Last Admin aspirin chewable tablet 324 mg 324 mg oral Daily Tanner Rice NP nitroglycerin (NITROSTAT) SL tablet 0.4 mg 0.4 mg sublingual q5 min PRN Tanner Rice NP 0.4 mg at 10/08/23 9947 Current Outpatient Medications Medication Sig Dispense Refill ascorbic acid (VITAMIN C) 1,000 mg tablet Take 1 tablet (1,000 mg total) by mouth daily. predniSONE (DELTASONE) 10 mg tablet take 4 tabs daily x 3 days, then 3 tabs x 3 days, 2 tabs x 3 days, then 1 tab x3 days with food.Instructions:Take 4 tabs daily x 3 days, then 3 tabs x 3 days, 2 tabs x 3 days, then 1 tab x3 days with food. amLODIPine (NORVASC) 5 mg tablet Take 1 tablet (5 mg total) by mouth 1 (one) time each day. atorvastatin (LIPITOR) 10 mg tablet Take 1 tablet (10 mg total) by mouth at bedtime. cholecalciferol (VITAMIN D-3) 25 mcg (1,000 unit) tablet Take 1 tablet (1,000 Units total) by mouth1 (one) time each day. [id number]-DHA-FISH OIL-FLAX-E ORAL Take 1 capsule by mouth 1 (one) time each day. zinc gluconate 50 mg tablet Take 1 tablet (50 mg total) by mouth 1 (one) time each day. Allergies: Not on File Review of Systems: All systems have been reviewed and are negative except as mentioned in the HPI Physical Exam: Visit Vitals BP 116/56 Pulse 94 Temp 36.8 C (98.3 F) Resp 15 General: Awake, not appearing in acute distress HEENT: Pupils equal and reactive to light and accommodation, mucosal membranes moist without tonsillar exudate, no cervical lymphadenopathy, posterior pharynx without erythema, nasal passages are clear Respiratory: Lungs clear to auscultation bilaterally without wheezing, crackles, rhonchi or respiratory distress Cardiovascular: No murmurs rubs or gallops, no JVD or lower extremity edema, normal S1 and S2 Gastrointestinal: positive bowel sounds, abdomen soft, no abdominal tenderness,without rebound or guarding Musculoskeletal: normal strength and muscle tone Skin: No rashes, ecchymosis, ulcers or lacerations Neurologic: Alert and oriented to name, place and diagnosis: Cranial nerves intact, no slurred speech, facial drooping, focal weakness. Psychiatric: Calm, appropriate and cooperative. Labs: Lab Results Component Value Date WBC 10.2 10/08/2023 HGB 11.6 (L) 10/08/2023 HCT 34.1 (L) 10/08/2023 MCV 91.7 10/08/2023 PLT 288 10/08/2023 Lab Results Component Value Date GLUCOSE 347 (H) 10/08/2023 CALCIUM 9.2 10/08/2023 NA 135 (L) 10/08/2023 K 3.8 10/08/2023 CO2 22 10/08/2023 CL 104 10/08/2023 BUN 22 (H) 10/08/2023 CREATININE 0.75 10/08/2023 All labs, imaging, and diagnostic studies reviewed. Assessment -Chest pain -Hypertension -Hyperlipidemia -Diabetes mellitus -Atrial fibrillation Plan -Admit to medicine -Consult cardiology -Telemetry -N.p.o. after midnight -Continue home medications David Mayer DO [facility] documented in this encounterDepartment Of [facility] Affairs [facility]-[id number] Consult note* Latosha Cameron - 10/09/2023 8:18 AM EDTAssociated Order(s): IP CONSULT TO CARDIOLOGY [employer] MANAGER [employer] Patient Name : Tmaanna Dill 1945 Date of Service: 10/09/23 HPI: 77 year old woman here with chest pain. BP is 127/74, HR is 74, RR is 16. Tn 5, then 9. She initially said that she was having some atrial fibrillation but this was per self diagnosis. On further question it sounds like she has been having chest pain and shortness of breath after climbing stairs toher orthodox starting several months ago, now it is occurring with less exertion and in the last 48 ho urs, occurred a few times at rest, was severe. It brought her to an ER and urgent care twice in thelast weeks and workup was normal. No evidence of AF. She explicitly denies feeling any irregular heart rate or heart racing. Extensive family hx of coronary disease but non prematurely. She had a stress test last year which was negative. Follows with Dr. Lawson. No prior lh. ROS: Pertinent positives and negatives as mentioned above otherwise patient does not report any fever, chills, night sweats, dry eyes, epistaxis, dysphagia, chest pain, pressure, tightness, palpitations, dyspnea, orthopnea, PND, bendopnea, syncope, presyncope, edema, claudication, bleeding, unintentional weight change, unilateral weakness, nausea, vomiting, diarrhea, constipation, dysuria, acute back or joint pain, skin rash, severe anxiety/depression, suicidal ideation. Cardiac testing (Reviewed 10/09/23): I have personally reviewed the patient's past medical, surgical and family history and made changesas appropriate. Not on File Current Outpatient Medications Medication Instructions amLODIPine (NORVASC) 5 mg, oral, Daily ascorbic acid (VITAMIN C) 1,000 mg, oral, Daily atorvastatin (LIPITOR) 10 mg, oral, Nightly cholecalciferol (VITAMIN D-3) 1,000 Units, oral, Daily [id number]-DHA-FISH OIL-FLAX-E ORAL 1 capsule, oral, Daily predniSONE (DELTASONE) 10 mg tablet take 4 tabs daily x 3 days, then 3 tabs x 3 days, 2 tabs x 3 days, then 1 tab x3 days with food.Instructions:Take 4 tabs daily x 3 days, then 3 tabs x 3 days, 2 tabs x 3 days, then 1 tab x3 days with food. zinc gluconate 50 mg, oral, Daily Visit Vitals BP 127/74 Pulse 74 Temp 36.8 C (98.3 F) Resp 16 Ht 1.473 m (58) Wt (!) 44.9 kg (99 lb) SpO2 99% BMI 20.69 kg/m BSA 1.35 m Wt Readings from Last 3 Encounters: 10/09/23 (!) 44.9 kg (99 lb) PHYSICAL EXAM Alert, calm, no acute distress HEENT exam grossly benign Respiratory effort unlabored, lung sounds clear to auscultation bilateral PMI nondisplaced. Regular rate and rhythm. S1-S2 normal. No detectable murmurs, rubs, gallops. No JVP or HJR. Carotids 2+ without appreciable bruits. Abdomen soft, nontender, nondistended. No edema. Peripheral pulses 2+. Skin warm dry without cyanosis. Upper extremities without obvious disruption of range of motion. Gait not assessed. Mood, memory, judgment, affect appear stable. Alert and oriented without obvious focal deficit. Impression: Unstable angina Plan: [facility] today Echocardiogram If workup negative, 2 week event monitor with primary line assembly utility worker. Latosha Cameron MD 10/09/23 8:18 AM EDT Black Senior Tableau Developer [facility] Thank you for this consultation. If you have any questions, please feel free to call. First Call Mon-Fri [phone]: [facility] [place] [phone] [facility] [phone] [facility] [phone] After hours/Weekends: [phone] [facility]-[id number] Consult note* Latosha Cameron - 10/09/2023 8:18 AM EDT Associated Order(s): IP CONSULT TO CARDIOLOGY [employer] Patient Name : Tamanna Dill 1945 Date of Service: 10/09/23 HPI: 77 year old woman here with chest pain. BP is 127/74, HR is 74, RR is 16. Tn 5, then 9. She initially said that she was having some atrial fibrillation but this was per self diagnosis. On further question it sounds like she has been having chest pain and shortness of breath after climbing stairs toher orthodox starting several months ago, now it is occurring with less exertion and in the last 48 ho urs, occurred a few times at rest, was severe. It brought her to an ER and urgent care twice in thelast weeks and workup was normal. No evidence of AF. She explicitly denies feeling any irregular heart rate or heart racing. Extensive family hx of coronary disease but non prematurely. She had a stress test last year which was negative. Follows with Dr. Lawson. No prior [facility]. ROS: Pertinent positives and negatives as mentioned above otherwise patient does not report any fever, chills, night sweats, dry eyes, epistaxis, dysphagia, chest pain, pressure, tightness, palpitations, dyspnea, orthopnea, PND, bendopnea, syncope, presyncope, edema, claudication, bleeding, unintentional weight change, unilateral weakness, nausea, vomiting, diarrhea, constipation, dysuria, acute back or joint pain, skin rash, severe anxiety/depression, suicidal ideation. Cardiac testing (Reviewed 10/09/23): I have personally reviewed the patient's past medical, surgical and family history and made changesas appropriate. Not on File Current Outpatient Medications Medication Instructions amLODIPine (NORVASC) 5 mg, oral, Daily ascorbic acid (VITAMIN C) 1,000 mg, oral, Daily atorvastatin (LIPITOR) 10 mg, oral, Nightly cholecalciferol (VITAMIN D-3) 1,000 Units, oral, Daily [id number]-DHA-FISH OIL-FLAX-E ORAL 1 capsule, oral, Daily predniSONE (DELTASONE) 10 mg tablet take 4 tabs daily x 3 days, then 3 tabs x 3 days, 2 tabs x 3 days, then 1 tab x3 days with food.Instructions:Take 4 tabs daily x 3 days, then 3 tabs x 3 days, 2 tabs x 3 days, then 1 tab x3 days with food.
zinc gluconate 50 mg, oral, Daily Visit Vitals BP 127/74 Pulse 74 Temp 36.8 C (98.3 F) Resp 16 Ht 1.473 m (58) Wt (!) 44.9 kg (99 lb) SpO2 99% BMI 20.69 kg/m BSA 1.35 m Wt Readings from Last 3 Encounters: 10/09/23 (!) 44.9 kg (99 lb) PHYSICAL EXAM Alert, calm, no acute distress HEENT exam grossly benign Respiratory effort unlabored, lung sounds clear to auscultation bilateral PMI nondisplaced. Regular rate and rhythm. S1-S2 normal. No detectable murmurs, rubs, gallops. No JVP or HJR. Carotids 2+ without appreciable bruits. Abdomen soft, nontender, nondistended. No edema. Peripheral pulses 2+. Skin warm dry without cyanosis. Upper extremities without obvious disruption of range of motion. Gait not assessed. Mood, memory, judgment, affect appear stable. Alert and oriented without obvious focal deficit. Impression: Unstable angina Plan: [facility] today Echocardiogram If workup negative, 2 week event monitor with primary line assembly utility worker. Latosha Cameron MD 10/09/23 8:18 AM EDT Black Senior Tableau Developer [facility] [place] Thank you for this consultation. If you have any questions, please feel free to call. First Call Mon-Thu [phone]: [facility] [place] [phone] [facility] [phone] [facility] [phone] After hours/Weekends: [phone] documented in this encounterDepartment Of Veterans Affairs Medical Center-[id number] History and physical note* David Mayer DO - 10/08/2023 8:49 PM EDT Images from the original note were not included. History and Physical David Mayer DO [employer] Chief Complaint: Chest pain History of Presenting Illness: Patient presented to the emergency department with chest pain. Also some associated shortness of breath. Patient does follow with a line assembly utility worker who recommended a stress test which is yet to be performed. Patient denies fever, chills, nausea, vomiting, headache, dizziness. Vital signs within normallimits and stable. The patient is afebrile. Laboratory studies demonstrate sodium 135, glucose 347,hemoglobin 11.6. EKG did not show any acute changes. Troponins 5 and 9 respectively. Previous Medical History: History reviewed. No pertinent past medical history. Previous Surgical History: History reviewed. No pertinent surgical history. Social History: Social History Socioeconomic History Marital status: Spouse name: Not on file Number of children: Not on file Years of education: Not on file Highest education level: Not on file Occupational History Not on file Tobacco Use Smoking status: Not on file Smokeless tobacco: Not on file Substance and Sexual Activity Alcohol use: Not on file Drug use: Not on file Sexual activity: Not on file Other Topics Concern Not on file Social History Narrative Not on file Family History: No family history on file. Current Home and Inpatient Medications: Current Facility-Administered Medications Medication Dose Route Frequency Provider Last Rate Last Admin aspirin chewable tablet 324 mg 324 mg oral Daily Tanner Rice NP nitroglycerin (NITROSTAT) SL tablet 0.4 mg 0.4 mg sublingual q5 min PRN Tanner Rice NP 0.4 mg at 10/08/23 9139 Current Outpatient Medications Medication Sig Dispense Refill ascorbic acid (VITAMIN C) 1,000 mg tablet Take 1 tablet (1,000 mg total) by mouth daily. predniSONE (DELTASONE) 10 mg tablet take 4 tabs daily x 3 days, then 3 tabs x 3 days, 2 tabs x 3 days, then 1 tab x3 days with food.Instructions:Take 4 tabs daily x 3 days, then 3 tabs x 3 days, 2 tabs x 3 days, then 1 tab x3 days with food. amLODIPine (NORVASC) 5 mg tablet Take 1 tablet (5 mg total) by mouth 1 (one) time each day. atorvastatin (LIPITOR) 10 mg tablet Take 1 tablet (10 mg total) by mouth at bedtime. cholecalciferol (VITAMIN D-3) 25 mcg (1,000 unit) tablet Take 1 tablet (1,000 Units total) by mouth1 (one) time each day. [id number]-DHA-FISH OIL-FLAX-E ORAL Take 1 capsule by mouth 1 (one) time each day. zinc gluconate 50 mg tablet Take 1 tablet (50 mg total) by mouth 1 (one) time each day. Allergies: Not on File Review of Systems: All systems have been reviewed and are negative except as mentioned in the HPI Physical Exam: Visit Vitals BP 116/56 Pulse 94 Temp 36.8 C (98.3 F) Resp 15 General: Awake, not appearing in acute distress HEENT: Pupils equal and reactive to light and accommodation, mucosal membranes moist without tonsillar exudate, no cervical lymphadenopathy, posterior pharynx without erythema, nasal passages are clear Respiratory: Lungs clear to auscultation bilaterally without wheezing, crackles, rhonchi or respiratory distress Cardiovascular: No murmurs rubs or gallops, no JVD or lower extremity edema, normal S1 and S2 Gastrointestinal: positive bowel sounds, abdomen soft, no abdominal tenderness,without rebound or guarding Musculoskeletal: normal strength and muscle tone Skin: No rashes, ecchymosis, ulcers or lacerations Neurologic: Alert and oriented to name, place and diagnosis: Cranial nerves intact, no slurred speech, facial drooping, focal weakness. Psychiatric: Calm, appropriate and cooperative. Labs: Lab Results Component Value Date WBC 10.2 10/08/2023 HGB 11.6 (L) 10/08/2023 HCT 34.1 (L) 10/08/2023 MCV 91.7 10/08/2023 PLT 288 10/08/2023 Lab Results Component Value Date GLUCOSE 347 (H) 10/08/2023 CALCIUM 9.2 10/08/2023 NA 135 (L) 10/08/2023 K 3.8 10/08/2023 CO2 22 10/08/2023 CL 104 10/08/2023 BUN 22 (H) 10/08/2023 CREATININE 0.75 10/08/2023 All labs, imaging, and diagnostic studies reviewed. Assessment -Chest pain -Hypertension -Hyperlipidemia -Diabetes mellitus -Atrial fibrillation Plan -Admit to medicine -Consult cardiology -Telemetry -N.p.o. after midnight -Continue home medications Daivd Mayer DO [facility]-[id number] Emergency department Note* ED Bed Hold Note - Khushi Loya RN - 10/08/2023 8:20 PM EDT Bed: AP-30 Expected date: Expected time: Means of arrival: Comments: ER [address]04-2024 Miscellaneous Notes* ED Bed Hold Note - Khushi Loya RN - 10/08/2023 8:20 PM EDT Bed: AP-30 Expected date: Expected time: Means of arrival: Comments: ER 33 * ED Bed Hold Note - Aaron Meraz EMT-P - 10/08/2023 6:29 PM EDT Bed: AP-33 Expected date: Expected time: Means of arrival: Comments: [id number] documented in this encounterDepartment Of Veterans Affairs [facility] Center-[id number] Emergency department Note* ED Bed Hold Note - Aaron Meraz EMT-P - 10/08/2023 6:29 PM EDT Bed: AP-33 Expected date: Expected time: Means of arrival: Comments: [email or web address] [facility]-[id number] History of Present illness Narrative* Tanner Rice NP - 10/08/2023 6:20 PM EDT October 08, 2023 Tamanna Dill 1945 77 y.o. Urgent Care Provider: Tanner Rice NP Primary Care Provider: No Pcp Physician No chief complaint on file. History of Present Illness Tamanna Dill is a 77 y.o. female who presents with chest pain and SOB. Husbands states she was at the ER yesterday for new onset a fib, but by the time she got to the ER she had converted. States they did not send her home on medication. Denies cardiac hx. States this started about 20 minutes ago while eating dinner. concerned she is back in a fib. Medical History No past medical history on file. Current Facility-Administered Medications Medication Dose Route Frequency Provider Last Rate Last Admin aspirin chewable tablet 324 mg 324 mg oral Daily Tanner Rice NP nitroglycerin (NITROSTAT) SL tablet 0.4 mg 0.4 mg sublingual q5 min PRN Tanner Rice NP 0.4 mg at 10/08/231836 No current outpatient medications on file. No past surgical history on file. No family history on file. Not on File Social History Socioeconomic History Marital status: Spouse name: Not on file Number of children: Not on file Years of education: Not on file Highest education level: Not on file Occupational History Not on file Tobacco Use Smoking status: Not on file Smokeless tobacco: Not on file Substance and Sexual Activity Alcohol use: Not on file Drug use: Not on file Sexual activity: Not on file Other Topics Concern Not on file Social History Narrative Not on file Review of Systems Respiratory: Positive for shortness of breath. Cardiovascular: Positive for chest pain. Physical Exam There were no vitals filed for this visit. Physical Exam Cardiovascular: Rate and Rhythm: Bradycardia present. Pulmonary: Effort: Respiratory distress present. Neurological: Mental Status: She is alert. No orders to display No results found for any previous visit. Urgent Care Course Medical Decision Makin77 y/o female with chest pain and SOB. I did give her 2 nitro and 4 baby aspirin today while waiting for squad. I also placed oxygen on pt. EKG showed concern for ST elevation. Pt transported [place] [facility] [place]ics. Differential Diagnosis Includes: SC, A fib Diagnosis: Chest pain, unspecified type (Primary) - nitroglycerin (NITROSTAT) SL tablet 0.4 mg - aspirin chewable tablet 324 mg Shortness of breath documented in this encounterDepartment Of Veterans Affairs Medical Center-[id number] History of Present illness Narrative* Emily Carrera, CORPORATE LIBRARIAN.SSIS SSRS DEVELOPER - 10/06/2023 11:04 AM EDT CC: Patient presents with: left ear pain: X 5 days HPI Tamanna Dill is a 77 year old female who presents today for above. Patient states she developed pain behind the left ear about five days ago. Described as: electric shocks Pain is aggravated by: nothing Pain is alleviated by Tylenol, taking every eight hours Denies pain inside ear, muffled hearing, tinnitus, ear redness/swelling, fever, chills, headaches, dizziness, lightheadedness, facial numbness/tingling, speech difficulty, facial asymmetry, rashes, dental pain, history of Shingles or migraines She has had the same pain for years now, at least once a year. However it has never lasted this long before, usually resolves after a couple days. She has attributed symptoms to sinus problems but Mucinex does not seem to be helping. Review of Systems Constitutional: Negative for activity change, appetite change, chills, diaphoresis, fatigue, fever and unexpected weight change. HENT: Negative for congestion, facial swelling, hearing loss, postnasal drip, rhinorrhea, sinus pressure, sinus pain, sneezing, sore throat, tinnitus, trouble swallowing and voice change. Eyes: Negative for visual disturbance. Respiratory: Negative for cough, shortness of breath and wheezing. Cardiovascular: Negative for chest pain, palpitations and leg swelling. Musculoskeletal: Negative for gait problem, neck pain and neck stiffness. Neurological: Negative for tremors, syncope and weakness. PAST MEDICAL HISTORY Diagnosis Date Asymptomatic varicose veins 03/31/2011 Diverticulosis of colon (without mention of hemorrhage) Hypertension OAB (overactive bladder) 01/17/2015 Osteoporosis, unspecified Other and unspecified hyperlipidemia 10/06/2007 Personal history of colonic polyps last colon 06/09, 5-year interval Varicose veins Venous insufficiency (chronic) (peripheral) 03/09/2008 PAST SURGICAL HISTORY Procedure Laterality Date COLONOSCOPY FLX DX W/COLLJ SPEC WHEN PFRMD 06/19/05 Colonoscopy COLONOSCOPY FLX DX W/COLLJ SPEC WHEN PFRMD 07/31/2011 Colonoscopy COLONOSCOPY FLX DX W/COLLJ SPEC WHEN PFRMD 11/25/2016 Normal colonoscopy-10 year follow-up LIG/TRNSXJ FLP TUBE ABDL/VAG APPR UNI/BI 1970 Tubal ligation ALLERGIES Erythromycin, Latex, and Penicillins MEDICATIONS fluticasone (FLONASE) 50 mcg/actuation nasal spray Use 2 Sprays in each nostril once daily. Rinse mouth after use. atorvastatin (LIPITOR) 10 mg tablet Take 1 tablet by mouth once daily. amLODIPine (NORVASC) 5 mg tablet Magnesium Carbonate powd Mg unknown Zinc 50 mg tab Take by mouth. Ascorbic Acid (VITAMIN C) 1,000 mg tablet Take 1 tablet by mouth once daily. [place] [id number] 500 mg-500 mcg -1 mg-12.5 mg cap Take 500 mg by mouth once daily. folic acid 800 mcg tablet Take 1 tablet by mouth once daily. ergocalciferol, vitamin D2, (VITAMIN D2 ORAL) Take by mouth. FAMILY HISTORY Problem Relation Age of Onset Colon Cancer Mother Heart Father of [place] Hypertension Brother Hypertension Sister Hypertension Sister Hypertension Sister Hypertension Sister Heart Brother [place] Hypertension Brother Heart Sister Triple bypass Heart Son mitral valve prolapse other (Eczema) Son Coronary Artery Disease Sister Social History Tobacco Use Smoking status: Never Smokeless tobacco: Never Substance Use Topics Alcohol use: Not Currently Drug use: No Comment: marijuana use years ago BP 132/73 Pulse 82 Temp 37.3 C (99.2 F) (Temporal) Resp 12 Wt 45.8 kg (101 lb) BMI 21.11 kg/m Physical Exam Vitals reviewed. Constitutional: General: She is not in acute distress. Appearance: Normal appearance. She is not ill-appearing or toxic-appearing. HENT: Head: Normocephalic and atraumatic. Jaw: No tenderness, swelling, pain on movement or malocclusion. Comments: No scalp tenderness/sensitivity. No temporal artery tenderness, pulsations or bruits Right Ear: Tympanic membrane, ear canal and external ear normal. Left Ear: Tympanic membrane, ear canal and external ear normal. Nose: Right Sinus: No maxillary sinus tenderness or frontal sinus tenderness. Left Sinus: No maxillary sinus tenderness or frontal sinus tenderness. Mouth/Throat: Lips: [place]. Mouth: Mucous membranes are moist. Tongue: Tongue does not deviate from midline. Pharynx: Oropharynx is clear. Uvula midline. Eyes: Extraocular Movements: Extraocular movements intact. Conjunctiva/sclera: Conjunctivae normal. Pupils: Pupils are equal, round, and reactive to light. Cardiovascular: Rate and Rhythm: Normal rate and regular rhythm. Heart sounds: Normal heart sounds. No murmur heard. Pulmonary: Effort: Pulmonary effort is normal. Breath sounds: Normal breath sounds and air entry. Musculoskeletal: Cervical back: Full passive range of motion without pain. Lymphadenopathy: Head: Right side of head: No preauricular, posterior auricular or occipital adenopathy. Left side of head: No preauricular, posterior auricular or occipital adenopathy. Cervical: No cervical adenopathy. Right cervical: No superficial cervical adenopathy. Left cervical: No superficial cervical adenopathy. Skin: General: Skin is warm and dry. Findings: No rash. Comments: No rash noted in area of pain Neurological: General: No focal deficit present. Mental Status: She is alert and oriented to person, place, and time. Cranial Nerves: Cranial nerves 2-12 are intact. Motor: Motor function is intact. Gait: Gait is intact. Psychiatric: Mood and Affect: Mood and affect normal. Behavior: Behavior normal. Cognition and Memory: Cognition normal. ASSESSMENT/PLAN: 1. Pain behind the ear, left - ICD9: 388.70, ICD10: H92.02 Etiology unclear. Pain is localized behind the ear in the area of occipital cutaneous innervation. Differentials include occipital neuralgia, auricular neuralgia, migraine varian. No alarm symptoms or exam findings. Discussed treatment options, she would like to try a course of prednisone. Follow-up in one week or sooner for any worsening symptoms. Prescription instructions reviewed with patient as applicable. Potential red flag symptoms discussed with the patient. Reviewed appropriate action plan to take if red flag symptoms occur. Patient agreeable to treatment plan. Emily Carrera APRN.SSIS SSRS DEVELOPER [facility] History of Present illness Narrative* Yamilet Diaz APRN.BUFFER NICKEL - 06/12/2023 7:20 AM EST Telemedicine Evaluation for COVID-19 Infection MyChart Zoom Video Visit was used for evaluation of this patient. I have communicated my name and active licensure. The patient's identity and physical location wereverified at the time of this visit. Either the patient or their legal wireless sales representative has been informed of the risks and benefits of -- and alternatives to -- treatment through a remote evaluation andconsents to proceed with the evaluation remotely. JUSTICE Dill is a 77 year old female who presents with 1 day of symptoms that are stable. She reports recently visiting her sister, found out after the visit that her sister had COVID. Symptoms include: Fever (?100.4F): No or Chills: No Cough: Yes, mild Shortness of breath: No or Difficulty breathing: No Fatigue: Yes Muscle aches: Yes Headache: Yes New loss of smell or taste: No Sore throat: No Nasal congestion: Yes or Rhinorrhea: Yes a lot Nausea: No or Vomiting: No Diarrhea: No OTC meds/remedies that patient has tried: NSAIDs and Mucinex. High risk category assessment Age > 60 years old Exposures: Sick contacts? Yes Sister in ER with Covid Family or close contacts with confirmed/probable COVID-19 in last 14 days? Yes OBJECTIVE VIDEO EXAM Self-reported heart rate: 90 Self-reported pulse oximetry: 96 Self-reported blood pressure: 117/66 GENERAL: Ill-appearing, but non-toxic HEENT: no conjunctival injection, pupils equal, moist mucous membranes, sinuses non-tender to self-palpation, and no cervical adenopathy by self-palpation PULMONARY: breathing comfortably on room air , no coughing noted, and no wheezing noted Creatinine Date Value Ref Range Status 10/13/2022 0.66 0.58 - 0.96 mg/dL Final 08/12/2021 0.75 0.58 - 0.96 mg/dL Final 03/04/2021 0.83 0.58 - 0.96 mg/dL Final 06/14/2020 0.84 0.58 - 0.96 mg/dL Final ASSESSMENT/PLAN (U07.1) COVID-19 virus infection (primary encounter diagnosis) - Discussed symptom monitoring and supportive care - Red flag symptoms requiring follow up discussed Nirmatrelvir/Ritonavir (Paxlovid) Considerations Paxlovid is FDA-approved for treatment of mild to moderate COVID-19 in adults who are at high risk for progression to severe COVID-19. Consider use of Paxlovid in the following examples of high risk patients (list is not all inclusive): Age over 65 years Cardiovascular and cerebrovascular disease Chronic disease state (kidney, liver, lung) Diabetes (type 1 or type 2) Immunocompromised state (cancer, solid organ or blood stem cell transplant, HIV) Obesity Paxlovid warnings include serious drug interactions (co-administration with drugs highly dependent on CYP3A for clearance), hypersensitivity reactions, hepatotoxicity, and risk of HIV-1 resistance development. This patient encounter involved the screening or treatment of novel coronavirus infection (COVID-19). Yamilet Diaz APRN.CNS June 12, 2023 7:38 AM 20 min in visit [facility] Instructions* Patient Instructions* Yamilet Diaz APRN.CNS - 06/12/2023 7:02 AM EST Images from the original note were not included. Beginning Home Isolation Isolation is used to separate people infected with SARS-CoV-2, the virus that causes COVID-19, frompeople who are not infected. People who are in isolation should stay home until it s safe for them to be around others. In the home, anyone sick or infected should separate themselves from others by staying in a specific sick room or area and using a separate bathroom (if available). Isolation or Quarantine: What's the difference? Quarantine keeps someone who might have been exposed to the virus away from others. Isolation keeps someone who is infected with the virus away from others, even in their home. Who needs to isolate People who have COVID-19 People who have symptoms of COVID-19 and are able to recover at home People who have no symptoms (are asymptomatic) but have tested positive for infection with SARS-CoV-2 Steps to take Stay home except to get medical care Monitor your symptoms. Stay in a separate room from other household members, if possible Use a separate bathroom, if possible Avoid contact with other members of the household and pets Don t share personal household items, like cups, towels, and utensils Wear a mask when around other people, if you are able to When to seek emergency medical attention Look for emergency warning signs* for COVID-19. If someone is showing any of these signs, seek emergency medical care immediately: Trouble breathing Persistent pain or pressure in the chest New confusion Inability to wake or stay awake Bluish lips or face *This list is not all possible symptoms. Please call your medical provider for any other symptoms that are severe or concerning to you. Call 911 or call ahead to your local emergency facility: Notify the primer press operator that you are seeking care for someone who has or may have COVID-19. Ending Home Isolation - When you can be around others after you had or likely had COVID-19 When you can be around others after you had or likely had COVID-19 If You Test Positive for COVID-19 (Isolation) Everyone, regardless of vaccination status: Stay home for 5 days. Note: Day 0 is your first day of symptoms or the date of collection of a positive viral test if no symptoms. Day 1 is the first full day after symptoms developed or test specimen was collected. If you have no symptoms or your symptoms are resolving after 5 days, you can leave your house. Continue to wear a mask around others for 5 additional days. If you have a fever, continue to stay home until your fever resolves, even if it is longer than 5 days. If You Were Exposed to Someone with COVID-19 (Quarantine) If you: 1. Have been boosted OR 2. Completed the primary series of Pfizer or Moderna vaccine within the last 6 months OR 3. Completed the primary series of J&J vaccine within the last 2 months THEN: 1. Wear a mask around others for 10 days. 2. Test on day 5, if possible. If you develop symptoms get a test and stay home. If You Were Exposed to Someone with COVID-19 (Quarantine) If you: 1. Completed the primary series of Pfizer or Moderna vaccine over 6 months ago and are not boosted OR 2. Completed the primary series of J&J over 2 months ago and are not boosted OR 3. Are unvaccinated THEN: 1. Stay home for 5 days. After that continue to wear a mask around others for 5 additional days. 2. If you can't quarantine you must wear a mask for 10 days. 3. Test on day 5 if possible. If you develop symptoms get a test and stay home. I had COVID-19 or I tested positive for COVID-19 and I have a weakened immune system If you have a weakened immune system (immunocompromised) due to a health condition or medication, you might need to stay home and isolate longer than 10 days. Talk to your healthcare provider for more information. Your doctor may work with an infectious disease expert at your local health department to determinewhen you can be around others. How to Manage Common Symptoms Associated with COVID for Adults Fever- Fever is a temperature over 100.4 F and can occur when the body is fighting an infection. Tohelp treat a fever: Drink plenty of fluids and stay well hydrated. Eat small amounts of easy to digest food. Rest. Your body needs rest to recover, but getting up and moving around the house frequently is a good idea. You should try to continue doing your normal daily activities (bathing, toileting, grooming, cooking), though you will probably feel tired, and need to rest often. Avoid any heavy activity or exercise, as this will increase your body temperature. Dress in light clothing and stay covered in a light sheet. Keep the room temperature cool. Take a slightly warm (not cold or cool) bath, or apply damp washcloths to the forehead and wrists. Cough- Cough is a common symptom associated with COVID and can be bothersome. To help treat a cough: Stay well hydrated. Try warm water or tea with lemon and/or honey to help soothe the cough. Use a humidifier to add moisture to the air. Try a product with menthol, like a cough drop or a rub for your chest such as Vicks, which can helpreduce cough. Try cough drops. Avoid smoking and other strong odors or perfumes. Try breathing exercises to keep your lungs open and clear. Take a big deep breath through your noseand hold for 5 seconds before slowly releasing. Repeat frequently, while you are awake. Congestion- Runny nose or nasal congestion can occur with COVID. Treatment can help relieve symptoms: Try OTC nasal saline spray, or nasal saline rinse to relieve mucus congestion. Nasal strips can help keep nasal passages open, to increase airflow. Elevating your head with an extra pillow in bed can help reduce congestion. Using a humidifier can increase moisture in the air, and make breathing easier. Sore Throat- Another common symptom with COVID, can be managed at home by: Stay well hydrated. Gargle with salt water - mix teaspoon salt with 1 cup of warm water and gargle. This helps to loosen mucus in the back of the throat and may reduce discomfort. Try ice chips, popsicles or lozenges to soothe the throat. Nausea/Vomiting/Diarrhea- These are common symptoms, and staying hydrated is most important. If you are nauseous or vomiting, start with small sips of water every 10-15 minutes and increase astolerated. You can try sucking an ice cube too. If tolerating, you can try pedialyte or Gatorade, or flat sprite or piter-duane. Start slowly and increase as you are able to. Instead of meals, try smaller, more frequent snacks. Try eating bland foods like crackers, toast, rice, and applesauce. Avoid spicy, greasy or fried foods and dairy containing foods. Even if you aren't feeling hungry due to lack of smell or taste, it is important to try to take in some food when you are able. After drinking and eating, rest in an upright position for up to two hours as needed to help decrease nauseous feelings. Try closing your eyes, avoid moving and watching TV. Avoid strong odors that can make you feel more nauseated. When to seek emergency medical attention Look for emergency warning signs for COVID-19. If having any of these symptoms, seek emergency medical care immediately: Trouble breathing Persistent pain or pressure in the chest New confusion Inability to wake or stay awake Bluish lips or face *This list is not all possible symptoms. Please call your medical provider for any other symptoms that are severe or concerning to you. FACT SHEET FOR PATIENTS, PARENTS, AND CAREGIVERS EMERGENCY USE AUTHORIZATION (EUA) OF PAXLOVID FOR CORONAVIRUS DISEASE 2019 (COVID-19) You are being given this Fact Sheet because your healthcare provider believes it is necessary to provide you with PAXLOVID for the treatment of vnob-ju-uerzosfp coronavirus disease (COVID-19) caused by the SARS-CoV-2 virus. This Fact Sheet contains information to help you understand the risks and benefits of taking the PAXLOVID you may receive. This Fact Sheet also contains information about how t o take PAXLOVID and how to report side effects or problems with the appearance or packaging of PAXLOVID. The U.S. Food and Drug Administration (FDA) has issued an Emergency Use Authorization (EUA) to makePAXLOVID available for the treatment of spmi-bt-tkspfjlv COVID-19 in adults and children 12 years of age and older weighing at least 88 pounds (40 kg) who are at high risk for progression to severe COVID-19, including hospitalization or (for more details about an EUA please see What is an Emergency Use Authorization? at the end of this document). Read this Fact Sheet for information about PAXLOVID. Talk to your healthcare provider about your options or if you have any questions. It is your choice to take PAXLOVID. What is COVID-19? COVID-19 is caused by a virus called a coronavirus. You can get COVID-19 through close contact withanother person who has the virus. COVID-19 illnesses have ranged from very hhec-lc-xfvmtr, including illness resulting in . While information so far suggests that most COVID-19 illness is mild, serious illness can happen and maycause some of your other medical conditions to become worse. Older people and people of all ages with severe, long lasting (chronic) medical conditions like heart disease, lung disease, and diabetes,for example seem to be at higher risk of being hospitalized for COVID-19. What is PAXLOVID? PAXLOVID is a medicine that is available under EUA for the treatment of zfxw-hl-zihbeohy COVID-19 in adults and children 12 years of age and older weighing at least 88 pounds (40 kg) who are at high risk for progression to severe COVID-19, including hospitalization or . Although PAXLOVID is FDA- approved for the treatment of COVID-19 in certain adults (see section What other treatment choicesare there?), PAXLOVID use in children remains investigational because it is still being studied. There is limited information about the safety and effectiveness of using PAXLOVID to treat children with rexx-an-xdddvamd COVID-19. What is the most important information I should know about PAXLOVID? PAXLOVID can interact with other medicines causing severe or life-threatening side effects or . It is important to know the medicines that should not be taken with PAXLOVID. Do not take PAXLOVID if: you are taking any of the following medicines: o alfuzosin o amiodarone o apalutamide o carbamazepine o colchicine o dihydroergotamine o dronedarone o eletriptan o eplerenone o ergotamine o finerenone o flecainide o flibanserin o ivabradine o lomitapide o lovastatin o lumacaftor/ivacaftor o lurasidone o methylergonovine o midazolam (oral) o naloxegol o phenobarbital o phenytoin o pimozide o primidone o propafenone o quinidine o ranolazine o rifampin o rifapentine o Xin s Wort (hypericum perforatum) o sildenafil (Revatio ) for pulmonary arterial hypertension o silodosin o simvastatin o tolvaptan o triazolam o ubrogepant o voclosporin These are not the only medicines that may cause serious or life-threatening side effects if taken with PAXLOVID. PAXLOVID may increase or decrease the levels of multiple other medicines. It is very important to tell your healthcare provider about all of the medicines you are taking because additional laboratory tests or changes in the dose of your other medicines may be necessary during treatment with PAXLOVID. Your healthcare provider may also tell you about specific symptoms to watch out for that may indicate that you need to stop or decrease the dose of some of your other medicines. you are allergic to nirmatrelvir, ritonavir, or any of the ingredients in PAXLOVID. See the end of this leaflet for a complete list of ingredients in PAXLOVID. See What are the important possible side effects of PAXLOVID? for signs and symptoms of allergic reactions. What should I tell my healthcare provider before I take PAXLOVID? Tell your healthcare provider if you: have kidney problems. You may need a different dose of PAXLOVID. have liver problems, including hepatitis. have Human Immunodeficiency Virus 1 (HIV-1) infection. PAXLOVID may lead to some HIV-1 medicines not working as well in the future. are or plan to become . It is not known if PAXLOVID can harm your unborn baby. Tell your healthcare provider right away if you are or if you become . are or plan to breastfeed. It is not known if PAXLOVID can pass into your breast milk. Talk to your healthcare provider about the best way to feed your baby during treatment with PAXLOVID. Some medicines may interact with PAXLOVID and may cause serious side effects. Tell your healthcare provider about all the medicines you take, including prescription and arwr-bpf-kwlhifl medicines, vitamins, and herbal supplements. Your healthcare provider can tell you if it is safe to take PAXLOVID with other medicines. You can ask your healthcare provider or pharmacist for a list of medicines that interact with PAXLOVID. Do not start taking a new medicine without telling your healthcare provider. Tell your healthcare provider if you are taking combined control (hormonal contraceptive). PAXLOVID may affect how your hormonal contraceptives work. Females who are able to become should use another effective alternative form of contraception or an additional barrier method of contraception during treatment with PAXLOVID. Talk to your healthcare provider if you have any questions about contraceptive methods that might be right for you. How do I take PAXLOVID? Take PAXLOVID exactly as your healthcare provider tells you to take it. PAXLOVID consists of 2 medicines: nirmatrelvir tablets and ritonavir tablets. The 2 medicines are taken together 2 times each day for 5 days. Nirmatrelvir is an oval, pink tablet. Ritonavir is a white or off-white tablet. PAXLOVID is available in 2 Dose Packs (see Figures A and B below). Your healthcare provider will prescribe the PAXLOVID Dose Pack that is right for you. If you have kidney disease, your healthcare provider may prescribe a lower dose (see Figure B). Talk to your healthcare provider to make sure you receive the correct Dose Pack. Do not remove your PAXLOVID tablets from the blister card before you are ready to take your dose. Take your first dose of PAXLOVID in the morning or evening, depending on when you pickle maker your prescription, or as your healthcare provider tells you to. Swallow the tablets whole. Do not chew, break, or crush the tablets. Take PAXLOVID with or without food. Do not stop taking PAXLOVID without talking to your healthcare provider, even if you feel better. If you miss a dose of PAXLOVID within 8 hours of the time it is usually taken, take it as soon as you remember. If you miss a dose by more than 8 hours, skip the missed dose and take the next dose atyour regular time. Do not take 2 doses of PAXLOVID at the same time. If you take too much PAXLOVID, call your healthcare provider or go to the nearest hospital emergency room right away. If you are taking a ritonavir- or cobicistat-containing medicine to treat hepatitis C or HIV-1 infection, you should continue to take your medicine as prescribed by your healthcare provider. Talk to your healthcare provider if you do not feel better or if you feel worse after 5 days. What are the important possible side effects of PAXLOVID? PAXLOVID may cause serious side effects, including: Allergic reactions, including severe allergic reactions (anaphylaxis) have happened during treatment with PAXLOVID. Stop taking PAXLOVID and get medical help right away if you get any of the following symptoms of an allergic reaction: o skin rash, hives, blisters or peeling skin o painful sores or ulcers in the mouth, nose, throat or genital area o swelling of the mouth, lips, tongue or face o trouble swallowing or breathing o throat tightness o hoarseness Liver Problems. Tell your healthcare provider right away if you get any of the following signs and symptoms of liver problems during treatment with PAXLOVID: o loss of appetite o yellowing of your skin and the white of eyes o dark-colored urine o pale colored stools o itchy skin o stomach-area (abdominal) pain The most common side effects of PAXLOVID include: altered sense of taste and diarrhea. Other possible side effects include: headache vomiting abdominal pain nausea high blood pressure feeling generally unwell These are not all the possible side effects of PAXLOVID. For more information, ask your healthcare provider or pharmacist. What other treatment choices are there? PAXLOVID is FDA-approved for the treatment of emkk-pi-nyeyvzsy COVID-19 in certain adults; however,there are not sufficient quantities of the approved presentations (i.e., dose packs) of PAXLOVID atthis time. This EUA continues to authorize the emergency use of PAXLOVID for the approved patient population to ensure continued access in order to meet the public health need. VEKLURY (remdesivir) is FDA-approved for the treatment of rgnc-ql-xcldgksq COVID-19 in certain adults and children. Talk with your healthcare provider to see if VEKLURY is appropriate for you. For information on the emergency use of other medicines that are authorized by FDA to treat people with COVID-19, please go to https://www.fda.gov/czrpwhmdp-frmtvokvuywu-oje-response/oif-wlezu-hiakjwz dby-pix-orawki-framework/gkeyuwtjz-tdf-hdbagvqcfwjiz. Your healthcare provider may talk with you about clinical trials for which you may be eligible. It is your choice to be treated or not to be treated with PAXLOVID. Should you decide not to receive it or for your child not to receive it, it will not change your standard medical care. What if I am or ? There is limited experience treating women or mothers with PAXLOVID. For a mother and unborn baby, the benefit of taking PAXLOVID may be greater than the risk from the treatment. If you are , discuss your options and specific situation with your healthcare provider. If you are , discuss your options and specific situation with your healthcare provider. How do I report side effects or problems with the appearance or packaging of PAXLOVID? Contact your healthcare provider if you have any side effects that bother you or do not go away. Report side effects or problems with the appearance or packaging of PAXLOVID (see Figures A and B above for examples of PAXLOVID Dose Packs) to FDA MedWatch at www.fda.gov/medwatch or call 1-060-IRA-7967 or you can report side effects to [employer]. at the contact information provided below. How should I store PAXLOVID? Store PAXLOVID tablets at room temperature, between 68?F to 77?F (20?C to 25?C). Keep PAXLOVID and all medicines out of the reach of children. What if I have questions about the expiration date for my PAXLOVID? The FDA has extended the expiration date (shelf-life) for some lots of PAXLOVID. To find the extended expiration date, enter the lot number found on the side of carton or bottom of blister pack at this website: https://www.paxlovidlotexPaxVax.MobilePaks/ or talk with your healthcare provider. Information onthe authorized shelf-life extensions for PAXLOVID may also be found at https://www.fda.gov/emergency -paqfnllgushb-wtt-lflugmzv/cia-oxthz-cffjjkjyjo-smk-wwlysa-jagwyfugv/expiration- dating-extension. How can I learn more about COVID-19? Ask your healthcare provider. Visit https://www.cdc.gov/COVID19. Contact your local or state public health department. What is an Emergency Use Authorization (EUA)? The [place] FDA has made PAXLOVID available under an emergency access mechanism called an Emergency Use Authorization (EUA). The EUA is supported by a Vacuum Closing Machine Operator of Health and Human Services (HHS) declaration that circumstances exist to justify the emergency use of drugs and biological products during the COVID-19 pandemic. In issuing an EUA, the FDA has determined, among other things, that based on the total amount of scientific evidence available including data from adequate and well-controlled clinical trials, if available, it is reasonable to believe that the product may be effective for diagnosing, treating, or preventing COVID-19, or a serious or life-threatening disease or condition caused by COVID-19; that the known and potential benefits of the product, when used to diagnose, treat, or prevent such disease or condition, outweigh the known and potential risks of such product; and that there are no adequate, approved, and available alternatives. All of these criteria must be met to allow for the product to be available under an EUA. The EUA for PAXLOVID is in effect for the duration of the COVID-19 declaration justifying emergency use of this product, unless the relevant EUA declaration is terminated or the EUA revoked (after which the products may no longer be used under the EUA). What are the ingredients in PAXLOVID? Active ingredient: nirmatrelvir and ritonavir Nirmatrelvir inactive ingredients: colloidal silicon dioxide, croscarmellose sodium, lactose monohydrate, microcrystalline cellulose, and sodium stearyl fumarate. Film-coating contains: hydroxy propyl methylcellulose, iron oxide red, polyethylene glycol, and titanium dioxide. Ritonavir inactive ingredients: anhydrous dibasic calcium phosphate, colloidal silicon dioxide, copovidone, sodium stearyl fumarate, and sorbitan monolaurate. The film coating may contain: colloidal anhydrous silica, colloidal silicon dioxide, hydroxypropyl cellulose, hypromellose, polyethylene glycol, polysorbate 80, talc, and titanium dioxide. Additional Information For general questions, visit the website or call the telephone number provided below. Website: www.[employer] Telephone number: (2-962-R87-PACK) Distributed by [employer] [place] [address] [id number] Revised: 11/2022 documented in this encounterMary[facility]12-07-[facility]23 Miscellaneous Notes* Telephone Encounter - Zoraida Ellison RN - 06/11/2023 4:13 PM EST Pt called in and reports symptoms started yesterday, today would be her first full day with the. She tested Covid + today. Pt reports she has a runny nose, a headache that Advil helped, drainage, andcough. Went over quarantine/isolation and red flags to look for. Pt has a VV with Yamilet Diaz 06/12/23 at 720 am. Beginning Home Isolation Isolation is used to separate people infected with SARS-CoV-2, the virus that causes COVID-19, frompeople who are not infected. People who are in isolation should stay home until it s safe for them to be around others. In the home, anyone sick or infected should separate themselves from others by staying in a specific sick room or area and using a separate bathroom (if available). Isolation or Quarantine: What's the difference? Quarantine keeps someone who might have been exposed to the virus away from others. Isolation keeps someone who is infected with the virus away from others, even in their home. Who needs to isolate People who have COVID-19 People who have symptoms of COVID-19 and are able to recover at home People who have no symptoms (are asymptomatic) but have tested positive for infection with SARS-CoV-2 Steps to take Stay home except to get medical care Monitor your symptoms. Stay in a separate room from other household members, if possible Use a separate bathroom, if possible Avoid contact with other members of the household and pets Don t share personal household items, like cups, towels, and utensils Wear a mask when around other people, if you are able to When to seek emergency medical attention Look for emergency warning signs* for COVID-19. If someone is showing any of these signs, seek emergency medical care immediately: Trouble breathing Persistent pain or pressure in the chest New confusion Inability to wake or stay awake Bluish lips or face *This list is not all possible symptoms. Please call your medical provider for any other symptoms that are severe or concerning to you. Call 911 or call ahead to your local emergency facility: Notify the primer press operator that you are seeking care for someone who has or may have COVID-19. Ending Home Isolation - When you can be around others after you had or likely had COVID-19 When you can be around others after you had or likely had COVID-19 If You Test Positive for COVID-19 (Isolation) Everyone, regardless of vaccination status: Stay home for 5 days. Note: Day 0 is your first day of symptoms or the date of collection of a positive viral test if no symptoms. Day 1 is the first full day after symptoms developed or test specimen was collected. If you have no symptoms or your symptoms are resolving after 5 days, you can leave your house. Continue to wear a mask around others for 5 additional days. If you have a fever, continue to stay home until your fever resolves, even if it is longer than 5 days. If You Were Exposed to Someone with COVID-19 (Quarantine) If you: 1. Have been boosted OR 2. Completed the primary series of Pfizer or Moderna vaccine within the last 6 months OR 3. Completed the primary series of J&J vaccine within the last 2 months THEN: 1. Wear a mask around others for 10 days. 2. Test on day 5, if possible. If you develop symptoms get a test and stay home. If You Were Exposed to Someone with COVID-19 (Quarantine) If you: 1. Completed the primary series of Pfizer or Moderna vaccine over 6 months ago and are not boosted OR 2. Completed the primary series of J&J over 2 months ago and are not boosted OR 3. Are unvaccinated THEN: 1. Stay home for 5 days. After that continue to wear a mask around others for 5 additional days. 2. If you can't quarantine you must wear a mask for 10 days. 3. Test on day 5 if possible. If you develop symptoms get a test and stay home. I had COVID-19 or I tested positive for COVID-19 and I have a weakened immune system If you have a weakened immune system (immunocompromised) due to a health condition or medication, you might need to stay home and isolate longer than 10 days. Talk to your healthcare provider for more information. Your doctor may work with an infectious disease expert at your local health department to determinewhen you can be around others. documented in this encounterMary[facility] Hospital07-10-2023 Instructions* Patient Instructions* Kaity Matt APRN.SSIS SSRS DEVELOPER - 01/12/2023 8:09 AM EDT Screening schedule The following prevention plan is recommended: HEPATITIS C SCREENING Never done PNEUMOCOCCAL: 65+(2 - PCV) due on 05/28/2012 ADVANCE DIRECTIVE DISCUSSION due on 07/06/2022 DEPRESSION ASSESSMENT Never done WHAT YOU CAN DO TO PREVENT FALLS Many falls can be prevented. By making some changes, you can lower your chances of falling. Four things YOU can do to prevent falls for you* and your caregiver 1. Begin a regular exercise program Exercise is one of the most important ways to lower your chances of falling. It makes you stronger and helps you feel better. Exercises that improve balance and coordination (like Sylvester Chi) are the most helpful. Lack of exercise leads to weakness and increases your chances of falling. Ask your doctor or health care provider about the best type of exercise program for you. 2. Have your health care provider review your medicines Have your doctor or pharmacist review all the medicines you take, even ijij-twu-ceuchle medicines. As you get older, the way medicines work in your body can change. Some medicines, or combinations of medicines, can make you sleepy or dizzy andcan cause you to fall. 3. Have your vision checked Have your eyes checked by an eye doctor at least once a year. You may be wearing the wrong glasses or have a condition like glaucoma or cataracts that limits your vision. Poor vision can increase your chances of falling. 4. Make your home safer About half of all falls happen at home. To make your home safer: Remove things you can trip over (like papers, books, clothes, and shoes) from stairs and places where you walk. Remove small throw rugs or use double-sided tape to keep the rugs from slipping. Keep items you use often in cabinets you can reach easily without using a step stool. Have grab bars put in next to your toilet and in the tub or shower. Use non-slip mats in the bathtub and on shower floors. Improve the lighting in your home. As you get older, you need brighter lights to see well. Hang light-weight curtains or shades to reduce glare. Have handrails and lights put in on all staircases. Wear shoes both inside and outside the house. Avoid going barefoot or wearing slippers. For more information, contact: Centers for Disease Control and Prevention www.cdc.gov/injury * This information may not apply if you have certain medical conditions. documented in this encounterMary[facility] Hospital07-10-2023 History of Present illness Narrative* Kaity Matt APRN.CNP - 01/12/2023 8:05 AM EDT Kaity Matt APRN.FARHAD Tamanna Dill is a 77 year old female [facility] Risk Assessment In general, health is: Very good Concerns with balance:Not at all Concerns with teeth or dentures:Not at all Concerns with sexual function:Not at all [place] anxious, stressed, angry, irritable, lonely, isolated, or had thoughts of hurting themself: Not at all Has little interest or pleasure in doing things: Not at all Bothered by feeling down, depressed, or hopeless: Not at all Needs help with grocery shopping, cooking, housework, bathing, grooming, dressing, eating, sitting or standing, walking, using the toilet, handling finances, taking medications, using the telephone, or driving: No Following safety precautions in the home environment and vehicle: removed throw rugs from floors, installed grab bars in the bathroom, handrails in stairwells, having adequate lighting, wearing seatbelt at all times?: No Smokes cigarettes, vapes, or chew tobacco: No Eats healthy foods including fruits, vegetables, whole grains, and fiber-rich foods: Several days Number of days per week engages in exercise: 3 days Uses a treadmill, free weights, and golfing. Average alcohol consumption: Never Current Providers Specialists: I have reviewed specialist-related care of the patient in the medical record. [facility] for cardiology. Optometry: Dr. Claudio. Has upcoming appointment for yearly visit. Medical/Family history review Reviewed and updated problem list, medical/surgical/family/social history, medications, and allergies. Opioid use review Patient is not currently using opioids. Depression screening Depression Screening PHQ-2 Score 03/03/2021 0 Depression screening tool completed and reviewed. Based on score and interview, patient is not at risk for depression. Screening tool discussed with patient, and I recommended no further interventionat this time. Cognitive screening Mini Cog Score: Score: 5 Cognitive screening reviewed and no further action needed (score 3-5) Functional Observation Was the patient's timed Up & Go test unsteady or ? 12 seconds? Yes Advance Care Planning End of Life planning discussed, including patient's advanced directive wishes: No Measurements BP 128/76 Pulse 68 Resp 16 Wt 102 lb (46.3kg) Hearing Evaluation: hard of hearing and wears hearing aids Assessment/Plan - Counseled on healthy diet and regular exercise - Fall avoidance - Vaccines recommended Pneumococcal - Depression screening - Substance use screening ASSESSMENT/PLAN: 1. Medicare annual wellness visit, subsequent - ICD9: V70.0, ICD10: Z00.00 (primary diagnosis) - as above - Counseled on healthy diet and regular exercise - Calcium intake with supplements or by diet of 1000 mg/day for under 50, 1200- 1500 mg/day for 50+ - Follow up for annual exam in one year 2. Encounter for immunization - ICD9: V03.89, ICD10: Z23 - PNEUMOCOCCAL VACCINE (PREVNAR 20) Prescription instructions reviewed with patient as applicable. Potential red flag symptoms discussed with the patient. Reviewed appropriate action plan to take if red flag symptoms occur. Patient agreeable to treatment plan. Kaity Matt APRN.CNP documented in this encounterMarymount Hospital04-07-2023 Miscellaneous Notes* Telephone Encounter - Kaity Matt APRN.CNP - 10/10/2022 10:44 AM EDT Is due for medicare wellness/annual visit in December. Fasting lab work orders have been placed. Thank you Kaity Matt APRN.CNP * Telephone Encounter - Yudelka Chang LPN - 10/09/2022 10:53 AM EDT Patient has been identified by name and date of : Yes, Provider Dr. Barrera Date 10/09/22 Time 11:26 am Patient phones for refill(s): Requested Prescriptions Pending Prescriptions Disp Refills atorvastatin (LIPITOR) 10 mg tablet 90 tablet 3 Sig: Take 1 tablet by mouth once daily. Date of last office visit in primary care: 12/24/21 Last 2 Encounter Wt Readings: Date: Wt: 12/24/2021 47.6 kg (105 lb) 09/09/2021 47.6 kg (105 lb) Previous labs/tests for medication: Cholesterol: HDL Cholesterol (mg/dL) Date Value 08/12/2021 74 LDL Cholesterol (mg/dL) Date Value 08/12/2021 107 ALT (U/L) Date Value 08/12/2021 27 Non HDL Cholesterol, Nonfasting (mg/dL) Date Value 07/29/2017 125 Non HDL Cholesterol (mg/dL) Date Value 08/12/2021 135 Thank you. Yudelka Chang LPN documented in this encounterMarymount Hospital02-28-[address] Rdz [facility] September 02, 2022 11:32am Note Date/Time September 02, 2022 7:33am [facility] Medical Records Department [address] [place] [address] Emergency Department Summary 09/02/22 MR#: [id number] Acct: [id number] Name: TAMANNA DILL Rep #:[id number] : 1945 76 From: Rob Rdz MD PCP: Dr. Coleen Barrera MD Status:REG E R Location: ED HPI History of Present Illness Chief Complaint: Chest Pain Informant: patient Onset/Context/Timing Onset: Hours (1-2) Activity at onset: activity on onset and sleep Timing: Continuous Quality: Positive for Pressure Location: Left Chest Current Severity: Moderate Maximum Severity: Moderate Worsened By: Nothing; Not Worsened By Breathing Relieved By: Nothing Associated Symptoms: Positive for - (left back periscapular sharp pain, LUE discomfort); Negative for Nausea, Vomiting, Diaphoresis, Dyspnea, Cough, Lightheadedness, Acid Reflux or Palpitations Narrative Narrative: Patient woke up this morning having discomfort in her left chest in the form of pressure, and then subsequently developed discomfort in her left arm and sharp pain in her left medial scapular area of the back, the latter of which is bothering her more. She does not have a history of heart problems. She states I have come to the ED before for chest discomfort, but never required any heart catheterizations. She has had stress test in the past, and never failed 1. Shedenies any recent leg pain or swelling. She traveled home here from [place] about 3 weeks ago with her , she has had no pleuritic symptoms and this discomfort is nonpleuritic. She denies any recent illness. No palpitations or lightheadedness/syncope. States that her doctor has been adjusting some blood pressure medication for her recently because of elevated numbers. [facility] Medical History Acute respiratory failure with hypoxia Closed head injury without loss of consciousness Contusion of face COVID-19 (02/11/21) Fall from other slipping, tripping, or stumbling Family history of coronary artery disease Hyperlipidemia Multiple premature ventricular complexes Osteoporosis Pelvic relaxation due to uterovaginal prolapse, incomplete Pneumonia due to COVID-19 virus (02/09/21) Severe malnutrition Thrombocytosis Home Medications atorvastatin 10 mg tablet 10 mg PO QHS cholesterol 07/11/18 [History Last Taken 02/01/21] omega-3 fatty acids 1 cap PO DAILY supplement 02/09/21 [History Last Taken 02/01/21] ascorbic acid (vitamin C) 1,000 mg tablet 1 g PO DAILY 09/24/21 [History Last Taken Unknown] folic acid 800 mcg tablet 0.8 mg PO DAILY 09/24/21 [History Last Taken Unknown] zinc 50 mg tablet 50 mg PO DAILY 09/24/21 [History Last Taken Unknown] biotin 10,000 mcg capsule 10,000 mcg PO DAILY 09/25/21 [History Last Taken Unknown] cholecalciferol (vitamin D3) 25 mcg (1,000 unit) capsule 25 mcg PO DAILY 09/25/21 [History Last Taken Unknown] magnesium/calm PO DAILY 09/25/21 [History Last Taken Unknown] pantoprazole 40 mg tablet,delayed release 40 mg PO DAILY #30 tabs 09/02/22 [Rx Last Taken Unknown] Allergy/AdvReac Type Severity Reaction Status Date / Time Penicillins Allergy Unknown unknown Verified 09/02/22 06:46 erythromycin base AdvReac Unknown Unknown Verified 09/02/22 06:46 latex AdvReac Unknown unknown Verified 09/02/22 06:46 Family History Mother Colon cancer Father Myocardial infarction, Onset Age: 61 Brother Hypertension Myocardial infarction Sister CAD (coronary artery disease), Onset Age: 56 CABG History of coronary artery bypass surgery Son Mitral valve prolapse Sister CAD (coronary artery disease), Onset Age: 68 stent Surgical History Hx of tubal ligation Social History Smoking Status: Never smoker alcohol intake: never substance use type: does not use caffeine: Yes what type of physical activity do you participate in: walking seatbelt use: always do you feel safe at home: Yes additional social history: Micheline Salazar are retired ROS ROS ED Constitutional Constitutional ED: Denies chills or fever(s) Eyes Eyes: Denies change in vision or diplopia ENT ENT ED: Denies rhinorrhea or sore throat Cardiovascular Cardiovascular: Reports chest pain; Denies palpitations or racing heartbeat Respiratory/Chest Respiratory/Chest: Denies cough or dyspnea Gastrointestinal Gastrointestinal: Denies abdominal pain, diarrhea, nausea or vomiting Genitourinary Genitourinary ED: Denies dysuria or hematuria Musculoskeletal Musculoskeletal: Reports back pain and extremity pain; Denies neck pain Integumentary Denies abscess or rash Neurologic Neurologic: Denies headache(s), paresthesias or weakness Psychiatric Psychiatric: Denies anxiety or suicidal thoughts EXAM Physical Exam Const Vital Signs: 09/02/22 06:40 09/02/22 06:43 09/02/22 08:07 Temperature 97 F L Temperature Source Temporal Pulse Rate 92 77 Respiratory Rate 18 18 Respiratory Effort Normal Non-Labored Blood Pressure 197/87 H 152/72 H Blood Pressure Mean 123 98 Pulse Ox 99 99 Oxygen Delivery Method Room Air Room Air 09/02/22 08:07 09/02/22 09:00 09/02/22 10:00 Temperature Temperature Source Pulse Rate 75 78 Respiratory Rate 16 18 Respiratory Effort Blood Pressure 150/70 H 154/73 H Blood Pressure Mean 96 100 Pulse Ox 99 98 99 Oxygen Delivery Method Room Air Room Air Room Air 09/02/22 11:00 Temperature Temperature Source Pulse Rate 74 Respiratory Rate 16 Respiratory Effort Blood Pressure 157/77 H Blood Pressure Mean 103 Pulse Ox 97 Oxygen Delivery Method Room Air Positive well nourished and well developed General Appearance ED: well developed and NAD HEENT Reports moist mucous membranes normocephalic and atraumatic Eyes PERRL and EOMs intact bilaterally Neck full ROM and supple Resp normal respiratory effort and clear to auscultation bilaterally Cardio regular rate, regular rhythm and no murmurs Peripheral Pulses: pulses 2+ throughout GI non-tender and non-distended Auscultation: normoactive bowel sounds Palpation: soft Back/Spine no CVA tenderness General Back: other FROM Extremity normal to inspection General Extremety ED: Negative for edema, pulses abnormal or tenderness General Extremity: Negative for edema or pulses abnormal Neuro oriented x3, CN's II-XII intact bilaterally, no sensory deficits noted and gait normal Sensorium / Orientation: awake and alert Motor Exam: strength 5/5 throughout Psych mental status grossly normal Skin no rashes or lesions noted and no wounds Heart Score History: Moderately Suspicious ECG: Normal Age: >/= 65 years Risk Factors: 1 or 2 Risk Factors Troponin: </= Normal Limit Score: 4 MDM MDM MDM Narrative Medical decision making narrative: While working the patient up she was given a GI cocktail. She said that she felt much better subsequently, and thinks all of her symptoms are gone, or almost completely gone. Her D-dimer is within normal limits and her chest x-shakeel my interpretation 2 views shows a nice narrow normal-appearing mediastinum, making aortic dissection much less likely to be the case for this, especially since the GI cocktail made her chest discomfort feel better. Initially it was considered because she was still hypertensive, but without treating her blood pressure on repeat it is 157/77 and she is feeling much better. Unknown if thatwas a result of her discomfort, or potentially causing it. Her initial troponinis 6, her second 1 is 9, given that this is still single digits 2 hours later I think she is stable to be discharged home and follow-up as an outpatient. She is comfortable with that plan I will try her on a PPI for the next month to see if that makes any difference, certainly esophageal etiologies are possible and in the differential here. Lab Data Attestation: I reviewed the patient's lab results. Labs: Laboratory Results - last 24 hr 09/02/22 09/02/22 09/02/22 06:57 06:57 06:57 WBC 5.5 RBC 4.48 Hgb 13.8 Hct 40.4 MCV 90.2 MCH 30.8 MCHC 34.2 RDW Std Deviation 39.9 RDW Coeff of [place] 12.1 Plt Count 242 MPV 10.1 Immature Gran % (Auto) 0.200 Neut % (Auto) 57.3 Lymph % (Auto) 31.4 Gaines % (Auto) 7.5 Eos % (Auto) 2.9 Baso % (Auto) 0.7 Absolute Neuts (auto) 3.1 Absolute Lymphs (auto) 1.72 Nucleated RBC % 0 D-Dimer Quant (PE/DVT) < 0.27 L Sodium 139 Potassium 3.8 Chloride 107 Carbon Dioxide 25.0 Anion Gap 7 BUN 18 Creatinine 0.71 Estim Creat Clear Calc 35.55 Est GFR (MDRD) Af Amer 102 Est GFR (MDRD) Non-Af 84 BUN/Creatinine Ratio 25.2 H Glucose 100 Calcium 9.1 Troponin I High Sens 6 09/02/22 10:53 WBC RBC Hgb Hct MCV MCH MCHC RDW Std Deviation RDW Coeff of [place] Plt Count MPV Immature Gran % (Auto) Neut % (Auto) Lymph % (Auto) Gaines % (Auto) Eos % (Auto) Baso % (Auto) Absolute Neuts (auto) Absolute Lymphs (auto) Nucleated RBC % D-Dimer Quant (PE/DVT) Sodium Potassium Chloride Carbon Dioxide Anion Gap BUN Creatinine Estim Creat Clear Calc Est GFR (MDRD) Af Amer Est GFR (MDRD) Non-Af BUN/Creatinine Ratio Glucose Calcium Troponin I High Sens 9 Radiography Diagnostic Testing: Clinical Impression(s) from Imaging Studies Chest X-Ray 09/02/22 07:55 IMPRESSION: No acute abnormality is seen. Electronically Signed: Felipe Smyth MD at 8:27 EST , Rhythm Strip Rhythm Strip: Sinus Rhythm Rate: 80 Ectopy: None EKG Initial EKG: Attestation: I personally reviewed and interpreted this EKG as follows: Interpretation: Sinus Rhythm and No Acute Injury Pattern Comments: normal EKG Prior EKG tracings: available for review Prior: Unchanged Discharge Plan Triage Chief Complaint: Chest Pain ED Provider: Rob Rdz Dx/Rx/DC Orders Clinical Impression: Chest pain, unspecified, Episode of hypertension Instructions: ED Chest Pain, Uncertain Cause, ED Hypertension, To Be Confirmed Prescriptions: New pantoprazole 40 mg tablet,delayed release (DR/EC) 40 mg PO DAILY Qty: 30 0RF No Action cholecalciferol (vitamin D3) 25 mcg (1,000 unit) capsule 25 mcg PO DAILY biotin 10,000 mcg capsule 10,000 mcg PO DAILY magnesium/calm PO DAILY ascorbic acid (vitamin C) 1,000 mg tablet 1 g PO DAILY zinc 50 mg tablet 50 mg PO DAILY folic acid 800 mcg tablet 0.8 mg PO DAILY atorvastatin 10 MG tablet 10 mg PO QHS omega-3 fatty acids Capsule 1 cap PO DAILY Primary Care Provider: Coleen Barrera Referrals: Coleen Barrera MD [Primary Care Provider] - As soon as possible Disposition Disposition: Home, Self Care What to do if you have Problems For any increased pain, shortness of breath, bleeding, nausea or vomiting, chestpain, or any unexpected problems, contact your Primary Care Provider. Call [facility] ([phone]) or report to the closest Emergency Room. Call 911 if necessary. 09/02/22 1132 <Electronically signed by Rob Rdz MD> Cosigner Signature (if applicable): CC: Dr. Coleen Barrera MD ~ Signed [facility] Work Phone: 1(916) 247-908506-21-2022 History of Present illness Narrative* Coleen Barrera MD - 12/24/2021 9:09 AM EDT Welcome To Medicare Visit Medical B eligibility date age 64 Date of last exam none in the past year. PAST MEDICAL HISTORY Diagnosis Date Asymptomatic varicose veins 03/31/2011 Diverticulosis of colon (without mention of hemorrhage) Hypertension OAB (overactive bladder) 01/17/2015 Osteoporosis, unspecified Other and unspecified hyperlipidemia 10/06/2007 Personal history of colonic polyps last colon 06/09, 5-year interval Varicose veins Venous insufficiency (chronic) (peripheral) 03/09/2008 PAST SURGICAL HISTORY Procedure Laterality Date COLONOSCOPY FLX DX W/COLLJ SPEC WHEN PFRMD 06/19/05 Colonoscopy COLONOSCOPY FLX DX W/COLLJ SPEC WHEN PFRMD 07/31/2011 Colonoscopy COLONOSCOPY FLX DX W/COLLJ SPEC WHEN PFRMD 11/25/2016 Normal colonoscopy-10 year follow-up LIG/TRNSXJ FLP TUBE ABDL/VAG APPR UNI/BI 1970 Tubal ligation Erythromycin, Latex, and Penicillins Medications reviewed: Yes FAMILY HISTORY Problem Relation Age of Onset Colon Cancer Mother Heart Father of SC Hypertension Brother Hypertension Sister Hypertension Sister Hypertension Sister Hypertension Sister Heart Brother SC Hypertension Brother Heart Sister Triple bypass Heart Son mitral valve prolapse other (Eczema) Son Coronary Artery Disease Sister SOCIAL HISTORY: Social History Tobacco Use Smoking status: Never Smoker Smokeless tobacco: Never Used Substance Use Topics Alcohol use: Not Currently Drug use: No Comment: marijuana use years ago Tamanna does regular, Exercise by walking, does the treadmill, does some weights, some stretching.right now she does gardening and golfing and occasionally gets on the treadmill. She watches her diet for sodium, low fat and low cholesterol most of the time. List of current specialists seen: Eye- Dirk Claudio in [facility] she needs to make an appointment to see him. End of Live Planning discussed including patients advanced directive wishes: No I am willing to follow Tamanna's advanced directives. Full code. PHQ-2 / Depression screen She in the past two weeks denies having felt down, depressed, hopeless or with little interest or pleasure in doing things. Functional Ability/Safety Screen 1. Was the patient's timed Up and Go test unsteady or longer than 30 seconds? No 2. Does the patient need help with the phone, transportation, shopping,preparing meals, housework, laundry, medications or managing money? No 3. Does your home have rugs in the hallway, lack of grab bars in the bathroom, lack of handrails onthe stairs or have poor lighting? No Hearing Evaluation: within normal limits and normal PHYSICAL EXAM BP 122/70 (BP Site: Right Arm, BP Position: Sitting, BP Cuff Size: Regular Adult) Pulse 69 Temp(!) 35.9 C (96.7 F) Resp 12 Ht 147.3 cm (4' 10) Wt 47.6 kg (105 lb) SpO2 100% BMI 21.95 kg/m Alert and oriented X 3: YES Body mass index is 21.95 kg/m . ASSESSMENT/PLAN: 76 year old female The following prevention plan was discussed during the office visit and provided to the patient: - Glaucoma screening - Lipid panel Coleen Barrera MD Reason for Visit Patient presents with: Medicare Wellness Exam: exam Tamanna Dill is a 76 year old female who presents here today for Above Complaints. Health Maintenance HEPATITIS C SCREENING DTAP,TDAP,TD(1 - Tdap) SHINGRIX VACCINE(2 of 3) PNEUMOCOCCAL: 65+(2 - PCV) ADVANCE DIRECTIVE DISCUSSION HPI Patient saw Dr. Marie for her rhythm tests, as she was having some concerns and she feels reassured now. HPL: Reviewed test results with patient , takes medications regularly , does not report side effects. Conscious to avoid red meats, full fat dairy and its by products. Exercising 3 to 5 times a week. Weight is same as before She wants to have shingles shots.She will pharmacy for shingles shot. No problem-specific Assessment & Plan notes found for this encounter. PAST MEDICAL HISTORY Diagnosis Date Asymptomatic varicose veins 03/31/2011 Diverticulosis of colon (without mention of hemorrhage) Hypertension OAB (overactive bladder) 01/17/2015 Osteoporosis, unspecified Other and unspecified hyperlipidemia 10/06/2007 Personal history of colonic polyps last colon 06/09, 5-year interval Varicose veins Venous insufficiency (chronic) (peripheral) 03/09/2008 PAST SURGICAL HISTORY Procedure Laterality Date COLONOSCOPY FLX DX W/COLLJ SPEC WHEN PFRMD 06/19/05 Colonoscopy COLONOSCOPY FLX DX W/COLLJ SPEC WHEN PFRMD 07/31/2011 Colonoscopy COLONOSCOPY FLX DX W/COLLJ SPEC WHEN PFRMD 11/25/2016 Normal colonoscopy-10 year follow-up LIG/TRNSXJ FLP TUBE ABDL/VAG APPR UNI/BI 1970 Tubal ligation FAMILY HISTORY Problem Relation Age of Onset Colon Cancer Mother Heart Father of SC Hypertension Brother Hypertension Sister Hypertension Sister Hypertension Sister Hypertension Sister Heart Brother SC Hypertension Brother Heart Sister Triple bypass Heart Son mitral valve prolapse other (Eczema) Son Coronary Artery Disease Sister Social History Tobacco Use Smoking status: Never Smoker Smokeless tobacco: Never Used Substance Use Topics Alcohol use: Not Currently Drug use: No Comment: marijuana use years ago Past medical history, appointments, medications, allergies reviewed. Pertinent Lab/Diagnostic Studies are reviewed and discussed today Current Outpatient Medications: atorvastatin (LIPITOR) 10 mg tablet Magnesium Carbonate powd Zinc 50 mg tab Ascorbic Acid (VITAMIN C) 1,000 mg tablet [place] [id number] 500 mg-500 mcg -1 mg-12.5 mg cap folic acid 800 mcg tablet ergocalciferol, vitamin D2, (VITAMIN D2 ORAL) Current Facility-Administered Medications: perflutren lipid microspheres 1.3 mL in NaCl (PF) 0.9% 10 mL injection (DEFINITY) sodium chloride 0.9 % (flush) 10 mL (BD POSIFLUSH) Review of Systems CONSTITUTIONAL: No fevers, chills night sweats, unintended weight loss CARDIOVASCULAR: No chest pain, dyspnea, palpitations, orthopnea, PND, ankle edema. PULM: No dyspnea, unexplained cough. GI: No dysphagia/odynophagia, problematic reflux, constipation, diarrhea, changes in stool habits, hematochezia, melena. : No new urinary complaints, including dysuria, gross hematuria or pyuria. NEURO: No new balance problems, peripheral weakness/paresthesias or numbness of concern. Physical Exam BP 122/70 (BP Site: Right Arm, BP Position: Sitting, BP Cuff Size: Regular Adult) Pulse 69 Temp(!) 35.9 C (96.7 F) Resp 12 Ht 147.3 cm (4' 10) Wt 47.6 kg (105 lb) SpO2 100% BMI 21.95 kg/m General appearance: Well appearing, alert, in no acute distress, well nourished. Skin: Skin color, texture, turgor normal, no suspicious rashes or lesions Head: Normocephalic, no masses, lesions, tenderness or abnormalities Eyes: Anicteric sclera. Pupils are equally round and reactive to light. Extraocular movements are intact. Lungs: Lungs clear to auscultation. No wheezing, rhonchi, rales Heart: RRR without murmur, gallop, or rubs. Extremities: No deformities, edema, skin discoloration, clubbing or cyanosis. Good capillary refill. ASSESSMENT/PLAN: 1. Medicare annual wellness visit, subsequent - ICD9: V70.0, ICD10: Z00.00 (primary diagnosis) - Counseled on healthy diet and regular exercise - Calcium intake with supplements or by diet of 1000 mg/day for under 50, 1200- 1500 mg/day for 50+ 2. Hyperlipidemia, unspecified hyperlipidemia type - ICD9: 272.4, ICD10: E78.5 - good control - Continue current medication. - LIPID PANEL BASIC 3. Hypercalcemia - ICD9: 275.42, ICD10: E83.52 - COMP METABOLIC PANEL - COMP METABOLIC PANEL Coleen Barrera MD [facility] Nurse Note* Dianna Sheets LPN - 12/24/2021 8:50 AM EDT eye exam right eye: 20/40 left eye: 20/30 Eye doctor is last seen approx 3 years ago [facility] History of Present illness Narrative* Brionna Hicks RT(R) - 03/04/2021 4:10 PM EDT Radiology Service Progress Note PATIENT NAME: Tamanna Dill DATE OF SERVICE: March 04, 2021 TIME: 4:05 PM PATIENT IDENTITY VERIFICATION COMPLETED USING TWO (2) IDENTIFIERS: Name and Date of confirmedby patient verbally. FALL SCREENING: Has the patient had 2 falls in the last year or 1 fall with injury or currently using an Ambulatory Assistive Device (Walker, Cane, Wheelchair, Crutches, etc.)? No PATIENT GENDER DATA: Female. status: : No status: NO. PATIENT RELEVANT IMPLANT DATA REVIEWED: Not Applicable RADIOLOGY DEPARTMENT: General X-ray: Exam(s) Completed: Chest X-Ray PERIPHERAL IV DATA: Not applicable SIGNED BY: RT Marta(R) March 04, 2021 4:05 PM documented in this encounterMary[facility]02-12-2014 History of Past illness Narrative* Problem Noted Date Resolved Date Hypertension 08/17/2013 04/23/2015 Sciatica 01/28/2012 04/23/2015 PAIN LEG 03/09/2008 04/23/2015 Disorder of bone and cartilage, unspecified 03/0610/06/2007 Benign neoplasm of other specified sites 006 04/23/2015 Varicose veins 04/23/2015 documented as of this encounter (statuses as of 12/24/2021) [facility] of Past illness Narrative* Problem Noted Date Resolved Date Hypertension 08/17/2013 04/23/2015 Sciatica 01/28/2012 04/23/2015 PAIN LEG 03/09/2008 04/23/2015 Disorder of bone and cartilage, unspecified 03/0610/06/2007 Benign neoplasm of other specified sites 006 04/23/2015 Varicose veins 04/23/2015 documented as of this encounter (statuses as of 10/17/2022) [facility] of Past illness Narrative* Problem Noted Date Diagnosed Date Resolved Date Hypertension 08/17/2013 04/23/2015 Sciatica 01/28/2012 04/23/2015 PAIN LEG 03/09/2008 04/23/2015 Disorder of bone and cartilage, unspecified 03/23/2006 10/06/2007 Benign neoplasm of other specified sites 07/30/2005 04/23/2015 Varicose veins 04/23/2015 documented as of this encounter (statuses as of 01/12/2023) [facility] illness Narrative* Problem Noted Date Diagnosed Date Resolved Date Hypertension 08/17/2013 04/23/2015 Sciatica 01/28/2012 04/23/2015 PAIN LEG 03/09/2008 04/23/2015 Disorder of bone and cartilage, unspecified 03/23/2006 10/06/2007 Benign neoplasm of other specified sites 07/30/2005 04/23/2015 Varicose veins 04/23/2015 documented as of this encounter (statuses as of 06/12/2023) [facility] illness Narrative* Problem Noted Date Diagnosed Date Resolved Date Hypertension 08/17/2013 04/23/2015 Sciatica 01/28/2012 04/23/2015 PAIN LEG 03/09/2008 04/23/2015 Disorder of bone and cartilage, unspecified 03/23/2006 10/06/2007 Benign neoplasm of other specified sites 07/30/2005 04/23/2015 Varicose veins 04/23/2015 documented as of this encounter (statuses as of 06/12/2023) [facility] illness Narrative* Problem Noted Date Diagnosed Date Resolved Date Hypertension 08/17/2013 04/23/2015 Sciatica 01/28/2012 04/23/2015 PAIN LEG 03/09/2008 04/23/2015 Disorder of bone and cartilage, unspecified 03/23/2006 10/06/2007 Benign neoplasm of other specified sites 07/30/2005 04/23/2015 Varicose veins 04/23/2015 documented as of this encounter (statuses as of 10/06/2023) [facility] Narrative* Problem Noted Date Diagnosed Date Resolved Date Hypertension 08/17/2013 04/23/2015 Sciatica 01/28/2012 04/23/2015 PAIN LEG 03/09/2008 04/23/2015 Disorder of bone and cartilage, unspecified 03/23/2006 10/06/2007 Benign neoplasm of other specified sites 07/30/2005 04/23/2015 Varicose veins 04/23/2015 documented as of this encounter (statuses as of 10/14/2023) [facility] note* Diagnosis Medicare annual wellness visit, subsequent- Primary Routine general medical examination at a health care facility Hyperlipidemia, unspecified hyperlipidemia type Hypercalcemia documented in this encounter [facility] note* Diagnosis Onset Date Resolution Status Elevated blood pressure read ing in office without diagnosis of hypertension acute Multiple premature ventricular complexes acute [facility] Work Phone: evaluation noteNo assessment information available [facility] Work Phone: evaluation note* Diagnosis Magnesium deficiency- Primary Disorders of magnesium metabolism Hyperlipidemia, unspecified hyperlipidemia type Annual physical exam Routine general medical examination at a health care facility documented in this encounter [facility] note* Diagnosis Medicare annual wellness visit, subsequent- Primary Routine general medical examination at a health care facility Encounter for immunization Need for other specified prophylactic vaccination against single bacterial disease documented in this encounter [facility] note* Diagnosis COVID-19 virus infection- Primary documented in this encounter [facility] note* Diagnosis Pain behind the ear, left- Primary documented in this encounter [facility] note* Diagnosis Chest pain, unspecified type- Primary Shortness of breath documented in this encounter [facility] note* Diagnosis Chest pain, unspecified type Unstable angina (CMS/HCC) Intermediate coronary syndrome Chest pain, unspecified type Unstable angina (CMS/HCC) Intermediate coronary syndrome documented in this encounter [facility] note* Diagnosis Coronary artery disease involving [place] coronary artery of [place] heart without angina pectoris- Primary Pain behind the ear, left Palpitations S/P drug eluting coronary stent placement Postsurgical percutaneous transluminal coronary angioplasty status Hyperlipidemia, unspecified hyperlipidemia type Overactive bladder Hypertonicity of bladder documented in this encounter [facility] note* Diagnosis Chest pain, unspecified type- Primary documented in this encounter [facility] note* Diagnosis Bronchitis- Primary Bronchitis, not specified as acute or chronic documented in this encounter [facility] note* Diagnosis Onset Date Resolution Status Cystocele acute Pessary maintenance acute [facility] Work Phone: Evaluation note* Diagnosis Localized swelling, mass, or lump of lower extremity, left- Primary documented in this encounter [facility] note* Diagnosis Coronary artery disease involving [place] coronary artery of [place] heart without angina pectoris- Primary Hypertension, unspecified type OAB (overactive bladder) Hypertonicity of bladder Urge incontinence Hyperlipidemia, unspecified hyperlipidemia type documented in this encounter [facility] note* Diagnosis Hyperlipidemia, unspecified hyperlipidemia type- Primary Need for vaccination Need for prophylactic vaccination and inoculation against unspecified single disease Osteoporosis Osteoporosis, unspecified Medicare annual wellness visit, subsequent- Primary [facility] Osteoporosis, unspecified osteoporosis type, unspecified pathological fracture presence Hyperlipidemia, unspecified hyperlipidemia type Viral URI with cough- Primary Acute upper respiratory infections of unspecified site documented in this encounter [facility] note* Diagnosis Hyperlipidemia, unspecified hyperlipidemia type- Primary Need for vaccination Need for prophylactic vaccination and inoculation against unspecified single disease Osteoporosis Osteoporosis, unspecified Medicare annual wellness visit, subsequent- Primary Routine [facility] Osteoporosis, unspecified osteoporosis type, unspecified pathological fracture presence Hyperlipidemia, unspecified hyperlipidemia type Hyperlipidemia Other and unspecified hyperlipidemia Medication management Encounter for long-term (current) use of other medications documented in this encounter [facility] note* Diagnosis Hyperlipidemia, unspecified hyperlipidemia type- Primary Need for vaccination Need for prophylactic vaccination and inoculation against unspecified single disease Osteoporosis Osteoporosis, unspecified Medicare annual wellness visit, subsequent- Primary Routine [facility] Osteoporosis, unspecified osteoporosis type, unspecified pathological fracture presence Hyperlipidemia, unspecified hyperlipidemia type Medicare annual wellness visit, subsequent- Primary Routine general medical examination at a health care facility Varicose veins of both lower extremities with pain Varicose veins of lower extremities with other complications Chronic left-sided low back pain with left-sided sciatica Neurogenic bladder Neurogenic bladder, NOS Urinary frequency Screening for depression Encounter for screening examination for other mental health and behavioral disorders Age-related osteoporosis without current pathological fracture Senile osteoporosis Vitamin D deficiency Unspecified vitamin D deficiency [facility] Diagnosis Hyperlipidemia, unspecified hyperlipidemia type- Primary Need for vaccination Need for prophylactic vaccination and inoculation against unspecified single disease Osteoporosis Osteoporosis, unspecified Medicare annual wellness visit, subsequent- Primary Routine general medical examination at a health care facility Osteoporosis, unspecified osteoporosis type, unspecified pathological fracture presence Hyperlipidemia, unspecified hyperlipidemia type Chronic left-sided low back pain with left-sided sciatica [facility]* Diagnosis Hyperlipidemia, unspecified hyperlipidemia type- Primary Need for vaccination Need for prophylactic vaccination and inoculation against unspecified single disease Osteoporosis Osteoporosis, unspecified Medicare annual wellness visit, subsequent- Primary Routine general medical examination at a [facility] facility Osteoporosis, unspecified osteoporosis type, unspecified pathological fracture presence Hyperlipidemia, unspecified hyperlipidemia type Varicose veins of both lower extremities with pain Varicose veins of lower extremities with other complications [facility]* Diagnosis Hyperlipidemia, unspecified hyperlipidemia type- Primary Need for vaccination Need for prophylactic vaccination and inoculation against unspecified single disease Osteoporosis Osteoporosis, unspecified Medicare annual wellness visit, subsequent- Primary Routine general medical examination at a health care facility Osteoporosis, unspecified osteoporosis type, unspecified pathological fracture presence Hyperlipidemia, unspecified hyperlipidemia type OAB (overactive bladder) Hypertonicity of bladder Urge incontinence [facility]* Diagnosis Hyperlipidemia, unspecified hyperlipidemia type- Primary Need for vaccination Need for prophylactic vaccination and inoculation against unspecified single disease Osteoporosis Osteoporosis, unspecified Medicare annual wellness visit, subsequent- Primary Routine general medical examination at a health care facility Osteoporosis, unspecified osteoporosis type, unspecified pathological fracture presence Hyperlipidemia, unspecified hyperlipidemia type Varicose veins of both lower extremities with pain- Primary Varicose veins of lower extremities with other complications [facility]* Diagnosis Hyperlipidemia, unspecified hyperlipidemia type- Primary Need for vaccination Need for prophylactic vaccination and inoculation against unspecified single disease Osteoporosis Osteoporosis, unspecified Medicare annual wellness visit, subsequent- Primary Routine general medical examination at a health care facility Osteoporosis, unspecified osteoporosis type, unspecified pathological fracture presence Hyperlipidemia, unspecified hyperlipidemia type OAB (overactive bladder) Hypertonicity of bladder Urge incontinence Valvular incompetence Endocarditis, valve unspecified, unspecified cause documented [facility] encounter [facility] Author Theresa Gilbert [facility] Note Date/Time March 01, 2025 9: 41am [facility] [address] [place] [address], [address] [place] [address] OFFICE VISIT Date of Service: 03/01/25 MR#: [id number] Acct: [id number] Name: TAMANNA DILL Rep #: [id number] : 1945 Provider: SONAL Flowers Age/Sex: 79/F [place] [facility] [place]: [place] Intake Vital Signs 10/10/24 10:28 12/14/24 08:42 03/01/25 09:21 03/01/25 09:25 Height 4 ft 10 in 4 ft 10 in 4 ft 10 in 4 ft 10 in Weight: 99 lb 98 lb 8 oz BMI 20.7 20.5 BP 144/79 H 124/72 H Blood Pressure Location Lt brachial Position Sitting Respiration 16 Pulse 77 Pulse Source Monitor Intake Visit Reasons: 4 M pessary check Chief Complaint: 4 Mo pessary check Adobe Architect Required: No Is patient in pain?: No Allergies Penicillins Allergy (Unknown, Verified 03/01/25 09:21) unknown erythromycin base Adverse Reaction (Unknown, Verified 03/01/25 09:21) Unknown latex Adverse Reaction (Unknown, Verified 03/01/25 09:21) unknown Medications ?Medication ?Instructions ?Recorded ?Confirmed ?Type omega-3 fatty acids 1 cap PO DAILY supplement 03/01/25 History ascorbic acid (vitamin C) 1,000 mg 1 g PO DAILY 03/01/25 History tablet zinc 50 mg tablet 50 mg PO DAILY 09/24/2102/04 History cholecalciferol (vitamin D3) 25 25 mcg PO DAILY 03/01/25 History mcg (1,000 unit) capsule magnesium/calm PO DAILY 09/25/21 03/01/25 H istory aspirin 81 mg tablet,delayed 81 mg PO DAILY 10/19/23 0 03/01/25 History release (Adult Aspirin Regimen) nitroglycerin 0.4 mg sublingual 0.4 mg sublingual Q5-1 5M PRN 01/29/24 03/01/25 History tablet amlodipine 5 mg tablet 5 mg PO DAILY #90 tabs 10/0503/01/25 Rx atorvastatin 40 mg tablet 40 mg PO QDAY #90 tabs 10/0503/01/25 Rx oxybutynin chloride 5 mg tablet 5 mg PO QDAY 03/01/25 03/01/25 History Is last menstrual period known: No Post menopausal: Yes Patient : No : No PFSH Medical History Atherosclerosis of coronary artery of [place] heart without angina pectoris Multiple premature ventricular complexes Family history of coronary artery disease Fall from other slipping, tripping, or stumbling Contusion of face Closed head injury without loss of consciousness Severe malnutrition Thrombocytosis Acute respiratory failure with hypoxia COVID-19 (02/11/21) Pneumonia due to COVID-19 virus (02/09/21) Hyperlipidemia Pelvic relaxation due to uterovaginal prolapse, incomplete Osteoporosis Surgical History History of coronary artery stent placement (10/09/23) Hx of tubal ligation Family History Mother Colon cancer Father Myocardial infarction, Onset Age: 61 Brother Hypertension Myocardial infarction Sister CAD (coronary artery disease), Onset Age: 56 CABG History of coronary artery bypass surgery Son Mitral valve prolapse Sister CAD (coronary artery disease), Onset Age: 68 stent Social History Smoking Status: Never smoker alcohol intake: never substance use type: does not use caffeine: Yes what type of physical activity do you participate in: walking seatbelt use: always do you feel safe at home: Yes additional social history: Matthew- Both are retired HPI 4 M pessary check Details: TAMANNA DILL is a 79 year old who presents for pessary check. Denies concerns History 2 Elective abortions Hx Para 2 Spontaneous abortions Hx # Term Pregnancies Ectopic pregnancies Hx # Pregnancies Multiple births # of living children Past Pregnancies Del. Date Name GA/Weeks Outcome Route Bth Weight Infant Gen Labor Lgth Anesthesia Del Locatn Provider FOB Unknown 1968 Luis Mart live - full term Unknown 1968 Annabel live - full term ROS Const Constitutional: Reports system reviewed and no additional complaints, except as documented Eyes Eyes: Reports system reviewed and no additional complaints, except as documented GI GI: Denies abdominal pain or change in bowel habits : Reports as per HPI Exam Const General: cooperative and no acute distress Nutritional Appearance: well nourished Orientation: oriented x3 Resp Effort & Inspection: normal respiratory effort External Female Exam: normal external appearance Speculum Exam - Vagina: normal vaginal discharge and vagina atrophic Speculum Exam - Cervix: closed Bimanual Exam- Vagina & Uterus: normal bimanual exam and uterine size normal Bimanual Exam- Adnexa, other: normal adnexae, no masses and non-tender Other: #1 ring pessary with support removed. No excoriations, bleeding or unusual discharge. Pessary cleaned and easily replaced with trimosan gel. Patient tolerated well. Coding Level of Care Code Off vis,est,level 3 Diagnoses Midline cystocele N81.11 Cystocele location: midline Pessary maintenance Z46.89 Assessment and Plan Assessment and Plan (1) Cystocele: Status: Acute Qualifiers: Cystocele location: midline Qualified Code(s): N81.11 - Cystocele, midline Comment: size 1 ring with support, no estrogen. Rephresh boric acid suppositories wkly (2) Pessary maintenance: Status: Acute Medications: New oxybutynin chloride 5 mg PO QDAY Plan May use [place] gel to boric acid supp weekly to aid with insertion. Reviewed S&S infection RTO 4 mo 03/01/25 0941 <Electronically signed by Theresa almodovar ARTIST CONSULTANT ARTIST CONSULTANT-C> Date _ Theresa Flowers ARTIST CONSULTANT ARTIST CONSULTANT-C Cosigner Signature: Date (if applicable) CC: ~ [facility] [employer] Work Phone: Reason for referral (narrative)* Consultation (Routine) - Authorized Specialty Diagnoses / Procedures Referred By Contac t Referred To Contact Cardiology / Cardiac Rehabilitation Diagnoses Chest pain, unspecified type Unstable angina (CMS/HCC) Procedures CT VISIT OFFICE OUTPATIENT ESTABLISHED MODERATE LEVEL Kei Magallon MD [address] [place] [address] Referral ID Status Reason Start Date Expiration Date Visits Requested Visits Authorized [id number] Authorized Specialty Services Required 10/09/2023 10/08/2024 1 1 [facility] for referral (narrative)No reason for referral information available[facility] [employer] [employer] [facility] Work Phone: Reason for visit Narrative* Diagnostic Procedure Only (Routine) - Closed Specialty Diagnoses / Procedures Referred By Contac t Referred To Contact XR IMAGING Diagnoses Chronic left-sided low back pain with left-sided sciatica Procedures XR LUMBAR GENERAL 3V AP/LAT/L5-S1 RADEX SPINE LUMBOSACRAL 2/3 VIEWS Coleen Barrera MD [address] [place] [address] Phone: tel: fax: [place] [id number] Referral ID Status Reason Start Date Expiration Date V isits Requested Visits Authorized [id number] Closed Auto-Generate d Referral 01/17/2025 02/16/2026 1 1 [facility] Advance Directives No Advanced Directives Records FoundDocuments on File Type Date Recorded 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 Advance Directive(s) Advance Directive(s) 11/25/2016 2:31 PM Advance Directive Response Recorded Date/ Time Advance Directives No February 18, 2019 11:26am Living Will Yes February 26 10:11am Power of Edm Operator Yes February 26 021 10:11am Advance Directive Response Recorded Date/ Time Name of Medical Power of Edm Operator Micheline mcintosh September 02, 2022 6:43am Advance Directives No February 18, 2019 11:26am Living Will No September 02, 023 6:43am Power of Edm Operator Yes September 02, 2022 6:43am Advance Directive Response Recorded Date/ Time Name of Medical Power of Edm Operator matthew dill October 07, 2023 5:56pm Advance Directives No February 18, 2019 12:26pm Living Will No October 07, 2023 5:56pm Power of Edm Operator Yes October 06 5:56pm Latest Code Status on File Code Status Date Activated Date Inactivated Comments Full Code - Default 10/08/2023 9:11 PM This is order is used when code status has not been discussed with the patient, or code status is otherwise unknown/unconfirmed To update the patient's code status, place a code status order. Do not modify or discontinue any currently active code status orders. Latest Code Status on File Code Status Date Activated Date Inactivated Comments Full Code - Default 10/09/2023 3:40 PM 10/10/2023 2:42 PM This is order is used when code status has not been discussed with the patient, or code status is otherwise unknown/unconfirmed To update the patient's code status, place a code status order. Do not modify or discontinue any currently active code status orders. Code Status History Code Status Date Activated Date Inactivated Comments Full Code - Default 10/08/2023 9:11 PM 10/09/2023 3:40 PM This is order is used when code status has not been discussed with the patient, or code status is otherwise unknown/unconfirmed To update the patient's code status, place a code status order. Do not modify or discontinue any currently active code status orders. Date Activated Date Inactivated Comments 10/09/2023 3:40 PM 10/10/2023 2:42 PM This is order is used when code status has not been discussed with the patient, or code status is otherwise unknown/unconfirmed To update the patient's code status, place a code status order. Do not modify or discontinue any currently active code status orders. Date Activated Date Inactivated Comments 10/08/2023 9:11 PM 10/09/2023 3:40 PM This is order is used when code status has not been discussed with the patient, or code status is otherwise unknown/unconfirmed To update the patient's code status, place a code status order. Do not modify or discontinue any currently active code status orders. Advance Directive Response Recorded Date/ Time Advance Directives on File No October 28, 2023 8:37am Advance Directives No February 18, 2019 12:26pm Living Will Yes October 28, 2023 8:37am Power of Edm Operator Yes October 27 8:37am Name of Medical Power of Edm Operator matthew dill October 07, 2023 5:56pm Advance Directive Response Recorded Date/ Time Advance Directives No February 18, 2019 12:26pm Chief Complaint and Reason for Visit Chief Complaint 6 M FU PAIN/SWELLING OF LEFT LOWER EXTREMITY Reason for Visit Elevated blood press ure reading in office without diagnosis of hypertension Multiple premature ventricular complexes Chief Complaint PAIN/SWELLING OF LEF T LOWER EXTREMITY left shoulder/arm pain Chief Complaint palpations, chest pa in Chief Complaint palpations, chest pa in PESSARY CHECK PCI w/coronary stenting Reason for Visit 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 Admit Date PESSARY CHECK October 10, 2024 10:2 1am 6 M FU December 14, 2024 8:31 am Reason for Visit Admit Date Cystocele October 10, 2024 10:2 1am Pessary maintenance October 10, 2024 10:2 1am Atherosclerosis of coronary artery of [place] heart without angina pectoris December 14, 2024 8:31am History of coronary artery stent placeme nt December 14, 2024 8:31am Hyperlipidemia December 14, 2024 8:31 am Hypertension December 14, 2024 8:31 am Chief Complaint Admit Date PESSARY CHECK October 10, 2024 10:2 1am 6 M FU December 14, 2024 8:31 am E ORDERS December 14, 2024 9:35 am Chief Complaint Admit Date 6 M FU December 14, 2024 8:31 am E ORDERS December 14, 2024 9:35 am 4 M pessary check March 01, 2025 9: 13am Reason for Visit Admit Date Atherosclerosis of coronary artery of [place] heart without angina pectoris December 14, 2024 8:31am History of coronary artery stent placeme nt December 14, 2024 8:31am Hyperlipidemia December 14, 2024 8:31 am Hypertension December 14, 2024 8:31 am Cystocele March 01, 2025 9: 13am Pessary maintenance March 01, 2025 9: 13am Family History No Family History Records Found Relationship Condition Age at Onset Recorded Date/T cesario mother Malignant neoplasm of colon Unknown father Myocardial infarction 61 brother Hypertension Unknown Myocardial infarction Unknown sister Coronary artery disease 56 History of coronary artery bypass surgery Unknown son Mitral valve prolapse Unknown sister Coronary artery disease 67 Summary Purpose Additional Source Comments Source Comments (unrecognize d section and content) In the event this informatio n is protected by the Federal Confidentiality of Alcohol and Drug Abuse Patient Records regulations: The Federal rules restrict any use of the information to criminally investigate or prosecute any alcohol or drug abuse patient.[facility] the event this information is protected by the Federal Confidentiality of Alcohol and Drug Abuse Patient Records regulations: The Federal rules restrict any use of the information to criminally investigate or prosecute any alcohol or drug abuse patient.[facility] HospitalIn the event this information is protected by the Federal Confidentiality of Alcohol and Drug Abuse Patient Records regulations: The Federal rules restrict any use of the information to criminally investigate or prosecute any alcohol or drug abuse patient.[facility] HospitalIn the event this information is protected by the Federal Confidentiality of Alcohol and Drug Abuse Patient Records regulations: The Federal rules restrict any use of the information to criminally investigate or prosecute any alcohol or drug abuse patient.[facility] HospitalIn the event this information is protected by the Federal Confidentiality of Alcohol and Drug Abuse Patient Records regulations: The Federal rules restrict any use of the information to criminally investigate or prosecute any alcohol or drug abuse patient.[facility] HospitalIn the event this information is protected by the Federal Confidentiality of Alcohol and Drug Abuse Patient Records regulations: The Federal rules restrict any use of the information to criminally investigate or prosecute any alcohol or drug abuse patient.[facility] HospitalIn the event this information is protected by the Federal Confidentiality of Alcohol and Drug Abuse Patient Records regulations: The Federal rules restrict any use of the information to criminally investigate or prosecute any alcohol or drug abuse patient.[facility] HospitalIn the event this information is protected by the Federal Confidentiality of Alcohol and Drug Abuse Patient Records regulations: The Federal rules restrict any use of the information to criminally investigate or prosecute any alcohol or drug abuse patient.[facility] HospitalIn the event this information is protected by the Federal Confidentiality of Alcohol and Drug Abuse Patient Records regulations: The Federal rules restrict any use of the information to criminally investigate or prosecute any alcohol or drug abuse patient.[facility] Hospital[facility] the event this information is protected by the Federal Confidentiality of Alcohol and Drug Abuse Patient Records regulations: The Federal rules restrict any use of the information to criminally investigate or prosecute any alcohol or drug abuse patient.[facility] HospitalIn the event this information is protected by the Federal Confidentiality of Alcohol and Drug Abuse Patient Records regulations: The Federal rules restrict any use of the information to criminally investigate or prosecute any alcohol or drug abuse patient.[facility] HospitalIn the event this information is protected by the Federal Confidentiality of Alcohol and Drug Abuse Patient Records regulations: The Federal rules restrict any use of the information to criminally investigate or prosecute any alcohol or drug abuse patient.[facility] HospitalIn the event this information is protected by the Federal Confidentiality of Alcohol and Drug Abuse Patient Records regulations: The Federal rules restrict any use of the information to criminally investigate or prosecute any alcohol or drug abuse patient.[facility] HospitalIn the event this information is protected by the Federal Confidentiality of Alcohol and Drug Abuse Patient Records regulations: The Federal rules restrict any use of the information to criminally investigate or prosecute any alcohol or drug abuse patient.[facility] HospitalIn the event this information is protected by the Federal Confidentiality of Alcohol and Drug Abuse Patient Records regulations: The Federal rules restrict any use of the information to criminally investigate or prosecute any alcohol or drug abuse patient.[facility] HospitalIn the event this information is protected by the Federal Confidentiality of Alcohol and Drug Abuse Patient Records regulations: The Federal rules restrict any use of the information to criminally investigate or prosecute any alcohol or drug abuse patient.[facility] HospitalIn the event this information is protected by the Federal Confidentiality of Alcohol and Drug Abuse Patient Records regulations: The Federal rules restrict any use of the information to criminally investigate or prosecute any alcohol or drug abuse patient.[facility] HospitalIn the event this information is protected by the Federal Confidentiality of Alcohol and Drug Abuse Patient Records regulations: The Federal rules restrict any use of the information to criminally investigate or prosecute any alcohol or drug abuse patient.[facility] HospitalIn the event this information is protected by the Federal Confidentiality of Alcohol and Drug Abuse Patient Records regulations: The Federal rules restrict any use of the information to criminally investigate or prosecute any alcohol or drug abuse patient.[facility] HospitalIn the event this information is protected by the Federal Confidentiality of Alcohol and Drug Abuse Patient Records regulations: The Federal rules restrict any use of the information to criminally investigate or prosecute any alcohol or drug abuse patient.[facility] HospitalIn the event this information is protected by the Federal Confidentiality of Alcohol and Drug Abuse Patient Records regulations: The Federal rules restrict any use of the information to criminally investigate or prosecute any alcohol or drug abuse patient.[facility] HospitalIn the event this information is protected by the Federal Confidentiality of Alcohol and Drug Abuse Patient Records regulations: The Federal rules restrict any use of the information to criminally investigate or prosecute any alcohol or drug abuse patient.[facility] Reason for Visit (unrecogniz ed section and content) Reason Comments Medicare Wellness Exam exam Reason Onset Date Comments Refill Request 10/08/2022 Reason Comments Yearly Exam Annual Exam Reason Comments Covid Positive Reason Comments left ear pain X 5 days Reason Comments Chest Pain Patient c/o cp that started about 2 hours ago, ems administered 2 nitro tabs and nitro paste, also gave 324 ASA, patient denies cp on arrival, denies sob/dizziness, AAOX4 Specialty Diagnoses / Procedures Referred By Matteo t Referred To Contact Diagnoses Chest pain Procedures NA David Mayer, DO [address] [address] [facility] [address] [place] [address] Referral ID Status Reason Start Date Expiration Date Visits Re quested Visits Authorized [id number] 1 1 Reason Comments 1 week follow up Reason Onset Date Comments cardiac rehab 10/14/2023 Reason Comments Follow-up Hosp Reason Comments Acute Visit cough for 3 weeks Reason Comments Cough Reason Comments bruised lower left leg x 10 days Reason Onset Date Comments Refill Request 12/16/2023 Reason Comments Recheck 6 month follow up Reason Onset Date Comments Population Health Navigation Outreach [facility]20[facility] Reason Comments nagging cough and runny nose x 1 week Reason Comments Medicare Wellness Exam Reason Comments New Patient Specialty Diagnoses / Procedures Referred By Contac t Referred To Contact Vascular Surgery Diagnoses Varicose veins of both lower extremities with pain Procedures CONSULT TO VASCULAR SURGERY OFFICE/OUTPATIENT [facility] 60 MINUTES Coleen Barrera MD [address] [place] [address] Phone: tel: fax: Referral ID Status Reason Start Date Expiration Date V isits Requested Visits Authorized [id number] Closed PCP Requested Referral 01/17/2025 01/17/2026 1 1 Reason Comments Refill Request Reason Comments Established Patient Reason Comments F/U 1 month Care Teams (unrecognized sec tion and content) Project Controller Relationship Specialty Start Date End Date Coleen Barrera MD [address] [place] [address] PCP - General Internal Medicine 07/01/16 Team Status: Active Member Role Status Dates Dr. Coleen Barrera MD Family Provider Active Dr. Coleen Barrera MD Primary Care Provider Active Team Status: Active Member Role Status Dates Dr. Coleen Barrera MD Primary Care Provider Active Dr. Luis Cuevas MD Attending Provider Active Ariana Paulino ARTIST CONSULTANT, ARTIST CONSULTANT-C Referring Provider Active Team Status: Inactive Member Role Status Dates Dr. Coleen Barrera MD Primary Care Provider Active Ariana Paulino ARTIST CONSULTANT, ARTIST CONSULTANT-C Attending Provider, Referring P marilyn Active Team Status: Inactive Member Role Status Dates Dr. Coleen Barrera MD Primary Care Provider Active Dr. Rob Rdz MD Emergency Provider Active Project Controller Relationship Specialty Start Date End Date Coleen Barrera MD [address] [facility] [place] [address] PCP - General Internal Medicine 07/01/16 Project Controller Relationship Specialty Start Date End Date Coleen Barrera MD [address] [facility] [place] [address] PCP - General Internal Medicine 07/01/16 Project Controller Relationship Specialty Start Date End Date Coleen Barrera MD [address] [facility] [place] [address] PCP - General Internal Medicine 07/01/16 Project Controller Relationship Specialty Start Date End Date Coleen Barrera MD [address] [facility], [place] [address] PCP - General Internal Medicine 07/01/16 Team Status: Active Member Role Status Dates Dr. Coleen Barrera MD Primary Care Provider Active Gillian JAIME PA Attending Provider, Referr ing Provider Active Team Status: Inactive Member Role Status Dates Dr. Coleen Barrera MD Primary Care Provider Active Dr. Luis Cummings DO Emergency Provider Active Project Controller Relationship Specialty Start Date End Date Physician, No Pcp PCP - General 10/08/23 Project Controller Relationship Specialty Start Date End Date Physician, No Pcp PCP - General 10/08/23 Team Status: Inactive Member Role Status Dates Dr. Coleen Barrera MD Primary Care Provider Active Gillian JAIME, PA Attending Provider, Referr ing Provider Active Project Controller Relationship Specialty Start Date End Date Coleen Barrera MD [address] [facility], [place] [address] PCP - General Internal Medicine 07/01/16 Project Controller Relationship Specialty Start Date End Date Physician, No Pcp PCP - General 10/08/23 Project Controller Relationship Specialty Start Date End Date Coleen Brarera MD [address] [facility] [place] [address] PCP - General 10/20/23 Project Controller Relationship Specialty Start Date End Date Coleen Barrera MD [address] [facility] [place] [address] PCP - General Internal Medicine 07/01/16 Team Status: Inactive Member Role Status Dates Dr. Coleen Barrera MD Primary Care Provider, Referring Provider Active Theresa Flowers ARTIST CONSULTANT, ARTIST CONSULTANT-C Attending Provider Active Team Status: Active Member Role Status Dates Dr. Coleen Barrera MD Primary Care Provider Active Dr. El Ron MD Attending Provider Active Team Status: Inactive Member Role Status Dates Dr. Coleen Barrera MD Primary Care Provider Active Dr. El Ron MD Attending Provider, Referring Pro vider Active Team Status: Inactive Member Role Status Dates Dr. Coleen Barrera MD Primary Care Provider Active Dr. Luis Cummings DO Attending Provider, Emergency P marilyn Active Project Controller Relationship Specialty Start Date End Date Coleen Barrera MD [address] [facility] [place] [address] PCP - General Internal Medicine 07/01/16 Project Controller Relationship Specialty Start Date End Date Coleen Barrera MD [address] [place] [address] PCP - General Internal Medicine 07/01/16 Project Controller Relationship Specialty Start Date End Date Coleen Barrera MD [address] [facility] [place] [address] PCP - General Internal Medicine 07/01/16 Project Controller Relationship Specialty Start Date End Date Coleen Barrera MD [address] [facility] [place], [place] [address] PCP - General Internal Medicine 07/01/16 Project Controller Relationship Specialty Start Date End Date Coleen Barrera MD [address] [facility] [place] [address] PCP - General Internal Medicine 07/01/16 Team Status: Active Member Role Status Dates Dr. Coleen Barrera MD Primary Care Provider Active Team Status: Inactive Member Role Status Dates Dr. Coleen Barrera MD Primary Care Provider Active Start: October 10, 2024 End: October 10, 2024 Dr. Coleen Barrera MD Referring Provider Active Start: October 10, 2024 End: October 10, 2024 Theresa Flowers ARTIST CONSULTANT, ARTIST CONSULTANT-C Attending Provider Active Start: October 10, 2024 End: October 10, 2024 Team Status: Inactive Member Role Status Dates Dr. Coleen Barrera MD Primary Care Provider Active Start: December 14, 2024 End: December 14, 2024 Dr. Coleen Barrera MD Referring Provider Active Start: December 14, 2024 End: December 14, 2024 Gillian JAIME, PA Attending Provider Active Start: December 14, 2024 End: December 14, 2024 Team Status: Inactive Member Role Status Dates Dr. Coleen Barrera MD Primary Care Provider Active Start: December 14, 2024 End: December 14, 2024 Gillian JAIME, PA Attending Provider Active Start: December 14, 2024 End: December 14, 2024 Gillian Fernandez PA, PA Referring Provider Active Start: December 14, 2024 End: December 14, 2024 Project Controller Relationship Specialty Start Date End Date Coleen Barrera MD [address] [facility] [place] [id number] PCP - General Internal Medicine 07/01/16 Kaity Matt APRN.CNP [address] [facility] [place] [id number] Financial Accounting Manager Internal Medicine 06/12/24 Project Controller Relationship Specialty Start Date End Date Coleen Barrera MD [address] [place] [address] PCP - General Internal Medicine 07/01/16 Kaity Matt APRN.SSIS SSRS DEVELOPER [address] [facility] [place] [address] Financial Accounting Manager Internal Medicine 06/12/24 Project Controller Relationship Specialty Start Date End Date Coleen Barrera MD [address] [place] [address] PCP - General Internal Medicine 07/01/16 Kaity Matt APRN.SSIS SSRS DEVELOPER [address] [facility] [place] [address] Financial Accounting Manager Internal Medicine 06/12/24 Project Controller Relationship Specialty Start Date End Date Coleen Barrera MD [address] [place] [address] PCP - General Internal Medicine 07/01/16 Kaity Matt APRN.SSIS SSRS DEVELOPER [address] [facility] [place] [address] Financial Accounting Manager Internal Medicine 06/12/24 Project Controller Relationship Specialty Start Date End Date Coleen Barrera MD [address] [facility] [place] [address] PCP - General Internal Medicine 07/01/16 Kaity Matt APRN.SSIS SSRS DEVELOPER [address] [facility] [place] [address] [facility] Internal [facility] 06/12/24 Project Controller Relationship Specialty Start Date End Date Coleen Barrera MD [address] [place], [place] [address] PCP - General Internal Medicine 07/01/16 Kaity Matt APRN.SSIS SSRS DEVELOPER [address] [place], [place] [address] [facility] 06/12/24 Team Status: Active Member Role/Relationship Status Dates Dr. Coleen Barrera MD Primary Care Provider Active Team Status: Inactive Member Role/Relationship Status Dates Dr. Coleen Barrera MD Primary Care Provider Active Start: December 14, 2024 End: December 14, 2024 Dr. Coleen Barrera MD Referring Provider Active Start: December 14, 2024 End: December 14, 2024 Gillian JAIME PA Attending Provider Active Start: December 14, 2024 End: December 14, 2024 Team Status: Inactive Member Role/Relationship Status Dates Dr. Coleen Barrera MD Primary Care Provider Active Start: December 14, 2024 End: December 14, 2024 Gillian JAIME PA Attending Provider Active Start: December 14, 2024 End: December 14, 2024 Gillian JAIME PA Referring Provider Active Start: December 14, 2024 End: December 14, 2024 Team Status: Inactive Member Role/Relationship Status Dates Dr. Coleen Barrera MD Primary Care Provider Active Start: March 01, 2025 End: March 01, 2025 Dr. 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 Goals (unrecognized section and content) Goals may be documented in a n alternate sectionGoals may be documented in an alternate sectionGoals may be documented in an alternate sectionGoals may be documented in an alternate sectionGoals may be documented in an alternate sectionGoals may be documented in an alternate sectionGoals may be documented in an alternate sectionGoals may be documented in an alternate section Ordered Prescriptions (unrec ognized section and content) Prescription Sig Dispensed Refills Start Date End Da te clopidogreL (PLAVIX) 75 mg tablet Take 1 tablet (75 mg total) by mouth 1 (one) time each day. 30 each 10/11/2023 10/10/2024 atorvastatin (LIPITOR) 40 mg tablet Take 1 tablet (40 mg total) by mouth at bedtime. 30 each 10/10/2023 aspirin 81 mg EC tablet Take 1 tablet (81 mg total) by mouth 1 (one) time each day. 30 each 10/11/2023 clopidogreL (PLAVIX) 75 mg tablet Take 1 tablet (75 mg total) by mouth 1 (one) time each day. 30 each 10/11/2023 10/10/2023 atorvastatin (LIPITOR) 40 mg tablet Take 1 tablet (40 mg total) by mouth at bedtime. 30 each 10/10/2023 10/10/2023 aspirin 81 mg EC tablet Take 1 tablet (81 mg total) by mouth 1 (one) time each day. 30 each 10/11/2023 10/10/2023 Prescription Sig Dispensed Refills Start Date End Da te clopidogreL (PLAVIX) 75 mg tablet Take 1 tablet (75 mg total) by mouth 1 (one) time each day. 90 each 10/20/2023 10/19/2024 atorvastatin (LIPITOR) 40 mg tablet Take 1 tablet (40 mg total) by mouth at bedtime. 90 each 10/20/2023 nitroglycerin (NITROSTAT) 0.[address] 1 tablet (0.4 mg total) under the tongue every 5 (five) minutes if needed for chest pain. May repeat dose every 5 minutes for up to 3 doses total. 30 tablet 3 10/20/2023 10/19/2024 Scheduled Active and Recently Administ ered Medications (unrecognized section and content) Medication Order 10/08/2023 10/09/2023 10/10/2023 acetaminophen (TYLENOL) tablet 1,000 mg (COMPLETED) 1,000 mg, oral, Once, On Thu10/09/23 at 0800, For 1 dose 0831 (Given - Provider: Macro Valencia RN) acetaminophen (TYLENOL) tablet 1,000 mg 1,000 mg, oral, Daily, First dose on 10/10/23 at 0900 0825 (Given - Provider: Isma Alan RN) acetaminophen (TYLENOL) tablet 650 mg (COMPLETED) 650 mg, oral, Once, On Carissa 10/08/23 at 2107, For 1 dose 220 (Given - Provider: Shireen Mcduffie RN) amLODIPine (NORVASC) tablet 5 mg 5 mg, oral, Daily, First dose on Thu10/09/23 at 0900 0831 (Given - Provider: Marco Valencia RN) 0825 (Given - Provider: Isma Alan RN) aspirin chewable tablet 324 mg (CANCELED) 324 mg, oral, Daily, First dose (after last reorder) on Thu10/09/23 at 0900 0831 (Given - Provider: Marco Valencia RN) aspirin EC tablet 81 mg 81 mg, oral, Daily, First dose on 10/10/23 at 0900, Do not crush, chew, or split. 0826 (Given - Provider: Isma Alan RN) atorvastatin (LIPITOR) tablet 10 mg (CANCELED) 10 mg, oral, Nightly, First dose on Carissa 10/08/23 at 2330 2356 (Given - Provider: Shireen Mcduffie RN) atorvastatin (LIPITOR) tablet 40 mg 40 mg, oral, Nightly, First dose (after last modification) on Thu10/09/23 at 2100 2109 (Given - Provider: Belle Ayon RN) clopidogreL (PLAVIX) tablet 75 mg 75 mg, oral, Daily, First dose on 10/10/23 at 0900 0825 (Given - Provider: Isma Alan, LIZETT) enoxaparin (LOVENOX) injection 30 mg 30 mg, subcutaneous, Every 24 hours scheduled, First dose on Thu10/09/23 at 0900, Indication: VTE/PE Prophylaxis 0830 (Given - Provider: Marco Valencia, LIZETT) 0826 (Given - Provider: Isma Alan, RN) predniSONE (DELTASONE) tablet 30 mg 30 mg, oral, Daily, First dose on Thu10/10/23 at 0900 0825 (Given - Provider: Isma Alan, LIZETT) predniSONE (DELTASONE) tablet 40 mg (COMPLETED) 40 mg, oral, Once, On Thu10/09/23 at 1830, For 1 dose 1845 (Given - Provider: Sobia Leach, LIZETT) Continuous Medication Order 10/08/2023 10/09/2023 10/10/2023 sodium chloride 0.9 % infusion (CANCELED) 50 mL/hr, intravenous, Continuous, Starting on Thu10/09/23 at 1600, Recovery & On Unit 1500 (Restarted - Provider: Sobia Leach, RN) PRN Medication Order 10/08/2023 10/09/2023 10/10/2023 acetaminophen (TYLENOL) tablet 500 mg 500 mg, oral, Every 6 hours PRN, mild pain, Starting on Thu10/09/23 at 1515 1802 (Given - Provider: Sobia Leach, LIZETT) 0344 (Given - Provider: Belle Ayon RN) clopidogreL (PLAVIX) tablet (CANCELED) As needed, Starting on Thu10/09/23 at 1458, Intraprocedure 1458 (Given - Provider: Mona Stuart, LIZETT) fentaNYL (PF) (SUBLIMAZE) injection (CANCELED) As needed, Starting on Thu10/09/23 at 1424, Intraprocedure 1424 (Given - Provider: Mona Stuart, LIZETT)1427 (Given - Provider: Mona Stuart, LIZETT)1440 (Given - Provider: Mona Stuart, LIZETT) heparin (UFH) injection (CANCELED) As needed, Starting on Thu10/09/23 at 1432, Intraprocedure 1432 (Given - Provider: Monadiony Stuart RN)1452 (Given - Provider: Mona Stuart RN) iopamidoL (ISOVUE-370) 370 mg iodine /mL (76 %) injection (CANCELED) As needed, Starting on Thu10/09/23 at 1500, Intraprocedure 1500 (Given - Provider: Kei Magallon MD) lidocaine (XYLOCAINE) 2 % injection (CANCELED) As needed, Starting on Thu10/09/23 at 1427, Intraprocedure 1427 (Given - Provider: Kei Magallon MD) midazolam (VERSED) injection (CANCELED) As needed, Starting on Thu10/09/23 at 1424, Intraprocedure 1424 (Given - Provider: Mona Stuart RN)1433 (Given - Provider: Mona Stuart RN) nitroglycerin (NITROSTAT) SL tablet 0.4 mg 0.4 mg, sublingual, Every 5 min PRN, chest pain, Starting on Carissa 10/08/23 at 2111, Give every 5 minutes as needed for chest pain to a maximum of 3 doses. Notify MD to obtain an order for an EKG if no relief after 3 doses or chest pain recurs. HOLD and notify MD if SBP less than 90 mmHg. Do not give if nitroglycerin infusion running concurrently. Do not give within 24 hours of sildenafil citrate (Viagra) or vardenafil (Levitra) use, or within 48 hours of tadalafil (Cialis) use. nitroglycerin (TRIDIL) bolus 200 mcg/mL (CANCELED) As needed, Starting on Thu10/09/23 at 1429, Intraprocedure 1429 (Given - Provider: Kei Magallon MD)1433 (Given - Provider: Kei Magallon MD)1451 (Given - Provider: Kei Magallon MD) ondansetron (PF) (ZOFRAN) injection 4 mg(Linked Group 1) 4 mg, intravenous, Every 8 hours PRN, vomiting, nausea, Starting on Thu10/09/23 at 1518, -ONLY give IV if patient is unable to take orally. -If inadequate response within 30 minutes, proceed to next-line agent or contact provider if no further options ordered. 1617 (Given - Provider: Caren Peña RN) ondansetron ODT (ZOFRAN-ODT) disintegrating tablet 4 mg(Linked Group 1) 4 mg, oral, Every 8 hours PRN, vomiting, nausea, Starting on Thu10/09/23 at 1518, -Give IV if patient is unable to take orally. -If inadequate response within 30 minutes, proceed to next-line agent or contact provider if no further options ordered. For ODT tablets: -Do not remove from blister pack until just before administering. -Patient should allow tablet to dissolve on tongue. 1617 (See Alternative - Provider: Caren Peña RN) polyethylene glycol (MIRALAX) packet 17 g 17 g, oral, Daily PRN, constipation, Starting on Thu10/09/23 at 1518 verapamiL (ISOPTIN) injection (CANCELED) As needed, Starting on Thu10/09/23 at 1429, Intraprocedure 1429 (Given - Provider: Kei Magallon MD)1435 (Given - Provider: Kei Magallon MD) Linked Groups Order Group 1: ondansetron ODT (ZOFRAN-ODT) disintegrating tablet 4 mgJump to med 4 mg, oral, Every 8 hours PRN, vomiting, nausea, Starting on Thu10/09/23 at 1518
-Give IV if patient is unable to take orally. -If inadequate response within 30 minutes, proceed to next-line agent or contact provider if no further options ordered. For ODT tablets: -Do not remove from blister pack until just before administering. -Patient should allow tablet to dissolve on tongue.
Or ondansetron (PF) (ZOFRAN) injection 4 mgJump to med 4 mg, intravenous, Every 8 hours PRN, vomiting, nausea, Starting on Thu10/09/23 at 1518
-ONLY give IV if patient is unable to take orally. -If inadequate response within 30 minutes, proceed to next-line agent or contact provider if no further options ordered.
INFORMATION SOURCE (unrecogn ized section and content) DATE CREATED AUTHOR [facility] DATE CREATED AUTHOR AUTHOR'S ORGANIZ ATION 03/03/2025 [facility] DATE CREATED AUTHOR AUTHOR'S BROWN ATION 03/14/2025 [facility] FOR RECORDS PERTAINING TO PATIENTS WHO ARE OR HAVE BEEN ENROLLED IN A CHEMICAL DEPENDENCY/SUBSTANCEABUSE PROGRAM, SOME INFORMATION MAY BE OMITTED. This clinical summary was aggregated from multiple sources. Caution should be exercised in using it in the provision of clinical care. This summary normalizes information from multiple sources, and as a consequence, information in this document may materially change the coding, format and clinical context of patient data. In addition, data may be omitted in some cases. CLINICAL DECISIONS SHOULD BE BASED ON THE PRIMARY CLINICAL RECORDS. [employer] [facility]. provides no warranty or guarantee of the accuracy or completeness of information in this document.
[2025-06-16 08:39] LABS: AST(SGOT) 30 U/L (<=31); Alanine Aminotransfer ALT/SGPT 20 U/L (<=34); Albumin, Serum 4.2 g/dL (3.4-4.8); Alkaline Phosphatase 63 U/L (35-104); Anion Gap 8 (5-15); BUN 15 mg/dL (4-19); BUN/Creat Ratio 24.4 RATIO (10-20); Calcium,Total 9.6 mg/dL (7.6-11.0); Carbon Dioxide 26.8 mmol/L (21.0-32.0); Chloride 104 mmol/L (98-108); Cholesterol 281 mg/dL (<=200); Globulin 3.1 g/dL (2.2-4.2); Glucose 91 mg/dL (70-99); Low Density Lipoprotein Calc. 173 mg/dL; Potassium 4.0 mmol/L (3.3-5.1); Triglycerides 153 mg/dL; Very Low Density Lipoprotein 31 mg/dL (5-40); cholesterol:hdl ratio screen 3.49
== END | disposition home or self-care (01) ==
PROVIDERS: PCP Internal Medicine; Referring Provider Physician Assistant Medical; Visit Provider Physician Assistant Medical
DX: E78.00 Pure hypercholesterolemia, unspecified (principal); I25.10 Atherosclerotic heart disease of native coronary artery without angina pectoris; Z95.5 Presence of coronary angioplasty implant and graft
CPT/HCPCS: 36415; 80053; 80061